=== PATIENT | male | born 1955 | race Caucasian/White ===

== ENCOUNTER → 2016-10-28 | Outpatient (CLI) | payer BC ==
[~2016-10-28] MED LIST: ASPI-435 PO; ATOR-22 PO; CIPR-255 PO; COEN1CAP17 PO; CYAN100T6 PO; DICL-201 PO; DIPH-437 PO; FLUO20CA35 PO; GLC500 PO; INSDGIPEN SC; INSDGIPEN SQ; INSU32MI13 SQ; LISI-461 PO; METF-384 PO; NVLG SQ; NVLGI/PEN SQ; SIMV10TA2 PO; TOPI25TA55 PO
--- NOTE | 2016-10-28 12:05 | DIAGNOSTIC IMAGING REPORT ---
CHEST 2 VIEWS ROUTINE HISTORY: SARCOIDOSIS COMPARISON: Chest 10/17/2013. FINDINGS: The lungs are clear. Cardiac silhouette is normal in size. No pleural effusions. No pneumothorax. Symmetric nodular densities at the lung bases are consistent with nipple shadows. This remains unchanged. There are 2 screws within the right shoulder. IMPRESSION: No acute process. Electronically signed by: Yoav Hooks M.D. 10/28/2016 12:04 PM Dictated Date/Time: 10/28/2016 12:02 PM
[2016-10-28 12:09] LABS: BASO % 0.2 %; BASO ABS # 0.01 K/uL (0-0.2); COMPLETE YES; EOS % 1.3 %; HEMATOCRIT 38.3 % (42-52); IG% 0.2 %; LYMPH % 35.1 %; LYMPH ABS # 1.93 K/uL (1.2-3.4); MEAN CELL VOLUME 85.5 fL (80-100); MEAN CORPUSCULAR HEMOGLOBIN 30.8 pg (25-34); MEAN PLATELET VOLUME 8.8 fL (7.4-10.4); MONO % 6.7 %; NEUT % 56.5 %; PLATELET COUNT 244 K/uL (130-400); RED BLOOD COUNT 4.48 M/uL (4.7-6.1)
[2016-10-28 13:55] LABS: LYME DISEASE AB IGG NEG (NEG)
[2016-10-28 13:56] LABS: LYME DISEASE AB IGM NEG (NEG)
[2016-10-29 00:13] LABS: RAPID PLASMA REAGIN NONREACTIVE (NONREACT)
[2016-10-31 20:24] LABS: HLA-B27** TC 528X NEGATIVE (NEGATIVE)
== END | disposition home or self-care (01) ==
LOC: C.RAD 11:14
PROVIDERS: ATTEND Ophthalmology
DX: H15.109 Unspecified episcleritis, unspecified eye (principal); D86.9 Sarcoidosis, unspecified

== ENCOUNTER 2017-05-14 00:50 | Emergency (ER) | payer BC ==
[~2017-05-14] VITALS: Ht 185.4 cm; Wt 111.0 kg
[~2017-05-14 00:50] MED LIST changes: -ATOR-22 PO; -COEN1CAP17 PO; -CYAN100T6 PO; -DICL-201 PO; -INSDGIPEN SC; -METF-384 PO; -NVLG SQ
[2017-05-14 00:54] VITALS: TEMP 37; Ht 185.4 cm; Wt 111.0 kg
--- NOTE | 2017-05-14 01:13 | EMERGENCY ROOM VISIT NOTE ---
History Report prepared by Pam: Sun Gagnon Under the Supervision of: Dr. Nohemi Chávez D.O. First contact with patient: 01:00 Chief Complaint: SHORTNESS OF BREATH Stated Complaint: POSSIBLE BROKEN RIBS, SOB History of Present Illness The patient is a 61 year old male who presents to the Emergency Room with complaints of worsening shortness of breath beginning 3 days ago. The patient states that 5 days ago, he had a sinus infection and was placed on doxycycline. Beginning 3 days ago, the patient reports having severe coughing attacks. Today , he reports that he has not been coughing as much, but that it is painful when he does need to cough, as he believes that he has a broken rib. He also reports that the pain has radiated to his shoulders and back. The patient denies having abdominal pain, but states that tonight he noticed discoloration on his left flank. The patient states that he takes baby aspirin daily for his diabetes. He indicates that his drive to [place] and back yesterday was his only recent travel. Source of History: patient Onset: 3 days ago Position: other (global) Quality: other (shortness of breath ) Timing: worsening Associated Symptoms: + cough, + back pain, No abdominal pain Note: additional symptom: discoloration on his right flank Review of Systems See HPI for pertinent positives & negatives. A total of 10 systems reviewed and were otherwise negative. Past Medical & Surgical Medical Problems: (1) Diabetes Surgical Problems: (1) History of appendectomy (2) History of cholecystectomy Family History Diabetes mellitus FH: cancer FH: gallbladder disease FH: heart disease Social History Smoking Status: Never Smoker Marital Status: Housing Status: lives with family Occupation Status: employed Current/Historical Medications Scheduled Aspirin (Aspirin 81), 81 MG PO DAILY Atorvastatin (Lipitor), 20 MG PO DAILY Coenzyme Q10 (Ubidecarenone) (Co Q 10), 1,000 MG PO DAILY Cyanocobalamin (Vitamin B12 100 Mcg), 400 MCG PO DAILY Diclofenac (Voltaren), 75 MG PO BID Fluoxetine (Prozac), 20 MG PO QAM Insulin Aspart (Novolog), SQ AC Insulin Glargine (Lantus Solostar), 40 UNITS SC QPM Lisinopril (Zestril), 10 MG PO QAM Metformin Hcl (Glucophage), 1,000 MG PO BID Topiramate (Topamax), 25 MG PO BID Allergies Coded Allergies: BEE STING (Verified Allergy, Severe, SWELLING,SOB, 02/26/15) Penicillins (Verified Allergy, Unknown, unknown, 02/26/15) Physical Exam Vital Signs Date Time Temp Pulse Resp B/P (MAP) Pulse Ox O2 Delivery O2 Flow Rate FiO2 05/14/17 02:05 106 13 119/73 96 Room Air 05/14/17 01:45 97 Room Air 05/14/17 01:40 116 17 117/70 96 Room Air 05/14/17 01:40 97 Room Air 05/14/17 00:54 37.0 126 32 119/72 96 Room Air Physical Exam General: Patient is significantly tachypneic and uncomfortable. HEENT: Head - normocephalic and atraumatic Pupils are equal, round, and reactive to light. Extraocular eye muscles are intact, and sclera are anicteric. Nose - moist nasal mucosa without discharge. Mouth - moist buccal mucosa. Oropharynx is nonerythematous and there is no tonsillar exudate or edema noted. Neck: Supple; no JVD, nuchal rigidity, cervical lymphadenopathy, or auscultated bruits. Heart: Tachycardic and regular rhythm. There is a normal S1 and S2 with no murmurs, clicks, or gallops appreciated. Lungs: Clear to auscultation bilaterally with no wheezes, rales, or rhonchi. Chest: Ecchymosis over left mid-axillary line. Abdomen: Soft, completely nontender, nondistended, with good bowel sounds. There are no palpable pulsatile masses or hepatosplenomegaly. There is no guarding, rigidity, or rebound noted. Extremities: No evidence of cyanosis, clubbing, or edema. There are easily palpable peripheral pulses. Skin: warm and dry with good turgor and no rashes. Medical Decision & Procedures ER Provider Diagnostic Interpretation: Portable Chest X-ray: No cardiomegaly. No obvious pneumothorax. Radiology results as stated below per statrad. CTA CHEST: No pulmonary embolus identified. Small left pleural effusion. Dependent atelectasis bilaterally. Screws noted in the right glenoid. Degenerative changes of the right shoulder. No acute fractures. Coronary artery calcifications. Mild bilateral gynecomastia. Left renal cysts. Tiny splenule. Thin peripheral calcification in the spleen. Laboratory Results 05/14/17 01:20 Red Blood Count 4.30, Mean Corpuscular Volume 87.9, Mean Corpuscular Hemoglobin 30.9, Mean Corpuscular Hemoglobin Concent 35.2, Mean Platelet Volume 8.9, Neutrophils (%) (Auto) 68.4, Lymphocytes (%) (Auto) 22.4, Monocytes (%) (Auto) 7.3, Eosinophils (%) (Auto) 0.8, Basophils (%) (Auto) 0.2, Neutrophils # (Auto) 8.52, Lymphocytes # (Auto) 2.79, Monocytes # (Auto) 0.91, Eosinophils # (Auto) 0.10, Basophils # (Auto) 0.02 05/14/17 01:20 Test 05/14/17 01:20 White Blood Count 12.45 K/uL (4.8-10.8) Red Blood Count 4.30 M/uL (4.7-6.1) Hemoglobin 13.3 g/dL (14.0-18.0) Hematocrit 37.8 % (42-52) Mean Corpuscular Volume 87.9 fL (80-100) Mean Corpuscular Hemoglobin 30.9 pg (25-34) Mean Corpuscular Hemoglobin Concent 35.2 g/dl (32-36) Platelet Count 288 K/uL (130-400) Mean Platelet Volume 8.9 fL (7.4-10.4) Neutrophils (%) (Auto) 68.4 % Lymphocytes (%) (Auto) 22.4 % Monocytes (%) (Auto) 7.3 % Eosinophils (%) (Auto) 0.8 % Basophils (%) (Auto) 0.2 % Neutrophils # (Auto) 8.52 K/uL (1.4-6.5) Lymphocytes # (Auto) 2.79 K/uL (1.2-3.4) Monocytes # (Auto) 0.91 K/uL (0.11-0.59) Eosinophils # (Auto) 0.10 K/uL (0-0.5) Basophils # (Auto) 0.02 K/uL (0-0.2) RDW Standard Deviation 47.5 fL (36.4-46.3) RDW Coefficient of Variation 15.0 % (11.5-14.5) Immature Granulocyte % (Auto) 0.9 % Immature Granulocyte # (Auto) 0.11 K/uL (0.00-0.02) Prothrombin Time 10.3 SECONDS (9.0-12.0) Prothromb Time International Ratio 1.0 (0.9-1.1) Activated Partial Thromboplast Time 25.2 SECONDS (21.0-31.0) Partial Thromboplastin Ratio 1.0 Anion Gap 9.0 mmol/L (3-11) Est Creatinine Clear Calc Drug Dose 73.3 ml/min Estimated GFR () 62.8 Estimated GFR (Non- 54.2 BUN/Creatinine Ratio 20.7 (10-20) Calcium Level 8.1 mg/dl (8.5-10.1) Total Bilirubin 0.7 mg/dl (0.2-1) Aspartate Amino Transf (AST/SGOT) 26 U/L (15-37) Alanine Aminotransferase (ALT/SGPT) 36 U/L (12-78) Alkaline Phosphatase 122 U/L (45-117) Troponin I < 0.015 ng/ml (0-0.045) Total Protein 7.7 gm/dl (6.4-8.2) Albumin 3.8 gm/dl (3.4-5.0) Globulin 3.9 gm/dl (2.5-4.0) Albumin/Globulin Ratio 1.0 (0.9-2) Laboratory results per my review. Medications Administered Medications (Trade) Dose Ordered Sig/Sulma Route Start Time Stop Time Status Last Admin Dose Admin Ketorolac Tromethamine (Toradol Inj) 30 mg NOW STAT IV 05/14/17 01:17 05/14/17 01:20 DC 05/14/17 01:40 30 MG Sodium Chloride 500 ml @ 999 mls/hr Q31M STAT IV 05/14/17 02:26 05/14/17 02:56 DC 05/14/17 02:28 999 MLS/HR Sodium Chloride 1,000 ml @ 250 mls/hr Q4H STAT IV 05/14/17 02:26 05/14/17 04:40 DC 05/14/17 02:26 250 MLS/HR Procedure Toradol Inj 30 mg IV. Sodium Chloride 1,000 ml @ 250 mls/hr IV Sodium Chloride 500 ml @ 999 mls/hr IV ECG Indication: SOB/dyspnea Rate (beats per minute): 105 Rhythm: sinus tachycardia Findings: other (flattened T waves in lateral leads which are new) ED Course 0107: Past medical records reviewed. The patient was evaluated in room B12. A complete history and physical exam was performed. An IV lock was initiated and labs were drawn as above 0117: Ordered Toradol Inj 30 mg IV. The patient had a twelve-lead EKG and chest x-ray as described above. The patient will go for CT scan of the chest. 0226: Ordered Sodium Chloride 1,000 ml @ 250 mls/hr IV, Sodium Chloride 500 ml @ 999 mls/hr IV. 0330: The patient is feeling much more comfortable. 0350: Upon reevaluation, the patient is resting. I discussed findings and results with him. He verbalized agreement of the treatment plan. He was discharged home. Medical Decision The patient is a 57 year old male who presents to the ED with shortness of breath and left rib cage pain. Differential diagnosis includes rib fracture, pleural effusion, hemothorax, pneumothorax, pneumonia, and a pulmonary effusion. Labs: WBC 12.4 Hemoglobin 13.3 Normal platelets Glucose 292 BUN 29 Creatinine 1.4 LFTs are normal Negative troponin Normal coags This is a 61-year-old male patient who described as being ill over the past couple days with a significant cough. The patient states that he coughs so hard earlier in the week that he felt as if he may have broken a rib in the left side of his chest. He then noticed an area of ecchymosis over the left mid axillary line and became more concerned. CT scan the chest shows a small left-sided pleural effusion. There is no evidence of PE or pulmonary consolidation. A portable chest x-ray was performed and showed no evidence of a pneumo or hemothorax. The patient had significant relief of discomfort after receiving IV Toradol. The patient was encouraged to follow-up with his PCP with regards to the subtle EKG changes and to look for resolution of this left- sided pleural effusion. Medication Reconcilliation Current Medication List: was personally reviewed by me Blood Pressure Screening Patient's blood pressure: Normal blood pressure Impression Primary Impression: Left-sided chest wall pain Scribe Attestation The scribe's documentation has been prepared under my direction and personally reviewed by me in its entirety. I confirm that the note above accurately reflects all work, treatment, procedures, and medical decision making performed by me. Departure Information Dispostion Home / Self-Care Referrals Evan Zapata D.O. (PCP) Forms HOME CARE DOCUMENTATION FORM, IMPORTANT VISIT INFORMATION Patient Instructions My [facility]
[2017-05-14] MEDS ORDERED: KETOROLAC TROMETHAMINE 30 MG/ML VIAL IV STA (01:17)
[2017-05-14] MEDS ORDERED: OPTIRAY 320 IV PRN (01:30)
[2017-05-14 01:36] LABS: BASO % 0.2 %; BASO ABS # 0.02 K/uL (0-0.2); COMPLETE YES; EOS % 0.8 %; HEMATOCRIT 37.8 % (42-52); IG% 0.9 %; LYMPH % 22.4 %; LYMPH ABS # 2.79 K/uL (1.2-3.4); MEAN CELL VOLUME 87.9 fL (80-100); MEAN CORPUSCULAR HEMOGLOBIN 30.9 pg (25-34); MEAN CORPUSCULAR HGB CONC 35.2 g/dl (32-36); MEAN PLATELET VOLUME 8.9 fL (7.4-10.4); MONO % 7.3 %; NEUT % 68.4 %; PLATELET COUNT 288 K/uL (130-400); WHITE BLOOD COUNT 12.45 K/uL (4.8-10.8)
[2017-05-14 01:40] VITALS: O2SAT 97
[2017-05-14 01:49] LABS: PROTHROMBIN TIME (PATIENT) 10.3 SECONDS (9.0-12.0)
[2017-05-14 02:05] VITALS: BP 119/73; PULSE 106; O2SAT 96
[2017-05-14 02:11] LABS: ALKALINE PHOSPHATASE 122 U/L (45-117); AST/SGOT 26 U/L (15-37); BLOOD UREA NITROGEN 29 mg/dl (7-18); BUN/CREATININE RATIO 20.7 (10-20); CALCIUM 8.1 mg/dl (8.5-10.1); CARBON DIOXIDE 23 mmol/L (21-32); CHLORIDE 106 mmol/L (98-107); POTASSIUM 4.5 mmol/L (3.5-5.1); SODIUM 138 mmol/L (136-145)
[2017-05-14] MEDS ORDERED: METF-384 PO (02:13)
[2017-05-14] MEDS ORDERED: ATOR-22 PO (02:14)
[2017-05-14] MEDS ORDERED: DICL-201 PO (02:18)
[2017-05-14 02:19] LABS: GLUCOSE 292 mg/dl (70-99)
[2017-05-14] MEDS ORDERED: CYAN100T6 PO (02:20)
[2017-05-14] MEDS ORDERED: NVLG SQ (02:22)
[2017-05-14] MEDS ORDERED: INSDGIPEN SC (02:23)
[2017-05-14 02:24] LABS: ALT/SGPT 36 U/L (12-78)
[2017-05-14] MEDS ORDERED: SODIUM CHLORIDE 0.9% 500ML 500 ML IV STA (02:26)
[2017-05-14] MEDS ORDERED: SODIUM CHLORIDE 0.9% 1000ML 1,000 ML IV STA (02:26)
[2017-05-14] MEDS ORDERED: COEN1CAP17 PO (02:26)
--- NOTE | 2017-05-14 06:42 | DIAGNOSTIC IMAGING REPORT ---
(CHEST FOR PE) ANGIO WITH CT DOSE: 1722.53 mGy.cm HISTORY: Chest pain dyspnea TECHNIQUE: Multiaxial CT images of the chest were performed following the intravenous administration of contrast to evaluate the pulmonary arteries. Maximal intensity projection images were also obtained. A dose lowering technique was utilized adhering to the principles of ALARA. COMPARISON STUDY: None. FINDINGS: There is a normal caliber thoracic aorta with no evidence for dissection. There is no evidence for pulmonary embolus. No pleural effusions. No pneumothorax. The liver and spleen are unremarkable. No mediastinal or hilar lymphadenopathy. The central airways are patent. The lungs demonstrate bibasilar atelectatic change with a small left effusion. Small left renal cyst. Mild capsular calcification of the spleen IMPRESSION: No evidence for pulmonary embolus. Small left pleural effusion. Bibasilar atelectasis. The above report was generated using voice recognition software. It may contain grammatical, syntax or spelling errors. Electronically signed by: Maninder Rodriguez M.D. 05/14/2017 6:41 AM Dictated Date/Time: 05/14/2017 6:38 AM
--- NOTE | 2017-05-14 07:18 | DIAGNOSTIC IMAGING REPORT ---
SINGLE VIEW CHEST CLINICAL HISTORY: Atypical left-sided chest pain. FINDINGS: An AP, portable, upright chest radiograph is compared to study dated 10/28/2016. The examination is degraded by portable technique and patient rotation. The cardiomediastinal heart is top normal for projection. The pulmonary vasculature is noncongested. There is mild elevation of the left hemidiaphragm with left basilar atelectasis. No airspace consolidation is seen typical for pneumonia and there is no large pleural effusion. No pneumothorax is seen. The skeletal structures are osteopenic. Degenerative change is noted throughout the thoracic spine. Postoperative change is noted in the right shoulder. IMPRESSION: No acute cardiopulmonary abnormality. Electronically signed by: Mando Gomez M.D. 05/14/2017 7:17 AM Dictated Date/Time: 05/14/2017 7:15 AM
== END 2017-05-14 04:15 | disposition home or self-care (01) ==
LOC: C.EDB 00:52
DX: R07.89 Other chest pain (principal); E11.9 Type 2 diabetes mellitus without complications; Z83.3 Family history of diabetes mellitus; Z83.79 Family history of other diseases of the digestive system; Z80.9 Family history of malignant neoplasm, unspecified; Z82.49 Family history of ischemic heart disease and other diseases of the circulatory system; Z79.82 Long term (current) use of aspirin; Z79.4 Long term (current) use of insulin; Z79.899 Other long term (current) drug therapy

== ENCOUNTER → 2017-06-15 | Outpatient (CLI) | payer BC ==
[~2017-06-15] MED LIST changes: +ATOR-22 PO; -CIPR-255 PO; +COEN1CAP17 PO; +CYAN100T6 PO; +DICL-201 PO; -DIPH-437 PO; -GLC500 PO; +INSDGIPEN SC; -INSDGIPEN SQ; -INSU32MI13 SQ; +METF-384 PO; +NVLG SQ; -NVLGI/PEN SQ; -SIMV10TA2 PO
[2017-06-15 11:25] LABS: ALT/SGPT 36 U/L (12-78); BLOOD UREA NITROGEN 36 mg/dl (7-18); BUN/CREATININE RATIO 21.8 (10-20); CALCIUM 8.3 mg/dl (8.5-10.1); CARBON DIOXIDE 24 mmol/L (21-32); CHLORIDE 107 mmol/L (98-107); CREATININE 1.65 mg/dl (0.60-1.40); GLUCOSE 140 mg/dl (70-99); POTASSIUM 4.2 mmol/L (3.5-5.1); SODIUM 138 mmol/L (136-145)
[2017-06-15 11:26] LABS: ESTIMATED AVERAGE GLUCOSE 180 mg/dl; HA1C FLAG Normal (Normal)
[2017-06-15 11:36] LABS: ALKALINE PHOSPHATASE 105 U/L (45-117); AST/SGOT 23 U/L (15-37); CHOLESTEROL 106 mg/dl (0-200); CHOLESTEROL/HDL RATIO 4.6; HDL CHOLESTEROL 23 mg/dl; LDL CHOLESTEROL CALCULATED 40 mg/dl; THYROID STIMULATING HORMONE 0.833 uIu/ml (0.300-4.500); TRIGLYCERIDES 215 mg/dl (0-150); VERY LOW DENSITY LIPOPROT CALC 43 mg/dl
[2017-06-15 11:41] LABS: RATIO 12.9 mcg/mg (0-30.0)
== END | disposition home or self-care (01) ==
LOC: C.LABBC 08:50
PROVIDERS: ATTEND Physician Assistant
DX: I10 Essential (primary) hypertension (principal); E11.9 Type 2 diabetes mellitus without complications

== ENCOUNTER → 2017-06-22 | Outpatient (CLI) | payer BC ==
[2017-06-22 13:07] LABS: BASO % 0.3 %; BASO ABS # 0.02 K/uL (0-0.2); COMPLETE YES; EOS % 1.2 %; HEMATOCRIT 38.5 % (42-52); IG% 1.2 %; LYMPH % 32.4 %; LYMPH ABS # 2.11 K/uL (1.2-3.4); MEAN CELL VOLUME 85.9 fL (80-100); MEAN CORPUSCULAR HEMOGLOBIN 29.5 pg (25-34); MEAN CORPUSCULAR HGB CONC 34.3 g/dl (32-36); MEAN PLATELET VOLUME 9.2 fL (7.4-10.4); MONO % 7.4 %; NEUT % 57.5 %; PLATELET COUNT 260 K/uL (130-400); RED BLOOD COUNT 4.48 M/uL (4.7-6.1); WHITE BLOOD COUNT 6.52 K/uL (4.8-10.8)
[2017-06-22 14:00] LABS: BLOOD UREA NITROGEN 19 mg/dl (7-18); BUN/CREATININE RATIO 15.1 (10-20); CARBON DIOXIDE 26 mmol/L (21-32); CHLORIDE 106 mmol/L (98-107); CREATININE 1.23 mg/dl (0.60-1.40); GLUCOSE 216 mg/dl (70-99); POTASSIUM 4.6 mmol/L (3.5-5.1); SODIUM 139 mmol/L (136-145)
== END | disposition home or self-care (01) ==
LOC: C.LAB1850 10:31
PROVIDERS: ATTEND Physician Assistant
DX: R79.89 Other specified abnormal findings of blood chemistry (principal); E11.9 Type 2 diabetes mellitus without complications; N28.9 Disorder of kidney and ureter, unspecified

== ENCOUNTER → 2017-09-02 | Outpatient (CLI) | payer BC ==
[2017-09-02 17:30] LABS: BLOOD UREA NITROGEN 37 mg/dl (7-18); CALCIUM 9.9 mg/dl (8.5-10.1); CARBON DIOXIDE 26 mmol/L (21-32); CREATININE 1.53 mg/dl (0.60-1.40); GLUCOSE 236 mg/dl (70-99); POTASSIUM 4.3 mmol/L (3.5-5.1); SODIUM 137 mmol/L (136-145)
[2017-09-03 06:14] LABS: HEMOGLOBIN A1C 8.8 % (4.5-5.6)
== END | disposition home or self-care (01) ==
LOC: C.LABBC 12:35
PROVIDERS: ATTEND Physician Assistant
DX: E11.9 Type 2 diabetes mellitus without complications (principal); N28.9 Disorder of kidney and ureter, unspecified

== ENCOUNTER → 2017-09-24 | Outpatient (CLI) | payer BC ==
[2017-09-24 15:13] LABS: ALBUMIN 4.4 gm/dl (3.4-5.0); BLOOD UREA NITROGEN 25 mg/dl (7-18); CALCIUM 10.1 mg/dl (8.5-10.1); CARBON DIOXIDE 23 mmol/L (21-32); CREATININE 1.35 mg/dl (0.60-1.40); GLUCOSE 130 mg/dl (70-99); PHOSPHORUS 4.1 mg/dl (2.5-4.9); POTASSIUM 4.4 mmol/L (3.5-5.1); SODIUM 138 mmol/L (136-145)
== END | disposition home or self-care (01) ==
LOC: C.LAB1850 13:56
PROVIDERS: ATTEND Internal Medicine Nephrology
DX: N18.3 Chronic kidney disease, stage 3 (moderate) (principal)

== ENCOUNTER → 2017-11-10 | Outpatient (CLI) | payer BC | END | disposition home or self-care (01) | LOC: C.LABSPEC 17:08 | PROVIDERS: ATTEND Physician Assistant | DX: L73.9 Follicular disorder, unspecified (principal) ==

== ENCOUNTER 2017-12-15 04:50 | Inpatient (IN) | payer BC ==
[2017-12-10 08:45] VITALS: BMI 32.0
--- NOTE | 2017-12-10 09:45 | DIAGNOSTIC IMAGING REPORT ---
CHEST 2 VIEWS ROUTINE CLINICAL HISTORY: PAT preoperative evaluation COMPARISON STUDY: 05/14/2017 FINDINGS: The bones soft tissues and hemidiaphragms are normal. The cardiomediastinal silhouette is normal. The lungs are clear. The pulmonary vasculature is normal. IMPRESSION: Negative chest. The above report was generated using voice recognition software. It may contain grammatical, syntax or spelling errors. Electronically signed by: Maninder Rodriguez M.D. 12/10/2017 9:44 AM Dictated Date/Time: 12/10/2017 9:44 AM
[2017-12-10 10:01] LABS: BASO % 0.2 %; BASO ABS # 0.01 K/uL (0-0.2); EOS % 1.4 %; EOS ABS # 0.08 K/uL (0-0.5); HEMATOCRIT 40.7 % (42-52); IG# 0.02 K/uL (0.00-0.02); LYMPH ABS # 1.66 K/uL (1.2-3.4); MEAN CELL VOLUME 84.3 fL (80-100); MEAN CORPUSCULAR HGB CONC 34.4 g/dl (32-36); MONO % 7.4 %; MONO ABS # 0.44 K/uL (0.11-0.59); NEUT % 62.7 %; NEUT ABS # 3.71 K/uL (1.4-6.5); PLATELET COUNT 218 K/uL (130-400); RED CELL DISTRIBUTION WIDTH CV 14.2 % (11.5-14.5); RED CELL DISTRIBUTION WIDTH SD 43.5 fL (36.4-46.3); WHITE BLOOD COUNT 5.92 K/uL (4.8-10.8)
[2017-12-10 10:13] LABS: CREATININE 1.13 mg/dl (0.60-1.40); POTASSIUM 4.3 mmol/L (3.5-5.1)
[2017-12-10 10:18] LABS: INR 1.1 (0.9-1.1)
--- NOTE | 2017-12-12 13:54 | HISTORY & PHYSICAL EXAMINATION ---
DATE OF ADMISSION: 12/15/2017 CHIEF COMPLAINT: Bilateral hip pain and discomfort, left side greater than right. HISTORY OF PRESENT ILLNESS: Patient is a 62-year-old gentleman who now presents for surgical treatment of his left hip. I have been treating him conservatively for hip bursitis and arthritis symptoms for many years. We were putting shots in the hip area which seemed to help him initially. This became less successful over time. He has developed some kidney issues and had to stop his anti-inflammatories and his pain has gotten significantly worse. He describes groin pain, thigh pain and that radiating down to his knee. Denies any numbness. He has been pretty miserable since he has had to stop his NSAIDs and he would now like to consider surgery. He is open to do the left hip and maybe the right one 3 months later. PAST MEDICAL HISTORY: 1. Diabetes 6-7 years. 2. Elevated cholesterol. 3. Gastroesophageal reflux disease. 4. Mild obesity with a BMI of 32. 5. History of pancreatitis at age 20. 6. History of hepatitis. PAST SURGICAL HISTORY: 1. Shoulder surgery. 2. Cholecystectomy. 3. Appendectomy. 4. Herniorrhaphy. ALLERGIES: 1. PENICILLIN WITH REACTION UNKNOWN. He said this one was when he was a kid. 2. BEE STINGS. CURRENT MEDICINES: 1. Metformin 1000 mg twice a day. 2. Atorvastatin 20 mg a day. 3. Topiramate 25 mg twice a day. 4. Lisinopril 10 mg a day. 5. NovoLog and Lantus insulin. 6. Fluoxetine 20 mg. 7. Aspirin 81 mg twice a day. 8. Coenzyme Q once a day. 9. Vitamin B12. 10. Multivitamin. SOCIAL HISTORY: A 62-year-old male. 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 He is . 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 He does not smoke. No significant alcohol intake. FAMILY HISTORY: Noncontributory. REVIEW OF SYSTEMS: Significant for diabetes. Denies any chest pain or shortness of breath. No history of DVT or PE. He does have this underlying kidney issue and limited with NSAID use. PHYSICAL EXAMINATION: GENERAL: Shows pleasant, middle-aged male. HEENT: Benign. NECK: Supple. No lymphadenopathy. LUNGS: Clear to auscultation. HEART: Regular rate and rhythm. ABDOMEN: Soft, nontender, nondistended. EXTREMITIES: Grossly neurovascularly intact except as follows: Examination of both hips reveal patient walks with a markedly antalgic gait. He limps a little bit more on the left side than the right. Leg lengths appear clinically equal. He has got pain with any type of hip motion on either side, particularly internal rotation. Negative straight leg raise on both sides. Internal rotation is to neutral at best. X-RAYS: X-rays of both hips show advanced bilateral hip DJD. The left side is worse than the right. There is complete loss of his joint space, not a lot of osteophyte formation. ASSESSMENT: A 62-year-old male, diabetic gentleman with advanced hip degenerative joint disease. He has failed conservative treatment, the left side is worse than the right. PLAN: We are going to take him to the operating room and do a left total hip replacement. The risks and benefits of this procedure were explained to the patient including but not limited to DVT, PE, , infection, neurological injury, vascular injury, bleeding problem, pain, limited range of motion, stiffness, fracture, leg length inequality, nerve palsy, dislocation, need for revision surgery, etc. The patient understands and desires to proceed. Informed consent was obtained. We did talk to him about holding his metformin and lisinopril the morning of surgery. His creatinine is in the normal range, but just on the upper range. We will be careful with Toradol use postop and will likely use it and just monitor his kidney function. He should be able to be discharged to home with some home health and his spouse assistance and his sister, I believe, is going to come in from out of town to stay with him.
[~2017-12-15] VITALS: Ht 182.9 cm; Wt 107.0 kg
[2017-12-15] VITALS (9 sets, daily range): BP systolic 108–128; BP diastolic 69–81; PULSE 77–98; TEMP 36.4–36.9; O2SAT 95–99; Ht 182.9 cm; Wt 107.0 kg
[~2017-12-15 04:50] MED LIST changes: +ASPI-390 PO; +CALC500C3 PO; +CYAN100028 PO; -CYAN100T6 PO; -DICL-201 PO; +MULT-506 PO
[2017-12-15] MEDS ORDERED: TRANEXAMIC ACID INJ 1,000 MG x 1 Bag Preop IV SCH ×2 (06:00)
[2017-12-15] MEDS ORDERED: METOCLOPRAMIDE HCL 10 MG TAB PO SCH (06:00)
[2017-12-15] MEDS ORDERED: CEFAZOLIN 2000MG IV PUSH 15 ML IV SCH (06:00)
[2017-12-15] MEDS ORDERED: LACTATED RINGER'S 1000ML 1,000 ML IV SCH (06:00)
[2017-12-15] MEDS ORDERED: SCOPOLAMINE 1.5 MG TDSY TD SCH (06:00)
[2017-12-15] MEDS ORDERED: LACTATED RINGER'S 1000ML IV SCH (06:00)
[2017-12-15] MEDS ORDERED: FAMOTIDINE 20 MG TAB PO SCH (06:00)
[2017-12-15] MEDS ORDERED: GABAPENTIN 600 MG PO SCH (06:00)
[2017-12-15] MEDS ORDERED: ACETAMINOPHEN 500 MG TAB PO SCH (06:00)
[2017-12-15] MEDS ORDERED: LACTATED RINGER'S 1000ML 500 ML IV SCH (06:00)
[2017-12-15] MEDS ORDERED: BUPIVACAINE 0.5 % 5 MG/1 ML PF 10ML VIAL ONE (06:27)
[2017-12-15] MEDS ORDERED: BACITRACIN 50000 UNIT VIAL ONE (06:36)
[2017-12-15] MEDS ORDERED: BUPIVACAINE/EPINEPHRINE 0.5% MPF 1:200,000 30 ML VIAL ONE (06:36)
[2017-12-15] MEDS ORDERED: MIDAZOLAM HCL 1 MG/ML 2ML VIAL ONE (06:39)
--- NOTE | 2017-12-15 06:43 | History & Physical Bridge Note ---
H&P Re-Evaluation Bridge Note: I have examined the patient, reviewed the History & Physical and in the interval since the performance of the History & Physical I have noted the following changes of clinical significance: No changes noted
[2017-12-15] MEDS ORDERED: INSULIN HUMAN REGULAR PER UNIT 4 UNITS in SYRINGE 0 ML IV STA (06:51)
[2017-12-15] MEDS ORDERED: NovoLIN-R INSULIN PER UNIT CHARGE ONE (06:51)
[2017-12-15] MEDS ORDERED: HYDROmorphone INJ 2 MG/ML SYR/VIAL IV PRN (07:45)
[2017-12-15] MEDS ORDERED: ONDANSETRON INJ 2 MG/ML 2 ML VIAL IV PRN ×2 (07:45→08:30)
[2017-12-15] MEDS ORDERED: ATROPINE SULFATE 0.1 MG/ML 5ML SYR IV PRN (07:45)
[2017-12-15] MEDS ORDERED: EpHEDrine SULFATE INJ 50 MG/ML AMP IV PRN (07:45)
[2017-12-15] MEDS ORDERED: FENTANYL CITRATE INJ 50 MCG/1 ML 2 ML VIAL IV PRN (07:45)
[2017-12-15] MEDS ORDERED: PROPOFOL IV EMULSION 10 MG/ML 20 ML VIAL IV ONE (07:46)
[2017-12-15] MEDS ORDERED: LIDOCAINE HCL 2% 2 ML VIAL (20MG/ML) ONE (07:46)
--- NOTE | 2017-12-15 08:28 | [facility] Post Operative Brief Note ---
Immediate Operative Summary Operative Date Dec 15, 2017. Pre-Operative Diagnosis Left Hip Advanced Degenerative Joint Disease Post-Operative Diagnosis Left Hip Advanced Degenerative Joint Disease Procedure(s) Performed Left Total Hip Arthroplasty--Uncemented Surgeon Dr. Mckenzie Bicycle Messenger Surgeon(s) SAPNA Lawrence Estimated Blood Loss 300 ml Findings Consistent with Post-Op Diagnosis Fluids (cc crystalloids) 1500 cc Specimens A. Left Femoral Head Drains None Anesthesia Type Spinal MAC Complication(s) none Disposition Accompanied Pt To Recover: yes Disposition: Recovery Room / PACU
[2017-12-15] MEDS ORDERED: SILVER SULFADIAZINE 1% CR 50 GM JAR EXT PRN (08:30)
[2017-12-15] MEDS ORDERED: BISACODYL 10 MG SUPP PR PRN (08:30)
[2017-12-15] MEDS ORDERED: MAGNESIUM HYDROXIDE SUSP 30 ML UDC PO PRN (08:30)
[2017-12-15] MEDS ORDERED: TAMSULOSIN HCL 0.4 MG CAP PO PRN (08:30)
[2017-12-15] MEDS ORDERED: METOCLOPRAMIDE HCL INJ 5 MG/ML 2 ML VIAL IV PRN (08:30)
[2017-12-15] MEDS ORDERED: ALUMINUM/MAGNESIUM/SIMETH (MAALOX MAX) 30 ML UDC PO PRN (08:30)
[2017-12-15] MEDS ORDERED: ZOLPIDEM TARTRATE 5 MG TAB PO PRN (08:30)
[2017-12-15] MEDS ORDERED: CALCIUM CARBONATE 500 MG CHEWABLE PO PRN (08:30)
[2017-12-15] MEDS ORDERED: DiphenhydrAMINE HCL 50 MG/ML VIAL IV PRN (08:30)
[2017-12-15] MEDS ORDERED: NON-FORMULARY MEDICATION (Coenzyme Q10 (Ubidecarenone) (Co Q 10) 100 MG) PO SCH (09:00)
[2017-12-15] MEDS ORDERED: ASPIRIN 81 MG ECTAB PO SCH (09:00)
[2017-12-15] MEDS ORDERED: MULTIVITAMIN TAB PO SCH (09:00)
--- NOTE | 2017-12-15 09:10 | DIAGNOSTIC IMAGING REPORT ---
L PELVIS/UNILATERAL HIP 1 VIEW CLINICAL HISTORY: Postoperative evaluation. COMPARISON: Pelvis and hip radiographs November 30, 2017. FINDINGS: Alignment of the total left hip arthroplasty is anatomic. [address] are in place. There is no periprosthetic fracture or unexpected radiopaque foreign body. Moderate to severe arthritis of the right hip is noted. IMPRESSION: Expected findings following total left hip arthroplasty. Electronically signed by: Kishan Gonzalez M.D. 12/15/2017 9:08 AM Dictated Date/Time: 12/15/2017 9:07 AM
--- NOTE | 2017-12-15 09:23 | Anesthesiology Progress Note ---
Anesthesia Post Op Note Date & Time Dec 15, 2017 at 09:22 Vital Signs Pain Intensity: 0 Vital Signs Past 12 Hours Date Time Temp Pulse Resp B/P (MAP) Pulse Ox O2 Delivery O2 Flow Rate FiO2 12/15/17 09:16 36.5 112/64 12/15/17 09:15 78 12/15/17 09:15 77 18 100 12/15/17 09:11 107/67 12/15/17 09:10 82 11 12/15/17 09:10 79 11 100 12/15/17 09:06 107/61 12/15/17 09:05 81 18 98 12/15/17 09:05 82 18 12/15/17 09:01 106/66 12/15/17 09:00 76 12 12/15/17 09:00 75 12 99 12/15/17 08:56 102/63 12/15/17 08:55 82 14 99 12/15/17 08:55 81 14 12/15/17 08:54 116/66 12/15/17 08:50 77 14 12/15/17 08:50 78 14 100 12/15/17 08:47 121/41 12/15/17 08:45 81 12 12/15/17 08:45 81 12 99 12/15/17 08:41 114/68 12/15/17 08:40 83 14 12/15/17 08:40 82 14 98 12/15/17 08:36 97/67 12/15/17 08:35 84 21 98 12/15/17 08:35 83 21 12/15/17 08:31 115/71 12/15/17 08:30 91 21 12/15/17 08:30 93 21 99 12/15/17 08:29 106/70 12/15/17 08:25 36.5 88 16 108/70 98 Nasal Cannula 3 12/15/17 05:43 36.7 95 20 126/81 97 Room Air Notes Mental Status: alert / awake / arousable, participated in evaluation Pt Amnestic to Procedure: Yes Nausea / Vomiting: adequately controlled Pain: adequately controlled Airway Patency, RR, SpO2: stable & adequate BP & HR: stable & adequate Hydration State: stable & adequate Neuraxial Anesthesia: was administered, sensory block is resolving Anesthetic Complications: no major complications apparent
[2017-12-15] MEDS: SODIUM CHLORIDE 0.9% 1000ML 1,000 ML IV SCH ×3 (10:05→18:44)
[2017-12-15] MEDS ORDERED: GLUCAGON FOR INJ 1 MG VIAL SQ PRN (10:30)
[2017-12-15] MEDS ORDERED: GLUCOSE 10 TABS/TUBE PO PRN (10:30)
[2017-12-15] MEDS ORDERED: GLUCOSE 40% GEL 15 GM TUBE PO PRN (10:30)
[2017-12-15] MEDS ORDERED: DEXTROSE 50% 50 ML SYR IV PRN (10:30)
[2017-12-15] MEDS: DOCUSATE SODIUM 100 MG CAP PO SCH ×2 (11:44→21:57)
[2017-12-15] MEDS: LISINOPRIL 10 MG TAB PO SCH (11:44)
[2017-12-15] MEDS: MULTIVITAMIN TAB PO SCH (11:45)
[2017-12-15] MEDS: FERROUS GLUCONATE 324 MG TAB PO SCH ×2 (11:45→18:41)
[2017-12-15] MEDS: CYANOCOBALAMIN 500 MCG TAB (VIT B-12) PO SCH (11:45)
[2017-12-15] MEDS: ATORVASTATIN 20 MG TAB PO SCH (11:46)
[2017-12-15] MEDS: PANTOprazole SOD 40 MG TAB PO SCH (11:46)
[2017-12-15] MEDS: KETOROLAC TROMETHAMINE 15 MG/ML VIAL IV. SCH ×2 (11:47→18:44)
--- NOTE | 2017-12-15 12:03 | OPERATIVE REPORT ---
DATE OF OPERATION: 12/15/2017 SURGEON: Fazal Mckenzie MD STAFF RESEARCH ASSOCIATE: SAPNA Cisneros PREOPERATIVE DIAGNOSIS: Left hip degenerative joint disease. POSTOPERATIVE DIAGNOSIS: Same. PROCEDURE PERFORMED: Left cemented posterior stabilized total knee arthroplasty. COMPLICATIONS: None. ESTIMATED BLOOD LOSS: 300 mL. FLUID REPLACEMENT: 1500 mL crystalloid fluid replacement. ANESTHESIA: Spinal. DRAINS: None. SPECIMENS: Left femoral head sent for pathology. OPERATIVE INDICATIONS: The patient is a 62-year-old diabetic gentleman who has had a long history of bilateral hip pain and discomfort, left side greater than right. I have been following for the past several years, treating with injections and oral medicines. He developed some kidney issues and could not take NSAIDs anymore, his pain got significantly more unbearable. He failed conservative treatment. X-rays show progressive hip arthritis. He elected to proceed with left total hip arthroplasty. OPERATIVE FINDINGS: Operative findings revealed advanced left hip DJD. He had grade 4 bone on bone disease of the femoral head and acetabulum. Did not have a lot of osteophytes. He had a moderate joint effusion and moderate synovitis. OPERATIVE IMPLANTS: Operative implants consisted of: 1. Biomet G7 size 54 mm acetabular shell. 2. A 6.5 cancellous acetabular screws, 1 at 35 mm length and 1 at 30 mm length. 3. An apex hole eliminator. 4. Highly cross-linked polyethylene liner with a 54 mm outer diameter and 36 mm inner diameter. 5. DePuy size 12 KLA/coxa vera Corail femoral stem. 5. A +8.5/36 mm ceramic articular ball. OPERATIVE PROCEDURE: The patient was taken to the operating room, identified and placed on the operating room table in supine position. All contact areas were appropriately padded. IV antibiotics were provided by anesthesia team. A spinal anesthetic had been implemented in the holding area. Jenkins catheter was placed in sterile fashion. The patient was then placed in the right lateral decubitus position. An axillary roll was placed. [facility] was used for positioning. The left hip and leg were then prepped and draped in usual sterile fashion. A posterolateral approach to the left hip was then performed through a curvilinear incision centered over the greater trochanter. Sharp dissection was carried through the subcutaneous tissues down to the level of the IT band and gluteal fascia. The IT band and gluteal fascia were incised longitudinally in line with skin incision. The underlying greater trochanteric bursa was excised. The piriformis and external rotators and posterior capsule were then released from the posterior aspect of the femur as a single layer. Great care was taken throughout the procedure to protect the sciatic nerve at all times. The hip was internally rotated and dislocated. A femoral neck osteotomy cut was made with the final cut 14 mm above the lesser trochanter. Femoral head was removed and sent for pathology. The femur was retracted anteriorly. Attention was then drawn to the acetabulum. The acetabulum labrum was excised. The pulvinar fat was excised. Sequential reaming of the acetabulum was then performed beginning with size 49 progressing up to a 53. A 54 mm Biomet G7 acetabular shell was then placed in about 40 degrees of lateral opening and 20 degrees of anteversion. It was fixed with two 6.5 cancellous acetabular screws. A trial liner was placed. Attention was then drawn to femur. The proximal femur was entered with a [employer] cutter followed by a canal finder. I then began broaching. We started with a size 8 and progressed up to a 12. Excellent fit and rotation were controlled with the 12 broach. Calcar reamer was used to smoothen off the calcar. We then trialed the hip. Hip was fully stable, but a little bit lax with the +5 head, so I elected to use the 8.5. I realized that it might lengthen them just slightly, but he has got hip arthritis in the other side and we are going to replace his hip in 3 months. The hip was fully stable in full extension and external rotation, flexion to 90 degrees, internal rotation to 50+ degrees. We elected to place these implants. All trial implants were removed. An apex hole eliminator was placed. Highly cross-linked polyethylene liner was placed. A DePuy size 12 Corail coxa vara femoral stem was then placed. A +8.5/36 mm ceramic articular ball was placed. The hip was located and once again found to be stable. Attention was then drawn toward closing. The wound was irrigated with copious amounts of pulsatile lavage solution. I did inject locally with 60 mL of 0.5% Marcaine with epinephrine. The posterior capsule and external rotators were repaired as a single layer through drill holes in the posterior trochanter with #2 Ti-Cron suture. The IT band and gluteal fascia were then closed with #1 PDS suture in running fashion. The subcutaneous tissue was then closed in 2 layers with the deep layer #1 Vicryl suture and subcutaneous tissues with 2-0 Dexon suture in a buried interrupted fashion. Skin was closed with skin rico. Leg was then cleaned and dried and a sterile dressing of Xeroform, 4 x 4's, ABD pad and foam tape was applied. The patient then transferred to the recovery room in stable condition. The patient tolerated the procedure with no complication. All needle and sponge counts were correct at the end of the operation. I attest to the content of the Intraoperative Record and any orders documented therein. Any exception s are noted below.
[2017-12-15] MEDS: TRAMADOL HCL 50 MG TAB PO PRN ×3 (13:46→23:05)
[2017-12-15] MEDS: ACETAMINOPHEN 500 MG TAB PO SCH ×2 (13:46→22:00)
[2017-12-15] MEDS ORDERED: PHARMACY GLYCEMIC MGMT CONSULT PRN (13:47)
[2017-12-15] MEDS: CEFAZOLIN IV 2,000 MG in SYRINGE 0 ML IV SCH ×2 (13:47→22:00)
[2017-12-15] MEDS ORDERED: TRANEXAMIC ACID INJ 1,000 MG in SODIUM CHLORIDE 0.9% 100ML 100 ML IV SCH (14:00)
--- NOTE | 2017-12-15 14:34 | Pharmacy Progress Note ---
Glycemic Control Intl Consult Date of Service Dec 15, 2017. Scope Glycemic Pharmacist consulted by Dr Mckenzie on 12/15/17 for glycemic control and to write orders per [facility] inpatient glycemic control protocol Objective Weight (Kilograms): 107.000 Accuchecks BSG (last 24hrs): Test 12/15/17 05:20 12/15/17 09:02 12/15/17 10:20 12/15/17 11:54 Bedside Glucose 192 mg/dl (70-99) 184 mg/dl (70-99) 188 mg/dl (70-99) 198 mg/dl (70-99) Recent Pertinent Medications Outpatient Anti-diabetic Regimen: * Metformin 1g QAM, Lantus 48units HS, Novolog SSI * A1c = 8.8 % 09/02/17 Assessment & Plan ASSESSMENT: * Mr. Archuleta is a 62yo M s/p hip arthroplasty. A1C 8.8% from 09/02/17 suggests sub-optimal glycemic management. Not familiar to the pharmacy glycemic service. EDCS scale suggests he should be targeting A1C 7.6-8.0%. He takes lantus 48units HS (received his does evening of 12/14 [employer]), SSI novolog, and metformin. * I derived the CF/CR by utilizing the best est of current basal requirements which, interestingly, is similar to wt/stress of 3 PLAN FOR INPATIENT GLYCEMIC CONTROL: * Holding outpatient oral diabetes medications * Basal insulin with LANTUS 48 units (home dose) to start with dinner 12/15/17 * Correctional Insulin with NOVOLOG / REGULAR per scale ACHS or Q6hrs while NPO * Goal Range: Low 110 mg/dL - High 140 mg/dL * Correction Factor: 15 mg/dL/unit * Nutritional / Prandial insulin per carb ratio of 1 unit per 6 grams CHO consumed * Adding 00,04 checks * Please note that the plan above was derived based on current level of insulin resistance and hospital stress. These recommendations are appropriate for inpatient admission only. Plan of care upon discharge will need to be reassessed to avoid potential outpatient hypo/hyperglycemia. Thank you.
[2017-12-15] MEDS: INSULIN ASPART 100 UNITS/ML 3 ML PEN SC SCH ×3 (14:38→22:01)
[2017-12-15] MEDS: MoRPHine SULFATE 2 MG/ML CARP IV PRN ×2 (15:10→17:13)
[2017-12-15] MEDS: CHECK SCOPOLAMINE PATCH PLACEMENT SCH (15:57)
--- NOTE | 2017-12-15 15:58 | PROGRESS NOTE ---
DATE: 12/15/2017 SUBJECTIVE: A 62-year-old gentleman postop from a left hip replacement. He is doing pretty well. Had some pain earlier; he got some pain medicine and is doing better. No chest pain or shortness of breath. Not feeling dizzy or lightheaded. OBJECTIVE: VITAL SIGNS: Temperature 36.7. Vital signs stable. PHYSICAL EXAMINATION: GENERAL: Reveals a healthy, pleasant, middle-aged male. He is lying in bed, looks pretty comfortable. EXTREMITIES: Examination of left hip and leg reveals the leg lengths to be equal. His hip is located. He can dorsiflex and plantarflex his foot appropriately. He is neurologically intact. X-RAYS: X-ray of the left hip from recovery room reviewed. Shows left uncemented total hip arthroplasty. Components looked to be in good position. No signs of problems. ASSESSMENT: A 62-year-old gentleman postop from a left hip replacement, doing pretty well. Pain is reasonably well controlled. Hip is located. He is neurologically intact. PLAN: 1. DVT prophylaxis, include thigh-high TEDs, SCDs, and aspirin twice a day. 2. PT/OT. Weight bear as tolerated. Left total hip protocol. 3. Pain control, doing pretty well with current pain regimen. 4. IV antibiotics x24 hours. 5. Disposition: He is planning to be discharged to home with some home health once adequately recovered.
[2017-12-15] MEDS: INSULIN GLARGINE SOLOSTAR 100 UNITS/ML 3 ML PEN SC SCH (18:56)
[2017-12-15] MEDS ORDERED: INSULIN GLARGINE SOLOSTAR 100 UNITS/ML 3 ML PEN SC SCH (21:00)
[2017-12-15] MEDS: SENNA 8.6 MG TAB PO SCH (21:58)
[2017-12-15] MEDS: TOPIRAMATE 25 MG TAB PO SCH (21:59)
[2017-12-15] MEDS ORDERED: NURSING VERBAL MED ORDER ONE (22:00)
[2017-12-15] MEDS: ASPIRIN 81 MG ECTAB PO SCH (22:00)
[2017-12-16] MEDS: KETOROLAC TROMETHAMINE 15 MG/ML VIAL IV. SCH ×5 (00:20→23:21)
[2017-12-16] MEDS: CHECK SCOPOLAMINE PATCH PLACEMENT SCH ×4 (00:21→23:22)
[2017-12-16] MEDS: SODIUM CHLORIDE 0.9% 1000ML 1,000 ML IV SCH ×2 (00:30→08:10)
[2017-12-16 03:45] VITALS: BP 113/72; PULSE 96; TEMP 36.7; O2SAT 98
[2017-12-16] MEDS: INSULIN ASPART 100 UNITS/ML 3 ML PEN SC SCH ×6 (03:52→21:00)
[2017-12-16] MEDS: ACETAMINOPHEN 500 MG TAB PO SCH ×3 (05:24→21:17)
[2017-12-16] MEDS: TRAMADOL HCL 50 MG TAB PO PRN ×4 (05:28→20:07)
[2017-12-16 06:16] LABS: BASO % 0.1 %; BASO ABS # 0.01 K/uL (0-0.2); EOS % 0.2 %; EOS ABS # 0.02 K/uL (0-0.5); HEMATOCRIT 29.2 % (42-52); HEMOGLOBIN 9.9 g/dL (14.0-18.0); IG# 0.03 K/uL (0.00-0.02); LYMPH % 15.8 %; LYMPH ABS # 1.32 K/uL (1.2-3.4); MEAN CELL VOLUME 84.9 fL (80-100); MEAN CORPUSCULAR HEMOGLOBIN 28.8 pg (25-34); MEAN CORPUSCULAR HGB CONC 33.9 g/dl (32-36); MEAN PLATELET VOLUME 8.7 fL (7.4-10.4); MONO % 9.2 %; MONO ABS # 0.77 K/uL (0.11-0.59); NEUT % 74.3 %; NEUT ABS # 6.21 K/uL (1.4-6.5); PLATELET COUNT 185 K/uL (130-400); RED CELL DISTRIBUTION WIDTH CV 14.3 % (11.5-14.5); WHITE BLOOD COUNT 8.36 K/uL (4.8-10.8)
[2017-12-16 06:40] LABS: CALCIUM 8.4 mg/dl (8.5-10.1); CREATININE 1.11 mg/dl (0.60-1.40); POTASSIUM 4.1 mmol/L (3.5-5.1)
[2017-12-16 08:12] VITALS: BP 130/80; PULSE 85; TEMP 36.8; O2SAT 97
[2017-12-16] MEDS: TOPIRAMATE 25 MG TAB PO SCH ×2 (08:35→21:17)
[2017-12-16] MEDS: ASPIRIN 81 MG ECTAB PO SCH ×2 (08:35→21:18)
[2017-12-16] MEDS: PANTOprazole SOD 40 MG TAB PO SCH (08:37)
[2017-12-16] MEDS: CYANOCOBALAMIN 500 MCG TAB (VIT B-12) PO SCH (08:37)
[2017-12-16] MEDS: ATORVASTATIN 20 MG TAB PO SCH (08:37)
[2017-12-16] MEDS: FERROUS GLUCONATE 324 MG TAB PO SCH ×3 (08:37→17:37)
[2017-12-16] MEDS: FLUOXETINE HCL 20 MG CAP PO SCH (08:37)
[2017-12-16] MEDS: MULTIVITAMIN TAB PO SCH (08:38)
[2017-12-16] MEDS: DOCUSATE SODIUM 100 MG CAP PO SCH ×2 (08:38→21:17)
[2017-12-16] MEDS: LISINOPRIL 10 MG TAB PO SCH (08:39)
[2017-12-16] MEDS: MoRPHine SULFATE 2 MG/ML CARP IV PRN (08:43)
--- NOTE | 2017-12-16 09:58 | Clinical Documentation Query ---
JEFFERY Hogan : CLINICAL DOCUMENTATION QUERY Patient is a 62 year old male who on 12/15 underwent left JHONNY. Preoperative H&H was 14.0 g/dl and 40.7%. POD #1, repeat values were 9.9 g/dl and 29.2%. EBL for the procedure was 300 ml's. Additionally, net I/O is positive at this time for 1,600 ml's. He is being monitored with hematology and I/O. As appropriate, consider documentation as suggested below. Thank you. In your clinical opinion is this patient being managed for: (x ) Acute blood loss and hemodilutional anemia ( ) Not Agree ( ) Other explanation of clinical findings (Please Explain. If no explanation given, this would be considered a no response.) ( ) Unable to determine ( ) Need to Discuss (Please call CDS via extension or qliq. If no interaction occurs this is considered a no response.) The medical record reflects the following clinical findings, treatment, and risk factors. Clinical Indicators: As above Treatment: He is being monitored with hematology and I/O Risk Factors: Acute perioperative blood loss, IVF administration Please clarify and document your clinical opinion in the progress notes and discharge summary. Terms such as "probable", "suspected", "likely", "questionable", "possible", or "still to be ruled out" are acceptable. IF IN AGREEMENT, YOU MUST DOCUMENT ABOVE DIAGNOSTIC STATEMENT IN DAILY PROGRESS NOTES AND DISCHARGE SUMMARY. This document is not part of the patient's record. Thank You, Jan Hassan, VENITA [phone]
--- NOTE | 2017-12-16 12:05 | PROGRESS NOTE ---
DATE: 12/16/2017 SUBJECTIVE: A 62-year-old gentleman postop day 1 from a left total hip replacement. Some pain but manageable. He has been up and walked around a little bit last evening. No chest pain or shortness of breath. Not feeling dizzy or lightheaded. OBJECTIVE: VITAL SIGNS: Temperature 36.8. Vital signs stable. PHYSICAL EXAMINATION: GENERAL: Reveals a pleasant, middle-aged male. He is sitting up in bed, looks reasonably comfortable. EXTREMITIES: Examination of left hip and leg reveals leg lengths to be equal. Hip is located. Dressing is clean, dry and intact. Thigh is soft and supple. He is neurologically intact. LABORATORY DATA: Hemoglobin 9.9. Hematocrit 29.2. Electrolytes are stable. Creatinine stable. ASSESSMENT: A 62-year-old gentleman postop day 1 from left total hip replacement, doing relatively well. Pain is reasonably controlled. He is anemic, but without symptoms. PLAN: 1. DVT prophylaxis including thigh-high TEDs, SCDs, and aspirin twice a day. 2. PT/OT. Weight bear as tolerated. Left total knee protocol. 3. Pain control, doing pretty well with current pain regimen. 4. Anemia. Currently asymptomatic. Will continue iron supplementation. 5. Disposition: Plan to discharge to home with some home health once adequately recovered.
[2017-12-16 12:26] VITALS: BP 133/78; PULSE 103; TEMP 37.2; O2SAT 94
[2017-12-16 15:04] VITALS: BP 157/75; PULSE 109; TEMP 36.7; O2SAT 99
[2017-12-16] MEDS ORDERED: ASPI-320 PO (21:05)
[2017-12-16] MEDS ORDERED: ACET-24 PO (21:05)
[2017-12-16] MEDS ORDERED: FRRG PO (21:05)
[2017-12-16] MEDS ORDERED: ULT50X PO (21:05)
--- NOTE | 2017-12-16 21:08 | Discharge Instructions ---
Discharge Instructions Date of Service Dec 16, 2017. Admission Reason for Admission: Left Hip Degenerative Joint Disease Discharge Discharge Diagnosis / Problem: Left Hip Replacement Discharge Goals Goal(s): Decrease discomfort, Improve function, Increase independence, Improve disease control, Therapeutic intervention Activity Recommendations Activity Limitations: per Instructions/Follow-up section (Total Hip Precautions.) . Instructions / Follow-Up Instructions / Follow-Up ACTIVITY RECOMMENDATIONS: Physical Therapy: * Aggressive physical therapy is not usually needed. You will learn to take care of yourself safely and walk. * Follow the "Hip Precautions Instructions." * In some cases, the social sciences lecturer at the hospital will arrange to have a therapist come to your house for the first couple of weeks to help you learn these skills. * You need to practice on your own or with the help of a family member as needed. * When you learn these skills, most of the therapy can be done on your own. Home Exercise: * You were shown a series of exercises in the hospital. Do these exercises three to four times each day including the exercises you were shown in physical therapy. Walking: * Get up and walk several times each day. For the first four weeks, try not to stand or walk for more than one hour at a time. If you do stand or walk for more than one hour, you will not hurt anything, but your leg will likely swell. * As you feel comfortable, you may change from the walker or crutches to a cane and then to independent walking. MEDICATIONS: New Medicine: * You will likely be taking one or more of these medicines: 1. Tramadol - Take, as directed, when you need it, every four to six hours to control your pain. 2. Iron Sulfate - Take two times each day for the month after surgery to help you replace the blood lost during surgery. 3. Aspirin - Thins your blood to lessen the chance of forming a blood clot. * The most common side effects of pain medicine and iron are nausea and constipation. If nausea or constipation is too much of a problem or if you have any questions about your new medicines or doses, call [facility] at [phone]. We will try to help you manage these issues. VERY IMPORTANT TO READ AND REVIEW" Pain: * The immediate post-operative period after hip replacement surgery is often quite painful. * You are given a prescription for pain medicine. You should take it, as directed, when you need it, especially before physical therapy and before going to bed. Pain that interferes with sleep is very common and can last several months. * You will likely need pain medicine for the first two to four weeks. It will not stop all of the pain. The pain will lessen and as you feel better, you may change to milder pain medicine such as Tylenol. * The most common side effects of pain medicine are nausea and constipation, so don't take more than you need. SPECIAL CARE INSTRUCTIONS: TEDs/Elastic Stockings: * The white elastic stockings help limit swelling and prevent blood clots from forming in your legs. The more you wear them, the more they work. * Wear them for six weeks. Prevention of Infection: * Take antibiotics one hour before any dental cleaning, dental work, urological procedure, gastrointestinal procedure or any invasive surgery in order to prevent your new joint from getting infected. * You may get the antibiotics from the doctor performing the procedure or you may call our office at before and we will call in a prescription to the pharmacy of your choice. Things to Watch For: * Drainage from the incision site that occurs more than one week after your surgery. * Severely increased leg pain or swelling. * Increased redness at the incision site. * Fever above 102 degrees Fahrenheit. * Unusual chest pain or shortness of breath. * Unusual pain or burning with urination. Call [facility] at with any of the above problems or if you have any questions about your medicines or recovery. FOLLOW UP VISIT: Make an appointment to see your doctor for approximately two weeks after surgery for a progress check and staple removal by calling the office at . Current Hospital Diet Patient's current hospital diet: Diabetes Type 2 Diet Discharge Diet Recommended Diet: Diabetes Type 2 Diet Procedures Procedures Performed: Left Total Hip Arthroplasty--Uncemented Pending Studies Studies pending at discharge: no Medical Emergencies . Who to Call and When: Medical Emergencies: If at any time you feel your situation is an emergency, please call [phone] immediately. . Non-Emergent Contact Non-Emergency issues call your: Surgeon . "Provider Documentation" section prepared by Fazal Mckenzie. .
[2017-12-16] MEDS: SENNA 8.6 MG TAB PO SCH (21:17)
[2017-12-16] MEDS: INSULIN GLARGINE SOLOSTAR 100 UNITS/ML 3 ML PEN SC SCH (21:21)
[2017-12-16 22:52] VITALS: BP 130/76; PULSE 101; TEMP 36.9; O2SAT 97
[2017-12-17] MEDS: TRAMADOL HCL 50 MG TAB PO PRN ×2 (04:36→10:18)
[2017-12-17] MEDS: ACETAMINOPHEN 500 MG TAB PO SCH (06:03)
[2017-12-17] MEDS: KETOROLAC TROMETHAMINE 15 MG/ML VIAL IV. SCH (06:03)
[2017-12-17 06:23] VITALS: BP 123/74; PULSE 93; TEMP 37; O2SAT 97
[2017-12-17] MEDS: CHECK SCOPOLAMINE PATCH PLACEMENT SCH (07:20)
[2017-12-17] MEDS: DOCUSATE SODIUM 100 MG CAP PO SCH (07:23)
[2017-12-17] MEDS: MULTIVITAMIN TAB PO SCH (07:23)
[2017-12-17] MEDS: PANTOprazole SOD 40 MG TAB PO SCH (07:23)
[2017-12-17] MEDS: FERROUS GLUCONATE 324 MG TAB PO SCH (07:23)
[2017-12-17] MEDS: ATORVASTATIN 20 MG TAB PO SCH (07:23)
[2017-12-17] MEDS: ASPIRIN 81 MG ECTAB PO SCH (07:24)
[2017-12-17] MEDS: TOPIRAMATE 25 MG TAB PO SCH (07:24)
[2017-12-17] MEDS: LISINOPRIL 10 MG TAB PO SCH (07:24)
[2017-12-17] MEDS: FLUOXETINE HCL 20 MG CAP PO SCH (07:25)
[2017-12-17] MEDS: CYANOCOBALAMIN 500 MCG TAB (VIT B-12) PO SCH (07:25)
[2017-12-17] MEDS: INSULIN ASPART 100 UNITS/ML 3 ML PEN SC SCH (07:32)
--- NOTE | 2017-12-17 09:33 | PROGRESS NOTE ---
DATE: 12/17/2017 SUBJECTIVE: A 62-year-old gentleman postop day 2 from left hip replacement. He is doing pretty well. Pain has been controlled. No chest pain or shortness of breath. Not feeling dizzy or lightheaded. OBJECTIVE: VITAL SIGNS: Temperature is 37.0. Vital signs stable. GENERAL: Physical examination shows a pleasant, middle-aged male. He is sitting up in bed, looks pretty comfortable. EXTREMITIES: Examination of left leg reveals leg lengths to be equal. Hip is located. Dressing is clean, dry and intact. Thigh is soft and supple. He is neurologically intact. ASSESSMENT: A 62-year-old gentleman postop day 2 from left hip replacement, doing reasonably well. Pain is controlled. Therapy has gone pretty well. PLAN: 1. DVT prophylaxis including thigh-high TEDs, SCDs, and aspirin twice a day. 2. PT/OT. Weight bear as tolerated. Left total hip protocol. 3. Pain control, doing pretty well with current pain regimen. 4. Disposition: Plan to discharge to home with some home health later today.
[2017-12-17 10:13] VITALS: BP 123/74; PULSE 93; TEMP 37; O2SAT 97
== END 2017-12-17 11:30 | disposition home health service (06) | DRG 470 ==
LOC: C.ACU 04:50 → C.3E 08:33 → ENRESERV 09:07
PROVIDERS: ADMIT Orthopaedic Surgery Sports Medicine; ATTEND Orthopaedic Surgery Sports Medicine
PROC: 0SRB04A Replacement of Left Hip Joint with Ceramic on Polyethylene Synthetic Substitute, Uncemented, Open Approach (ICD-10-PCS; principal; 2017-12-15 07:00)
DX: M16.0 Bilateral primary osteoarthritis of hip (principal); E11.9 Type 2 diabetes mellitus without complications; E78.00 Pure hypercholesterolemia, unspecified; E66.9 Obesity, unspecified; Z79.899 Other long term (current) drug therapy; Z79.4 Long term (current) use of insulin; Z79.82 Long term (current) use of aspirin; Z87.19 Personal history of other diseases of the digestive system; Z68.32 Body mass index [BMI] 32.0-32.9, adult; Z88.0 Allergy status to penicillin; Z91.030 Bee allergy status

== ENCOUNTER → 2018-03-22 | Outpatient (CLI) | payer BC ==
[~2018-03-22] MED LIST changes: +ACET-1256 PO; -ASPI-435 PO; +ASPI81TA28 PO; +DIPH-437 PO
[2018-03-22 13:53] LABS: BASO % 0.3 %; BASO ABS # 0.02 K/uL (0-0.2); EOS % 1.1 %; EOS ABS # 0.09 K/uL (0-0.5); HEMATOCRIT 43.2 % (42-52); HEMOGLOBIN 14.6 g/dL (14.0-18.0); IG# 0.01 K/uL (0.00-0.02); LYMPH % 26.5 %; LYMPH ABS # 2.11 K/uL (1.2-3.4); MEAN CELL VOLUME 83.6 fL (80-100); MEAN CORPUSCULAR HEMOGLOBIN 28.2 pg (25-34); MEAN CORPUSCULAR HGB CONC 33.8 g/dl (32-36); MEAN PLATELET VOLUME 9.4 fL (7.4-10.4); MONO % 6.8 %; MONO ABS # 0.54 K/uL (0.11-0.59); NEUT % 65.2 %; NEUT ABS # 5.18 K/uL (1.4-6.5); PLATELET COUNT 232 K/uL (130-400); RED CELL DISTRIBUTION WIDTH CV 15.2 % (11.5-14.5); RED CELL DISTRIBUTION WIDTH SD 45.8 fL (36.4-46.3); WHITE BLOOD COUNT 7.95 K/uL (4.8-10.8)
[2018-03-22 14:14] LABS: BLOOD UREA NITROGEN 20 mg/dl (7-18); CARBON DIOXIDE 26 mmol/L (21-32); CREATININE 1.22 mg/dl (0.60-1.40); GLUCOSE 225 mg/dl (70-99); POTASSIUM 4.1 mmol/L (3.5-5.1); SODIUM 136 mmol/L (136-145)
[2018-03-22 14:20] LABS: HEMOGLOBIN A1C 7.3 % (4.5-5.6)
== END | disposition home or self-care (01) ==
LOC: C.LABBC 10:29
PROVIDERS: ATTEND Orthopaedic Surgery Sports Medicine
DX: E11.65 Type 2 diabetes mellitus with hyperglycemia (principal); Z01.818 Encounter for other preprocedural examination; Z01.810 Encounter for preprocedural cardiovascular examination; Z01.812 Encounter for preprocedural laboratory examination

== ENCOUNTER 2018-04-15 06:25 | Inpatient (IN) | payer BC ==
[2018-02-17 15:41] VITALS: BMI 32.0
--- NOTE | 2018-04-06 14:32 | HISTORY & PHYSICAL EXAMINATION ---
DATE OF ADMISSION: 04/15/2018 CHIEF COMPLAINT: Right hip pain. HISTORY OF PRESENT ILLNESS: The patient is a 62-year-old gentleman who presents for surgical treatment of his right hip. He has got a long several-year history of bilateral hip pain and discomfort, treated conservatively over the years. This has become less successful over time. He underwent a left total hip replacement back on December 15 and is doing quite well from this. He has continued to be debilitated by his right hip pain. He describes groin pain, thigh pain. The more he walks, the more he limps. When he is real active, he really pays for the next day. He would like to proceed with the right hip replacement as well. PAST MEDICAL HISTORY: 1. Diabetes x6-7 years with an A1c of 7.3. 2. Elevated cholesterol. 3. Gastroesophageal reflux disease. 4. Mild obesity with a BMI of 32. 5. History of pancreatitis at age 20. 6. Hepatitis. PAST SURGICAL HISTORY: Previous surgeries include: 1. Left total hip replacement done 12/15/2017. 2. Shoulder surgery. 3. Cholecystectomy. 4. Appendectomy. 5. Herniorrhaphy. ALLERGIES: PENICILLIN, REACTIONS UNKNOWN. ALSO ALLERGIES TO BEE STINGS. CURRENT MEDICINES: Include: 1. Metformin 1000 mg twice a day. 2. Atorvastatin 20 mg a day. 3. Topiramate 25 mg twice a day. 4. Lisinopril 10 mg a day. 5. NovoLog insulin. 6. Lantus insulin. 7. Fluoxetine 20 mg a day. 8. Aspirin 81 mg twice a day. 9. Coenzyme Q once a day. 10. Vitamin B12. 11. Multivitamin. SOCIAL HISTORY: Significant for 62-year-old gentleman. 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 Also, ____. He does not smoke. No alcohol intake. FAMILY HISTORY: Noncontributory. REVIEW OF SYSTEMS: Negative for any chest pain or shortness of breath. No history of DVT or PE. He does have diabetes, reasonably well controlled. PHYSICAL EXAMINATION: GENERAL: Reveals a pleasant, middle-aged male. He looks to be in good health. HEENT: Benign. NECK: Supple. No lymphadenopathy. LUNGS: Clear to auscultation. HEART: Has a regular rate and rhythm. ABDOMEN: Soft, nontender, nondistended. EXTREMITIES: Grossly neurovascularly intact except as follows: Examination of the right hip reveals the patient ambulates independently. He does limp on this side. He is about a 0.5 cm short on the right side compared to the left. He has got pain with any type of hip motion. He can internally rotate to neutral. Negative straight leg raise. He is neurologically intact. X-RAYS: X-ray of the right hip revealed advanced right hip DJD. He has got complete loss of his superior joint space. Some slight cystic change in the femoral head. Not a lot of osteophyte formation. 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 He has failed conservative treatment and would like to have his right hip replaced. Very happy with his left hip. PLAN: We will take him to the operating room and do a right total hip replacement. The risks and benefits of this procedure were explained to the patient including but not limited to DVT, PE, , infection, neurological injury, vascular injury, bleeding problem, pain, limited range of motion, stiffness, failure to relieve symptoms, incomplete relief of symptoms, need for further surgery in future, fracture, leg length inequality, nerve palsy, dislocation, etc. The patient understands and desires to proceed. Informed consent was obtained. We will do the best we can to make his leg lengths to be equal. He knows to hold his metformin the morning of surgery along with the lisinopril. He is planning to be discharged to home using [facility] home health program.
[2018-04-15] VITALS (19 sets, daily range): BP systolic 102–152; BP diastolic 65–91; PULSE 81–103; TEMP 36.4–36.8; O2SAT 92–100; Ht 182.9 cm; Wt 106.8 kg
[~2018-04-15] VITALS: Ht 182.9 cm; Wt 106.8 kg
[~2018-04-15 06:25] MED LIST changes: +ACETAMINOPHEN 500 MG TAB PO SCH; +CEFAZOLIN 2000MG IV PUSH 15 ML IV SCH; +FAMOTIDINE 20 MG TAB PO SCH; +GABAPENTIN 600 MG PO SCH; +LACTATED RINGER'S 1000ML 1,000 ML IV SCH; +LACTATED RINGER'S 1000ML 500 ML IV SCH; +LACTATED RINGER'S 1000ML IV SCH; +METOCLOPRAMIDE HCL 10 MG TAB PO SCH; +SCOPOLAMINE 1.5 MG TDSY TD SCH; +TRANEXAMIC ACID INJ 1,000 MG x 1 Bag Intra-Op IV SCH
[2018-04-15] MEDS ORDERED: BUPIVACAINE 0.5 % 5 MG/1 ML PF 10ML VIAL ONE (06:35)
[2018-04-15] MEDS ORDERED: BACITRACIN 50000 UNIT VIAL ONE (07:10)
[2018-04-15] MEDS ORDERED: BUPIVACAINE/EPINEPHRINE 0.5% MPF 1:200,000 30 ML VIAL ONE (07:10)
[2018-04-15] MEDS ORDERED: PROPOFOL IV EMULSION 10 MG/ML 20 ML VIAL ONE ×3 (07:17→09:18)
[2018-04-15] MEDS ORDERED: FENTANYL CITRATE INJ 50 MCG/1 ML 2 ML VIAL ONE (07:17)
[2018-04-15] MEDS ORDERED: MIDAZOLAM HCL 1 MG/ML 2ML VIAL ONE ×3 (07:17→08:47)
[2018-04-15] MEDS ORDERED: PHENYLEPHRINE 100MCG/ML 5ML SYR ONE (07:17)
[2018-04-15] MEDS ORDERED: LIDOCAINE HCL 2% 2 ML VIAL (20MG/ML) ONE (07:17)
[2018-04-15] MEDS ORDERED: EpHEDrine SULFATE 50MG/5ML SYR ONE (07:17)
[2018-04-15] MEDS ORDERED: INSULIN HUMAN REGULAR PER UNIT 4 UNITS in SYRINGE 0 ML IV STA (07:32)
[2018-04-15] MEDS ORDERED: NovoLIN-R INSULIN PER UNIT CHARGE ONE (07:37)
[2018-04-15] MEDS ORDERED: EpHEDrine SULFATE INJ 50 MG/ML AMP IV PRN ×2 (07:45→08:45)
[2018-04-15] MEDS ORDERED: FENTANYL CITRATE INJ 50 MCG/1 ML 2 ML VIAL IV PRN (07:45)
[2018-04-15] MEDS ORDERED: ONDANSETRON INJ 2 MG/ML 2 ML VIAL IV PRN ×3 (07:45→10:15)
[2018-04-15] MEDS ORDERED: HYDROmorphone INJ 1 MG/ML SYR IV PRN (07:45)
[2018-04-15] MEDS ORDERED: ATROPINE SULFATE 0.1 MG/ML 5ML SYR IV PRN (07:45)
[2018-04-15] MEDS ORDERED: MoRPHine SULFATE PF 1 MG/ML 10 ML AMP/VIAL ONE (07:58)
[2018-04-15] MEDS ORDERED: NO NARCOTICS OR SEDATIVES SCH (08:30)
[2018-04-15] MEDS ORDERED: NALOXONE HCL INJ 0.08 MG in SYRINGE 1.8 ML IV PRN (08:38)
[2018-04-15] MEDS ORDERED: NALOXONE HCL INJ 1 MG in SODIUM CHLORIDE 0.9% 1000ML 1,000 ML IV PRN (08:38)
[2018-04-15] MEDS ORDERED: LACTATED RINGER'S 1000ML 500 ML IV PRN (08:38)
[2018-04-15] MEDS ORDERED: SODIUM CHLORIDE 0.9% 1000ML 1,000 ML IV PRN (08:38)
[2018-04-15] MEDS ORDERED: NALBUPHINE HCL INJ 10 MG/ML 1ML AMP IV PRN (08:45)
[2018-04-15] MEDS ORDERED: NALOXONE HCL 0.4 MG/1 ML VIAL/CARP IV PRN (08:45)
[2018-04-15] MEDS ORDERED: MEPERIDINE HCL 25 MG/ML CARP IV PRN (08:45)
[2018-04-15] MEDS ORDERED: MoRPHine SULFATE 2 MG/ML CARP IV PRN ×2 (08:45→10:15)
[2018-04-15] MEDS ORDERED: MoRPHine SULFATE PF 1 MG/ML 10 ML AMP/VIAL EPI PRN (08:45)
[2018-04-15] MEDS ORDERED: DiphenhydrAMINE HCL 50 MG/ML VIAL IV PRN ×2 (08:45→10:15)
--- NOTE | 2018-04-15 10:12 | [facility] Post Operative Brief Note ---
Immediate Operative Summary Operative Date Apr 15, 2018. Pre-Operative Diagnosis Advanced Degenerative Joint Disease, Right Hip Post-Operative Diagnosis Advanced Degenerative Joint Disease, Right Hip Procedure(s) Performed Right Total Hip Arthroplasty Surgeon Dr. Fazal Mckenzie Animal Care Taker Surgeon(s) Prince Interiano PA-C Estimated Blood Loss 400ML Findings Consistent with Post-Op Diagnosis Fluids (cc crystalloids) 2000 cc Specimens Permanent Solution: A.) Right Femoral Head Drains None Anesthesia Type Spinal MAC Complication(s) none Disposition Accompanied Pt To Recover: yes Disposition: Recovery Room / PACU Overlapping Procedure I was present for: the critical portions of procedure. I was immediately available: during the entire case
[2018-04-15] MEDS ORDERED: CALCIUM CARBONATE 500 MG CHEWABLE PO PRN (10:15)
[2018-04-15] MEDS ORDERED: METOCLOPRAMIDE HCL INJ 5 MG/ML 2 ML VIAL IV PRN (10:15)
[2018-04-15] MEDS ORDERED: GLUCOSE 40% GEL 15 GM TUBE PO PRN (10:15)
[2018-04-15] MEDS ORDERED: CARBOHYDRATES FOR HYPOGLYCEMIA PO PRN (10:15)
[2018-04-15] MEDS ORDERED: GLUCAGON FOR INJ 1 MG VIAL SQ PRN (10:15)
[2018-04-15] MEDS ORDERED: DIPHENHYDRAMINE ACETAMINOPHEN PO PRN (10:15)
[2018-04-15] MEDS ORDERED: ALUMINUM/MAGNESIUM/SIMETH (MAALOX MAX) 30 ML UDC PO PRN (10:15)
[2018-04-15] MEDS ORDERED: TAMSULOSIN HCL 0.4 MG CAP PO PRN (10:15)
[2018-04-15] MEDS ORDERED: GLUCOSE 10 TABS/TUBE PO PRN (10:15)
[2018-04-15] MEDS ORDERED: SILVER SULFADIAZINE 1% CR 50 GM JAR EXT PRN (10:15)
[2018-04-15] MEDS ORDERED: ZOLPIDEM TARTRATE 5 MG TAB PO PRN (10:15)
[2018-04-15] MEDS ORDERED: BISACODYL 10 MG SUPP PR PRN (10:15)
[2018-04-15] MEDS ORDERED: DEXTROSE 50% 50 ML SYR IV PRN (10:15)
[2018-04-15] MEDS ORDERED: MAGNESIUM HYDROXIDE SUSP 30 ML UDC PO PRN (10:15)
--- NOTE | 2018-04-15 10:46 | DIAGNOSTIC IMAGING REPORT ---
SINGLE VIEW PELVIS; SINGLE VIEW RIGHT HIP CLINICAL HISTORY: Postoperative examination. FINDINGS: An AP portable view of the hips and pelvis with a crosstable lateral portable view of the right hip are obtained. A bipolar right hip arthroplasty is in near-anatomic alignment. At least 2 cortical screws transfix the acetabular cup. No acute fracture is identified. There are expected postoperative changes overlying the right hip including skin clips, subcutaneous gas, and soft tissue swelling. A left hip arthroplasty noted. A Jenkins catheter is in place. IMPRESSION: Expected postoperative findings status post right hip arthroplasty. No acute fracture is seen. Electronically signed by: Mando Gomez M.D. 04/15/2018 10:44 AM Dictated Date/Time: 04/15/2018 10:43 AM
--- NOTE | 2018-04-15 11:03 | Anesthesiology Progress Note ---
Anesthesia Post Op Note Date & Time Apr 15, 2018 at 11:03 Vital Signs Pain Intensity: 0 Vital Signs Past 12 Hours Date Time Temp Pulse Resp B/P (MAP) Pulse Ox O2 Delivery O2 Flow Rate FiO2 04/15/18 10:50 36.6 81 15 124/41 98 Nasal Cannula 2 04/15/18 10:40 89 12 105/73 100 Nasal Cannula 2 04/15/18 10:30 79 15 118/68 100 Oxymask 10 04/15/18 10:20 82 16 108/66 100 Oxymask 10 04/15/18 10:13 36.3 83 16 99/56 98 Oxymask 10 04/15/18 06:57 36.7 103 20 152/91 96 Room Air Notes Mental Status: alert / awake / arousable, participated in evaluation Pt Amnestic to Procedure: Yes Nausea / Vomiting: adequately controlled Pain: adequately controlled Airway Patency, RR, SpO2: stable & adequate BP & HR: stable & adequate Hydration State: stable & adequate Neuraxial Anesthesia: was administered, sensory block is resolving Anesthetic Complications: no major complications apparent
[2018-04-15] MEDS: SODIUM CHLORIDE 0.9% 1000ML 1,000 ML IV SCH ×2 (12:14→18:45)
[2018-04-15] MEDS: INSULIN HUMAN REGULAR SC SCH ×3 (12:31→20:44)
[2018-04-15] MEDS: FERROUS GLUCONATE 324 MG TAB PO SCH ×2 (12:32→18:45)
[2018-04-15] MEDS: ACETAMINOPHEN 500 MG TAB PO SCH ×2 (13:37→21:29)
[2018-04-15] MEDS: KETOROLAC TROMETHAMINE 30 MG/ML VIAL IV. SCH ×2 (14:26→20:31)
--- NOTE | 2018-04-15 14:33 | PROGRESS NOTE ---
DATE: 04/15/2018 SUBJECTIVE: A 62-year-old gentleman postop from a right hip replacement. He is doing well. Not having any pain yet. No chest pain or shortness of breath. Not feeling dizzy or lightheaded. OBJECTIVE: VITAL SIGNS: Temperature is 36.4. Vital signs stable. GENERAL: Physical examination reveals a pleasant, middle-aged male. He is sitting up in bed and looks quite comfortable. LUNGS: Clear to auscultation. HEART: Regular rate and rhythm. ABDOMEN: Soft, nontender, nondistended. EXTREMITIES: Grossly neurovascularly intact except as follows: Examination of the right leg reveals it to be well aligned. Leg lengths were equal. He can dorsiflex and plantarflex his foot appropriately. His thigh is soft and supple. He is neurologically intact. X-RAYS: X-rays of the right hip from recovery room reviewed. It shows right uncemented total hip arthroplasty. Components looked to be in good position. No signs of problems. ASSESSMENT: A 62-year-old gentleman postop from a right hip replacement, doing well. His pain is controlled. Hip is located. He is neurologically intact. PLAN: 1. DVT prophylaxis including thigh-high TEDs, SCDs, and aspirin twice a day. 2. PT/OT. Weight bear as tolerated. Right total hip protocol. 3. Pain control, doing well with current pain regimen. 4. IV antibiotics x24 hours. 5. Disposition: Plan to discharge to home with some home health once adequately recovered. 6. Diabetes management. We will use insulin sliding scale coverage in the hospital and convert to oral medicines on discharge.
[2018-04-15] MEDS: CEFAZOLIN IV 2,000 MG in SYRINGE 0 ML IV SCH ×2 (15:40→23:40)
[2018-04-15] MEDS: CHECK SCOPOLAMINE PATCH PLACEMENT SCH ×2 (15:41→23:40)
[2018-04-15] MEDS ORDERED: TRANEXAMIC ACID INJ 1,000 MG in SODIUM CHLORIDE 0.9% 100ML 100 ML IV ONE (16:00)
--- NOTE | 2018-04-15 17:19 | OPERATIVE REPORT ---
DATE OF OPERATION: 04/15/2018 SURGEON: Fazal Mckenzie MD CRITICAL CARE TECHNICIAN: SAPNA Cisneros PREOPERATIVE DIAGNOSIS: Right hip degenerative joint disease. POSTOPERATIVE DIAGNOSIS: Right hip degenerative joint disease. PROCEDURE PERFORMED: Right uncemented ceramic on highly cross-linked polyethylene total hip arthroplasty. COMPLICATIONS: None. ESTIMATED BLOOD LOSS: 400 mL. FLUID REPLACEMENT: 2 liters of crystalloid fluid replacement. ANESTHESIA: Spinal. DRAINS: None. SPECIMENS: Right femoral head sent for pathology. OPERATIVE INDICATIONS: The patient is a 62-year-old male, stephanie, who has had a several-year history of bilateral hip pain and discomfort. We treated conservatively for the past several years. This became less successful over time. He became more debilitated by his disease. He underwent a left hip replacement 4 months ago and has had excellent from this and elected to proceed with right total hip arthroplasty. OPERATIVE FINDINGS: Operative findings were advanced right hip DJD. He had grade 4 [id number] disease of the femoral head and acetabulum. He had a moderate size joint effusion. OPERATIVE IMPLANTS: Operative implants consisted of: 1. A Biomet G7 size 56 mm acetabular shell. 2. 6.5 cancellous acetabular screws, 1 at 35 mm length and 1 at 20 mm length. 3. An apex hole eliminator. 4. A highly cross-linked polyethylene liner with a 56 mm outer diameter, 36 mm inner diameter. 5. DePuy size 12 KLA/coxa vara femoral stem. 6. A +5/36 mm ceramic articular ball. OPERATIVE PROCEDURE: The patient taken to the operating room, identified and placed on the operating table in supine position. All contact areas were appropriately padded. IV antibiotics were provided by anesthesia team. A spinal anesthetic had been implemented in the holding area. Jenkins catheter was placed in sterile fashion. The patient was then placed in the left lateral decubitus position. An axillary roll was placed. [facility] was used for positioning. The right hip and leg were then prepped and draped in usual sterile fashion. A posterolateral approach to the right hip was then performed through a curvilinear incision centered over the greater trochanter. Sharp dissection was carried through subcutaneous tissue down to level of the level of the IT band and gluteal fascia. The IT band and gluteal fascia were then incised longitudinally in line with skin incision. The underlying greater trochanteric bursa was then excised. The piriformis and external rotators were tagged and taken off the posterior aspect of the hip joint capsule. Great care was taken throughout the procedure to protect the sciatic nerve at all times. A posterior capsulotomy was then performed leaving a large flap for later repair. Hip was internally rotated and dislocated. Femoral neck osteotomy cut was made with the final cut about 15 mm above the lesser trochanter. Femoral head was removed and sent for pathology. The femur was retracted anteriorly. Attention was then drawn to the acetabulum. The acetabulum labrum was excised. The pulvinar fat was excised. Sequential reaming of the acetabulum was then performed beginning with a size 47 and progressing up to a 55. A 56 mm Biomet G7 acetabular shell was then placed in about 40 degrees of lateral opening and 20 degrees of anteversion. It was fixed with two 6.5 cancellous acetabular screws. A trial liner was placed. Attention was then drawn to the femur. The proximal femur was entered by the [employer] cutter followed by canal finder. I then began broaching with a 7 and progressed up to a 12. We got excellent fit at 12. It was even a little hard to get that down to the calcar. I then used a calcar reamer to smoothen off the calcar. I then trialed the hip. I felt this neck that was a little bit longer than the other, so we elected to use just a +5 head. It provided full stability in full extension and external rotation, flexion to 90 degrees, internal rotation to over 70 degrees. Soft tissue tension seemed appropriate and leg lengths appeared equal. I elected to place these implants. All trial implants were removed. An apex hole eliminator was placed. Highly cross-linked polyethylene liner was placed. A DePuy [place] size 12 KLA/coxa vara femoral stem was impacted in position. A +5/36 mm articular ball was placed. Hip was once again located and found to be stable. Attention was then drawn toward closing. I irrigated extensively. I injected locally with 60 mL of 0.5% Marcaine with epinephrine. The posterior capsule and external rotators were then repaired through drill holes in the posterior trochanter with #2 Ti-Cron suture. The IT band and gluteal fascia were then closed with #1 PDS suture in a running fashion. The subcutaneous tissue then closed with 2 layers, the deep layer #1 Vicryl suture and subcutaneous tissue with 2-0 Dexon suture in a buried interrupted fashion. The skin was then closed with skin rico. Leg was then cleaned and dried and a sterile dressing composed of Xeroform, 4 x 4's, ABD pad and foam tape was applied. The patient was then transferred to the recovery room in stable condition. The patient tolerated the procedure well with no complication. All needle and sponge counts were correct at the end of the operation. I attest to the content of the Intraoperative Record and any orders documented therein. Any exception s are noted below.
[2018-04-15] MEDS: SENNA 8.6 MG TAB PO SCH (20:35)
[2018-04-15] MEDS: ASPIRIN 81 MG ECTAB PO SCH (20:36)
[2018-04-15] MEDS: DOCUSATE SODIUM 100 MG CAP PO SCH (20:36)
[2018-04-15] MEDS: ATORVASTATIN 20 MG TAB PO SCH (20:37)
[2018-04-15] MEDS: TOPIRAMATE 25 MG TAB PO SCH (20:38)
[2018-04-15] MEDS: INSULIN GLARGINE SOLOSTAR 100 UNITS/ML 3 ML PEN SC SCH (20:45)
[2018-04-16 00:15] VITALS: O2SAT 98
[2018-04-16] MEDS ORDERED: DC INTRASPINAL MORPHINE ONE (00:30)
[2018-04-16] MEDS: SODIUM CHLORIDE 0.9% 1000ML 1,000 ML IV SCH ×2 (00:35→07:11)
[2018-04-16] MEDS: KETOROLAC TROMETHAMINE 30 MG/ML VIAL IV. SCH ×4 (02:33→20:08)
[2018-04-16 03:13] VITALS: BP 113/60; PULSE 101; TEMP 36.6; O2SAT 98
[2018-04-16] MEDS: OXYCODONE HCL IR 5 MG TAB (IMMEDIATE RELEASE) PO PRN (03:17)
[2018-04-16] MEDS: ACETAMINOPHEN 500 MG TAB PO SCH ×3 (05:43→21:36)
[2018-04-16 06:34] LABS: BASO % 0.1 %; BASO ABS # 0.01 K/uL (0-0.2); EOS % 0.2 %; EOS ABS # 0.02 K/uL (0-0.5); HEMATOCRIT 26.8 % (42-52); IG# 0.03 K/uL (0.00-0.02); LYMPH % 15.8 %; LYMPH ABS # 1.38 K/uL (1.2-3.4); MEAN CELL VOLUME 82.2 fL (80-100); MEAN CORPUSCULAR HEMOGLOBIN 27.6 pg (25-34); MEAN CORPUSCULAR HGB CONC 33.6 g/dl (32-36); MEAN PLATELET VOLUME 8.3 fL (7.4-10.4); MONO % 9.9 %; MONO ABS # 0.87 K/uL (0.11-0.59); NEUT % 73.7 %; NEUT ABS # 6.44 K/uL (1.4-6.5); PLATELET COUNT 172 K/uL (130-400); RED CELL DISTRIBUTION WIDTH CV 15.5 % (11.5-14.5); RED CELL DISTRIBUTION WIDTH SD 45.9 fL (36.4-46.3); WHITE BLOOD COUNT 8.75 K/uL (4.8-10.8)
[2018-04-16 07:08] LABS: CALCIUM 7.6 mg/dl (8.5-10.1); CREATININE 1.32 mg/dl (0.60-1.40); POTASSIUM 4.2 mmol/L (3.5-5.1)
[2018-04-16 07:19] VITALS: BP 119/69; PULSE 96; TEMP 37.1; O2SAT 97
[2018-04-16] MEDS: CHECK SCOPOLAMINE PATCH PLACEMENT SCH ×2 (07:28→16:19)
[2018-04-16] MEDS ORDERED: ACET-24 PO (07:33)
[2018-04-16] MEDS ORDERED: FRRG PO (07:33)
[2018-04-16] MEDS ORDERED: ASPI-461 PO (07:33)
[2018-04-16] MEDS ORDERED: RXC5 PO (07:33)
--- NOTE | 2018-04-16 07:35 | Discharge Instructions ---
Discharge Instructions Date of Service Apr 16, 2018. Admission Reason for Admission: Right Hip Degenerative Joint Disease Discharge Discharge Diagnosis / Problem: Right Hip Replacement Discharge Goals Goal(s): Decrease discomfort, Improve function, Increase independence, Improve disease control, Therapeutic intervention Activity Recommendations Activity Limitations: per Instructions/Follow-up section (Total Hip PRecautions ) Weightbearing Status: Right weightbearing . Instructions / Follow-Up Instructions / Follow-Up ACTIVITY RECOMMENDATIONS: Physical Therapy: * Aggressive physical therapy is not usually needed. You will learn to take care of yourself safely and walk. * Follow the "Hip Precautions Instructions." * In some cases, the public health social worker at the hospital will arrange to have a therapist come to your house for the first couple of weeks to help you learn these skills. * You need to practice on your own or with the help of a family member as needed. * When you learn these skills, most of the therapy can be done on your own. Home Exercise: * You were shown a series of exercises in the hospital. Do these exercises three to four times each day including the exercises you were shown in physical therapy. Walking: * Get up and walk several times each day. For the first four weeks, try not to stand or walk for more than one hour at a time. If you do stand or walk for more than one hour, you will not hurt anything, but your leg will likely swell. * As you feel comfortable, you may change from the walker or crutches to a cane and then to independent walking. MEDICATIONS: New Medicine: * You will likely be taking one or more of these medicines: 1. Oxycodone - Take, as directed, when you need it, every four to six hours to control your pain. 2. Iron Sulfate - Take two times each day for the month after surgery to help you replace the blood lost during surgery. 3. Aspirin - Thins your blood to lessen the chance of forming a blood clot. * The most common side effects of pain medicine and iron are nausea and constipation. If nausea or constipation is too much of a problem or if you have any questions about your new medicines or doses, call [facility] at . We will try to help you manage these issues. VERY IMPORTANT TO READ AND REVIEW" Pain: * The immediate post-operative period after hip replacement surgery is often quite painful. * You are given a prescription for pain medicine. You should take it, as directed, when you need it, especially before physical therapy and before going to bed. Pain that interferes with sleep is very common and can last several months. * You will likely need pain medicine for the first two to four weeks. It will not stop all of the pain. The pain will lessen and as you feel better, you may change to milder pain medicine such as Tylenol. * The most common side effects of pain medicine are nausea and constipation, so don't take more than you need. SPECIAL CARE INSTRUCTIONS: TEDs/Elastic Stockings: * The white elastic stockings help limit swelling and prevent blood clots from forming in your legs. The more you wear them, the more they work. * Wear them for six weeks. Prevention of Infection: * Take antibiotics one hour before any dental cleaning, dental work, urological procedure, gastrointestinal procedure or any invasive surgery in order to prevent your new joint from getting infected. * You may get the antibiotics from the doctor performing the procedure or you may call our office at before and we will call in a prescription to the pharmacy of your choice. Things to Watch For: * Drainage from the incision site that occurs more than one week after your surgery. * Severely increased leg pain or swelling. * Increased redness at the incision site. * Fever above 102 degrees Fahrenheit. * Unusual chest pain or shortness of breath. * Unusual pain or burning with urination. Call [facility] at with any of the above problems or if you have any questions about your medicines or recovery. FOLLOW UP VISIT: Make an appointment to see your doctor for approximately two weeks after surgery for a progress check and staple removal by calling the office at . Current Hospital Diet Patient's current hospital diet: Diabetes Type 2 Diet Discharge Diet Recommended Diet: Diabetes Type 2 Diet Procedures Procedures Performed: Right Total Hip Arthroplasty Pending Studies Studies pending at discharge: no Laboratory Results Hemoglobin A1c Test 03/22/18 10:34 Range/Units Estimated Average Glucose 163 mg/dl Hemoglobin A1c 7.3 H 4.5-5.6 % Medical Emergencies . Who to Call and When: Medical Emergencies: If at any time you feel your situation is an emergency, please call [phone] immediately. . Non-Emergent Contact Non-Emergency issues call your: Surgeon . "Provider Documentation" section prepared by Fazal Mckenzie. .
[2018-04-16] MEDS ORDERED: PHARMACY GLYCEMIC MGMT CONSULT SCH (07:43)
--- NOTE | 2018-04-16 08:08 | PROGRESS NOTE ---
DATE: 04/16/2018 SUBJECTIVE: A 62-year-old gentleman postop day 1 from right hip replacement. He is doing well. Pretty minimal pain. No chest pain, no shortness of breath. Not feeling dizzy or lightheaded. He says his hip feels less painful than the last one 4 months ago. OBJECTIVE: VITAL SIGNS: Temperature 37.1. Stable. GENERAL: Examination reveals a healthy and pleasant middle-aged male. He is sitting up in bed and looks comfortable. EXTREMITIES: Examination of the right hip reveals the leg lengths to be equal. His thigh is soft and supple. Dressing is clean, dry, and intact. He is neurologically intact. LABORATORY DATA: Hemoglobin 9.0, hematocrit 26.8. Electrolytes are stable. ASSESSMENT: A 62-year-old gentleman, postop day 1 from right hip replacement, doing pretty well. He is anemic but asymptomatic. Blood glucoses have been a little bit high. PLAN: 1. DVT prophylaxis including thigh-high TEDs, SCDs, and aspirin twice a day. 2. PT/OT. Weight bear as tolerated. Right total hip protocol. 3. Pain control, doing pretty well with current pain regimen. 4. Diabetes management. We will try and get his diabetes under better control. Will add some of his medicines back and also continue sliding scale. 5. Disposition: Plan is to discharge to home with some home health once adequately recovered.
[2018-04-16] MEDS: TAPENTADOL ER 50 MG TABCR PO SCH ×2 (08:54→20:51)
[2018-04-16] MEDS: MULTIVITAMIN TAB PO SCH ×2 (08:54)
[2018-04-16] MEDS: FERROUS GLUCONATE 324 MG TAB PO SCH ×3 (08:54→18:02)
[2018-04-16] MEDS: METFORMIN HCL 500 MG TAB PO SCH (08:54)
[2018-04-16] MEDS: ASPIRIN 81 MG ECTAB PO SCH ×2 (08:55→20:51)
[2018-04-16] MEDS: TOPIRAMATE 25 MG TAB PO SCH ×2 (08:55→20:51)
[2018-04-16] MEDS: FLUOXETINE HCL 20 MG CAP PO SCH (08:56)
[2018-04-16] MEDS: DOCUSATE SODIUM 100 MG CAP PO SCH ×2 (08:56→20:51)
[2018-04-16] MEDS: CYANOCOBALAMIN 500 MCG TAB (VIT B-12) PO SCH (08:56)
[2018-04-16] MEDS: PANTOprazole SOD 40 MG TAB PO SCH (08:56)
[2018-04-16] MEDS: LISINOPRIL 10 MG TAB PO SCH (08:57)
[2018-04-16] MEDS ORDERED: NON-FORMULARY MEDICATION (Coenzyme Q10 (Ubidecarenone) (Co Q 10) 100 MG) PO SCH (09:00)
[2018-04-16] MEDS: INSULIN HUMAN REGULAR SC SCH ×4 (09:03→20:48)
--- NOTE | 2018-04-16 10:03 | Pharmacy Progress Note ---
Glycemic Control Intl Consult Date of Service Apr 16, 2018. Scope Glycemic Pharmacist consulted by Dr Fazal Mckenzie on 04/16/18 for glycemic control and to write orders per [facility] inpatient glycemic control protocol Objective Weight (Kilograms): 106.820 Accuchecks BSG (last 24hrs): Test 04/15/18 10:24 04/15/18 11:56 04/15/18 17:01 04/15/18 20:25 Bedside Glucose 180 mg/dl (70-99) 196 mg/dl (70-99) 204 mg/dl (70-99) 333 mg/dl (70-99) Test 04/16/18 06:21 04/16/18 08:12 Random Glucose 169 mg/dl (70-99) Bedside Glucose 197 mg/dl (70-99) Laboratory Data (last 24hrs) Test 04/16/18 06:21 Anion Gap 11.0 mmol/L BUN/Creatinine Ratio 19.7 Blood Urea Nitrogen 26 mg/dl Creatinine 1.32 mg/dl Potassium Level 4.2 mmol/L Sodium Level 135 mmol/L White Blood Count 8.75 K/uL Red Blood Count 3.26 M/uL Hemoglobin 9.0 g/dL Hematocrit 26.8 % Mean Corpuscular Volume 82.2 fL Mean Corpuscular Hemoglobin 27.6 pg Mean Corpuscular Hemoglobin Concent 33.6 g/dl Platelet Count 172 K/uL Mean Platelet Volume 8.3 fL Neutrophils (%) (Auto) 73.7 % Lymphocytes (%) (Auto) 15.8 % Monocytes (%) (Auto) 9.9 % Eosinophils (%) (Auto) 0.2 % Basophils (%) (Auto) 0.1 % Neutrophils # (Auto) 6.44 K/uL Lymphocytes # (Auto) 1.38 K/uL Monocytes # (Auto) 0.87 K/uL Eosinophils # (Auto) 0.02 K/uL Basophils # (Auto) 0.01 K/uL Recent Pertinent Medications Outpatient Anti-diabetic Regimen: * Novolog 6 units AC * Lantus 48 units HS * Metformin 1g QAM * A1c = 7.3 % 03/22/18 The patient is currently receiving: * Basal insulin: Lantus 48 units every 24 hours * Correctional Insulin: Regular insulin - Correction per scale ACHS Goal Range: Low 80 mg/dL - High 120 mg/dL Correction Factor: 40 mg/dL/unit * Prandial insulin: None * Oral Agents: Metformin 1g PO Daily restarted this morning Risk Factors for Insulin Resistance: * Recent Surgery: POD 1 JHONNY * Diet: Type 2 DM Assessment & Plan ASSESSMENT: * 62 year old male, POD 1 right JHONNY, hyperglycemic d/t no prandial coverage. Pt did have his Lantus dose last night and Metformin was restarted this morning * I will add prandial coverage, adjust goal range, and tighten CF based on patient's TDD at home of about 66 units/day * Continue use of Regular insulin, as patient was already charged for the vial and it was used and patient likely to be discharged soon, but I will be slightly less aggressive with CF and CR d/t kinetics of Regular vs analog insulin to avoid hypoglycemia. * ADA & AACE recommend a goal blood sugar range 140-180 mg/dl for the majority of critically ill & non-critically ill patients. However, more stringent targets may be selected in individual cases. Will utilize more stringent goal of 110-140mg/dl based on patient age & comorbidities. Additionally, tighter glycemic control is warranted to facilitate wound/infection healing. PLAN FOR INPATIENT GLYCEMIC CONTROL: * Metformin 1g PO Daily * Continue Basal insulin with LANTUS 48 units SQ HS * Correctional Insulin with REGULAR per scale ACHS or Q6hrs while NPO * Goal Range: Low 110 mg/dL - High 140 mg/dL * Correction Factor: 25 mg/dL/unit * Nutritional / Prandial insulin per carb ratio of 1 unit per 8 grams CHO consumed * Please note that the plan above was derived based on current level of insulin resistance and hospital stress. These recommendations are appropriate for inpatient admission only. Plan of care upon discharge will need to be reassessed to avoid potential outpatient hypo/hyperglycemia. Thank you.
[2018-04-16 11:14] VITALS: BP 111/66; PULSE 106; TEMP 37; O2SAT 97
[2018-04-16 15:05] VITALS: BP 123/66; PULSE 107; TEMP 36.7; O2SAT 97
[2018-04-16] MEDS: INSULIN GLARGINE SOLOSTAR 100 UNITS/ML 3 ML PEN SC SCH (20:49)
[2018-04-16] MEDS: ATORVASTATIN 20 MG TAB PO SCH (20:51)
[2018-04-16] MEDS: SENNA 8.6 MG TAB PO SCH (20:51)
[2018-04-16 23:40] VITALS: BP 136/70; PULSE 106; TEMP 36.9; O2SAT 97
[2018-04-17] MEDS: CHECK SCOPOLAMINE PATCH PLACEMENT SCH ×2 (00:28→07:50)
[2018-04-17] MEDS: OXYCODONE HCL IR 5 MG TAB (IMMEDIATE RELEASE) PO PRN ×2 (00:28→11:42)
[2018-04-17] MEDS: KETOROLAC TROMETHAMINE 30 MG/ML VIAL IV. SCH ×2 (02:16→07:50)
[2018-04-17] MEDS: ACETAMINOPHEN 500 MG TAB PO SCH (05:41)
[2018-04-17 07:59] VITALS: BP 128/74; PULSE 72; TEMP 36.7; O2SAT 97
[2018-04-17] MEDS: TAPENTADOL ER 50 MG TABCR PO SCH (08:46)
[2018-04-17] MEDS: LISINOPRIL 10 MG TAB PO SCH (08:46)
[2018-04-17] MEDS: ASPIRIN 81 MG ECTAB PO SCH (08:47)
[2018-04-17] MEDS: PANTOprazole SOD 40 MG TAB PO SCH (08:47)
[2018-04-17] MEDS: MULTIVITAMIN TAB PO SCH ×2 (08:47)
[2018-04-17] MEDS: DOCUSATE SODIUM 100 MG CAP PO SCH (08:47)
[2018-04-17] MEDS: METFORMIN HCL 500 MG TAB PO SCH (08:47)
[2018-04-17] MEDS: CYANOCOBALAMIN 500 MCG TAB (VIT B-12) PO SCH (08:48)
[2018-04-17] MEDS: TOPIRAMATE 25 MG TAB PO SCH (08:48)
[2018-04-17] MEDS: FERROUS GLUCONATE 324 MG TAB PO SCH (08:48)
[2018-04-17] MEDS: FLUOXETINE HCL 20 MG CAP PO SCH (08:48)
[2018-04-17] MEDS: INSULIN HUMAN REGULAR SC SCH (08:56)
--- NOTE | 2018-04-17 08:58 | PROGRESS NOTE ---
DATE: 04/17/2018 SUBJECTIVE: A 62-year-old gentleman postop day 2 from a right hip replacement. He is doing well. Therapy went well. His pain is controlled. He denies any chest pain or shortness of breath. Not feeling dizzy or lightheaded. OBJECTIVE: VITAL SIGNS: Temperature 36.9. Vital signs stable. Mild tachycardia. PHYSICAL EXAMINATION: GENERAL: Reveals a pleasant, middle-aged male. He is lying in bed, looks quite comfortable. LUNGS: Clear to auscultation. HEART: Regular rate and rhythm in the 90s. ABDOMEN: Soft, nontender, nondistended. EXTREMITIES: Grossly neurovascularly intact except as follows: Examination of the right hip and leg reveals the incision to be clean, dry, and intact. Thigh is soft and supple. No significant drainage. He can dorsiflex and plantarflex his foot appropriately. ASSESSMENT: A 62-year-old gentleman postop day 2 from right hip replacement, doing pretty well. He is mildly anemic, but asymptomatic. His hip is located. He is neurologically intact. PLAN: 1. DVT prophylaxis including thigh-high TEDs, SCDs, and aspirin twice a day. 2. PT/OT. Weight bear as tolerated. Right total hip protocol. 3. Pain control, doing well with current pain regimen. 4. Anemia. We will continue iron supplementation. 5. Disposition: Plan to discharge to home with some home health later today.
[2018-04-17 11:45] VITALS: BP 132/72; PULSE 88; TEMP 37; O2SAT 100
--- NOTE | 2018-04-21 16:34 | DISCHARGE SUMMARY ---
ADMITTING PHYSICIAN AND SURGEON: Dr. Mckenzie. ADMITTING DIAGNOSIS: Right hip degenerative joint disease. SURGERY PERFORMED: Right total hip arthroplasty. SECONDARY DIAGNOSES: Diabetes, elevated cholesterol, gastroesophageal reflux disease, mild obesity, pancreatitis, hepatitis. CONSULTS: None obtained. HISTORY AND PHYSICAL EXAMINATION: Well documented in the patient's chart. HOSPITAL COURSE: The patient was admitted on 04/15/2018, underwent total hip arthroplasty, tolerated the procedure well. There were no complications. He was transferred to the PACU postoperatively and later to the orthopedic floor for further care. He was given Ancef for antibiotic prophylaxis, MANDI stockings and SCDs and aspirin for DVT prophylaxis. Hemoglobin, hematocrit and vital signs were monitored during his hospital stay and remained stable. He developed some postoperative anemia, did not require any blood transfusions. He did receive an iron supplement. There were no complications. By postoperative day 2, he was tolerating a diabetic diet. Pain was controlled with oral pain medicine. He was participating in physical therapy. On postop day 2, he was discharged home, set up with home health services. He was given printed discharge instructions including new prescriptions for extra-strength Tylenol, aspirin, iron supplement, oxycodone. Continue his home medicines with the exception of his home dose of Tylenol, which was changed. Continue physical therapy, weightbearing as tolerated, MANDI stockings, total hip precautions. Follow up in 10-12 days or sooner if there are any problems or concerns.
== END 2018-04-17 13:23 | disposition home health service (06) | DRG 470 ==
LOC: C.ACU 06:25 → C.3E 10:17 → ENRESERV 10:33
PROVIDERS: ADMIT Orthopaedic Surgery Sports Medicine; ATTEND Orthopaedic Surgery Sports Medicine
PROC: 0SR904A Replacement of Right Hip Joint with Ceramic on Polyethylene Synthetic Substitute, Uncemented, Open Approach (ICD-10-PCS; principal; 2018-04-15 09:00)
DX: M16.11 Unilateral primary osteoarthritis, right hip (principal); E11.9 Type 2 diabetes mellitus without complications; E78.00 Pure hypercholesterolemia, unspecified; K21.9 Gastro-esophageal reflux disease without esophagitis; E66.9 Obesity, unspecified; Z96.642 Presence of left artificial hip joint; Z68.32 Body mass index [BMI] 32.0-32.9, adult; Z79.4 Long term (current) use of insulin; Z79.82 Long term (current) use of aspirin; Z79.84 Long term (current) use of oral hypoglycemic drugs; Z79.899 Other long term (current) drug therapy

== ENCOUNTER 2021-04-24 14:34 | Observation (INO) ==
[2021-04-24 15:29] LABS: Basophils # (auto) 0.02 K/uL (0-0.2); Basophils % (auto) 0.3 %; Eosinophils # (auto) 0.24 K/uL (0-0.5); Eosinophils % (auto) 3.7 %; Hematocrit (blood only) 36.6 % (42-52); Hemoglobin 12.6 g/dL (14.0-18.0); Immature Granulocytes # (auto) 0.03 K/uL (0.00-0.02); Immature Granulocytes % (auto) 0.5 %; Lymphocytes # (auto) 1.36 K/uL (1.2-3.4); Lymphocytes % (auto) 21.2 %; Mean Corpuscular Hemoglobin 29.9 pg (25-34); Mean Corpuscular Hgb Conc 34.4 g/dL (32-36); Mean Corpuscular Volume 86.7 fL (80-100); Mean Platelet Volume 8.5 fL (7.4-10.4); Monocytes # (auto) 0.69 K/uL (0.11-0.59); Monocytes % (auto) 10.8 %; Neutrophils # (auto) 4.07 K/uL (1.4-6.5); Neutrophils % (auto) 63.5 %; Platelet Count 267 K/uL (130-400); RDW Coefficient of Variation 14.5 % (11.5-14.5); RDW Standard Deviation 45.5 fL (36.4-46.3); Red Blood Count 4.22 M/uL (4.7-6.1); White Blood Count 6.41 K/uL (4.8-10.8)
[2021-04-24 15:43] LABS: INR 1.1 (0.9-1.1); Partial Thromboplastin Time 26.7 Seconds (21.0-31.0)
[2021-04-24 15:50] LABS: Albumin Level 3.5 gm/dl (3.4-5.0); Aspartate Aminotransferase 21 U/L (15-37); BUN Creatinine Ratio 16.3 (10-20); Blood Urea Nitrogen 23 mg/dl (7-18); Calcium 9.3 mg/dl (8.5-10.1); Carbon Dioxide 25 mmol/L (21-32); Chloride 108 mmol/L (98-107); Est GFR (African American) 61.6 ml/min; Est GFR (Non-African American) 53.2 ml/min; Glucose 210 mg/dl (70-99); Potassium 4.6 mmol/L (3.5-5.1); Sodium 138 mmol/L (136-145)
[2021-04-24 15:55] LABS: Alanine Aminotransferase 33 U/L (12-78); Albumin Globulin Ratio 0.7 (0.9-2); Alkaline Phosphatase 110 U/L (45-117); Globulin 5.1 gm/dl (2.5-4.0); Total Protein 8.6 gm/dl (6.4-8.2); Troponin I < 0.015 ng/ml (0-0.045)
--- NOTE | 2021-04-24 16:54 | Emergency Department Note ---
History of Present Illness General Chief complaint: Cardiac Assessment Stated complaint: PAIN IN LEFT ARM, SENT BY DR Fernandes Seen by Provider: 04/24/21 16:45 Source: patient History of Present Illness Provider complaint: Chest pain Onset (ago): day(s) 4 Location: chest, left and right Radiation: non-radiation Severity: moderate Pain Consistency: + intermittent and + now resolved Quality: + other (Pressure and heaviness) Relieved By: + rest Exacerbated By: + other (Exertion) Associated symptoms: + chest pain, + cough, + diaphoresis and + shortness of breath; no fever/chills or no nausea/vomiting This is a 65-year-old male who presents with chest discomfort over the past 4 days intermittently. He states that it was very bad on Thursday. He was exerting himself and developed a pressure and heaviness across his chest. He was diaphoretic at the time and had associated shortness of breath. After rest he was feeling better so he did not go to the emergency department. He has had intermittent chest pressure and heaviness over the past several days and last had an episode this morning. It only occurs with exertion. He is currently not having any symptoms. He does state that he has been coughing for the past 2 to 3 weeks. He did have COVID-19 in September of this year and has had some degree of shortness of breath since then. He did receive the vaccination after he recovered from his illness. He denies any leg swelling or pain other than some mild swelling to his ankles which is chronic for him. He denies any fever, abdominal pain, vomiting, diarrhea or urinary symptoms. He also mentions that he has had tingling to the ulnar aspect of his left arm for the past 3 months intermittently. He denies any loss of strength or sensation. He has had no other strokelike symptoms and denies difficulty with speech, gait, vision or swallowing. Home Medications Medication Instructions Recorded Confirmed Type yjimjyn-bftssopzcaqvq-yifhloah 250 2 tab PO Q6H PRN #60 tab 03/24/19 04/24/21 Rx mg-250 mg-65 mg tablet (Excedrin Migraine) cyanocobalamin (vitamin B-12) 1,000 mcg PO DAILY 03/24/19 04/24/21 History 1,000 mcg tablet (Vitamin B-12) flash glucose scanning reader #1 ea 03/24/19 04/02/21 History (FreeStyle Johnny 14 Day [place]) fluoxetine 20 mg capsule 20 mg PO DAILY 03/24/19 04/24/21 History lisinopril 10 mg tablet 10 mg PO DAILY 03/24/19 04/24/21 History multivitamin 1 cap PO DAILY 03/24/19 04/24/21 History glucosamine 750 ae-nfxpwhtree-gkw 2 tab PO DAILY tab 09/27/19 04/24/21 History no.1 625 mg-C 30 gy-kkfe-sphk tablet aspirin 81 mg tablet,delayed 81 mg PO BID tab 01/24/20 04/24/21 History release coenzyme Q10 100 mg capsule 100 mg PO DAILY cap 01/24/20 04/24/21 History elderberry fruit 200 mg capsule 200 mg PO DAILY cap 01/24/20 04/24/21 History FreeStyle Johnny 14 Day Sensor #2 ea NS 12/26/20 04/02/21 Rx (flash glucose sensor) atorvastatin 20 mg tablet 20 mg PO QPM #90 tab 01/01/21 04/24/21 Rx insulin aspart U-100 100 unit/mL See Rx Instructions CONTINUOUS 02/08/21 04/24/21 Rx subcutaneous solution (Novolog SUBCUTANEOUS INFUSION DAILY #8 vial U-100 Insulin aspart) metformin 1,000 mg tablet 1,000 mg PO DAILY #90 tab 03/26/21 04/24/21 Rx topiramate 25 mg tablet 25 mg PO BID 04/24/21 04/24/21 History Allergies Allergy/AdvReac Type Severity Reaction Status Date / Time bee venom protein (honey bee) Allergy Severe SWELLING,SO Verified 04/24/21 17:30 B Penicillins Allergy Unknown UNKNOWN Verified 04/24/21 17:30 Past Med/Surg History Medical History Carpal tunnel syndrome CKD (chronic kidney disease), stage III Depression Diabetic peripheral neuropathy Dyslipidemia Uncontrolled type 2 diabetes mellitus Surgical History Bilateral inguinal hernia repaired History of appendectomy History of cholecystectomy Hx of shoulder surgery Family History Mother Cancer Father Heart disease Colorectal cancer Stroke Social History Smoking Status: Former smoker Tobacco Type: Cigarettes Hx Alcohol Use: Yes Preferred Language: Frisian marital status: Feels Safe at Home: Yes Review of Systems See HPI for pertinent positives & negatives. and A total of 10 systems reviewed and were otherwise negative Physical Exam Vital Signs Vital Signs - 24 hr 04/24/21 15:02 04/24/21 15:07 04/24/21 16:37 Temperature 37.1 C Temperature Source Temporal Artery Scan Pulse Rate 114 H 97 H Pulse Rate [Apical] 97 H Pulse Rate from SpO2 Sensor Respiratory Rate 20 20 Respiratory Effort / Characteristics Short of Breath Short of Breath Non-Labored Spontaneous Respiratory Depth Normal Respiratory Pattern Regular Blood Pressure 129/72 Blood Pressure [Right Arm] 154/77 H Blood Pressure Mean 91 Blood Pressure Mean [Right Arm] 102 Blood Pressure Position Sitting Pulse Oximetry 99 100 Oxygen Delivery Method Room Air Room Air Room Air Sepsis Recent Fever Within 48 Hours No Sepsis New/Unexplained Change in Mental Status N/A Sepsis Action Taken by Nursing No Action Required 04/24/21 16:39 04/24/21 16:49 04/24/21 18:00 Temperature Temperature Source Pulse Rate 91 H Pulse Rate [Apical] Pulse Rate from SpO2 Sensor 91 H Respiratory Rate 17 Respiratory Effort / Characteristics Respiratory Depth Respiratory Pattern Blood Pressure 145/83 H Blood Pressure [Right Arm] Blood Pressure Mean 103 Blood Pressure Mean [Right Arm] Blood Pressure Position Pulse Oximetry 100 97 98 Oxygen Delivery Method Room Air Room Air Sepsis Recent Fever Within 48 Hours Sepsis New/Unexplained Change in Mental Status Sepsis Action Taken by Nursing 04/24/21 18:30 Temperature Temperature Source Pulse Rate 91 H Pulse Rate [Apical] Pulse Rate from SpO2 Sensor 92 H Respiratory Rate 13 Respiratory Effort / Characteristics Respiratory Depth Respiratory Pattern Blood Pressure 133/89 Blood Pressure [Right Arm] Blood Pressure Mean 103 Blood Pressure Mean [Right Arm] Blood Pressure Position Pulse Oximetry 100 Oxygen Delivery Method Sepsis Recent Fever Within 48 Hours Sepsis New/Unexplained Change in Mental Status Sepsis Action Taken by Nursing Constitutional: Vital signs reviewed. Eyes: Pupils are equal round reactive to light. Conjunctiva are noninjected. ENT: Pharynx is clear without erythema or exudate. Mucous membranes are moist. Neck supple without meningeal signs. Respiratory: Clear to auscultation bilaterally. Breath sounds are equal bilaterally. Cardiovascular: Regular rate and rhythm. No rubs or gallops. GI: Soft, nondistended and nontender. Bowel sounds are present. Musculoskeletal: No peripheral edema. No lower extremity tenderness. Integumentary: No cyanosis. or jaundice. Neurologic: The patient is awake and alert. Cranial nerves II-XII are intact. Motor is 5 out of 5 all extremities. Sensation is intact to light touch all extremities. Normal speech. No pronator drift. No limb ataxia. Psychiatric: Normal affect. Not anxious appearing. Course Administered Medications Discontinued Medications Ioversol (Optiray 320 125ml) 119 ml IV ONCE ONE Stop: 04/24/21 17:46 Last Admin: 04/24/21 17:46 Dose: 119 ml Documented by: [id number] Medical Decision Making Differential Diagnosis Unstable angina, ME, pneumonia, GERD, pleurisy Medical Records Attestation: I reviewed the patient's medical records. I did perform a limited focused review of portions of the patient's old chart on the electronic medical record. The patient has had no recent pertinent visits to this hospital. He was seen recently by dermatology for actinic keratosis. Home Medications Current Medication List: was personally reviewed by al Laboratory Data Attestation: I reviewed the patient's lab results. Result diagrams: 04/24/21 15:08 04/24/21 15:08 Lab Results 04/24/21 04/24/21 04/24/21 Range/Units 15:07 15:08 15:08 WBC 6.41 (4.8-10.8) K/uL RBC 4.22 L (4.7-6.1) M/uL Hgb 12.6 L (14.0-18.0) g/dL Hct 36.6 L (42-52) % MCV 86.7 (80-100) fL MCH 29.9 (25-34) pg MCHC 34.4 (32-36) g/dL RDW Std Deviation 45.5 (36.4-46.3) fL RDW Coeff of Juan A 14.5 (11.5-14.5) % Plt Count 267 (130-400) K/uL MPV 8.5 (7.4-10.4) fL Immature Gran % (Auto) 0.5 % Neut % (Auto) 63.5 % Lymph % (Auto) 21.2 % [place]ergus % (Auto) 10.8 % Eos % (Auto) 3.7 % Baso % (Auto) 0.3 % Neut # (Auto) 4.07 (1.4-6.5) K/uL Lymph # (Auto) 1.36 (1.2-3.4) K/uL [place] # (Auto) 0.69 H (0.11-0.59) K/uL Eos # (Auto) 0.24 (0-0.5) K/uL Baso # (Auto) 0.02 (0-0.2) K/uL Immature Gran # (Auto) 0.03 H (0.00-0.02) K/uL PT 11.0 (9.0-12.0) Seconds INR 1.1 (0.9-1.1) APTT 26.7 (21.0-31.0) Seconds PTT Ratio 1.0 D-Dimer 380 (0-500) ug/L FEU Sodium (136-145) mmol/L Potassium (3.5-5.1) mmol/L Chloride (98-107) mmol/L Carbon Dioxide (21-32) mmol/L Anion Gap (3-11) BUN (7-18) mg/dl Creatinine (0.6-1.4) mg/dl Est Cr Clr Drug Dosing ml/min Est GFR ( Amer) ml/min Est GFR (Non-Af Amer) ml/min BUN/Creatinine Ratio (10-20) Glucose (70-99) mg/dl Calcium (8.5-10.1) mg/dl Total Bilirubin (0.2-1) mg/dl AST (15-37) U/L ALT (12-78) U/L Alkaline Phosphatase (45-117) U/L Troponin I (0-0.045) ng/ml Total Protein (6.4-8.2) gm/dl Albumin (3.4-5.0) gm/dl Globulin (2.5-4.0) gm/dl Albumin/Globulin Ratio (0.9-2) Lipase (73-393) U/L COVID-19 Eval Order SARS-CoV-2 (PCR) (Negative) 04/24/21 04/24/21 04/24/21 Range/Units 15:08 17:21 17:21 WBC (4.8-10.8) K/uL RBC (4.7-6.1) M/uL Hgb (14.0-18.0) g/dL Hct (42-52) % MCV (80-100) fL MCH (25-34) pg MCHC (32-36) g/dL RDW Std Deviation (36.4-46.3) fL RDW Coeff of Juan A (11.5-14.5) % Plt Count (130-400) K/uL MPV (7.4-10.4) fL Immature Gran % (Auto) % Neut % (Auto) % Lymph % (Auto) % [place] % (Auto) % Eos % (Auto) % Baso % (Auto) % Neut # (Auto) (1.4-6.5) K/uL Lymph # (Auto) (1.2-3.4) K/uL [place] # (Auto) (0.11-0.59) K/uL Eos # (Auto) (0-0.5) K/uL Baso # (Auto) (0-0.2) K/uL Immature Gran # (Auto) (0.00-0.02) K/uL PT (9.0-12.0) Seconds INR (0.9-1.1) APTT (21.0-31.0) Seconds PTT Ratio D-Dimer (0-500) ug/L FEU Sodium 138 (136-145) mmol/L Potassium 4.6 (3.5-5.1) mmol/L Chloride 108 H (98-107) mmol/L Carbon Dioxide 25 (21-32) mmol/L Anion Gap 5.0 (3-11) BUN 23 H (7-18) mg/dl Creatinine 1.39 (0.6-1.4) mg/dl Est Cr Clr Drug Dosing 69.0 ml/min Est GFR ( Amer) 61.6 ml/min Est GFR (Non-Af Amer) 53.2 ml/min BUN/Creatinine Ratio 16.3 (10-20) Glucose 210 H (70-99) mg/dl Calcium 9.3 (8.5-10.1) mg/dl Total Bilirubin 1.0 (0.2-1) mg/dl AST 21 (15-37) U/L ALT 33 (12-78) U/L Alkaline Phosphatase 110 (45-117) U/L Troponin I < 0.015 (0-0.045) ng/ml Total Protein 8.6 H (6.4-8.2) gm/dl Albumin 3.5 (3.4-5.0) gm/dl Globulin 5.1 H (2.5-4.0) gm/dl Albumin/Globulin Ratio 0.7 L (0.9-2) Lipase 122 (73-393) U/L COVID-19 Eval Order Covid19 at [facility] SARS-CoV-2 (PCR) NEGATIVE (Negative) Imaging Data Radiologist's Impression: Chest CTA 04/24/21 17:15 CHEST CTA for PULMONARY ARTERIES CT DOSE: 732.48 mGy.cm HISTORY: Shortness of breath. TECHNIQUE: Multiaxial CT images of the chest were performed following the intra venous administration of contrast to evaluate the pulmonary arteries. Maximal intensity projection images were also obtained. A dose lowering technique was utilized adhering to the principles of ALARA. COMPARISON STUDY: Chest CTA 05/14/2017. FINDINGS: Normal caliber thoracic aorta with no evidence for dissection. The heart is normal in size. No pleural or pericardial effusions. No filling defects within the pulmonary arteries to suggest a pulmonary embolus. Limited views of the upper abdomen demonstrate a normal liver and adrenal glands. [place] amount of capsular calcification within the spleen, unchanged. Normal esophagus. Subcentimeter mediastinal and hilar lymph nodes do not meet CT criteria for pathologic involvement. However, the subcentimeter right hilar lymph nodes have increased in size. Old, healed left posterior eighth rib fracture. No suspicious lytic or blastic osseous lesions. Postoperative changes are partially visualized within the right scapula. No pneumothorax. The central airways are patent. There is a 6 mm nodule within the right lower lobe in image 128. This remains stable. There are 2 adjacent 4 mm subpleural nodules within the left upper lobe abutting the major fissure on images 230 and 227. There is a stable 4 mm nodule within the left lower lobe on image 112. No focal lung consolidations to suggest pneum onia. No evidence for pulmonary edema. Stable 4 mm nodule within the right lower lobe on image 159. No new pulmonary nodules identified. IMPRESSION: 1. No evidence for pulmonary embolus. 2. Stable scattered subcentimeter pulmonary nodules. These are considered to be benign given the greater than 2 year stability. 3. A few prominent right hilar lymph nodes which measure subcentimeter in short axis diameter. Therefore, these do not meet CT criteria for pathologic involvement. However, these have slightly increased in size in the interval. Consider six-month chest CT follow-up to ensure stability. ACT 112: Positive. There are findings on this exam that require communication b etween the performing entity and the patient following Patient Test Result Information Act ([place] Act 112) guidelines. Electronically signed by: Yoav Hooks M.D. 04/24/2021 6:12 PM ECG Data Attestation: I personally reviewed and interpreted this ECG as follows: Indication: + chest pain Rate (beats per minute): 98 ECG [place]: + Normal ECG ST segments: + Nonspecific ST abnormalities ECG Findings: + Other (Wavy baseline limiting interpretation.); no PVCs MDM Narrative I did evaluate the patient as noted above. The patient is presenting with exertional chest pressure for the past 4 days. He also has had some paresthesias to the left arm for the past 3 months. On exam he is neuro logically intact. His symptoms do not seem consistent with stroke. IV access was established. I did place an order for continuous cardiac monitoring. The monitor showed normal sinus rhythm at a rate of 98 bpm. I did order and personally review the patient's 12-lead EKG as described above. No acute ischemic changes are noted. There is some artifact limiting interpretation. I did order and review the patient's blood work as noted in the electronic medical record. His white count is not elevated. Hemoglobin is 12.6. His last hemoglobin was 13.3 in March 2019. Electrolytes are unremarkable other than a chloride of 108. Glucose is 210. He is diabetic. Troponin is negative. LFTs are unremarkable. His D-dimer is not elevated but he is high risk based on his Wells criteria for PE. After discussion with the patient, I did order a CT angiogram of the chest. I did review the images myself as well as the radiology report as described above. He does not have a pulmonary embolism. I did discuss the test results with the patient. I did recommend hospitalization for further care and evaluation. A Covid test was sent. I did discuss the case with the hospitalist and community case manager. Impression & Plan Chest pain, exertional, Arm paresthesia, left, Anemia, Hyperglycemia Discharge Plan Visit Data Chief Complaint: Cardiac Assessment Stated Complaint: PAIN IN LEFT ARM, SENT BY ED Provider: Buddy Bush ED Midlevel Provider: Karen Hsu Discharge Problem: Chest pain, exertional, Arm paresthesia, left, Anemia, Hyperglycemia Patient Disposition: Being Evaluated by Hospitalist Forms Stand Alone Forms: My [facility] Prescriptions Prescriptions: No Action fluoxetine 20 mg capsule 20 mg PO DAILY RF: 0 lisinopril 10 mg tablet 10 mg PO DAILY RF: 0 multivitamin capsule 1 cap PO DAILY RF: 0 Excedrin Migraine 250-250-65 mg tablet 2 tab PO Q6H PRN (Reason: pain) Qty: 60 RF: 0 (DME) FreeStyle Johnny 14 Day [place] misc See Dose Instructions .ROUTE .MEDSUPPLY Qty: 1 RF: 0 cyanocobalamin (vitamin B-12) [Vitamin B-12] 1,000 mcg tablet 1,000 mcg PO DAILY RF: 0 aspirin 81 mg tablet,delayed release (DR/EC) 81 mg PO BID RF: 0 (DME) FreeStyle Johnny 14 Day Sensor Kit See Dose Instructions .ROUTE .MEDSUPPLY Qty: 2 RF: 11 atorvastatin 20 mg tablet 20 mg PO QPM Qty: 90 RF: 3 Novolog U-100 Insulin aspart 100 unit/mL solution See Rx Instructions continuous subcutaneous infusion DAILY Qty: 8 RF: 3 metformin 1,000 mg tablet 1,000 mg PO DAILY Qty: 90 RF: 0 coenzyme Q10 100 mg capsule 100 mg PO DAILY RF: 0 elderberry fruit 200 mg capsule 200 mg PO DAILY RF: 0 lmvcgqxr-uits-ohu9-C-nancy-bosw 750-625-30 mg tablet 2 tab PO DAILY RF: 0 topiramate 25 mg tablet 25 mg PO BID RF: 0 Referrals Referrals: Evan Zapata, [Primary Care Provider] -
[2021-04-24 17:06] LABS: Lipase 122 U/L (73-393)
[2021-04-24 17:15] LABS: D Dimer 380 ug/L FEU (0-500)
--- NOTE | 2021-04-24 17:22 | Emergency Department Note ---
ED Visit Note Patient seen in concert with Dr. Bush, please see his note for assessment and plan. . Resident Activity Tracking Resident Involvement: Resident Care Provided Care Provided: Adult ED
[2021-04-24] MEDS ORDERED: OPTIRAY 320 125ml IV ONE (17:45)
--- NOTE | 2021-04-24 18:14 | CT Scan Report ---
CHEST CTA for PULMONARY ARTERIES CT DOSE: 732.48 mGy.cm HISTORY: Shortness of breath. TECHNIQUE: Multiaxial CT images of the chest were performed following the intravenous administration of contrast to evaluate the pulmonary arteries. Maximal intensity projection images were also obtaine d. A dose lowering technique was utilized adhering to the principles of ALARA. COMPARISON STUDY: Chest CTA 05/14/2017. FINDINGS: Normal caliber thoracic aorta with no evidence for dissection. The heart is normal in size. No pleural or pericardial effusions. No filling defects within the pulmonary arteries to suggest a p ulmonary embolus. Limited views of the upper abdomen demonstrate a normal liver and adrenal glands. [place] amount of capsular calcification within the spleen, unchanged. Normal esophagus. Subcentimeter m ediastinal and hilar lymph nodes do not meet CT criteria for pathologic involvement. However, the sub centimeter right hilar lymph nodes have increased in size. Old, healed left posterior eighth rib frac ture. No suspicious lytic or blastic osseous lesions. Postoperative changes are partially visualized within the right scapula. No pneumothorax. The central airways are patent. There is a 6 mm nodule wit hin the right lower lobe in image 128. This remains stable. There are 2 adjacent 4 mm subpleural nodu les within the left upper lobe abutting the major fissure on images 230 and 227. There is a stable 4 mm nodule within the left lower lobe on image 112. No focal lung consolidations to suggest pneumonia. No evidence for pulmonary edema. Stable 4 mm nodule within the right lower lobe on image 159. No new pulmonary nodules identified. IMPRESSION: 1. No evidence for pulmonary embolus. 2. Stable scattered subcentimeter pulmonary nodules. These are considered to be benign given the grea ter than 2 year stability. 3. A few prominent right hilar lymph nodes which measure subcentimeter in short axis diameter. Theref ore, these do not meet CT criteria for pathologic involvement. However, these have slightly increased in size in the interval. Consider six-month chest CT follow-up to ensure stability. ACT 112: Positive. There are findings on this exam that require communication between the performing entity and the patient following Patient Test Result Information Act ([place] Act 112) guidelines. Electronically signed by: Yoav Hooks M.D. 04/24/2021 6:12 PM
--- NOTE | 2021-04-24 18:57 | History & Physical Report ---
Date of Service April 24, 2021 Assessment & Plan (1) Chest pain: Plan: Symptoms are certainly concerning for possible anginal symptoms, may also be secondary to long-haul Covid Placed in monitored observation Trend cardiac enzymes, first set is negative EKG in the morning Check fasting lipids Will schedule for stress echo in the morning and if troponins are negative Continue low-dose aspirin We will consult cardiology as requested by patient (2) Dyslipidemia: Plan: Patient is on atorvastatin 20 mg daily, will continue this Check fasting lipids (3) Type 2 diabetes mellitus: Plan: Start sliding scale insulin, Accu-Cheks We will hold metformin for now in case patient requires cardiac catheterization this admission (4) Hypertension: Plan: Blood pressure is acceptable on current regimen, I see he is on lisinopril. Can continue as ordered History of Present Illness Chief Complaint: Chest pain Primary Care Provider: Evan Zapata, This is a 65-year-old male past medical history of type 2 diabetes, dyslipidemia, peripheral neuropathy that presents today complaining of chest pain shortness of breath. Patient is pleasant and a good historian. Patient tells me that he contracted Covid earlier this year in September. Although the symptoms resolved, he does have some chronic dyspnea on exertion with this. He does not notice any shortness of breath at rest. He is occasionally had some very mild chest pressure with heavy exertion but he was not concerned and did not seek medical attention. 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 He described this is a heavy chest pressure that was substernal. It was associated with dyspnea on exertion which seem to be more severe than his usual post Covid experience. This was relieved with extended break. Patient talked to his who encouraged him to come to the emergency room. He did not take her device and continue to have a this pressure pressure with exertion as described. He did have some more this morning decided eventually seek medical attention. So far in the emergency room, work-up is been negative. He is somewhat tachycardic with a resting pulse rate in the 90s. O2 sat is been high percent on room air and other vitals been stable. Patient states that he had a stress test many years ago but has had no cardiac work-up and does not see a loan representative. He is requesting Dr. Charles who takes care of his . Allergies Allergy/AdvReac Type Severity Reaction Status Date / Time bee venom protein (honey bee) Allergy Severe SWELLING,SO Verified 04/24/21 17:30 B Penicillins Allergy Unknown UNKNOWN Verified 04/24/21 17:30 Home Medications Medication Instructions Recorded Confirmed Type jophqdh-yysuhyndoefrz-pcscdozc 250 2 tab PO Q6H PRN #60 tab 03/24/19 04/24/21 Rx mg-250 mg-65 mg tablet (Excedrin Migraine) cyanocobalamin (vitamin B-12) 1,000 mcg PO DAILY 03/24/19 04/24/21 History 1,000 mcg tablet (Vitamin B-12) flash glucose scanning reader #1 ea 03/24/19 04/02/21 History (FreeStyle Johnny 14 Day Cana) fluoxetine 20 mg capsule 20 mg PO DAILY 03/24/19 04/24/21 History lisinopril 10 mg tablet 10 mg PO DAILY 03/24/19 04/24/21 History multivitamin 1 cap PO DAILY 03/24/19 04/24/21 History glucosamine 750 jy-rhzfifebno-cwx 2 tab PO DAILY tab 09/27/19 04/24/21 History no.1 625 mg-C 30 zl-gtep-krsl tablet aspirin 81 mg tablet,delayed 81 mg PO BID tab 01/24/20 04/24/21 History release coenzyme Q10 100 mg capsule 100 mg PO DAILY cap 01/24/20 04/24/21 History elderberry fruit 200 mg capsule 200 mg PO DAILY cap 01/24/20 04/24/21 History FreeStyle Johnny 14 Day Sensor #2 ea NS 12/26/20 04/02/21 Rx (flash glucose sensor) atorvastatin 20 mg tablet 20 mg PO QPM #90 tab 01/01/21 04/24/21 Rx insulin aspart U-100 100 unit/mL See Rx Instructions CONTINUOUS 02/08/21 04/24/21 Rx subcutaneous solution (Novolog SUBCUTANEOUS INFUSION DAILY #8 vial U-100 Insulin aspart) metformin 1,000 mg tablet 1,000 mg PO DAILY #90 tab 03/26/21 04/24/21 Rx topiramate 25 mg tablet 25 mg PO BID 04/24/21 04/24/21 History Past Med/Surg History Medical History Carpal tunnel syndrome CKD (chronic kidney disease), stage III Depression Diabetic peripheral neuropathy Dyslipidemia Uncontrolled type 2 diabetes mellitus Surgical History Bilateral inguinal hernia repaired History of appendectomy History of cholecystectomy Hx of shoulder surgery Family History Mother Cancer Father Heart disease Colorectal cancer Stroke Social History Smoking Status: Former smoker Tobacco Type: Cigarettes Hx Alcohol Use: Yes Preferred Language: Hebrew marital status: Feels Safe at Home: Yes Review of Systems Constitutional: no fever, no chills, no weakness, no weight loss and no weight gain Eyes: as per Subjective / HPI Respiratory: + dyspnea on exertion; no cough, no chest congestion, no pain on inspiration, no pain with cough and no sputum production Cardiovascular: + chest pain and + dyspnea on exertion; no radiating jaw, neck or arm pain, no orthopnea, no palpitations, no lightheadedness and no edema Gastrointestinal: no abdominal pain, no nausea, no vomiting, no constipation and no diarrhea/loose stools Musculoskeletal: no back pain, no neck pain, no joint pain, no stiffness and no myalgia Integumentary: no rash Neurologic: no gait abnormality, no unsteadiness, no falls and no generalized weakness Physical Exam Constitutional: cooperative; no acute distress Neck: trachea midline, no thyromegaly Respiratory: normal respiratory effort Auscultation: lungs clear to auscultation bilaterally; no crackles, no rales, no rhonchi and no wheezes Cardiovascular: Rate/Rhythm: regular rate and regular rhythm Heart Sounds: normal S1 and normal S2 Gastrointestinal (Abdomen): Inspection/Auscultation: abdomen normal to inspection Percussion/Palpation: abdomen soft; abdomen nontender, no guarding, abdomen not rigid and no hepatosplenomegaly Skin: no rashes, warm and dry Results & Data Results & Data ([facility]) Vital Signs (Past 12 Hours) Vital Signs Temp Pulse Pulse Resp BP BP Pulse Ox 04/24/21 18:30 91 H 13 133/89 100 04/24/21 18:00 91 H 17 145/83 H 98 04/24/21 16:49 97 04/24/21 16:39 100 04/24/21 16:37 97 H 97 H 20 154/77 H 100 04/24/21 15:02 37.1 C 114 H 20 129/72 99 Laboratory Results Laboratory Results WBC 6.41 K/uL (4.8-10.8) 04/24/21 15:08 RBC 4.22 M/uL (4.7-6.1) L 04/24/21 15:08 Hgb 12.6 g/dL (14.0-18.0) L 04/24/21 15:08 Hct 36.6 % (42-52) L 04/24/21 15:08 MCV 86.7 fL (80-100) 04/24/21 15:08 MCH 29.9 pg (25-34) 04/24/21 15:08 MCHC 34.4 g/dL (32-36) 04/24/21 15:08 RDW Std Deviation 45.5 fL (36.4-46.3) 04/24/21 15:08 RDW Coeff of Juan A 14.5 % (11.5-14.5) 04/24/21 15:08 Plt Count 267 K/uL (130-400) 04/24/21 15:08 MPV 8.5 fL (7.4-10.4) 04/24/21 15:08 Immature Gran % (Auto) 0.5 % 04/24/21 15:08 Neut % (Auto) 63.5 % 04/24/21 15:08 Lymph % (Auto) 21.2 % 04/24/21 15:08 [place] % (Auto) 10.8 % 04/24/21 15:08 Eos % (Auto) 3.7 % 04/24/21 15:08 Baso % (Auto) 0.3 % 04/24/21 15:08 Neut # (Auto) 4.07 K/uL (1.4-6.5) 04/24/21 15:08 Lymph # (Auto) 1.36 K/uL (1.2-3.4) 04/24/21 15:08 [place] # (Auto) 0.69 K/uL (0.11-0.59) H 04/24/21 15:08 Eos # (Auto) 0.24 K/uL (0-0.5) 04/24/21 15:08 Baso # (Auto) 0.02 K/uL (0-0.2) 04/24/21 15:08 Immature Gran # (Auto) 0.03 K/uL (0.00-0.02) H 04/24/21 15:08 PT 11.0 Seconds (9.0-12.0) 04/24/21 15:08 INR 1.1 (0.9-1.1) 04/24/21 15:08 APTT 26.7 Seconds (21.0-31.0) 04/24/21 15:08 PTT Ratio 1.0 04/24/21 15:08 D-Dimer 380 ug/L FEU (0-500) 04/24/21 15:07 Sodium 138 mmol/L (136-145) 04/24/21 15:08 Potassium 4.6 mmol/L (3.5-5.1) 04/24/21 15:08 Chloride 108 mmol/L (98-107) H 04/24/21 15:08 Carbon Dioxide 25 mmol/L (21-32) 04/24/21 15:08 Anion Gap 5.0 (3-11) 04/24/21 15:08 BUN 23 mg/dl (7-18) H 04/24/21 15:08 Creatinine 1.39 mg/dl (0.6-1.4) 04/24/21 15:08 Est Cr Clr Drug Dosing 69.0 ml/min 04/24/21 15:08 Est GFR ( Amer) 61.6 ml/min 04/24/21 15:08 Est GFR (Non-Af Amer) 53.2 ml/min 04/24/21 15:08 BUN/Creatinine Ratio 16.3 (10-20) 04/24/21 15:08 Glucose 210 mg/dl (70-99) H 04/24/21 15:08 Calcium 9.3 mg/dl (8.5-10.1) 04/24/21 15:08 Total Bilirubin 1.0 mg/dl (0.2-1) 04/24/21 15:08 AST 21 U/L (15-37) 04/24/21 15:08 ALT 33 U/L (12-78) 04/24/21 15:08 Alkaline Phosphatase 110 U/L (45-117) 04/24/21 15:08 Troponin I < 0.015 ng/ml (0-0.045) 04/24/21 15:08 Total Protein 8.6 gm/dl (6.4-8.2) H 04/24/21 15:08 Albumin 3.5 gm/dl (3.4-5.0) 04/24/21 15:08 Globulin 5.1 gm/dl (2.5-4.0) H 04/24/21 15:08 Albumin/Globulin Ratio 0.7 (0.9-2) L 04/24/21 15:08 Lipase 122 U/L (73-393) 04/24/21 15:08 COVID-19 Eval Order Covid19 at [facility] 04/24/21 17:21 SARS-CoV-2 (PCR) NEGATIVE (Negative) 04/24/21 17:21 Impressions Chest CTA 04/24/21 17:15 CHEST CTA for PULMONARY ARTERIES CT DOSE: 732.48 mGy.cm HISTORY: Shortness of breath. TECHNIQUE: Multiaxial CT images of the chest were performed following the intravenous administration of contrast to evaluate the pulmonary arteries. Maximal intensity projection images were also obtained. A dose lowering technique was utilized adhering to the principles of ALARA. COMPARISON STUDY: Chest CTA 05/14/2017. FINDINGS: Normal caliber thoracic aorta with no evidence for dissection. The heart is normal in size. No pleural or pericardial effusions. No filling defects within the pulmonary arteries to suggest a pulmonary embolus. Limited views of the upper abdomen demonstrate a normal liver and adrenal glands. [place] amount of capsular calcification within the spleen, unchanged. Normal esophagus. Subcentimeter mediastinal and hilar lymph nodes do not meet CT criteria for pathologic involvement. However, the subcentimeter right hilar lymph nodes have increased in size. Old, healed left posterior eighth rib fracture. No suspicious lytic or blastic osseous lesions. Postoperative changes are partially visualized within the right scapula. No pneumothorax. The central airways are patent. There is a 6 mm nodule within the right lower lobe in image 128. This remains stable. There are 2 adjacent 4 mm subpleural nodules within the left upper lobe abutting the major fissure on images 230 and 227. There is a stable 4 mm nodule within the left lower lobe on image 112. No focal lung consolidations to suggest pneumonia. No evidence for pulmonary edema. Stable 4 mm nodule within the right lower lobe on image 159. No new pulmonary nodules identified. IMPRESSION: 1. No evidence for pulmonary embolus. 2. Stable scattered subcentimeter pulmonary nodules. These are considered to be benign given the greater than 2 year stability. 3. A few prominent right hilar lymph nodes which measure subcentimeter in short axis diameter. Therefore, these do not meet CT criteria for pathologic involvement. However, these have slightly increased in size in the interval. Consider six-month chest CT follow-up to ensure stability. ACT 112: Positive. There are findings on this exam that require communication between the performing entity and the patient following Patient Test Result Information Act ([place] Act 112) guidelines. Electronically signed by: Yoav Hooks M.D. 04/24/2021 6:12 PM PG Care Time/CCT Total # of Minutes Spent Total Time Spent with Patient: Total time spent is greater than 50% in coordination of care (as documented) at patient's floor/unit and/or counseling patient: Coding Level of Care Code INT OBSERVATION CARE 70M LVL 3 Diagnoses Dyslipidemia E78.5 Type 2 diabetes mellitus E11.9 Hypertension I10 Chest pain R07.9
[2021-04-24] MEDS ORDERED: CARBOHYDRATES FOR HYPOGLYCEMIA PO PRN (23:28)
[2021-04-24] MEDS ORDERED: DEXTROSE 50% 50 ML SYRINGE IV PRN (23:28)
[2021-04-24] MEDS ORDERED: GLUCAGON FOR INJ 1 MG VIAL SQ PRN (23:28)
[2021-04-24] MEDS ORDERED: GLUCOSE 40% GEL 15 GM TUBE PO PRN (23:28)
[2021-04-24] MEDS ORDERED: ACETAMINOPHEN 325 MG TAB PO PRN (23:28)
[2021-04-24] MEDS ORDERED: ONDANSETRON INJ 2 MG/ML 2 ML VIAL IV PRN (23:28)
[2021-04-24] MEDS ORDERED: GLUCOSE 10 TABS/TUBE PO PRN (23:28)
[2021-04-24] MEDS ORDERED: ATORVASTATIN 20 MG TAB PO SCH (23:45)
[2021-04-25] MEDS: ASPIRIN 81 MG ECTAB PO SCH ×2 (00:22→11:11)
[2021-04-25] MEDS: TOPIRAMATE 25 MG TAB PO SCH ×2 (00:23→11:12)
[2021-04-25] MEDS: INSULIN ASPART 100 UNITS/ML 3 ML PEN SC SCH ×4 (01:45→16:47)
[2021-04-25 05:43] LABS: Basophils # (auto) 0.02 K/uL (0-0.2); Basophils % (auto) 0.3 %; Eosinophils # (auto) 0.26 K/uL (0-0.5); Eosinophils % (auto) 4.5 %; Hemoglobin 11.3 g/dL (14.0-18.0); Immature Granulocytes # (auto) 0.04 K/uL (0.00-0.02); Immature Granulocytes % (auto) 0.7 %; Lymphocytes # (auto) 1.55 K/uL (1.2-3.4); Lymphocytes % (auto) 27.1 %; Mean Corpuscular Hemoglobin 28.8 pg (25-34); Mean Corpuscular Hgb Conc 33.2 g/dL (32-36); Mean Corpuscular Volume 86.7 fL (80-100); Mean Platelet Volume 8.5 fL (7.4-10.4); Monocytes # (auto) 0.73 K/uL (0.11-0.59); Monocytes % (auto) 12.7 %; Neutrophils # (auto) 3.13 K/uL (1.4-6.5); Neutrophils % (auto) 54.7 %; Platelet Count 233 K/uL (130-400); RDW Coefficient of Variation 14.6 % (11.5-14.5); RDW Standard Deviation 45.7 fL (36.4-46.3); Red Blood Count 3.92 M/uL (4.7-6.1); White Blood Count 5.73 K/uL (4.8-10.8)
[2021-04-25 06:07] LABS: BUN Creatinine Ratio 15.1 (10-20); Blood Urea Nitrogen 19 mg/dl (7-18); Carbon Dioxide 27 mmol/L (21-32); Chloride 108 mmol/L (98-107); Creatinine Clr Calc Pharmacy 75.9 ml/min; Est GFR (African American) 68.7 ml/min; Est GFR (Non-African American) 59.3 ml/min; Glucose 148 mg/dl (70-99); Magnesium 1.5 mg/dl (1.8-2.4); Potassium 4.3 mmol/L (3.5-5.1); Sodium 139 mmol/L (136-145)
[2021-04-25 06:12] LABS: Chol HDL Ratio 4; Cholesterol 111 mg/dl (0-200); HDL Cholesterol 27 mg/dl; LDL Cholesterol Calculated 42 mg/dl; Triglycerides 210 mg/dl (0-150); Troponin I < 0.015 ng/ml (0-0.045); VLDL Cholesterol 42 mg/dl
--- NOTE | 2021-04-25 06:12 | Electrocardiogram Report ---
Test Reason : Blood Pressure : / mmHG Vent. Rate : 098 BPM Atrial Rate : 098 BPM P-R Int : 200 ms QRS Dur : 088 ms QT Int : 328 ms P-R-T Axes : 054 056 067 degrees QTc Int : 418 ms Normal sinus rhythm Normal ECG When compared with ECG of 10-DEC-2017 09:14, No significant change was found Confirmed by Carlos Vyas ([id number]) on 04/25/2021 6:12:04 AM Referred By: Confirmed By:Carlos Vyas
[2021-04-25 07:45] LABS: Estimated Average Glucose 169 mg/dl; Hemoglobin A1C 7.5 % (4.5-5.6)
[2021-04-25 08:29] VITALS: TEMP 98.2
[2021-04-25] MEDS ORDERED: FLUoxetine HCL 20 MG CAP PO SCH (09:00)
[2021-04-25] MEDS ORDERED: lisinopril 10 MG TAB PO SCH (09:00)
[2021-04-25] MEDS ORDERED: MULTIVITAMIN TAB PO SCH (09:00)
[2021-04-25] MEDS ORDERED: CYANOCOBALAMIN 500 MCG TABLET (VITAMIN B-12) PO SCH (09:00)
[2021-04-25] MEDS ORDERED: NON-FORMULARY MEDICATION (Coenzyme Q10 100 mg capsule) PO SCH (09:00)
--- NOTE | 2021-04-25 10:04 | Cardiology Consultation ---
Date of Consultation April 25, 2021 Assessment & Plan (1) Exertional angina: (2) Dyslipidemia: (3) Anemia: ASSESSMENT/PLAN: 1. Angina: Symptoms are concerning for angina. Symptoms have been worsening over the past few weeks. Given his multiple risk factors and new onset anginal symptoms, recommend ischemic evaluation. Discussed options such as stress testing versus cardiac catheterization. Based on clinical scenario, high clinical suspicion and therefore recommend cardiac catheterization. Risks and benefits were discussed with him in detail. He was made aware that CT surgery is not available at this facility. He is agreeable to undergo diagnostic coronary angiography and PCI, if deemed appropriate. Continue aspirin 81 mg daily. Continue statin therapy and found to have CAD, would recommend high- intensity statin therapy. On MINI-inhibitor. 2. Dyslipidemia: LDL well controlled. Continue statin therapy. 3. Anemia: Appears to be a chronic issue. No obvious bleeding from his standpoint. As per primary service and PCP. 4. Disposition: Cardiac catheterization will be performed when lab is available. Catheterization is not emergent at this time as he is chest pain- free. Patient care communicated with Dr. Goodwin of the primary hospitalist service. Highly complex medical issues. Thank you for allowing me to participate in the care of your patient. Please call for any other questions or concerns. Sincerely, Dalton Vyas M.D. History of Present Illness Reason for Consultation: chest pain Requesting Physician: Vishnu Alfonso Attending Physician: Anibal Goodwin, History of Present Illness Mr. Archuleta is a very pleasant 65-year-old gentleman with a history significant for dyslipidemia, type 2 diabetes, diabetic neuropathy, and CKD. He was admitted on 04/24/2021 for chest discomfort. He had COVID 19 infection in September of 2020. He was short of breath after this infection but the shortness of breath improved over time until recently. For the past 4-5 weeks he has been experiencing substernal chest tightness with exertion only. This was accompanied by dyspnea with exertion and diaphoresis. There was no radiation of the pain. Symptoms have progressively worsened. Symptoms are now occurring with usual daily activities, but once again not at rest. His worst episode was 04/20/2021. Symptoms resolved within 5- 10 minutes of rest. He came to the emergency department on 04/24/2021 after speaking with his PCP. He has occasional palpitations described as a flutter sensation. He has occasional swelling of his legs if standing or sitting for long periods of time, which is chronic. He notes that CKD occurred after using diclofenac for arthritic pain in the past. He is currently chest pain-free. He denies melena, hematochezia, hematuria, syncope, orthopnea. Review of systems: As above. Review of systems otherwise negative/unremarkable. Family history: Father had CAD diagnosed in his 60s. He also had stroke. Paternal uncle had CAD diagnosed in his early 40s. Maternal grandfather from [place] at 63. Social history: He quit smoking at the age of 41 after smoking 2-3 packs per day for 18-19 years. Rare alcohol. No drugs. to his , Cassandra. 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 He was unaccompanied. Allergies Allergy/AdvReac Type Severity Reaction Status Date / Time bee venom protein (honey bee) Allergy Severe SWELLING,SO Verified 04/24/21 17:30 B Penicillins Allergy Unknown UNKNOWN Verified 04/24/21 17:30 Home Medications Medication Instructions Recorded Confirmed Type ddjueru-thmemqqxxhdux-ouarnvua 250 2 tab PO Q6H PRN #60 tab 03/24/19 04/24/21 Rx mg-250 mg-65 mg tablet (Excedrin Migraine) cyanocobalamin (vitamin B-12) 1,000 mcg PO DAILY 03/24/19 04/24/21 History 1,000 mcg tablet (Vitamin B-12) flash glucose scanning reader #1 ea 03/24/19 04/02/21 History (FreeStyle Johnny 14 Day [place]) fluoxetine 20 mg capsule 20 mg PO DAILY 03/24/19 04/24/21 History lisinopril 10 mg tablet 10 mg PO DAILY 03/24/19 04/24/21 History multivitamin 1 cap PO DAILY 03/24/19 04/24/21 History glucosamine 750 vz-llzxngnmtp-cba 2 tab PO DAILY tab 09/27/19 04/24/21 History no.1 625 mg-C 30 sj-vtzk-thyc tablet aspirin 81 mg tablet,delayed 81 mg PO BID tab 01/24/20 04/24/21 History release coenzyme Q10 100 mg capsule 100 mg PO DAILY cap 01/24/20 04/24/21 History elderberry fruit 200 mg capsule 200 mg PO DAILY cap 01/24/20 04/24/21 History FreeStyle Johnny 14 Day Sensor #2 ea NS 12/26/20 04/02/21 Rx (flash glucose sensor) atorvastatin 20 mg tablet 20 mg PO QPM #90 tab 01/01/21 04/24/21 Rx insulin aspart U-100 100 unit/mL See Rx Instructions CONTINUOUS 02/08/21 04/24/21 Rx subcutaneous solution (Novolog SUBCUTANEOUS INFUSION DAILY #8 vial U-100 Insulin aspart) metformin 1,000 mg tablet 1,000 mg PO DAILY #90 tab 03/26/21 04/24/21 Rx topiramate 25 mg tablet 25 mg PO BID 04/24/21 04/24/21 History Patient History Medical History (Updated 04/25/21 @ 10:07 by Carlos Vyas MD) Anemia Carpal tunnel syndrome CKD (chronic kidney disease), stage III Depression Diabetic peripheral neuropathy Dyslipidemia Uncontrolled type 2 diabetes mellitus Surgical History Bilateral inguinal hernia repaired History of appendectomy History of cholecystectomy Hx of shoulder surgery Family History Mother Cancer Father Heart disease Colorectal cancer Stroke Social History Smoking Status: Former smoker Tobacco Type: Cigarettes Second Hand Exposure: No; Do You Dip or Chew Tobacco: No; Tobacco Cessation Education Requested by Patient: No Hx Alcohol Use: Yes Alcohol type: hard liquor Hx Substance Use: No Preferred Language: Greek Communication Ability: Effective Chemistry Physics Teacher Required: No Beliefs That Will Affect Care: None marital status: Current Living Situation: Spouse Other Information That Helps Us Care for You: No Feels Safe at Home: Yes Safety Concerns: Feels Safe At This Time Assistive Devices: Glasses Physical Exam Physical Exam: Gen.: No acute distress. Alert and oriented. HEENT: Anicteric sclera. Neck: No JVD. No bruits. Normal carotid upstrokes bilaterally. Cardiac: PMI was nonpalpable. No ventricular heave. Regular. Normal S1-S2. No murmurs, rubs, or gallops. Pulmonary: Clear to auscultation bilaterally without wheezes, rales, or rhonchi. Abdomen: Soft, nontender, nondistended, with normoactive bowel sounds. No bruits noted. Extremities: 2+ radial pulses bilaterally. 2+ posterior tibialis pulses bilaterally. Trace bilateral lower extremity edema. No cyanosis. Psychiatric: Affect appears appropriate. Results & Data ([facility]) Vital Signs (Past 12 Hours) Vital Signs Temp Pulse Pulse Resp BP BP Pulse Ox 04/25/21 08:00 36.8 C 68 18 128/78 98 04/25/21 04:00 37 C 94 H 16 134/85 95 04/24/21 23:45 37 C 95 H 15 113/89 97 04/24/21 22:30 91 H 16 138/84 96 04/24/21 22:00 94 H 20 136/86 95 Laboratory Results Laboratory Results - last 24 hr 04/24/21 04/24/21 04/24/21 15:07 15:08 15:08 WBC 6.41 RBC 4.22 L Hgb 12.6 L Hct 36.6 L MCV 86.7 MCH 29.9 MCHC 34.4 RDW Std Deviation 45.5 RDW Coeff of Juan A 14.5 Plt Count 267 MPV 8.5 Immature Gran % (Auto) 0.5 Neut % (Auto) 63.5 Lymph % (Auto) 21.2 [place] % (Auto) 10.8 Eos % (Auto) 3.7 Baso % (Auto) 0.3 Neut # (Auto) 4.07 Lymph # (Auto) 1.36 [place] # (Auto) 0.69 H Eos # (Auto) 0.24 Baso # (Auto) 0.02 Immature Gran # (Auto) 0.03 H PT 11.0 INR 1.1 APTT 26.7 PTT Ratio 1.0 D-Dimer 380 Sodium Potassium Chloride Carbon Dioxide Anion Gap BUN Creatinine Est Cr Clr Drug Dosing Est GFR ( Amer) Est GFR (Non-Af Amer) BUN/Creatinine Ratio Glucose POC Glucose Estimat Average Glucose Hemoglobin A1c Calcium Magnesium Total Bilirubin AST ALT Alkaline Phosphatase Troponin I Total Protein Albumin Globulin Albumin/Globulin Ratio Triglycerides Cholesterol LDL Cholesterol, Calc VLDL Cholesterol, Calc HDL Cholesterol Cholesterol/HDL Ratio Lipase COVID-19 Eval Order SARS-CoV-2 (PCR) 04/24/21 04/24/21 04/24/21 15:08 17:21 17:21 WBC RBC Hgb Hct MCV MCH MCHC RDW Std Deviation RDW Coeff of Juan A Plt Count MPV Immature Gran % (Auto) Neut % (Auto) Lymph % (Auto) [place] % (Auto) Eos % (Auto) Baso % (Auto) Neut # (Auto) Lymph # (Auto) [place] # (Auto) Eos # (Auto) Baso # (Auto) Immature Gran # (Auto) PT INR APTT PTT Ratio D-Dimer Sodium 138 Potassium 4.6 Chloride 108 H Carbon Dioxide 25 Anion Gap 5.0 BUN 23 H Creatinine 1.39 Est Cr Clr Drug Dosing 69.0 Est GFR ( Amer) 61.6 Est GFR (Non-Af Amer) 53.2 BUN/Creatinine Ratio 16.3 Glucose 210 H POC Glucose Estimat Average Glucose Hemoglobin A1c Calcium 9.3 Magnesium Total Bilirubin 1.0 AST 21 ALT 33 Alkaline Phosphatase 110 Troponin I < 0.015 Total Protein 8.6 H Albumin 3.5 Globulin 5.1 H Albumin/Globulin Ratio 0.7 L Triglycerides Cholesterol LDL Cholesterol, Calc VLDL Cholesterol, Calc HDL Cholesterol Cholesterol/HDL Ratio Lipase 122 COVID-19 Eval Order Covid19 at [facility] SARS-CoV-2 (PCR) NEGATIVE 04/24/21 04/24/21 04/25/21 23:31 23:53 05:20 WBC 5.73 RBC 3.92 L Hgb 11.3 L Hct 34.0 L MCV 86.7 MCH 28.8 MCHC 33.2 RDW Std Deviation 45.7 RDW Coeff of Juan A 14.6 H Plt Count 233 MPV 8.5 Immature Gran % (Auto) 0.7 Neut % (Auto) 54.7 Lymph % (Auto) 27.1 [place] % (Auto) 12.7 Eos % (Auto) 4.5 Baso % (Auto) 0.3 Neut # (Auto) 3.13 Lymph # (Auto) 1.55 [place] # (Auto) 0.73 H Eos # (Auto) 0.26 Baso # (Auto) 0.02 Immature Gran # (Auto) 0.04 H PT INR APTT PTT Ratio D-Dimer Sodium Potassium Chloride Carbon Dioxide Anion Gap BUN Creatinine Est Cr Clr Drug Dosing Est GFR ( Amer) Est GFR (Non-Af Amer) BUN/Creatinine Ratio Glucose POC Glucose 164 H Estimat Average Glucose Hemoglobin A1c Calcium Magnesium Total Bilirubin AST ALT Alkaline Phosphatase Troponin I < 0.015 Total Protein Albumin Globulin Albumin/Globulin Ratio Triglycerides Cholesterol LDL Cholesterol, Calc VLDL Cholesterol, Calc HDL Cholesterol Cholesterol/HDL Ratio Lipase COVID-19 Eval Order SARS-CoV-2 (PCR) 04/25/21 04/25/21 04/25/21 05:20 05:20 08:06 WBC RBC Hgb Hct MCV MCH MCHC RDW Std Deviation RDW Coeff of Juan A Plt Count MPV Immature Gran % (Auto) Neut % (Auto) Lymph % (Auto) [place] % (Auto) Eos % (Auto) Baso % (Auto) Neut # (Auto) Lymph # (Auto) [place] # (Auto) Eos # (Auto) Baso # (Auto) Immature Gran # (Auto) PT INR APTT PTT Ratio D-Dimer Sodium 139 Potassium 4.3 Chloride 108 H Carbon Dioxide 27 Anion Gap 4.0 BUN 19 H Creatinine 1.27 Est Cr Clr Drug Dosing 75.9 Est GFR ( Amer) 68.7 Est GFR (Non-Af Amer) 59.3 BUN/Creatinine Ratio 15.1 Glucose 148 H POC Glucose 160 H Estimat Average Glucose 169 Hemoglobin A1c 7.5 H Calcium 9.0 Magnesium 1.5 L Total Bilirubin AST ALT Alkaline Phosphatase Troponin I < 0.015 Total Protein Albumin Globulin Albumin/Globulin Ratio Triglycerides 210 H Cholesterol 111 LDL Cholesterol, Calc 42 VLDL Cholesterol, Calc 42 HDL Cholesterol 27 Cholesterol/HDL Ratio 4 Lipase COVID-19 Eval Order SARS-CoV-2 (PCR) Diagnostic Findings Echo 04/25/2021 preliminary review: Normal LV systolic function without obvious wall motion abnormalities. No significant valvular stenosis or regurgitation. Formal review to follow. ECG personally reviewed: ECG 04/24/2021 at 3:12 p.m.: Sinus rhythm 98 beats per minute. CTA chest 04/24/2021: No PE. Chronic scattered subcentimeter pulmonary nodules. Medications Administered Current Inpatient Medications Acetaminophen (Acetaminophen 325 Mg Tab) 650 mg PO Q4H PRN PRN Reason: Pain or Fever Stop: 05/24/21 23:27 Aspirin (Aspirin 81 Mg Ectab) 81 mg PO BID [facility] Stop: 05/24/21 23:44 Last Admin: 04/25/21 00:22 Dose: 81 mg Documented by: Atorvastatin Calcium (Atorvastatin 20 Mg Tab) 20 mg PO QPM [place] Stop: 05/24/21 23:44 Last Admin: 04/25/21 00:23 Dose: 20 mg Documented by: Cyanocobalamin (Cyanocobalamin 500 Mcg Tablet (Vitamin B-12)) 1,000 mcg PO DAILY [place] Stop: 05/25/21 08:59 Dextrose (Dextrose 50% 50 Ml Syringe) 25 - 50 ml IV UD PRN; Protocol PRN Reason: Hypoglycemia Protocol Stop: 05/24/21 23:27 Fluoxetine HCl (Fluoxetine Hcl 20 Mg Cap) 20 mg PO DAILY [place] Stop: 05/25/21 08:59 Glucagon (Glucagon For Inj 1 Mg Vial) 1 mg SQ UD PRN; Protocol PRN Reason: Hypoglycemia Protocol Stop: 05/24/21 23:27 Glucose (Glucose 10 Tabs/Tube) 4 - 8 tabs PO UD PRN; Protocol PRN Reason: Hypoglycemia Protocol Stop: 05/24/21 23:27 Glucose (Glucose 40% Gel 15 Gm Tube) 15 - 30 gm PO UD PRN; Protocol PRN Reason: Hypoglycemia Protocol Stop: 05/24/21 23:27 Insulin Aspart (Insulin Aspart 100 Units/Ml 3 Ml Pen) 0 units SC ACHS [place]LE Stop: 05/24/21 23:44 Last Admin: 04/25/21 09:06 Dose: Not Given Documented by: Lisinopril (Lisinopril 10 Mg Tab) 10 mg PO DAILY [place] Stop: 05/25/21 08:59 Miscellaneous (Carbohydrates For Hypoglycemia ) 15 - 30 gm PO UD PRN PRN Reason: Hypoglycemia Protocol Stop: 05/24/21 23:27 Multivitamins (Multivitamin Tab) 1 tab PO QAM [place]LE Stop: 05/25/21 08:59 Ondansetron HCl (Ondansetron Inj 2 Mg/Ml 2 Ml Vial) 4 mg IV Q6H PRN PRN Reason: Nausea Stop: 05/24/21 23:27 Topiramate (Topiramate 25 Mg Tab) 25 mg PO BID [place] Stop: 05/24/21 23:44 Last Admin: 04/25/21 00:23 Dose: 25 mg Documented by: PG Care Time/CCT Total # of Minutes Spent Total Time Spent with Patient: Total time spent is greater than 50% in coordination of care (as documented) at patient's floor/unit and/or counseling patient: Coding Level of Care Code 13934 Office/OBS Consult Lvl 5 Diagnoses Exertional angina I20.8 Dyslipidemia E78.5 Anemia D64.9 Anemia type: unspecified type (1) Anemia Anemia type: unspecified type Qualified Code(s): D64.9 - Anemia, unspecified
[2021-04-25] MEDS ORDERED: HEPARIN (PORCINE) 1000 UNIT/ML 10 ML (CATH LAB USE ONLY) ONE (14:23)
[2021-04-25] MEDS ORDERED: niCARdipine HCL INJ 2.5 MG/ML 10 ML AMP ONE (14:23)
[2021-04-25] MEDS ORDERED: fentaNYL citrate 100 MCG/2 ML VIAL ONE (14:24)
[2021-04-25] MEDS ORDERED: MIDAZOLAM HCL 1 MG/ML 2ML VIAL ONE ×2 (14:24→15:24)
[2021-04-25] MEDS ORDERED: NITROGLYCERIN/D5W 100MCG/ML 20ML SYR ONE (14:24)
--- NOTE | 2021-04-25 14:45 | Pre Anesthesia Assessment ---
Date of Service April 25, 2021 Pre Sedation Assessment Vital Signs Temp Pulse Pulse Resp BP BP Pulse Ox 04/25/21 14:21 100 H 93 04/25/21 08:00 36.8 C 68 18 128/78 98 04/25/21 04:00 37 C 94 H 16 134/85 95 04/24/21 23:45 37 C 95 H 15 113/89 97 04/24/21 22:30 91 H 16 138/84 96 04/24/21 22:00 94 H 20 136/86 95 04/24/21 21:30 94 H 22 129/81 95 04/24/21 21:00 96 H 20 134/85 95 04/24/21 20:30 96 H 20 140/88 96 04/24/21 20:00 92 H 21 140/90 98 04/24/21 19:30 92 H 22 140/87 98 04/24/21 19:00 93 H 17 159/102 H 97 04/24/21 18:30 91 H 13 133/89 100 04/24/21 18:00 91 H 17 145/83 H 98 04/24/21 16:49 97 04/24/21 16:39 100 04/24/21 16:37 97 H 97 H 20 154/77 H 100 04/24/21 15:02 37.1 C 114 H 20 129/72 99 Cardiovascular RRR, no murmur, no edema Respiratory normal respiratory effort, lungs clear to auscultation Pre-Sedation Airway Assessment Smoking Status: Former smoker Short, Thick Neck: No Thyromental Distance: > or= 3.5 Finger Breadths Oral Cavity: + WNL Mallampati Class: III ASA: ASA3 NPO Status Date of Last Intake of Fluids: 04/25/21 Time of Last Intake of Fluids: 08:00 Date of Last Intake of Solid Food: 04/24/21 Procedure Planning Contraindications for Sedation: none Current Medications Reviewed: Yes Notes The planned sedation has been discussed with the patient. Informed Consent was obtained. I have identified the patient, determined the appropriateness of sedation and have assessed the patient immediately prior to the procedure. All medicine(s) and interventions are by my order.
--- NOTE | 2021-04-25 15:42 | Cardiac Catheterization ---
[facility] Data: [employer] Cardiac Status Clinical evaluation leading to the procedure CAD Presenation: Stable angina Anginal Classification: CCS III Heart Failure: No Cardiogenic Shock within 24 Hours: No Cardiac Arrest within 24 Hours: No Imaging Studies Past 6 Months: Yes Stress Studies Past 6 Months: No Coronary Anatomy Dominant: Right Diagnostic Physicians Name: Carlos Vyas MD Closure Device Percutaneous Entry Location: Radial Closure Device: Radial Band Recommendations: Medical Therapy and/or Counseling Cardiac Cath Procedure Full Procedure Date April 25, 2021 Pre-Procedure Diagnosis Pre-Procedure Diagnosis: Angina AUC Score AUC Score: 7 Post-Procedure Diagnosis Post-Procedure Diagnosis: Mild CAD and Normal Intracardiac Pressures Procedure(s) Performed Procedure(s) Performed: Coronary Angiography and Left Heart Cath Stencil Printer Carlos Vyas MD Tool Carrier(s) Net Developer Architect Estimated Blood Loss Estimated Blood Loss: < 25 ml Medication(s) Medication(s): Fentanyl, Heparin, Lidocaine 1%, Nicardipine and Versed Summary of Findings Procedures: 1. Coronary angiography 2. Left heart catheterization 3. Moderate sedation Indication: 65-year-old gentleman with diabetes, dyslipidemia, prior tobacco use, and family history of CAD who presents with symptoms concerning for crescendo angina. Coronary angiography: 1. Left main: Large caliber vessel. Distal LM 10%. 2. Left anterior descending: Large caliber vessel that extends to the apex. Mild calcifications noted proximally. Mid LAD 30 to 40% stenosis. Large early diagonal with proximal 40% stenosis. Medium caliber D2 ostial 30%. CA-3 flow throughout the LAD system. 3. Circumflex: Medium to large caliber vessel without significant CAD. Small OM1. 4. Right coronary artery: Large and dominant vessel. Luminal irregularities throughout the mid vessel. Mid RCA 10 to 20%. PDA and PL without significant CAD. Left heart catheterization: 1. Left ventriculography was not performed. 2. Normal LVEDP; 8 mmHg. 3. No aortic stenosis. Moderate sedation: 1. Sedation start time: 3:14 PM 2. Sedation end time: 3:31 PM Impression: 1. Mild nonobstructive CAD. 2. Normal left-sided filling pressure. 3. No aortic stenosis. Plan: 1. Risk factor modification/medical therapy. Hemodynamics Rest Ao:: 129/76 Final Ao: 102/66 LV: 100/1/8 Recommendations Recommendations: Medical Therapy and/or Counseling Specimens Specimens: None Radiation Exposure (mGy) 918 mGy. Fluoro time 3.5 min. Contrast (mls) 50 ml Procedural Complication(s) None Disposition PCU I attest to the content of the Intraoperative Record and any orders documented therein. Any exceptions are noted below. [facility] Card Cath Procedure Codes Cardiac Catheterization Procedure 1: Cardiovascular Cath Procedures: 41257 Coronaries and LHC (+/-LV) Moderate Sedation Procedure 1: Sedation/Anesthesia: 71142 Mod Sedation by the same physician;Init15 Min Child Age 5 & Up Procedure 2: Sedation/Anesthesia: 38392 Mod Sedation by the same physician; Ea [id number] Minutes PG Care Time/CCT Total # of Minutes Spent Total Time Spent with Patient: Total time spent is greater than 50% in coordination of care (as documented) at patient's floor/unit and/or counseling patient:
[2021-04-25] MEDS ORDERED: SODIUM CHLORIDE 0.9% 1000ML 1,000 ML IV SCH (16:00)
[2021-04-25 16:23] VITALS: O2SAT 94
--- NOTE | 2021-04-25 16:54 | Post Anesthesia Assessment ---
Date of Service April 25, 2021 Post Sedation Assessment Vital Signs Temp Pulse Pulse Resp BP BP Pulse Ox 04/25/21 16:53 87 04/25/21 16:50 89 107/74 04/25/21 16:35 95 H 122/75 04/25/21 16:20 36.8 C 90 20 132/74 94 04/25/21 14:21 100 H 93 04/25/21 08:00 36.8 C 68 18 128/78 98 04/25/21 04:00 37 C 94 H 16 134/85 95 04/24/21 23:45 37 C 95 H 15 113/89 97 04/24/21 22:30 91 H 16 138/84 96 04/24/21 22:00 94 H 20 136/86 95 04/24/21 21:30 94 H 22 129/81 95 04/24/21 21:00 96 H 20 134/85 95 04/24/21 20:30 96 H 20 140/88 96 04/24/21 20:00 92 H 21 140/90 98 04/24/21 19:30 92 H 22 140/87 98 04/24/21 19:00 93 H 17 159/102 H 97 04/24/21 18:30 91 H 13 133/89 100 04/24/21 18:00 91 H 17 145/83 H 98 Recovery Score Activity: Moves 4 extremities Respiration: Deep Breath/Cough Circulation: +/-20% PreAnes Value Consciousness: Fully Awake Oxygen Saturation: > 92% On Room Air Discharge Sedation Level of Care: Fast Track Phase II Post Sedation Plan On clinical assessment, the patient appears to have tolerated the sedation without complications. Patient is recovering as anticipated. Patient will continue to be monitored by nursing and may be discharged when sedation discharge criteria are met per below protocol. Upon Completions of procedure up to 15 minutes continue every 5 minute vital signs and the P.A.R. score; then discharge to a Phase I or Fast Track to Phase II per the following guidelines: * Discharge Patient to appropriate Phase II area if PAR is 8 or greater or return to pre- procedure baseline. The post - procedure orders will be as directed. * If PAR score is less than 8 or not return to pre-procedure baseline then patient will follow Phase I monitoring till PAR is reached for Phase II. The Phase I may be done in procedure room or may call to secure a Phase I area. * If naloxone or flumazenil are used for reversal, hold in Phase I for continued monitoring from when last reversal dose was given for a minimum of 60 minutes or longer pending the nurse and/or physician discretion of patient condition before discharge to Phase II. Please call the Sedation Physician to re-evaluate and complete post-note for discharge to Phase II area. Do NOT discharge from procedure sedation or Phase 1 until post- sedation evaluat ion note is complete by procedure /sedation MD Sedation Discharge Instructions to be given to the patient at discharge to home.
--- NOTE | 2021-04-25 17:34 | XCELERA ---
[id number]
[2021-04-25 19:01] VITALS: BP 116/68; PULSE 91
--- NOTE | 2021-04-25 19:21 | Discharge Summary ---
Date of Service April 25, 2021 Admission HPI Per Admitting Provider This is a 65-year-old male past medical history of type 2 diabetes, dyslipidemia, peripheral neuropathy that presents today complaining of chest pain shortness of breath. Patient is pleasant and a good historian. Patient tells me that he contracted Covid earlier this year in September. Although the symptoms resolved, he does have some chronic dyspnea on exertion with this. He does not notice any shortness of breath at rest. He is occasionally had some very mild chest pressure with heavy exertion but he was not concerned and did not seek medical attention. 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 He described this is a heavy chest pressure that was substernal. It was associated with dyspnea on exertion which seem to be more severe than his usual post Covid experience. This was relieved with extended break. Patient talked to his who encouraged him to come to the emergency room. He did not take her device and continue to have a this pressure pressure with exertion as described. He did have some more this morning decided eventually seek medical attention. So far in the emergency room, work-up is been negative. He is somewhat tachycardic with a resting pulse rate in the 90s. O2 sat is been high percent on room air and other vitals been stable. Patient states that he had a stress test many years ago but has had no cardiac work-up and does not see a junior analyst. He is requesting Dr. Charles who takes care of his . Principal Diagnosis Mild Non-Obstructing CAD Discharge Exam PHYSICAL EXAM General Appearance: WDWN in NAD who is A&O x 3 HEENT: Head is normocephalic/atraumatic; Hearing grossly intact; Mucous membranes moist Neck: Supple; Trachea midline; Neg JVD Heart: RRR with no M/G/R Lungs: CTA in all lung bradshaw bilaterally; Respirations unlabored; Neg accessory muscle use Abdomen: Soft, non-tender, non-distended; Positive BS x 4 quadrants Extremities: Capillary refill < 2 seconds; Neg cyanosis or edema Neurological: Speech clear; Gross motor/sensory function intact; Neg focal neurologic deficits Psychiatric: Appropriate mood/affect Skin: Normal Color; Warm/Dry; Neg rashes, ecchymosis, lacerations/ulcerations Discharge Data Allergies Allergy/AdvReac Type Severity Reaction Status Date / Time bee venom protein (honey bee) Allergy Severe SWELLING,SO Verified 04/24/21 17:30 B Penicillins Allergy Unknown UNKNOWN Verified 04/24/21 17:30 Consultations 04/24/21 18:18 ED Decision to Admit Stat 04/24/21 23:28 Consult Cardiology Routine Procedures Performed Operation Date: 04/25/21 14:00 Actual Procedures p Cineradiography w/Routine Exam - Carlos Vyas MD Ordered Studies Chest CTA 04/24/21 17:15 CHEST CTA for PULMONARY ARTERIES CT DOSE: 732.48 mGy.cm HISTORY: Shortness of breath. TECHNIQUE: Multiaxial CT images of the chest were performed following the intravenous administration of contrast to evaluate the pulmonary arteries. Ma ximal intensity projection images were also obtained. A dose lowering technique was utilized adhering to the principles of ALARA. COMPARISON STUDY: Chest CTA 05/14/2017. FINDINGS: Normal caliber thoracic aorta with no evidence for dissection. The heart is normal in size. No pleural or pericardial effusions. No filling defects within the pulmonary arteries to suggest a pulmonary embolus. Limited views of the upper abdomen demonstrate a normal liver and adrenal glands. [place] amount of capsular calcification within the spleen, unchanged. Normal esophagus. Subcentimeter mediastinal and hilar lymph nodes do not meet CT criteria for pathologic involvement. However, the subcentimeter right hilar lymph nodes have increased in size. Old, healed left posterior eighth rib fracture. No suspicious lytic or blastic osseous lesions. Postoperative changes are partially visualized within the right scapula. No pneumothorax. The central airways are patent. There is a 6 mm nodule within the right lower lobe in image 128. This remains stable. There are 2 adjacent 4 mm subpleural nodules within the left upper lobe abutting the major fissure on images 230 and 227. There is a stable 4 mm nodule within the left lower lobe on image 112. No focal lung consolidations to suggest pneumonia. No evidence for pulmonary edema. Stable 4 mm nodule within the right lower lobe on image 159. No new pulmonary nodules identified. IMPRESSION: 1. No evidence for pulmonary embolus. 2. Stable scattered subcentimeter pulmonary nodules. These are considered to be benign given the greater than 2 year stability. 3. A few prominent right hilar lymph nodes which measure subcentimeter in short axis diameter. Therefore, these do not meet CT criteria for pathologic involvement. However, these have slightly increased in size in the interval. Consider six-month chest CT follow-up to ensure stability. ACT 112: Positive. There are findings on this exam that require communication between the performing entity and the patient following Patient Test Result Information Act ([place] Act 112) guidelines. Electronically signed by: Yoav Hooks M.D. 04/24/2021 6:12 PM Hospital Course (1) Coronary artery disease: - Troponins normal; Underwent catherization 1. Left main: Large caliber vessel. Distal LM 10%. 2. Left anterior descending: Large caliber vessel that extends to the apex. Mild calcifications noted proximally. Mid LAD 30 to 40% stenosis. Large early diagonal with proximal 40% stenosis. Medium caliber D2 ostial 30%. CA-3 flow throughout the LAD system. 3. Circumflex: Medium to large caliber vessel without significant CAD. Small OM1. 4. Right coronary artery: Large and dominant vessel. Luminal irregularities throughout the mid vessel. Mid RCA 10 to 20%. PDA and PL without significant CAD. - No intervention required at this time; gave instructions of risk reduction - predominantly in regards to further glucose control - Increased Atorvastatin to 40 mg daily; continue ASA - Nitro Rx provided - Having long-standing CONNOR - seems to have worsened since having COVID - maybe residual? however did smoke for many years and may have some underlying COPD that maybe become more noticeable? However no exacerbation at this time; May benefit from outpatient PFTs (2) Dyslipidemia: - Plan as above (3) Type 2 diabetes mellitus: - A1c improved from previous testing - will need to seek further control to help reduce cardiac risk (4) Hypertension: - STABLE - Continue Lisinopril Total Time Total Time Spent Total Time Spent (In Minutes): Greater than 30 minutes Discharge Plan Discharge Items Patient Disposition: Home - Self-Care Reason For Visit: CP Discharge Diagnosis: Mild Non-Obstructive Coronary Artery Disease Activity: Per Instructions section Non-emergency contact: Primary Care Provider and Blood Splatter Analyst Call non-emergency contact if: you have any medication questions and your symptoms worsen Follow-up/Referrals: Evan Zapata DO [Primary Care Provider] - Diet: Carb Consistent or DM2 and Heart Healthy Addtl Attending Provider Instructions: ACTIVITY RECOMMENDATIONS: Excess manipulation of the wrist should be avoided for the next 24-48 hours. * No lifting over 2 pounds (approximately a 1/2 gallon of milk) with the utilize d arm for 24 hours. * No strenuous activity such as bowling or tennis for 3 days. * Keep the site of the procedure covered with a bandage for 24 hours. *You may shower the day after the procedure. Do not take a tub bath or submerge the puncture site in water for the next 3 days. *Do not operate any motorized equipment for 3 days. SPECIAL CARE INSTRUCTIONS: The site may be slightly bruised and sore following your procedure. Should any of the following occur, contact the Dr. who performed your procedure. 1. Redness/inflammation, swelling, chills, or fever, or colored drainage at procedure site within 3-7 days after your procedure. 2. Coldness, discoloration, ongoing numbness, severe pain, or swelling. Expect mild tingling of hand and tenderness at the puncture site for up to three days. If this persists beyond three days, or other symptoms develop, notify the Dr. who performed your procedure. BLEEDING: If the procedure site on your wrist begins to bleed, do not panic 1. Place 1 or 2 fingers firmly just slightly above the insertion site to stop the bleeding. You may be able to feel your pulse as you hold pressure. 2. Lift your finger after 5 minutes to see if the bleeding has stopped. 3. Once the bleeding has stopped, gently wipe the wrist area clean with a bandage. * If the bleeding from your wrist does not stop after 10 minutes, or if there is a large amount of bleeding or spurting, call 911 (do not drive yourself to the hospital). SKIN IRRITATION: * You may experience some redness and/or swelling in the area where radiation was administered. If any skin irritation occurs, please contact your family physician. FOLLOW UP VISIT: Keep any scheduled doctor appointments. Addtl Customer Sales Advisor Provider Instructions: Mild Non-Obstructing Coronary Artery Disease: - You underwent a cardiac catheterization which did not require a stent or intervention. There is some mild plaque in vessels which is to be expected. As we get older and our diet will usually result in some level of plaque build-up however it is not at a level requiring intervention at this time - The quinn moving forward is to reduce risk factors to prevent further plaque and heart disease - Some factors you cannot control such as genetics, age, and gender...but many you can influence -- Blood Pressure - Your readings are great so keep doing what you are doing -- Diet/Exercise/Weight - maintaining a balanced heart healthy diet, exercise , and healthy weight reduce risk -- Gradually increase your activity; follow the limitations provided post- cath -- Sugars - keep up the great work as your A1c is trending down. The closer to normal (6.5) the better as diabetes is one of the leading causes of heart disease -- Cholesterol - maintaining good cholesterol levels will reduce your risk - Continue taking your aspirin regimen - Your cholesterol medicine (Atorvastatin) will be increased to 40 mg - We will send a prescription for nitroglycerin. This medication is for when you have chest pain. You can take a dose that dissolves under your tongue and repeat a dose if your are still having chest pain after 5 minutes. If the pain does not improve with nitroglycerin you want to seek immediate help to make sure nothing more is going on (like a heart attack) -- Please review the information about nitroglycerin supplied with these discharge instructions Shortness of Breath: - You may be having some residual effects of COVID in regards to your shortness of breath on exertion. COVID can definitely cause some deconditioning. 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 - It may be worth getting a referral to do PFTS or pulmonary function testing. This can be arranged with your family doctor who can send you to a [facility]. - This test can check you lungs and see how they are working - Deconditioning and having some shortness of breath on exertion could definitely be making your heart work a bit harder resulting in some angina (chest pain) - Definitely recommend an exercise regimen. As discussed, walking is a wonderful way to safely exercise the heart and work on your endurance and breathing. Of course, if you have any chest pain or shortness of breath always stop and rest. - Consistency is the quinn, so gradually increase distance and speed as your body allows - Weight training is a great way to promote fat loss. Muscle rosales more calories and can be beneficial in diabetes control. Even a 5 lb fat loss can make a marked difference in sugar control - Of course refrain from all tobacco products and avoid second hand smoking Pending Studies at Discharge: No Stand-Alone Forms: My [facility] [address], Smoking Cessation Medications and DC Order Prescriptions: New nitroglycerin 0.4 mg tablet, sublingual 0.4 mg sublingual Q5M PRN (Reason: chest pain) Qty: 10 RF: 0 Continued fluoxetine 20 mg capsule 20 mg PO DAILY RF: 0 lisinopril 10 mg tablet 10 mg PO DAILY RF: 0 multivitamin capsule 1 cap PO DAILY RF: 0 Excedrin Migraine 250-250-65 mg tablet 2 tab PO Q6H PRN (Reason: pain) Qty: 60 RF: 0 (DME) FreeStyle Johnny 14 Day [place] misc See Dose Instructions .ROUTE .MEDSUPPLY Qty: 1 RF: 0 cyanocobalamin (vitamin B-12) [Vitamin B-12] 1,000 mcg tablet 1,000 mcg PO DAILY RF: 0 aspirin 81 mg tablet,delayed release (DR/EC) 81 mg PO BID RF: 0 (DME) FreeStyle Johnny 14 Day Sensor Kit See Dose Instructions .ROUTE .MEDSUPPLY Qty: 2 RF: 11 Novolog U-100 Insulin aspart 100 unit/mL solution See Rx Instructions continuous subcutaneous infusion DAILY Qty: 8 RF: 3 metformin 1,000 mg tablet 1,000 mg PO DAILY Qty: 90 RF: 0 coenzyme Q10 100 mg capsule 100 mg PO DAILY RF: 0 elderberry fruit 200 mg capsule 200 mg PO DAILY RF: 0 pnjabroi-qnym-myt1-C-nancy-bosw 750-625-30 mg tablet 2 tab PO DAILY RF: 0 topiramate 25 mg tablet 25 mg PO BID RF: 0 Changed atorvastatin 40 mg tablet 40 mg PO HS 30 Days Qty: 30 RF: 1 Discharge Orders: Discharge Order (Routine); Ordered 04/25/21 Ordered By: Janine Masterson/Other Patient Handouts: A1C, Fast-Acting Nitroglycerin, Managing Type 2 Diabetes, ED Heart Disease Education Admission Data Admit Date/Time: 04/24/21 19:00 Attending Provider: Anibal Goodwin Admit Provider: Vishnu Alfonso Primary Care Provider: Evan Zapata Other Providers: Vishnu Alfonso ; Carlos Vyas Other Interventions: Discharge Summary Assessment (RN) Last Done: 04/25/21 18:56 Supervising Physician Co-Signing Physician Notes Attending note: patient seen and examined with Janine Spangler PA-C. I agree with her discharge summary. I personally reviewed the labs and imaging findings. discussed with Dr. Vyas after left heart cath, he has non-obstructive CAD, recommend medical management patient doing well, no chest pain, no dyspnea, he feels well enough to go home - Chest pain, non-obstructive CAD on left heart cath antiplatelet therapy, Lipitor, glucose control, BP control heart healthy diet, regular exercise Nitro SL PRN for pain follow up with PCP Coding Level of Care Code D/C DAY MANAGEMENT >30 MINS Diagnoses Dyslipidemia E78.5 Type 2 diabetes mellitus E11.9 Hypertension I10 Coronary artery disease I25.10
== END 2021-04-25 19:20 | disposition home or self-care (01) ==
LOC: EDINP 14:34 → ED 14:34 → SUATTDRO 19:00 → EDINP 23:45 → 2S 04-25 16:10
DX: I25.118 Atherosclerotic heart disease of native coronary artery with other forms of angina pectoris; Z87.891 Personal history of nicotine dependence; I12.9 Hypertensive chronic kidney disease with stage 1 through stage 4 chronic kidney disease, or unspecified chronic kidney disease; Z79.82 Long term (current) use of aspirin; Z79.4 Long term (current) use of insulin; E11.42 Type 2 diabetes mellitus with diabetic polyneuropathy; E11.22 Type 2 diabetes mellitus with diabetic chronic kidney disease; E78.5 Hyperlipidemia, unspecified; E11.65 Type 2 diabetes mellitus with hyperglycemia; D64.9 Anemia, unspecified; N18.9 Chronic kidney disease, unspecified; Z79.899 Other long term (current) drug therapy; Z88.0 Allergy status to penicillin

== ENCOUNTER 2023-03-13 10:48 | Inpatient (IN) ==
--- NOTE | 2023-03-13 11:06 | Emergency Department Note ---
Impression & Plan Diabetic foot ulcer ADMIT ED Provider Note HPI: The patient is a very pleasant 67-year-old gentleman with history of insulin- dependent diabetes, presents the emergency department with chief complaint of a wound to the left lower foot with concern for infection. Patient states he noted ulceration between the first and second digits on the plantar aspect of his left foot 3 days ago. Patient states that he saw his PCP 2 days ago and was placed on Bactrim and given a walking boot to take pressure off of the ulceration. Patient states that at that time he had some mild erythema surrounding the wound and the edges of the erythema were marked with a skin marker, he was advised to contact his PCP if the erythema extended beyond the marker. Today, patient noticed the erythema extended several centimeters beyond where the markings were, his wound is malodorous, he contacted his PCP and was advised to come to the emergency department to be assessed for IV antibiotics and admission. Patient denies any fevers, on arrival here to the ED the patient is hemodynamically stable and in no acute distress. ROS: - Per HPI Differential Diagnosis: Infected diabetic foot ulcer, necrotizing soft tissue infection, osteomyelitis, abscess, cellulitis of the left foot, amongst other potential pathologies. *Outpatient medications and allergy history reviewed. *Pertinent external medical records reviewed. PE: General: Alert HEENT: Normocephalic, trachea midline Eyes: Extraocular eye movement is intact, no scleral erythema Pulmonary: Clear to auscultation bilaterally, no wheezing Cardio: Regular rate and rhythm GI: Abdomen is soft to palpation : No suprapubic tenderness MSK: No evidence of trauma or malformation of the extremities, no edema Skin: There is superficial ulceration noted to the plantar aspect of the left foot between the first and second digits with surrounding edematous skin with erythema surrounding the margins of the edematous skin, there is no active purulent drainage, the wound is malodorous, there is no crepitus to palpation of the surrounding area, no pain out of proportion to exam Neuro: Alert, no focal deficits Psychiatric: Cooperative playground monitor: (As interpreted by myself): - An order was placed for continuous cardiac monitoring - Patient was noted to be in sinus rhythm with a rate of 95 Interventions provided in ED: -IV fluid bolus Medical Decision Making: Patient overall appears well on arrival here to the ED. IV was established lab work obtained, blood cultures were drawn. X-ray imaging of the left foot does not show any evidence of gas-forming infection or obvious osteomyelitis. Lab work shows no leukocytosis, CRP is elevated, procalcitonin is low. On examination patient does seem to have some erythema/cellulitis extending beyond the borders that were previously marked just 2 days ago. He has failed outpatient antibiotics with Bactrim. His wound is malodorous and I do have concern for the trajectory of his illness getting worse over the neck several days if he does not receive IV antibiotics. I did discuss the patient's presentation with on-call podiatry, Dr. Reeves, who is in agreement for consultation upon patient's admission. [facility] hospitalist service was therefore consulted for admission, case was discussed with Dr. Hendricks, and the patient was placed for admission in stable condition. Consultants: -Podiatry, Dr. Reeves -Hospitalist, Dr. Hendricks Disposition discussion held by myself with: Patient Diagnosis: 1. Diabetic foot ulcer with infection, acute, L foot 2. Left foot cellulitis, acute 3. Elevated CRP, acute 4. Failure of outpatient antibiotics for foot cellulitis Disposition: Admission Maninder Godoy DO Emergency Medicine Past Med/Surg History Medical History (Updated 03/13/23 @ 12:22 by Maninder Godoy DO) CKD (chronic kidney disease), stage III PT NOT AWARE OF ANY CHRONIC KIDNEY DISEASE Depression HX Diabetes Diabetic peripheral neuropathy Dyslipidemia History of COVID-12 OCT 2020 - SOB LINGERS SINCE ONLY ON EXERTION History of pancreatitis Migraines Surgical History Bilateral inguinal hernia repaired History of appendectomy History of cardiac cath 3-4 YR AGO/HX C/P (SUSPECTED IN) ....CATH...NO STENT(S)...NO FINDINGS ([facility]) History of carpal tunnel release of both wrists History of cholecystectomy History of colonoscopy History of endoscopy History of left cataract surgery History of shoulder surgery LEFT / DECEMBER 2021 History of total left hip arthroplasty History of total right hip replacement Hx of shoulder surgery RIGHT Family History Mother Cancer Father Heart disease Colorectal cancer Stroke Grandmother (Paternal) Family history of diabetes mellitus Grandfather (Maternal) Family history of diabetes mellitus Social History Smoking Status: Never smoker Tobacco Type: Cigarettes Second Hand Exposure: No; Do You Dip or Chew Tobacco: No; Hx Alcohol Use: Yes (RARELY) Alcohol type: hard liquor Hx Substance Use: No Preferred Language: Finnish Communication Ability: Effective [employer] H[employer] Developer Required: No Beliefs That Will Affect Care: None marital status: Current Living Situation: Spouse Feels Safe at Home: Yes Assistive Devices: Glasses Allergies Allergies Allergy/AdvReac Type Severity Reaction Status Date / Time bee venom protein (honey bee) Allergy Unknown ANY KIND Verified 11/18/22 06:17 OF BEEES - SWELLING,SOB Penicillins Allergy Unknown UNKNOWN/told Verified 11/18/22 06:17 as a kid Home Meds Home Medications Medication Instructions Recorded Confirmed cyanocobalamin (vitamin B-12) 2,000 mcg PO QAM 03/24/19 11/18/22 1,000 mcg tablet (Vitamin B-12) fluoxetine 20 mg capsule 20 mg PO QAM 03/24/19 03/13/23 multivitamin 1 cap PO QAM 03/24/19 11/18/22 aspirin 81 mg tablet,delayed 81 mg PO BID 01/24/20 03/13/23 release coenzyme Q10 100 mg capsule 100 mg PO QAM 01/24/20 11/18/22 elderberry fruit 200 mg capsule 200 mg PO QAM 01/24/20 11/18/22 topiramate 25 mg tablet 25 mg PO BID 04/24/21 11/18/22 ascorbate calcium (vitamin C) 500 1 g PO QAM 05/31/21 03/13/23 mg tablet cholecalciferol (vitamin D3) 50 50 mcg PO QAM 05/31/21 11/18/22 mcg (2,000 unit) capsule losartan 25 mg tablet 25 mg PO QAM 05/31/21 03/13/23 zinc 50 mg tablet 50 mg PO QAM 05/31/21 11/18/22 glucosamine-chondroitin 250 mg-200 2 tab PO QAM 12/19/21 03/13/23 mg tablet (Osteo Bi-Flex) ibuprofen 200 mg tablet (Advil) 400 mg PO HS 12/19/21 03/13/23 benzonatate 100 mg capsule 100 mg PO UD PRN Cough 10/28/22 03/13/23 insulin aspart U-100 100 unit/mL 1 unit continuous subcutaneous 10/28/22 03/13/23 subcutaneous solution (Novolog infusion DAILY U-100 Insulin aspart) Previous Rx's Medication Instructions Recorded bnfyjay-dsddgapvbcznt-dwysfime 250 2 tab PO Q6H PRN pain #60 tabs 03/24/19 mg-250 mg-65 mg tablet (Excedrin Migraine) FreeStyle Johnny 14 Day Sensor #2 ea 12/26/20 (flash glucose sensor) nitroglycerin 0.4 mg sublingual 0.4 mg sublingual Q5M PRN chest 04/25/21 tablet pain #10 tabs FreeStyle Johnny 14 Day [place] #1 ea 07/24/21 (flash glucose scanning reader) atorvastatin 40 mg tablet 40 mg PO HS 30 days #90 tabs 06/09/22 metformin 1,000 mg tablet 1,000 mg PO QAM #90 tabs 12/17/22 empagliflozin 10 mg tablet 10 mg PO QAM #90 tabs 01/30/23 (Jardiance) Results & Data (ED) Vital Signs Vital Signs - 24 hr 03/13/23 10:52 03/13/23 11:22 03/13/23 11:36 Temperature 36.5 C Temperature Source Oral Pulse Rate 100 H 76 98 H Pulse Rate from SpO2 Sensor Pulse Rhythm Regular Regular Pulse Strength Normal Respiratory Rate 16 17 Respiratory Effort / Characteristics Non-Labored Spontaneous Respiratory Depth Normal Respiratory Pattern Regular Blood Pressure 138/85 Blood Pressure Mean 102 Blood Pressure Position Sitting Pulse Oximetry 97 96 Oxygen Delivery Method Room Air Room Air Sepsis Recent Fever Within 48 Hours No Sepsis New/Unexplained Change in Mental Status No Sepsis Action Taken by Nursing No Action Required 03/13/23 11:21 03/13/23 11:30 03/13/23 12:00 Temperature Temperature Source Pulse Rate 99 H 90 86 Pulse Rate from SpO2 Sensor 100 H 90 86 Pulse Rhythm Pulse Strength Respiratory Rate 19 16 18 Respiratory Effort / Characteristics Respiratory Depth Respiratory Pattern Blood Pressure 126/77 138/81 Blood Pressure Mean 107 98 Blood Pressure Position Pulse Oximetry 97 96 95 Oxygen Delivery Method Sepsis Recent Fever Within 48 Hours Sepsis New/Unexplained Change in Mental Status Sepsis Action Taken by Nursing 03/13/23 12:30 Temperature Temperature Source Pulse Rate 86 Pulse Rate from SpO2 Sensor 86 Pulse Rhythm Pulse Strength Respiratory Rate 17 Respiratory Effort / Characteristics Respiratory Depth Respiratory Pattern Blood Pressure 124/80 Blood Pressure Mean 94 Blood Pressure Position Pulse Oximetry 96 Oxygen Delivery Method Sepsis Recent Fever Within 48 Hours Sepsis New/Unexplained Change in Mental Status Sepsis Action Taken by Nursing Laboratory Data 03/13/23 11:13 03/13/23 11:13 Lab Results 03/13/23 03/13/23 03/13/23 Range/Units 11:13 11:13 11:13 WBC 7.48 (4.8-10.8) K/ul RBC 5.27 (4.70-6.10) M/uL Hgb 15.3 (14.0-18.0) g/dl Hct 44.5 (42.0-52.0) % MCV 84.4 (80.0-100.0) fL MCH 29.0 (25.0-34.0) pg MCHC 34.4 (32.0-36.0) g/dL RDW Std Deviation 44.7 (36.4-46.3) fL RDW Coeff of Juan A 14.7 H (11.5-14.5) % Plt Count 229 (130-400) K/uL MPV 9.1 L (9.4-12.4) fL Immature Gran % (Auto) 0.4 % Neut % (Auto) 76.6 % Lymph % (Auto) 14.8 % [place] % (Auto) 6.8 % Eos % (Auto) 1.1 % Baso % (Auto) 0.3 % Neut # (Auto) 5.73 (1.40-6.50) K/uL Lymph # (Auto) 1.11 L (1.2-3.4) K/uL [place] # (Auto) 0.51 (0.11-0.59) K/uL Eos # (Auto) 0.08 (0-0.50) K/uL Baso # (Auto) 0.02 (0-0.2) K/uL Immature Gran # (Auto) 0.03 (0.01-0.20) K/uL ESR 33 H (0-20) mm/hr Sodium 137 (136-145) mmol/L Potassium 4.3 (3.5-5.1) mmol/L Chloride 108 H (98-107) mmol/L Carbon Dioxide 20 L (21-32) mmol/L Anion Gap 9 (3-11) BUN 22 (6-23) mg/dl Creatinine 1.47 H (0.6-1.4) mg/dl Est Cr Clr Drug Dosing 65.4 ml/min Est GFR ( Amer) 56.8 ml/min Est GFR (Non-Af Amer) 49.0 ml/min BUN/Creatinine Ratio 15.0 (10-20) Glucose 174 H (70-99(Fasting)) mg/dl Calcium 9.5 (8.6-10.3) mg/dl Total Bilirubin 1.3 H (0.2-1.0) mg/dl AST 16 (13-39) U/L ALT 15 (7-52) U/L Alkaline Phosphatase 98 (34-104) U/L C-Reactive Protein 0.81 H (0-0.5) mg/dl Total Protein 8.1 (6.0-8.3) gm/dl Albumin 4.8 (3.4-5.0) gm/dl Globulin 3.3 (2.5-4.0) gm/dl Albumin/Globulin Ratio 1.5 (0.9-2) Procalcitonin (0-0.5) ng/ml SARS-CoV-2, RNA, NAAT (NEGATIVE) 03/13/23 03/13/23 Range/Units 11:13 11:35 WBC (4.8-10.8) K/ul RBC (4.70-6.10) M/uL Hgb (14.0-18.0) g/dl Hct (42.0-52.0) % MCV (80.0-100.0) fL MCH (25.0-34.0) pg MCHC (32.0-36.0) g/dL RDW Std Deviation (36.4-46.3) fL RDW Coeff of Juan A (11.5-14.5) % Plt Count (130-400) K/uL MPV (9.4-12.4) fL Immature Gran % (Auto) % Neut % (Auto) % Lymph % (Auto) % [place] % (Auto) % Eos % (Auto) % Baso % (Auto) % Neut # (Auto) (1.40-6.50) K/uL Lymph # (Auto) (1.2-3.4) K/uL [place] # (Auto) (0.11-0.59) K/uL Eos # (Auto) (0-0.50) K/uL Baso # (Auto) (0-0.2) K/uL Immature Gran # (Auto) (0.01-0.20) K/uL ESR (0-20) mm/hr Sodium (136-145) mmol/L Potassium (3.5-5.1) mmol/L Chloride (98-107) mmol/L Carbon Dioxide (21-32) mmol/L Anion Gap (3-11) BUN (6-23) mg/dl Creatinine (0.6-1.4) mg/dl Est Cr Clr Drug Dosing ml/min Est GFR ( Amer) ml/min Est GFR (Non-Af Amer) ml/min BUN/Creatinine Ratio (10-20) Glucose (70-99(Fasting)) mg/dl Calcium (8.6-10.3) mg/dl Total Bilirubin (0.2-1.0) mg/dl AST (13-39) U/L ALT (7-52) U/L Alkaline Phosphatase (34-104) U/L C-Reactive Protein (0-0.5) mg/dl Total Protein (6.0-8.3) gm/dl Albumin (3.4-5.0) gm/dl Globulin (2.5-4.0) gm/dl Albumin/Globulin Ratio (0.9-2) Procalcitonin < 0.05 (0-0.5) ng/ml SARS-CoV-2, RNA, NAAT NEGATIVE (NEGATIVE) Administered Medications Vancomycin HCl 2,250 mg/ (Sodium Chloride) 545 mls @ 200 mls/hr IV NOW ONE Stop: 03/13/23 14:03 Last Admin: 03/13/23 12:19 Dose: 200 mls/hr Documented By: SHAYNE Discontinued Medications Piperacillin Sod/Tazobactam Sod (Zosyn) 4.5 gm in 120 mls @ 240 mls/hr IV NOW ONE Stop: 03/13/23 11:49 Last Infusion: 03/13/23 12:21 Dose: 0 mls/hr Documented By: Admin: 03/13/23 11:41 Dose: 240 mls/hr Documented By: SHAYNE Imaging Data Radiologist's Impression: Foot X-Ray 07/21/23 11:09 XR foot LT min 3V routine CLINICAL HISTORY: ulcer near 1st/2nd digit eval for infection TECHNIQUE: 3 views of the right foot were obtained. Comparison: None available at the time of this dictation. FINDINGS: No fractures are present. Degenerative changes are seen. Achilles and plantar enthesophytes are seen. Mild soft tissue swelling in the region of the first and second digit. IMPRESSION: No radiographic evidence of osteomyelitis. If clinical concern remains, MRI is a more sensitive modality. ACT 112: Negative or not required by law. Electronically signed by: Anibal Newell M.D. 03/13/2023 11:33 AM Discharge Plan Visit Data Chief Complaint: Foot Injury/Pain Stated Complaint: ULCER LT ON FOOT, REF BY DOC ED Provider: Maninder Godoy Discharge Problem: Diabetic foot ulcer Forms Stand Alone Forms: [facility] Prescriptions Prescriptions: No Action fluoxetine 20 mg capsule 20 mg PO QAM multivitamin capsule 1 cap PO QAM Excedrin Migraine 250-250-65 mg tablet 2 tab PO Q6H PRN (Reason: pain) Qty: 60 0RF cyanocobalamin (vitamin B-12) [Vitamin B-12] 1,000 mcg tablet 2,000 mcg PO QAM aspirin 81 mg tablet,delayed release (DR/EC) 81 mg PO BID (DME) FreeStyle Johnny 14 Day Sensor Kit See Dose Instructions .ROUTE .MEDSUPPLY Qty: 2 11RF Rx Instructions: change sensor every 14 days (DME) FreeStyle Johnny 14 Day [place] Misc See Dose Instructions .ROUTE .MEDSUPPLY Qty: 1 0RF Rx Instructions: As directed atorvastatin 40 mg tablet 40 mg PO HS 30 Days Qty: 90 3RF metformin 1,000 mg tablet 1,000 mg PO QAM Qty: 90 1RF Jardiance 10 mg tablet 10 mg PO QAM Qty: 90 3RF coenzyme Q10 100 mg capsule 100 mg PO QAM elderberry fruit 200 mg capsule 200 mg PO QAM losartan 25 mg tablet 25 mg PO QAM ascorbate calcium (vitamin C) 500 mg tablet 1 g PO QAM cholecalciferol (vitamin D3) 50 mcg (2,000 unit) capsule 50 mcg PO QAM zinc 50 mg tablet 50 mg PO QAM topiramate 25 mg tablet 25 mg PO BID nitroglycerin 0.4 mg tablet, sublingual 0.4 mg sublingual Q5M PRN (Reason: chest pain) Qty: 10 0RF Patient Comments: NEVER HAD TO USE glucosamine-chondroitin [Osteo Bi-Flex] 250-200 mg Tablet 2 tab PO QAM ibuprofen [Advil] 200 mg Tablet 400 mg PO HS insulin aspart U-100 [Novolog U-100 Insulin aspart] 100 unit/mL solution 1 unit continuous subcutaneous infusion DAILY Patient Comments: PUMP Rx Instructions: 90 units continuous subcutaneous infusion DAILY; (verified pat call 10/28/22) benzonatate 100 mg Capsule 100 mg PO UD PRN (Reason: Cough) Patient Comments: occassional Referrals Referrals: Evan Zapata DO [Primary Care Provider] -
[2023-03-13] MEDS ORDERED: PIPERACILLIN/TAZOBACTAM 4.5 GM/120 ML BAG IV ONE (11:20)
[2023-03-13] MEDS ORDERED: VANCOMYCIN HCL 2,250 MG in SODIUM CHLORIDE 0.9% 500 ML IV ONE (11:20)
[2023-03-13] MEDS ORDERED: VANCOMYCIN CONSULT ACTIVE PRN (11:20)
--- NOTE | 2023-03-13 11:35 | XRay Report ---
XR foot LT min 3V routine CLINICAL HISTORY: ulcer near 1st/2nd digit eval for infection TECHNIQUE: 3 views of the right foot were obtained. Comparison: None available at the time of this dictation. FINDINGS: No fractures are present. Degenerative changes are seen. Achilles and plantar enthesophytes are seen. Mild soft tissue swelling in the region of the first and second digit. IMPRESSION: No radiographic evidence of osteomyelitis. If clinical concern remains, MRI is a more sensitive modal ity. ACT 112: Negative or not required by law. Electronically signed by: Anibal Newell M.D. 03/13/2023 11:33 AM
[2023-03-13 11:44] LABS: Basophils # (auto) 0.02 K/uL (0-0.2); Basophils % (auto) 0.3 %; Eosinophils # (auto) 0.08 K/uL (0-0.50); Eosinophils % (auto) 1.1 %; Hematocrit (blood only) 44.5 % (42.0-52.0); Hemoglobin 15.3 g/dl (14.0-18.0); Immature Granulocytes # (auto) 0.03 K/uL (0.01-0.20); Immature Granulocytes % (auto) 0.4 %; Lymphocytes # (auto) 1.11 K/uL (1.2-3.4); Lymphocytes % (auto) 14.8 %; Mean Corpuscular Hgb Conc 34.4 g/dL (32.0-36.0); Mean Corpuscular Volume 84.4 fL (80.0-100.0); Mean Platelet Volume 9.1 fL (9.4-12.4); Monocytes # (auto) 0.51 K/uL (0.11-0.59); Monocytes % (auto) 6.8 %; Neutrophils # (auto) 5.73 K/uL (1.40-6.50); Neutrophils % (auto) 76.6 %; Platelet Count 229 K/uL (130-400); RDW Coefficient of Variation 14.7 % (11.5-14.5); RDW Standard Deviation 44.7 fL (36.4-46.3); Red Blood Count 5.27 M/uL (4.70-6.10); White Blood Count 7.48 K/ul (4.8-10.8)
[2023-03-13 11:58] LABS: Albumin Globulin Ratio 1.5 (0.9-2); Albumin Level 4.8 gm/dl (3.4-5.0); Bilirubin,Total 1.3 mg/dl (0.2-1.0); C Reactive Protein 0.81 mg/dl (0-0.5); Calcium 9.5 mg/dl (8.6-10.3); Creatinine Clr Calc Pharmacy 65.4 ml/min; Est GFR (African American) 56.8 ml/min; Globulin 3.3 gm/dl (2.5-4.0); Potassium 4.3 mmol/L (3.5-5.1); Total Protein 8.1 gm/dl (6.0-8.3)
--- NOTE | 2023-03-13 12:49 | History & Physical Report ---
Date of Service March 13, 2023 Assessment & Plan (1) Diabetic foot ulcer: Plan: Left diabetic foot infection, acute worsening and failed outpatient antibiotic therapy Began approximately 3 days ago. Patient was unaware of a foot cut that he got due to his neuropathy Patient was seen at PCPs office had erythema lines marked and was started on Bactrim. Has rapidly expanded past the marked line with streaking Started on Zosyn/vancomycin in ER. Will admit on Zosyn/Dapto for broad coverage. Discussed with [facility] PCP. Wound cultures preliminary positive for group B streptococcus. Due to underlying diabetes with diabetic foot infection worsening initial therapy with final cultures pending, erythema expansion, and purulent drainage we will continue with broad-spectrum at this time. If clinically improving and remains consistent with GBS, narrow to cefazolin. MRSA nares pending, if negative can D/C daptomycin. Podiatry consulted. Will evaluate for debridement. - Left foot x-ray: No radiographic evidence of osteomyelitis, if high clinical suspicion can follow-up with MRI No leukocytosis. Hgb 15.3 Creatinine baseline approximately 1.3. Elevated to 1.47 on admission Procalcitonin negative CRP 0.81, trended See [facility] for admitting photos, note that surgical balbina is from PCPs office days prior erythema extends beyond this. Purulent drainage is present Hypertension, chronic welcome Losartan held for prerenal azotemia versus mild DIONNE Prerenal azotemia versus DIONNE Baseline creatinine around 1.3 Creatinine elevated to 1.47 on admission Received IV antibiotics, 500 cc of fluid. Clinically well and euvolemic at hospitalist assessment Trend BMP daily, renally dose medications CAD, no history of heart failure Aspirin 81 mg p.o. twice daily held pending podiatry evaluation. Atorvastatin temporarily held while on daptomycin, resume when discontinued Denies any history of stents/[place]. No history of strokes. Was seen for angina in 2020; diagnostic cath reviewed from 04/2021: Coronary angiography: 1. Left main: Large caliber vessel. Distal LM 10%. 2. Left anterior descending: Large caliber vessel that extends to the apex. Mild calcifications noted proximally. Mid LAD 30 to 40% stenosis. Large early diagonal with proximal 40% stenosis. Medium caliber D2 ostial 30%. CA-3 flow throughout the LAD system. 3. Circumflex: Medium to large caliber vessel without significant CAD. Small OM1. 4. Right coronary artery: Large and dominant vessel. Luminal irregularities throughout the mid vessel. Mid RCA 10 to 20%. PDA and PL without significant CAD. Impression: 1. Mild nonobstructive CAD. 2. Normal left-sided filling pressure. 3. No aortic stenosis. Plan: 1. Risk factor modification/medical therapy. - By record review patient has been on aspirin 81 mg twice daily for primary prevention of [place], some note of twice daily dosing in 2019 and then daily dosing in 2020. Patient has not had any history of GERD or stomach ulcers or bleeding, reasonable to continue at this time or if he has any episodes of gastritis or ulcers decreased to 81 mg daily. Patient describes no chest pain, angina, shortness of breath leading up to hospitalization [id number] with nephropathy and neuropathy, suboptimally controlled Last A1c 7.9% - Hold empagliflozin/metformin - BSG 113 - Pt has CGM, and prefers to use his continuous pump - Will allow pt to continue his own control. If BSG >200 then swtich to hospital controlled basal-bolus DVT prophylaxis: Heparin due to mild DIONNE versus prerenal azotemia CODE STATUS: Full Disposition: Medical surgical Diet: N.p.o. pending podiatry evaluation, then type II DM (2) Diabetes mellitus, insulin dependent (IDDM), controlled: (3) Hyperlipidemia: (4) Hypertension: (5) Chronic kidney disease: (6) Diabetic foot infection: History of Present Illness Primary Care Provider: Evan Zapata DO Isaías Parry is a 67-year-old male with a past medical history of type II insulin-dependent diabetes, chronic kidney disease, hypertension, hyperlipidemia, CAD who presents with a diabetic foot infection. Patient has had ulceration between the digits 3 days ago developed ulcerations at 1st/second toes of L foot. Started bactrum and had offloading boot placed and erythematous line marked. Erythema expanded, was referred to ER. Ray reports he is a insulin diabetic with severe LE neuropathy. Didn't realize he had gotten a cut on his foot until he noticed swelling and redness around Thursday and which was more swollen and red on (2 days ago) and saw his PCP Dr. Benny hollins/ resident Dr. Pineda. They noted a DFI, marked the skin with a marker, and placed him on Bactrim with return precautions. XR at the time reportedly did no tshow osteo. Surface swab was taken (records pending). Had a offloading boot made. Despite this was getting worse and was instructed to proceed to the Er for care. In ER, Pain not present, hx of significant neuropathy. Noted to have Malodorious wound with streaking erythema. PER ER Dr. Reeves: Will see this afternoon and eval for debriedment. He reports that he was concerned about heart attack in the past as he was having some chest pain, but had a thorough cardiac eval including a stress test and these were normal. Did not show any evidence of heart attack, cardiac ischemia, wall motion abnormality, or impaired EF however he is unsure why he is on aspirin twice daily. He notes that he has never had any heart failure/edema/orthopnea Denies fever, chills, sweats, nausea, vomiting, diarrhea. He is hungry. No lightheadedness or dyspnea Medical History: Reviewed Medications: Reviewed Surgical History: Reviewed Family history: Reviewed Allergies: Reviewed, childhood penicillin allergy but tolerating Zosyn Social History: Reviewed, former tobacco use Code Status: Full code Allergies Allergy/AdvReac Type Severity Reaction Status Date / Time bee venom protein (honey bee) Allergy Unknown ANY KIND Verified 11/18/22 06:17 OF BEEES - SWELLING,SOB Penicillins Allergy Unknown UNKNOWN/told Verified 11/18/22 06:17 as a kid Home Medications Medication Instructions Recorded Confirmed Type qqjnkph-juhhowvzubhou-vdpfsroy 250 2 tab PO Q6H PRN pain #60 tabs 03/24/19 03/13/23 Rx mg-250 mg-65 mg tablet (Excedrin Migraine) cyanocobalamin (vitamin B-12) 2,000 mcg PO QAM 03/24/19 03/13/23 History 1,000 mcg tablet (Vitamin B-12) fluoxetine 20 mg capsule 20 mg PO QAM 03/24/19 03/13/23 History multivitamin 1 cap PO QAM 03/24/19 03/13/23 History aspirin 81 mg tablet,delayed 81 mg PO BID 01/24/20 03/13/23 History release coenzyme Q10 100 mg capsule 100 mg PO QAM 01/24/20 03/13/23 History elderberry fruit 200 mg capsule 200 mg PO QAM 01/24/20 03/13/23 History FreeStyle Johnny 14 Day Sensor #2 ea 12/26/20 09/12/22 Rx (flash glucose sensor) topiramate 25 mg tablet 25 mg PO BID 04/24/21 03/13/23 History nitroglycerin 0.4 mg sublingual 0.4 mg sublingual Q5M PRN chest 04/25/21 03/13/23 Rx tablet pain #10 tabs ascorbate calcium (vitamin C) 500 1 g PO QAM 05/31/21 03/13/23 History mg tablet cholecalciferol (vitamin D3) 50 50 mcg PO QAM 05/31/21 03/13/23 History mcg (2,000 unit) capsule losartan 25 mg tablet 25 mg PO QAM 05/31/21 03/13/23 History zinc 50 mg tablet 50 mg PO QAM 05/31/21 03/13/23 History FreeStyle Johnny 14 Day [place] #1 ea 07/24/21 09/12/22 Rx (flash glucose scanning reader) glucosamine-chondroitin 250 mg-200 2 tab PO QAM 12/19/21 03/13/23 History mg tablet (Osteo Bi-Flex) ibuprofen 200 mg tablet (Advil) 400 mg PO HS 12/19/21 03/13/23 History atorvastatin 40 mg tablet 40 mg PO HS 30 days #90 tabs 06/09/22 03/13/23 Rx benzonatate 100 mg capsule 100 mg PO UD PRN Cough 10/28/22 03/13/23 History insulin aspart U-100 100 unit/mL 1 unit continuous subcutaneous 10/28/22 03/13/23 History subcutaneous solution (Novolog infusion DAILY U-100 Insulin aspart) metformin 1,000 mg tablet 1,000 mg PO QAM #90 tabs 12/17/22 03/13/23 Rx empagliflozin 10 mg tablet 10 mg PO QAM #90 tabs 01/30/23 03/13/23 Rx (Jardiance) Past Med/Surg History Medical History (Updated 03/13/23 @ 13:18 by Memo Hendricks MD) CKD (chronic kidney disease), stage III PT NOT AWARE OF ANY CHRONIC KIDNEY DISEASE Depression HX Diabetes Diabetic peripheral neuropathy Dyslipidemia History of COVID-12 OCT 2020 - SOB LINGERS SINCE ONLY ON EXERTION History of pancreatitis Migraines Surgical History Bilateral inguinal hernia repaired History of appendectomy History of cardiac cath 3-4 YR AGO/HX C/P (SUSPECTED [place]) ....CATH...NO STENT(S)...NO FINDINGS ([facility]) History of carpal tunnel release of both wrists History of cholecystectomy History of colonoscopy History of endoscopy History of left cataract surgery History of shoulder surgery LEFT / DECEMBER 2021 History of total left hip arthroplasty History of total right hip replacement Hx of shoulder surgery RIGHT Family History Mother Cancer Father Heart disease Colorectal cancer Stroke Grandmother (Paternal) Family history of diabetes mellitus Grandfather (Maternal) Family history of diabetes mellitus Social History Smoking Status: Never smoker Tobacco Type: Cigarettes Second Hand Exposure: No; Do You Dip or Chew Tobacco: No; Hx Alcohol Use: Yes (RARELY) Alcohol type: hard liquor Hx Substance Use: No Preferred Language: Romanian Communication Ability: Effective Residential Living Assistant Required: No Beliefs That Will Affect Care: None marital status: Current Living Situation: Spouse Feels Safe at Home: Yes Assistive Devices: Glasses Review of Systems Review of Systems: All systems reviewed & are unremarkable except as noted in Subjective Physical Exam Physical Exam: General: A&Ox3. NAD. Cooperative. HEENT: Atraumatic, normocephalic. Vision/hearing grossly intact Pulm: CTAB A&P. -wheezes, -rales, -rhonchi. Symmetrical chest rise. No increased work of breathing. No respiratory distress. Cardiac: RRR, -mrg. Radial pulses intact and symmetrical. Abdominal: Nontender, nondistended, soft. BS present. Extremities: Bilateral lower extremity neuropathy 2/2 DM, PT pulses intact to palpation bilaterally. Cap refill in hallux less than 2 seconds bilaterally. Left foot with plantar ulceration with fluctuance and purulent drainage and dorsum with erythema extended past initial PCP Balbina as noted in images below Results & Data Results & Data Vital Signs (Past 12 Hours) Vital Signs Temp Pulse Resp BP Pulse Ox O2 Del Method 03/13/23 11:36 98 H 03/13/23 11:22 76 17 96 Room Air 03/13/23 10:52 36.5 C 100 H 16 138/85 97 Room Air PG Care Time/CCT Total # of Minutes Spent Total Time Spent with Patient: Total time spent is greater than 50% in coordination of care (as documented) at patient's floor/unit and/or counseling patient: Coding Level of Care Code 31347 INT INP/OBS CARE 3/75MIN Diagnoses Diabetic foot ulcer E11.621; L97.509 Diabetes mellitus, insulin dependent (IDDM), controlled Hyperlipidemia E78.5 Hypertension I10 Chronic kidney disease N18.9 Diabetic foot infection E11.628; L08.9
[2023-03-13] MEDS ORDERED: ACETAMINOPHEN 325 MG TAB PO PRN (16:56)
[2023-03-13] MEDS ORDERED: POLYETHYLENE (MIRALAX) 17 GM PACK PO PRN (16:56)
[2023-03-13] MEDS ORDERED: ONDANSETRON INJ 2 MG/ML 2 ML VIAL IV PRN (16:56)
[2023-03-13] MEDS ORDERED: DAPTOmycin 375 MG in SYRINGE 0 ML IV SCH (18:00)
[2023-03-13] MEDS: PIPERACILLIN/TAZOBACTAM 4.5 GM in DEXTROSE 5% 100 ML IV SCH (18:06)
[2023-03-13] MEDS: PLASMA-LYTE A 1,000 ML IV SCH (18:07)
[2023-03-13] MEDS: TOPIRAMATE 25 MG TAB PO SCH (20:06)
--- NOTE | 2023-03-13 21:14 | Orthopedic Consultation ---
Date of Consultation March 13, 2023 Assessment & Plan (1) Diabetic foot ulcer: Patient seen, evaluated, and treated. Reviewed X-rays and X-ray findings. A thorough evaluation of wound was done in detail. It was determined wound would be debrided. Sharp excisional debridement with out incident. See procedure noted below. MRI ordered r/o OM. Low suspicion of osteomyelitis and wound does not probe to bone. Deep cultures taken. Today's procedure is an excisional debridement of deep tissue. There is a moder ate amount of serosanguineous exudate draining from the ulcer. The ulcer base is described as containing has pink granulation. Necrotic or devitalized tissue is estimated to be present in approximately 60% of the pressure ulcer bed. The ulcer has been exposed full-thickness tissue. I have informed the patient of the risks and benefit of this procedure and they have had the opportunity to ask questions. Appropriate consent has been obtained. The patient refused site marking. The area was prepped and draped in usual aseptic manner. The procedure was performed and a clean field. I debrided the wound sharply with a sterile #15 blade and necrotic tissue was excised down to and including subcutaneous tissue. Bleeding was minimal and hemostasis was achieved using pressure. The patient tolerated procedure and anesthesia well. Postprocedure no increased pain. (2) Diabetic foot infection: History of Present Illness Attending Physician: Memo Hendricks MD History of Present Illness Patient is a 67-year-old male seen at bedside for a left diabetic foot infec tion. Patient has a past medical history significant for type II insulin- dependent diabetes, chronic kidney disease, hypertension, hyperlipidemia, CAD. Patient was managed for DFU by PCP, Dr. Benny hollins/ resident Dr. Pineda. Three days earlier (03/11/23) he Patient was started Bactrim and had offloading boot placed and erythematous line marked. XR at the time reportedly did no show osteomyelitis. Surface swab was taken (records pending). Patient was dispensed an offloading boot made. Wound continued to worsen and Patient was instructed to proceed to the [facility] for care. Allergies Allergy/AdvReac Type Severity Reaction Status Date / Time bee venom protein (honey bee) Allergy Unknown ANY KIND Verified 11/18/22 06:17 OF BEEES - SWELLING,SOB Penicillins Allergy Unknown UNKNOWN/told Verified 11/18/22 06:17 as a kid Home Medications Medication Instructions Recorded Confirmed Type gwvvkhu-ifhjyrnhvuqyo-panvnune 250 2 tab PO Q6H PRN pain #60 tabs 03/24/19 03/13/23 Rx mg-250 mg-65 mg tablet (Excedrin Migraine) cyanocobalamin (vitamin B-12) 2,000 mcg PO QAM 03/24/19 03/13/23 History 1,000 mcg tablet (Vitamin B-12) fluoxetine 20 mg capsule 20 mg PO QAM 03/24/19 03/13/23 History multivitamin 1 cap PO QAM 03/24/19 03/13/23 History aspirin 81 mg tablet,delayed 81 mg PO BID 01/24/20 03/13/23 History release coenzyme Q10 100 mg capsule 100 mg PO QAM 01/24/20 03/13/23 History elderberry fruit 200 mg capsule 200 mg PO QAM 01/24/20 03/13/23 History FreeStyle Johnny 14 Day Sensor #2 ea 12/26/20 09/12/22 Rx (flash glucose sensor) topiramate 25 mg tablet 25 mg PO BID 04/24/21 03/13/23 History nitroglycerin 0.4 mg sublingual 0.4 mg sublingual Q5M PRN chest 04/25/21 03/13/23 Rx tablet pain #10 tabs ascorbate calcium (vitamin C) 500 1 g PO QAM 05/31/21 03/13/23 History mg tablet cholecalciferol (vitamin D3) 50 50 mcg PO QAM 05/31/21 03/13/23 History mcg (2,000 unit) capsule losartan 25 mg tablet 25 mg PO QAM 05/31/21 03/13/23 History zinc 50 mg tablet 50 mg PO QAM 05/31/21 03/13/23 History FreeStyle Johnny 14 Day [place] #1 ea 07/24/21 09/12/22 Rx (flash glucose scanning reader) glucosamine-chondroitin 250 mg-200 2 tab PO QAM 12/19/21 03/13/23 History mg tablet (Osteo Bi-Flex) ibuprofen 200 mg tablet (Advil) 400 mg PO HS 12/19/21 03/13/23 History atorvastatin 40 mg tablet 40 mg PO HS 30 days #90 tabs 06/09/22 03/13/23 Rx benzonatate 100 mg capsule 100 mg PO UD PRN Cough 10/28/22 03/13/23 History insulin aspart U-100 100 unit/mL 1 unit continuous subcutaneous 10/28/22 03/13/23 History subcutaneous solution (Novolog infusion DAILY U-100 Insulin aspart) metformin 1,000 mg tablet 1,000 mg PO QAM #90 tabs 12/17/22 03/13/23 Rx empagliflozin 10 mg tablet 10 mg PO QAM #90 tabs 01/30/23 03/13/23 Rx (Jardiance) Patient History Medical History (Updated 03/13/23 @ 13:18 by Memo Hendricks MD) CKD (chronic kidney disease), stage III PT NOT AWARE OF ANY CHRONIC KIDNEY DISEASE Depression HX Diabetes Diabetic peripheral neuropathy Dyslipidemia History of COVID-12 OCT 2020 - SOB LINGERS SINCE ONLY ON EXERTION History of pancreatitis Migraines Surgical History Bilateral inguinal hernia repaired History of appendectomy History of cardiac cath 3-4 YR AGO/HX C/P [place]ED [place]) ....CATH...NO STENT(S)...NO FINDINGS ([facility]) History of carpal tunnel release of both wrists History of cholecystectomy History of colonoscopy History of endoscopy History of left cataract surgery History of shoulder surgery LEFT / DECEMBER 2021 History of total left hip arthroplasty History of total right hip replacement Hx of shoulder surgery RIGHT Family History Mother Cancer Father Heart disease Colorectal cancer Stroke Grandmother (Paternal) Family history of diabetes mellitus Grandfather (Maternal) Family history of diabetes mellitus Social History Smoking Status: Former smoker Tobacco Type: Cigarettes Second Hand Exposure: No; Do You Dip or Chew Tobacco: No; Hx Alcohol Use: Yes Alcohol type: hard liquor Hx Substance Use: No Preferred Language: Greenlandic Communication Ability: Effective Shafting Worker Required: No Beliefs That Will Affect Care: None marital status: Current Living Situation: Spouse Feels Safe at Home: Yes Assistive Devices: None Physical Exam Constitutional: well developed, well nourished, cooperative and comfortable Eyes: normal visual bradshaw by confrontation Respiratory: normal respiratory effort Cardiovascular: Rate/Rhythm: regular rate and regular rhythm Musculoskeletal: Extremities: extremities normal to inspection Skin: + ulcer (Left submet 1 full thickness into subcutaneous tissue) Neurologic: moves all extremities (Loss of epicritic sensation) Psychiatric: Orientation: alert and oriented x 3 Results & Data Vital Signs (Past 12 Hours) Vital Signs Temp Pulse Resp BP BP Pulse Ox O2 Del Method 03/13/23 17:23 37 C 16 137/78 97 Room Air 03/13/23 15:30 87 16 133/69 99 03/13/23 15:00 82 15 142/76 H 98 03/13/23 13:30 83 16 130/81 99 03/13/23 13:00 85 19 98 03/13/23 13:00 149/102 H 03/13/23 12:30 86 17 124/80 96 03/13/23 12:00 86 18 138/81 95 03/13/23 11:30 90 16 126/77 96 03/13/23 11:21 99 H 19 97 03/13/23 11:36 98 H 03/13/23 11:22 76 17 96 Room Air 03/13/23 10:52 36.5 C 100 H 16 138/85 97 Room Air Diagnostic Findings XR foot LT min 3V routine CLINICAL HISTORY: DIABETIC FOOT ULCER COMPARISON: Left foot radiographs August 02, 2021. FINDINGS: Alignment of the left foot is anatomic. Tarsometatarsal joints are intact. There is no fracture within the left foot. No evidence for acute osteomyelitis. Bipartite medial sesamoid of the left great toe is noted. There is posterior and plantar calcaneal spurring. Mild mid foot osteoarthritis is pre sent. IMPRESSION: 1. No fracture. No evidence for acute osteomyelitis within the left foot. 2. Mild mid foot osteoarthritis. 3. Posterior and plantar calcaneal spurs. ACT 112: Negative or not required by law. Electronically signed by: Kishan Gonzalez M.D. 03/11/2023 12:16 PM Dictated:03/11/23 1214
[2023-03-13] MEDS ORDERED: GADOBUTROL 65ML VIAL IV ONE (22:54)
[2023-03-13] MEDS ORDERED: GLUCAGON FOR INJ 1 MG VIAL SQ PRN (23:25)
[2023-03-13] MEDS ORDERED: DEXTROSE 50% 50 ML SYRINGE IV PRN (23:25)
[2023-03-13] MEDS ORDERED: GLUCOSE 40% GEL 15 GM TUBE PO PRN (23:25)
[2023-03-13] MEDS ORDERED: CARBOHYDRATES FOR HYPOGLYCEMIA PO PRN (23:25)
[2023-03-13] MEDS ORDERED: GLUCOSE 10 TAB/TUBE PO PRN (23:25)
[2023-03-14] MEDS ORDERED: INSULIN ASPART PER UNIT CHARGE SC ONE
[2023-03-14] MEDS: PIPERACILLIN/TAZOBACTAM 4.5 GM in DEXTROSE 5% 100 ML IV SCH ×3 (02:03→17:51)
[2023-03-14] MEDS: PLASMA-LYTE A 1,000 ML IV SCH (02:03)
--- NOTE | 2023-03-14 05:57 | Magnetic Resonance Report ---
Exam(s): MRI LEFT FOOT W/WO Contrast IV Amt: 11.6cc gadavist EXAM: MR Left Lower Extremity Without and With Intravenous Contrast, Foot CLINICAL HISTORY: Reason for exam: rule out Osteomyelitis. TECHNIQUE: Multiplanar magnetic resonance images of the left forefoot. Without and with intravenous contrast. CONTRAST: Patient received 11.6cc gadavist of IV contrast COMPARISON: No relevant prior studies available. FINDINGS: Bones/joints: No bone marrow edema.. No malalignment Soft tissues: There is soft tissue edema seen on the volar aspect of the first metatarsophalangeal joint pain. No soft tissue abscess IMPRESSION: No evidence of osteomyelitis Electronically signed by: Viraj Caballero MD 03/14/23 05:56 AM
[2023-03-14 07:38] LABS: Basophils # (auto) 0.02 K/uL (0-0.2); Basophils % (auto) 0.3 %; Eosinophils % (auto) 1.6 %; Hematocrit (blood only) 38.9 % (42.0-52.0); Hemoglobin 13.4 g/dl (14.0-18.0); Immature Granulocytes # (auto) 0.03 K/uL (0.01-0.20); Immature Granulocytes % (auto) 0.5 %; Lymphocytes # (auto) 1.36 K/uL (1.2-3.4); Lymphocytes % (auto) 21.5 %; Mean Corpuscular Hemoglobin 28.6 pg (25.0-34.0); Mean Corpuscular Hgb Conc 34.4 g/dL (32.0-36.0); Mean Corpuscular Volume 83.1 fL (80.0-100.0); Mean Platelet Volume 8.9 fL (9.4-12.4); Monocytes # (auto) 0.49 K/uL (0.11-0.59); Monocytes % (auto) 7.8 %; Neutrophils # (auto) 4.32 K/uL (1.40-6.50); Neutrophils % (auto) 68.3 %; Platelet Count 194 K/uL (130-400); RDW Coefficient of Variation 14.9 % (11.5-14.5); RDW Standard Deviation 45.1 fL (36.4-46.3); Red Blood Count 4.68 M/uL (4.70-6.10); White Blood Count 6.32 K/ul (4.8-10.8)
[2023-03-14] MEDS: ASCORBIC ACID 500 MG TAB PO SCH (08:40)
[2023-03-14] MEDS: TOPIRAMATE 25 MG TAB PO SCH ×2 (08:40→20:46)
[2023-03-14] MEDS: FLUoxetine HCL 20 MG CAP PO SCH (08:40)
[2023-03-14] MEDS: LANTUS PER UNIT CHARGE SQ SCH ×2 (09:10→20:59)
[2023-03-14] MEDS: INSULIN ASPART PER UNIT CHARGE SC SCH ×4 (09:10→20:59)
[2023-03-14 09:33] LABS: BUN Creatinine Ratio 15.9 (10-20); C Reactive Protein 0.83 mg/dl (0-0.5); Creatinine Clr Calc Pharmacy 72.5 ml/min; Est GFR (African American) 64.7 ml/min; Est GFR (Non-African American) 55.8 ml/min; Potassium 4.2 mmol/L (3.5-5.1)
--- NOTE | 2023-03-14 17:11 | Hospitalist Progress Note ---
Date of Service March 14, 2023 Assessment & Plan (1) Diabetic foot ulcer: Plan: Left diabetic foot infection, acute worsening and failed outpatient antibiotic therapy Began approximately 3 days prior to admission. Patient was unaware of a foot cut that he got due to his neuropathy Patient was seen at PCPs office had erythema lines marked and was started on Bactrim. Has rapidly expanded past the marked line with streaking Started on Zosyn/vancomycin in ER. Transitioned to Zosyn/Dapto for broad coverage. MRSA nares neg so D/c dapto Initial wound cultures preliminary positive for group B streptococcus. Due to underlying diabetes with diabetic foot infection worsening initial therapy with final cultures pending, erythema expansion, and purulent drainage we will continue with broad-spectrum at this time. If clinically improving and remains consistent with GBS, narrow to cefazolin. Podiatry consulted: s/p debridement 03/14 with these wound cultures pending - Left foot x-ray: No radiographic evidence of osteomyelitis, if high clinical suspicion can follow-up with MRI - Left foot MRI: No evidence of osteomyelitis Procalcitonin negative CRP 0.81, trended and stable Hypertension Losartan held for prerenal azotemia versus mild DIONNE Anemia - Monitor CBCs for now Prerenal azotemia versus DIONNE Baseline creatinine around 1.3 Creatinine elevated to 1.47 on admission --> 1.32 on 03/14 Received IV antibiotics, 500 cc of fluid Trend BMP daily, renally dose medications CAD, no history of heart failure Aspirin 81 mg p.o. twice daily on hold pending need for further procedure; when resume, would resume at once daily Resume atorvastatin since Dapto discontinued Denies any history of stents/[place]. No history of strokes. Was seen for angina in 2020; diagnostic cath reviewed from 04/2021 Patient describes no chest pain, angina, shortness of breath leading up to hospitalization [id number] with nephropathy and neuropathy, suboptimally controlled Last A1c 7.9% - Hold empagliflozin/metformin - BSG 113 - Pt has CGM, and prefers to use his continuous pump - Will allow pt to continue his own control. If BSG >200 then swtich to hospital controlled basal-bolus DVT prophylaxis: Heparin due to mild DIONNE versus prerenal azotemia CODE STATUS: Full Disposition: Medical surgical Diet: Carb consistent, heart healthy (2) Diabetes mellitus, insulin dependent (IDDM), controlled: (3) Hyperlipidemia: (4) Hypertension: (5) Chronic kidney disease: (6) Diabetic foot infection: (7) Anemia: Admission and Anticipated Discharge Date Admission Date: March 13, 2023 Subjective Doing well since debridement of L foot. Reports he noticed some weeping from wound. Denies pain of L foot. Otherwise feels at baseline without any acute concerns. Review of Systems Review of Systems: per subjective Physical Exam Physical Exam: General: Well-appearing, NAD HEENT: Normal conjunctivae L foot with mild mixed serous-purulent drainage on bandage. Upon bandage removal, wound does appear clean without active purulent drainage, minimal sensation to the surrounding area Neurologic: AAOx3, no focal deficits Psychiatric: Appropriate mood/affect Results & Data Results & Data Vital Signs (Past 12 Hours) Vital Signs Temp Pulse Resp BP BP Pulse Ox O2 Del Method 03/14/23 15:39 37.4 C 69 16 149/75 H 96 Room Air 03/14/23 08:00 Room Air 03/14/23 08:10 36.8 C 75 16 136/71 96 Room Air Laboratory Results Hgb down to 13.4 Cr improved to 1.32 CRP stable at 0.83 Glucoses <200 MRSA nares neg Diagnostic Findings L foot MRI no evidence of osteomyelitis PG Care Time/CCT Total # of Minutes Spent Total Time Spent with Patient: Total time spent is greater than 50% in coordination of care (as documented) at patient's floor/unit and/or counseling patient: Coding Level of Care Code 66958 SUB INP/OBS CARE 2/35MIN Diagnoses Diabetic foot ulcer E11.621; L97.509 Diabetes mellitus, insulin dependent (IDDM), controlled Hyperlipidemia E78.5 Hypertension I10 Chronic kidney disease N18.9 Diabetic foot infection E11.628; L08.9 Anemia D64.9
--- NOTE | 2023-03-14 18:21 | Orthopedic Progress Note ---
Date of Service March 14, 2023 Assessment & Plan (1) Diabetic foot ulcer: Plan: Patient seen, evaluated, and treated. Reviewed MRI and MRI findings. Reviewed cultures. Pinpoint growth only. Awaiting cultures for out patient antibiotic coverage. Patient failed PO ba ctrim. Will continue to follow while Patient is in house. (2) Diabetic foot infection: Admission and Anticipated Discharge Date Admission Date: March 13, 2023 Subjective Patient seen at bedside resting comfortably. He relates no complaints. Review of Systems Review of Systems: All systems reviewed & are unremarkable except as noted in Subjective Physical Exam Constitutional: well developed, well nourished, cooperative and comfortable Eyes: normal visual bradshaw by confrontation Respiratory: normal respiratory effort Cardiovascular: Rate/Rhythm: regular rate and regular rhythm Musculoskeletal: Extremities: extremities normal to inspection Skin: + ulcer (Left submet 1 full thickness into subcutaneous tissue) Neurologic: moves all extremities (Loss of epicritic sensation) Psychiatric: Orientation: alert and oriented x 3 Results & Data Vital Signs (Past 12 Hours) Vital Signs Temp Pulse Resp BP BP Pulse Ox O2 Del Method 03/14/23 15:39 37.4 C 69 16 149/75 H 96 Room Air 03/14/23 08:00 Room Air 03/14/23 08:10 36.8 C 75 16 136/71 96 Room Air Diagnostic Findings [address], [place] [address] / Director: Memo Velasquez M.D. Clinical Laboratory Report Name: JOE WESTBROOK Seble Acct: [id number] Status: ADM IN : 1955 [facility] Date: 03/13/23 Age: 67 Sex: M Dis Date: Loc: Medical/Surgical/Ortho [address] [place] [address]/Bed: N3-2 Spec: [id number] Collected: 03/13/23 Received: 03/13/[address]: Aime Reeves, DPM, MS Copy To: Memo Hendricks MD Source: Foot,Left OV Order: Ordered: Aer/Sparkle Cult/Sm Procedure Result Verified Site Gram Stain Final 03/14/23-714 Gram Stain Result No WBCs Seen No Organisms Seen Aero/Sparkle Cult Preliminary 03/14/23-1316 Pin-point growth present, reincubating. Name: JOE WESTBROOK : 1955 PAGE 1 Printed: 03/14/23 0575 END OF REPORT Exam(s): MRI LEFT FOOT W/WO Contrast IV Amt: 11.6cc gadavist EXAM: MR Left Lower Extremity Without and With Intravenous Contrast, Foot CLINICAL HISTORY: Reason for exam: rule out Osteomyelitis. TECHNIQUE: Multiplanar magnetic resonance images of the left forefoot. Without and with intravenous contrast. CONTRAST: Patient received 11.6cc gadavist of IV contrast COMPARISON: No relevant prior studies available. FINDINGS: Bones/joints: No bone marrow edema.. No malalignment Soft tissues: There is soft tissue edema seen on the volar aspect of the first metatarsophalangeal joint pain. No soft tissue abscess IMPRESSION: No evidence of osteomyelitis Electronically signed by: Viraj Caballero MD 03/14/23 05:56 AM
[2023-03-15] MEDS: PIPERACILLIN/TAZOBACTAM 4.5 GM in DEXTROSE 5% 100 ML IV SCH ×2 (02:26→09:47)
[2023-03-15 07:33] LABS: Basophils # (auto) 0.03 K/uL (0-0.2); Basophils % (auto) 0.5 %; Eosinophils # (auto) 0.14 K/uL (0-0.50); Eosinophils % (auto) 2.4 %; Hematocrit (blood only) 41.3 % (42.0-52.0); Hemoglobin 14.4 g/dl (14.0-18.0); Immature Granulocytes # (auto) 0.02 K/uL (0.01-0.20); Immature Granulocytes % (auto) 0.3 %; Lymphocytes # (auto) 1.81 K/uL (1.2-3.4); Lymphocytes % (auto) 30.6 %; Mean Corpuscular Hemoglobin 29.2 pg (25.0-34.0); Mean Corpuscular Hgb Conc 34.9 g/dL (32.0-36.0); Mean Corpuscular Volume 83.8 fL (80.0-100.0); Mean Platelet Volume 9.2 fL (9.4-12.4); Monocytes # (auto) 0.44 K/uL (0.11-0.59); Monocytes % (auto) 7.4 %; Neutrophils # (auto) 3.47 K/uL (1.40-6.50); Neutrophils % (auto) 58.8 %; Platelet Count 217 K/uL (130-400); RDW Standard Deviation 45.1 fL (36.4-46.3); Red Blood Count 4.93 M/uL (4.70-6.10); White Blood Count 5.91 K/ul (4.8-10.8)
[2023-03-15 07:57] LABS: BUN Creatinine Ratio 17.3 (10-20); Calcium 9.3 mg/dl (8.6-10.3); Est GFR (African American) 64.1 ml/min; Est GFR (Non-African American) 55.3 ml/min; Potassium 4.3 mmol/L (3.5-5.1)
[2023-03-15] MEDS: LANTUS PER UNIT CHARGE SQ SCH ×2 (09:35→21:29)
[2023-03-15] MEDS: INSULIN ASPART PER UNIT CHARGE SC SCH ×4 (09:36→21:32)
[2023-03-15] MEDS: FLUoxetine HCL 20 MG CAP PO SCH (09:38)
[2023-03-15] MEDS: ASCORBIC ACID 500 MG TAB PO SCH (09:38)
[2023-03-15] MEDS: TOPIRAMATE 25 MG TAB PO SCH ×2 (13:03→20:04)
--- NOTE | 2023-03-15 15:03 | Hospitalist Progress Note ---
Date of Service March 15, 2023 Assessment & Plan (1) Diabetic foot ulcer: Plan: Left diabetic foot infection, acute worsening and failed outpatient antibiotic therapy Began approximately 3 days prior to admission. Patient was unaware of a foot cut that he got due to his neuropathy Patient was seen at PCPs office had erythema lines marked and was started on Bactrim. Has rapidly expanded past the marked line with streaking Podiatry consulted: s/p debridement 03/14 with these wound cultures - Left foot x-ray: No radiographic evidence of osteomyelitis, if high clinical suspicion can follow-up with MRI - Left foot MRI: No evidence of osteomyelitis Procalcitonin negative CRP 0.81, trended and stable Started on Zosyn/vancomycin in ER. Transitioned to Zosyn/Dapto for broad coverage. MRSA nares neg so D/c dapto Initial wound cultures preliminary positive for group B streptococcus and podiatry debridement wound cultures from 03/14 preliminarily growing group B beta strep, therefore narrowed to cefazolin. Hypertension Losartan held for prerenal azotemia versus mild DIONNE, will resume given normalized Cr Anemia - Hgb improved 03/15, continue monitoring CBCs for now Prerenal azotemia versus DIONNE Baseline creatinine around 1.3 Creatinine elevated to 1.47 on admission --> 1.32 on 03/14 --> 1.33 on 03/15 Received IV antibiotics, 500 cc of fluid Trend BMP daily CAD, no history of heart failure Aspirin 81 mg p.o. twice daily on hold pending need for further procedure; when resume, would resume at once daily Resume atorvastatin since Dapto discontinued Denies any history of stents/[place]. No history of strokes. Was seen for angina in 2020; diagnostic cath reviewed from 04/2021 Patient describes no chest pain, angina, shortness of breath leading up to hospitalization [id number] with nephropathy and neuropathy, suboptimally controlled Last A1c 7.9% - Hold empagliflozin/metformin - Pt has CGM, and prefers to use his continuous pump - Will allow pt to continue his own control. If BSG >200 then switch to hospital controlled basal-bolus DVT prophylaxis: Heparin due to mild DIONNE versus prerenal azotemia CODE STATUS: Full Disposition: Medical surgical Diet: Carb consistent, heart healthy (2) Diabetes mellitus, insulin dependent (IDDM), controlled: (3) Hyperlipidemia: (4) Hypertension: (5) Chronic kidney disease: (6) Diabetic foot infection: (7) Anemia: Admission and Anticipated Discharge Date Admission Date: March 13, 2023 Subjective Overall doing well, NAEO. Denies any foot pain or significant drainage. Otherwise feels at baseline. Physical Exam Physical Exam: General: Well-appearing, NAD HEENT: Normal conjunctivae L foot with c/d/i bandage. Upon bandage removal, wound does appear clean without active purulent drainage Neurologic: AAOx3, no focal deficits Psychiatric: Appropriate mood/affect Results & Data Results & Data Vital Signs (Past 12 Hours) Vital Signs Temp Pulse Resp BP Pulse Ox O2 Del Method 03/15/23 08:08 36.9 C 77 16 131/79 97 Room Air Laboratory Results Hgb improved back up to 14.4 Normal WBC Cr remains normal at 1.33 Diagnostic Findings Micro from wound culture 03/13 preliminarily showing GBS BCx NGTD PG Care Time/CCT Total # of Minutes Spent Total Time Spent with Patient: Total time spent is greater than 50% in coordination of care (as documented) at patient's floor/unit and/or counseling patient: Coding Level of Care Code 48339 SUB INP/OBS CARE 2/35MIN Diagnoses Diabetic foot ulcer E11.621; L97.509 Diabetes mellitus, insulin dependent (IDDM), controlled Hyperlipidemia E78.5 Hypertension I10 Chronic kidney disease N18.9 Diabetic foot infection E11.628; L08.9 Anemia D64.9
[2023-03-15] MEDS ORDERED: ATORVASTATIN 40 MG TAB PO SCH (21:00)
[2023-03-15] MEDS: ceFAZolin 2000MG 2,000 MG/15 ML SYR IV SCH (21:32)
[2023-03-16] MEDS: ceFAZolin 2000MG 2,000 MG/15 ML SYR IV SCH ×2 (05:44→14:07)
[2023-03-16 07:51] LABS: Basophils # (auto) 0.01 K/uL (0-0.2); Basophils % (auto) 0.2 %; Eosinophils # (auto) 0.11 K/uL (0-0.50); Eosinophils % (auto) 2.3 %; Hemoglobin 13.5 g/dl (14.0-18.0); Immature Granulocytes # (auto) 0.03 K/uL (0.01-0.20); Immature Granulocytes % (auto) 0.6 %; Lymphocytes # (auto) 1.16 K/uL (1.2-3.4); Lymphocytes % (auto) 24.6 %; Mean Corpuscular Hemoglobin 28.9 pg (25.0-34.0); Mean Corpuscular Hgb Conc 33.8 g/dL (32.0-36.0); Mean Corpuscular Volume 85.7 fL (80.0-100.0); Monocytes # (auto) 0.41 K/uL (0.11-0.59); Monocytes % (auto) 8.7 %; Neutrophils # (auto) 2.99 K/uL (1.40-6.50); Neutrophils % (auto) 63.6 %; Platelet Count 200 K/uL (130-400); RDW Coefficient of Variation 14.5 % (11.5-14.5); RDW Standard Deviation 44.4 fL (36.4-46.3); Red Blood Count 4.67 M/uL (4.70-6.10); White Blood Count 4.71 K/ul (4.8-10.8)
[2023-03-16 08:13] LABS: Calcium 9.3 mg/dl (8.6-10.3); Creatinine Clr Calc Pharmacy 73.1 ml/min; Est GFR (African American) 65.3 ml/min; Est GFR (Non-African American) 56.3 ml/min; Potassium 4.2 mmol/L (3.5-5.1)
[2023-03-16] MEDS: TOPIRAMATE 25 MG TAB PO SCH (08:21)
[2023-03-16] MEDS: FLUoxetine HCL 20 MG CAP PO SCH (08:21)
[2023-03-16] MEDS: ASCORBIC ACID 500 MG TAB PO SCH (08:21)
[2023-03-16] MEDS: INSULIN ASPART PER UNIT CHARGE SC SCH ×3 (08:36→17:51)
[2023-03-16] MEDS: LANTUS PER UNIT CHARGE SQ SCH (08:36)
[2023-03-16] MEDS ORDERED: LOSARTAN POTASSIUM 25 MG TAB PO SCH (09:00)
--- NOTE | 2023-03-16 14:55 | Discharge Summary ---
Discharge Summary Date of Service March 16, 2023 Notes For Next Care Provider Medication Changes From Visit cephalexin 500mg po qid x 8 days metronidazole 500mg po tid x 8 days Admission HPI Per Admitting Provider Isaías Parry is a 67-year-old male with a past medical history of type II insulin-dependent diabetes, chronic kidney disease, hypertension, hyperlipidemia, CAD who presents with a diabetic foot infection. Patient has had ulceration between the digits 3 days ago developed ulcerations at 1st/second toes of L foot. Started bactrum and had offloading boot placed and erythematous line marked. Erythema expanded, was referred to ER. Ray reports he is a insulin diabetic with severe LE neuropathy. Didn't realize he had gotten a cut on his foot until he noticed swelling and redness around Thursday and which was more swollen and red on (2 days ago) and saw his PCP Dr. Benny hollins/ resident Dr. Pineda. They noted a DFI, marked the skin with a marker, and placed him on Bactrim with return precautions. XR at the time reportedly did no tshow osteo. Surface swab was taken (records pending). Had a offloading boot made. Despite this was getting worse and was instructed to proceed to the Er for care. In ER, Pain not present, hx of significant neuropathy. Noted to have Malodorious wound with streaking erythema. PER ER Dr. Reeves: Will see this afternoon and eval for debriedment. He reports that he was concerned about heart attack in the past as he was having some chest pain, but had a thorough cardiac eval including a stress test and these were normal. Did not show any evidence of heart attack, cardiac ischemia, wall motion abnormality, or impaired EF however he is unsure why he is on aspirin twice daily. He notes that he has never had any heart failure/ edema/orthopnea Denies fever, chills, sweats, nausea, vomiting, diarrhea. He is hungry. No lightheadedness or dyspnea Medical History: Reviewed Medications: Reviewed Surgical History: Reviewed Family history: Reviewed Allergies: Reviewed, childhood penicillin allergy but tolerating Zosyn Social History: Reviewed, former tobacco use Code Status: Full code Principal Dx & Hospital Course #1 = Principal Diagnosis (1) Diabetic foot ulcer: Left diabetic foot infection, acute worsening and failed outpatient antibiotic therapy Began approximately 3 days prior to admission. Patient was unaware of a foot cut that he got due to his neuropathy Patient was seen at PCPs office had erythema lines marked and was started on Bactrim. Has rapidly expanded past the marked line with streaking Podiatry consulted: s/p debridement 03/14 with wound cultures growing Group B beta Strep and Prevotella - Left foot x-ray: No radiographic evidence of osteomyelitis - Left foot MRI: No evidence of osteomyelitis Procalcitonin negative CRP 0.81, trended and stable Started on Zosyn/vancomycin in ER. Transitioned to Zosyn/Dapto for broad coverage. MRSA nares neg so D/c dapto and was then converted to IV cefazolin -dc to home on cephalexin for Strep and Flagyl for Prevotella (has remote PCN allergy but has tolerated keflex in past) -maintain partial weight bearing on heel on left foot, f/u with Wound Care clinic tomorrow as scheduled, and f/u with Podiatry -wound care dressing changes daily/prn Hypertension Losartan held for prerenal azotemia versus mild IDONNE, and then resumed Anemia - Hgb mildly low at 13--> f/u PCP Prerenal azotemia versus DIONNE Baseline creatinine around 1.3 Creatinine elevated to 1.47 on admission --> 1.32 on 03/14 --> 1.33 on 03/15 Received IV antibiotics, 500 cc of fluid now normal CAD, no history of heart failure Aspirin 81 mg p.o. twice daily on hold pending need for further procedure- resumed continue atorvastatin Denies any history of stents/[place]. No history of strokes. Was seen for angina in 2020; diagnostic cath reviewed from 04/2021 Patient describes no chest pain, angina, shortness of breath leading up to hospitalization [id number] with nephropathy and neuropathy, suboptimally controlled Last A1c 7.9% - continue home empagliflozin/metformin - Pt has CGM, and prefers to use his continuous pump DVT prophylaxis: Heparin SQ CODE STATUS: Full Disposition: dc to home Discussed care with Dr. Reeves of Podiatry on day of discharge (2) Diabetes mellitus, insulin dependent (IDDM), controlled: (3) Hyperlipidemia: (4) Hypertension: (5) Chronic kidney disease: (6) Diabetic foot infection: (7) Anemia: Discharge Exam Constitutional WD/WN, vitals as above Respiratory normal respiratory effort, lungs clear to auscultation Cardiovascular RRR, no murmur, no edema Gastrointestinal (Abdomen) normal bowel sounds, soft, nontender, no hepatosplenomegaly Skin Left foot plantar surface between 1st and 2nd MT with 2 x 3 cm superficial ulcer, scant serous drainage, no surrounding erythema 2+ DP pulses Updated Medication List Medication Instructions Recorded Confirmed Type [id number] 250 2 tab PO Q6H PRN pain #60 tabs 03/24/19 03/13/23 Rx mg-250 mg-65 mg tablet (Excedrin Migraine) cyanocobalamin (vitamin B-12) 2,000 mcg PO QAM 03/24/19 03/13/23 History 1,000 mcg tablet (Vitamin B-12) fluoxetine 20 mg capsule 20 mg PO QAM 03/24/19 03/13/23 History multivitamin 1 cap PO QAM 03/24/19 03/13/23 History aspirin 81 mg tablet,delayed 81 mg PO BID 01/24/20 03/13/23 History release coenzyme Q10 100 mg capsule 100 mg PO QAM 01/24/20 03/13/23 History elderberry fruit 200 mg capsule 200 mg PO QAM 01/24/20 03/13/23 History FreeStyle Johnny 14 Day Sensor #2 ea 12/26/20 09/12/22 Rx (flash glucose sensor) topiramate 25 mg tablet 25 mg PO BID 04/24/21 03/13/23 History nitroglycerin 0.4 mg sublingual 0.4 mg sublingual Q5M PRN chest 04/25/21 03/13/23 Rx tablet pain #10 tabs ascorbate calcium (vitamin C) 500 1 g PO QAM 05/31/21 03/13/23 History mg tablet cholecalciferol (vitamin D3) 50 50 mcg PO QAM 05/31/21 03/13/23 History mcg (2,000 unit) capsule losartan 25 mg tablet 25 mg PO QAM 05/31/21 03/13/23 History zinc 50 mg tablet 50 mg PO QAM 05/31/21 03/13/23 History FreeStyle Johnny 14 Day Marianna #1 ea 07/24/21 09/12/22 Rx (flash glucose scanning reader) glucosamine-chondroitin 250 mg-200 2 tab PO QAM 12/19/21 03/13/23 History mg tablet (Osteo Bi-Flex) ibuprofen 200 mg tablet (Advil) 400 mg PO HS 12/19/21 03/13/23 History atorvastatin 40 mg tablet 40 mg PO HS 30 days #90 tabs 06/09/22 03/13/23 Rx benzonatate 100 mg capsule 100 mg PO UD PRN Cough 10/28/22 03/13/23 History insulin aspart U-100 100 unit/mL 1 unit continuous subcutaneous 10/28/22 03/13/23 History subcutaneous solution (Novolog infusion DAILY U-100 Insulin aspart) metformin 1,000 mg tablet 1,000 mg PO QAM #90 tabs 12/17/22 03/13/23 Rx empagliflozin 10 mg tablet 10 mg PO QAM #90 tabs 01/30/23 03/13/23 Rx (Jardiance) cephalexin 500 mg capsule 500 mg PO Q6H 8 days #32 caps 03/16/23 Rx metronidazole 500 mg tablet 500 mg PO Q8H 8 days #24 tabs 03/16/23 Rx Hospital Stay Data Consultations 03/13/23 11:20 Consult Podiatry Routine 03/13/23 12:04 ED Decision to Admit Stat Diagnostic Imagining Performed 03/13/23 21:11 MRI Foot [MR foot LT wo/w con] Urgent Pending Results Patient Have Any Pending Studies at Discharge: Yes (Final blood cultures-no growth to date) Discharge Instructions Given to Patient (Per Discharging Provider) Please continue taking the antibiotic for 8 more days for your foot infection. Keep your appointment with the Wound Care clinic tomorrow and also you should follow up with Podiatry. Total Time Total Time Spent Total Time Spent (In Minutes): 35 min Coding Level of Care Code 25698 INP/OBS DISCH >30 MIN Diagnoses Diabetic foot ulcer E11.621; L97.509 Diabetes mellitus, insulin dependent (IDDM), controlled Hyperlipidemia E78.5 Hypertension I10 Chronic kidney disease N18.9 Diabetic foot infection E11.628; L08.9 Anemia D64.9
--- NOTE | 2023-03-16 19:35 | Orthopedic Progress Note ---
Date of Service March 16, 2023 Assessment & Plan (1) Diabetic foot ulcer: Plan: Patient seen, evaluated, and treated. Reviewed cultures. Discussed out patient oral Keflex and Flagyl abx coverage. After evaluation of wound it was determined wound would be debrided. Sharp excisional debridement with out incident. See procedure noted below. Discussed importance of off loading. Patient to follow up with [facility] healing [facility]. Today's procedure is an excisional debridement of deep tissue. There is a moderate amount of serosanguineous exudate draining from the ulcer. The ulcer base is described as containing has pink granulation. Necrotic or devitalized tissue is estimated to be present in approximately 40% of the pressure ulcer bed. The ulcer has been exposed full-thickness tissue. I have informed the patient of the risks and benefit of this procedure and they have had the opportunity to ask questions. Appropriate consent has been obtained. The patient refused site marking. The area was prepped and draped in usual aseptic manner. The procedure was performed and a clean field. I debrided the wound sharply with a sterile #15 blade and necrotic tissue was excised down to and including subcutaneous tissue . Bleeding was minimal and hemostasis was achieved using pressure. The patient tolerated procedure and anesthesia well. The patient was educated regarding the signs and symptoms of infection, such as purulent drainage, edema, cellulitis, and significant pain, and to notify healthcare personnel for any of these things occur. Postprocedure no increased pain. (2) Diabetic foot infection: Admission and Anticipated Discharge Date Admission Date: March 13, 2023 Subjective Patient seen at bedside with present. He has no complaints. Patient is resting comfortable. Review of Systems Review of Systems: All systems reviewed & are unremarkable except as noted in Subjective Physical Exam Constitutional: well developed, well nourished, cooperative and comfortable Eyes: normal visual bradshaw by confrontation Respiratory: normal respiratory effort Cardiovascular: Rate/Rhythm: regular rate and regular rhythm Musculoskeletal: Extremities: extremities normal to inspection Skin: + ulcer (Left submet 1 full thickness into subcutaneous tissue) Neurologic: moves all extremities (Loss of epicritic sensation) Psychiatric: Orientation: alert and oriented x 3 Results & Data Vital Signs (Past 12 Hours) Vital Signs Temp Pulse Resp BP BP Pulse Ox O2 Del Method 03/16/23 15:06 36.5 C 78 16 133/75 144/87 H 96 03/16/23 14:57 78 16 144/87 H 96 Room Air 03/16/23 07:50 36.5 C 75 16 133/75 97 Room Air Diagnostic Findings [address] [place] [address] / Director: Memo Velasquez M.D. Clinical Laboratory Report Name: JOE WESTBROOK Acct: [id number] Status: DIS IN : 1955 [facility] [place] Date: 03/13/23 Age: 67 Sex: M Dis Date: 03/16/23 Loc: Medical/Surgical/Ortho [address] [place] [address] Rm/Bed: N379-2 Spec: [id number] Collected: 03/13/23 Received: 03/13/[address]: Aime Reeves, DPM, MS Copy To: Memo Hendricks MD Source: Foot,Left OV Order: Ordered: Aer/Sparkle Cult/Sm Procedure Result Verified Site Gram Stain Final 03/14/23 Gram Stain Result No WBCs Seen No Organisms Seen Aero/Sparkle Cult Preliminary 03/16/23-1420 Organism 1 Group B Beta Strep Quantity Few Sens Sensitivities to Follow +MixWound Plus Low Counts of Probable Skin Lm Organism 2 Prevotella bivia Quantity Few Sens No Sensitivities to Follow Grp.B Strp RX M.I.C. --- --------- Ampicillin S 0.12 Azithromycin R >2 Cefepime S <=0.25 Cefotaxime S <=0.25 Ceftriaxone S <=0.25 Chloramphenicol S 4 Clindamycin R >0.5 Erythromycin R >0.5 Penicillin S 0.06 Vancomycin S 0.5 S = SENSITIVE I = INTERMEDIATE R = RESISTANT Name: JOE WESTBROOK : 1955 PAGE 1 Printed: 03/16/231934 END OF REPORT
== END 2023-03-16 18:11 | disposition home or self-care (01) | DRG 623 ==
LOC: ED 10:48 → 3N 12:59 → SUATTDRO 12:59 → 3N 16:44

== ENCOUNTER 2023-04-02 11:25 | Inpatient (IN) ==
--- NOTE | 2023-04-02 11:59 | Emergency Department Note ---
History of Present Illness General Chief complaint: Wound Stated complaint: L FOOT WOUND,GETTING WORSE Time Seen by Provider: 04/02/23 11:39 History of Present Illness This is a 67-year-old male that presents to the emergency department via private vehicle with complaints of "left foot wound, getting worse". The patient notes that he has been experiencing a wound to the plantar aspect of the left foot. He was admitted last month to the hospital for the infection. He has been doing overall well in the outpatient setting and following with podiatry and wound care. He had a wound care follow-up today and was referred here noting worsening appearance to the wound as well as erythema to the dorsum of the left foot that is tracking to his left ankle. Patient notes no pain as he does have underlying neuropathy. He denies any fevers or chills. He currently just finished cephalexin 2 days ago and is currently on Flagyl with about 3 more days of this regimen. He notes a wound sample was taken earlier today and sent for culture. Home Medications Medication Instructions Recorded Confirmed Type vrxnrnd-teuxsbcppoxdj-yauzmmut 250 2 tab PO Q6H PRN pain #60 tabs 03/24/19 04/02/23 Rx mg-250 mg-65 mg tablet (Excedrin Migraine) cyanocobalamin (vitamin B-12) 2,000 mcg PO QAM 03/24/19 04/02/23 History 1,000 mcg tablet (Vitamin B-12) fluoxetine 20 mg capsule 20 mg PO QAM 03/24/19 04/02/23 History multivitamin 1 cap PO QAM 03/24/19 04/02/23 History aspirin 81 mg tablet,delayed 81 mg PO BID 01/24/20 04/02/23 History release elderberry fruit 200 mg capsule 200 mg PO QAM 01/24/20 04/02/23 History FreeStyle Johnny 14 Day Sensor #2 ea 12/26/20 03/31/23 Rx (flash glucose sensor) topiramate 25 mg tablet 25 mg PO BID 04/24/21 04/02/23 History nitroglycerin 0.4 mg sublingual 0.4 mg sublingual Q5M PRN chest 04/25/21 04/02/23 Rx tablet pain #10 tabs ascorbate calcium (vitamin C) 500 1 g PO QAM 05/31/21 04/02/23 History mg tablet cholecalciferol (vitamin D3) 50 50 mcg PO QAM 05/31/21 04/02/23 History mcg (2,000 unit) capsule losartan 25 mg tablet 25 mg PO QAM 05/31/21 04/02/23 History zinc 50 mg tablet 50 mg PO QAM 05/31/21 04/02/23 History FreeStyle Johnny 14 Day [place] #1 ea 07/24/21 03/31/23 Rx (flash glucose scanning reader) glucosamine-chondroitin 250 mg-200 2 tab PO QAM 12/19/21 04/02/23 History mg tablet (Osteo Bi-Flex) ibuprofen 200 mg tablet (Advil) 400 mg PO Q6 PRN Pain 12/19/21 04/02/23 History atorvastatin 40 mg tablet 40 mg PO HS 30 days #90 tabs 06/09/22 04/02/23 Rx benzonatate 100 mg capsule 100 mg PO UD PRN Cough 10/28/22 04/02/23 History insulin aspart U-100 100 unit/mL 1 unit continuous subcutaneous 10/28/22 04/02/23 History subcutaneous solution (Novolog infusion DAILY U-100 Insulin aspart) metformin 1,000 mg tablet 1,000 mg PO QAM #90 tabs 12/17/22 04/02/23 Rx empagliflozin 10 mg tablet 10 mg PO QAM #90 tabs 01/30/23 04/02/23 Rx (Jardiance) Allergies Allergy/AdvReac Type Severity Reaction Status Date / Time bee venom protein (honey bee) Allergy Unknown ANY KIND Verified 04/02/23 10:05 OF BEEES - SWELLING,SOB Penicillins Allergy Unknown UNKNOWN/told Verified 04/02/23 10:05 as a kid Past Med/Surg History Medical History CKD (chronic kidney disease), stage III PT NOT AWARE OF ANY CHRONIC KIDNEY DISEASE Depression HX Diabetes Diabetic peripheral neuropathy Dyslipidemia History of COVID-12 OCT 2020 - SOB LINGERS SINCE ONLY ON EXERTION History of pancreatitis Migraines Surgical History Bilateral inguinal hernia repaired History of appendectomy History of cardiac cath 3-4 YR AGO/HX C/P (SUSPECTED MD) ....CATH...NO STENT(S)...NO FINDINGS ([facility]) History of carpal tunnel release of both wrists History of cholecystectomy History of colonoscopy History of endoscopy History of left cataract surgery History of shoulder surgery LEFT / DECEMBER 2021 History of total left hip arthroplasty History of total right hip replacement Hx of shoulder surgery RIGHT Family History Mother Cancer Father Heart disease Colorectal cancer Stroke Grandmother (Paternal) Family history of diabetes mellitus Grandfather (Maternal) Family history of diabetes mellitus Social History Smoking Status: Former smoker Tobacco Type: Cigarettes Cigarettes Per Day: 2-3 packs per day; Second Hand Exposure: No; Do You Dip or Chew Tobacco: No; Hx Alcohol Use: Yes Alcohol type: hard liquor Hx Substance Use: No Preferred Language: [place] Citizen Communication Ability: Effective Wordpress Developer Required: No Beliefs That Will Affect Care: None marital status: Current Living Situation: Spouse Current Living Situation Comment: Lives with spouse (Cassandra Archuleta) Other Information That Helps Us Care for You: No Feels Safe at Home: Yes Safety Concerns: Feels Safe At This Time Assistive Devices: Glasses Review of Systems A total of 10 systems reviewed and were otherwise negative Physical Exam Vital Signs Vital Signs - 24 hr 04/02/23 11:29 04/02/23 12:31 04/02/23 13:00 Temperature 36.8 C Temperature Source Temporal Artery Scan Pulse Rate 92 H 82 78 Pulse Rate from SpO2 Sensor 78 Pulse Rhythm Regular Respiratory Rate 20 19 Respiratory Effort / Characteristics Non-Labored Spontaneous Respiratory Depth Normal Blood Pressure 142/89 H 148/86 H Blood Pressure Mean 106 106 Pulse Oximetry 98 97 Oxygen Delivery Method Room Air Sepsis Recent Fever Within 48 Hours No Sepsis New/Unexplained Change in Mental Status No Sepsis Action Taken by Nursing No Action Required 04/02/23 13:30 Temperature Temperature Source Pulse Rate 77 Pulse Rate from SpO2 Sensor 77 Pulse Rhythm Respiratory Rate 16 Respiratory Effort / Characteristics Respiratory Depth Blood Pressure 142/90 H Blood Pressure Mean 107 Pulse Oximetry 97 Oxygen Delivery Method Sepsis Recent Fever Within 48 Hours Sepsis New/Unexplained Change in Mental Status Sepsis Action Taken by Nursing VITAL SIGNS - Vital signs and nursing notes were reviewed. Stable and afebrile. GENERAL -67-year-old male appearing his stated age who is in no acute distress. Communicates well with provider and answers questions appropriately. SKIN -there is erythema to the dorsum of the left foot tracking anteriorly and proximal to the left ankle joint. The patient does have an ulcerative type wound to the plantar aspect of the left foot distally. Toes are spared. HEAD - NC/AT. HEARTregular rate and rhythm. LUNGSclear to auscultation EXTREMITIES - No clubbing or peripheral cyanosis. Skin as above. Cap refill of all toes of the left foot within normal limits. Left dorsalis pedis pulse within normal limits. +5/5 strength noted in UE/LE bilaterally. PSYCH - A&O, and cooperates fully with examiner. Pt is very pleasant and interacts well with examiner. Course Administered Medications Insulin Aspart (Insulin Aspart Per Unit Charge) 0 units SC ACHS CHELE Stop: 05/02/23 14:29 Last Admin: 04/02/23 16:58 Dose: Not Given Documented By: Admin: 04/02/23 16:57 Dose: Not Given Documented By: VON Insulin Glargine (Lantus Per Unit Charge) 20 units SQ BID CHELE Stop: 05/02/23 14:59 Last Admin: 04/02/23 17:17 Dose: 20 units Documented By: VON Co-signed By: SMM Discontinued Medications Cefepime HCl (Maxipime) 2,000 mg in 20 mls @ 5 mls/min IV NOW STA; Protocol Stop: 04/02/23 12:03 Last Admin: 04/02/23 12:29 Dose: 5 mls/min Documented By: TOMI Vancomycin HCl 2,250 mg/ (Sodium Chloride) 545 mls @ 200 mls/hr IV NOW ONE Stop: 04/02/23 14:43 Last Admin: 04/02/23 12:30 Dose: 200 mls/hr Documented By: TOMI Sodium Chloride (Nss 1000ml) 500 mls @ 500 mls/hr IV .Q1H ONE Stop: 04/02/23 13:47 Last Infusion: 04/02/23 17:01 Dose: 0 mls/hr Documented By: Admin: 04/02/23 14:35 Dose: 500 mls/hr Documented By: TOMI Medical Decision Making Laboratory Data 04/02/23 12:12 04/02/23 12:12 Lab Results 04/02/23 04/02/23 04/02/23 Range/Units 12:12 12:12 12:12 WBC 6.94 (4.8-10.8) K/ul RBC 5.10 (4.70-6.10) M/uL Hgb 15.0 (14.0-18.0) g/dl Hct 43.2 (42.0-52.0) % MCV 84.7 (80.0-100.0) fL MCH 29.4 (25.0-34.0) pg MCHC 34.7 (32.0-36.0) g/dL RDW Std Deviation 45.1 (36.4-46.3) fL RDW Coeff of Juan A 14.6 H (11.5-14.5) % Plt Count 223 (130-400) K/uL MPV 9.0 L (9.4-12.4) fL Immature Gran % (Auto) 0.6 % Neut % (Auto) 67.5 % Lymph % (Auto) 22.8 % [place] % (Auto) 8.1 % Eos % (Auto) 0.7 % Baso % (Auto) 0.3 % Neut # (Auto) 4.69 (1.40-6.50) K/uL Lymph # (Auto) 1.58 (1.2-3.4) K/uL [place] # (Auto) 0.56 (0.11-0.59) K/uL Eos # (Auto) 0.05 (0-0.50) K/uL Baso # (Auto) 0.02 (0-0.2) K/uL Immature Gran # (Auto) 0.04 (0.01-0.20) K/uL ESR 37 H (0-20) mm/hr Sodium 138 (136-145) mmol/L Potassium 4.2 (3.5-5.1) mmol/L Chloride 107 (98-107) mmol/L Carbon Dioxide 22 (21-32) mmol/L Anion Gap 9 (3-11) BUN 31 H (6-23) mg/dl Creatinine 1.29 (0.6-1.4) mg/dl Est Cr Clr Drug Dosing 74.5 ml/min Est GFR ( Amer) 66.5 ml/min Est GFR (Non-Af Amer) 57.4 ml/min BUN/Creatinine Ratio 24.0 H (10-20) Glucose 254 H (70-99(Fasting)) mg/dl Lactate (0.4-2.0) mmol/L Calcium 9.4 (8.6-10.3) mg/dl Total Bilirubin 0.8 (0.2-1.0) mg/dl AST 20 (13-39) U/L ALT 23 (7-52) U/L Alkaline Phosphatase 78 (34-104) U/L C-Reactive Protein < 0.50 (0-0.5) mg/dl Total Protein 7.7 (6.0-8.3) gm/dl Albumin 4.4 (3.4-5.0) gm/dl Globulin 3.3 (2.5-4.0) gm/dl Albumin/Globulin Ratio 1.3 (0.9-2) Procalcitonin (0-0.5) ng/ml 04/02/23 04/02/23 Range/Units 12:12 12:12 WBC (4.8-10.8) K/ul RBC (4.70-6.10) M/uL Hgb (14.0-18.0) g/dl Hct (42.0-52.0) % MCV (80.0-100.0) fL MCH (25.0-34.0) pg MCHC (32.0-36.0) g/dL RDW Std Deviation (36.4-46.3) fL RDW Coeff of Juan A (11.5-14.5) % Plt Count (130-400) K/uL MPV (9.4-12.4) fL Immature Gran % (Auto) % Neut % (Auto) % Lymph % (Auto) % [place] % (Auto) % Eos % (Auto) % Baso % (Auto) % Neut # (Auto) (1.40-6.50) K/uL Lymph # (Auto) (1.2-3.4) K/uL [place] # (Auto) (0.11-0.59) K/uL Eos # (Auto) (0-0.50) K/uL Baso # (Auto) (0-0.2) K/uL Immature Gran # (Auto) (0.01-0.20) K/uL ESR (0-20) mm/hr Sodium (136-145) mmol/L Potassium (3.5-5.1) mmol/L Chloride (98-107) mmol/L Carbon Dioxide (21-32) mmol/L Anion Gap (3-11) BUN (6-23) mg/dl Creatinine (0.6-1.4) mg/dl Est Cr Clr Drug Dosing ml/min Est GFR ( Amer) ml/min Est GFR (Non-Af Amer) ml/min BUN/Creatinine Ratio (10-20) Glucose (70-99(Fasting)) mg/dl Lactate 3.3 H* (0.4-2.0) mmol/L Calcium (8.6-10.3) mg/dl Total Bilirubin (0.2-1.0) mg/dl AST (13-39) U/L ALT (7-52) U/L Alkaline Phosphatase (34-104) U/L C-Reactive Protein (0-0.5) mg/dl Total Protein (6.0-8.3) gm/dl Albumin (3.4-5.0) gm/dl Globulin (2.5-4.0) gm/dl Albumin/Globulin Ratio (0.9-2) Procalcitonin < 0.05 (0-0.5) ng/ml Imaging Data Radiologist's Impression: Foot X-Ray 04/02/23 11:57 LEFT FOOT 3 VIEWS CLINICAL HISTORY: Left foot wound. FINDINGS: 3 views of the left foot are compared to study dated 03/13/2023. The skeletal structures are well mineralized. No fracture is seen. There are large dorsal and plantar heel spurs. Minimal osteophytic change is noted, greatest at the first metatarsophalangeal joint. Degenerative spurring is seen along the dorsal aspect of the tarsal bones. Soft tissue edema and a small wound is suggested in along the plantar aspect of the forefoot. No radiodense foreign body or soft tissue gas is identified there is no bony erosion or periostitis. Atherosclerotic calcification is seen in the regional arteries. IMPRESSION: 1. No acute bony abnormality is identified. 2. A plantar wound is suggested in the forefoot with mild surrounding edema. 3. Large heel spurs. Electronically signed by: Mando Gomez M.D. 04/02/2023 12:44 PM MDM Narrative Patient was seen and evaluated as above in room C01. Review was performed of triage nursing notes and vital signs. I did review pertinent previous visits and patient history. After obtaining a thorough history and physical examination the above work up was performed. Patient presents to us today for evaluation of ongoing and worsening wound now to the left foot. Well-documented history of wound management. Options of care were discussed with the patient. X-ray obtained. No acute bony abnormality noted. IV access was established. Labs were drawn. I also discussed presentation with the classroom monitor, Dr. Reeves that will come evaluate the patient later today. Empiric vancomycin and ceftriaxone ordered per review of his previous cultures. Per review of the wound care note earlier today the wound was cultured therefore not recultured here in the ED. Patient does have an Aquacel Ag dressing in place. Labs reveal no leukocytosis or concerning anemia. ESR 37. Glucose 254. BUN 31. CRP undetectable. Pro-Soto normal. Lactate initially elevated and following IV hydration it returned to normal. I do believe that he would benefit from inpatient management. Case discussed with the hospitalist service. Please refer to further documentation regarding this. In the evaluation and treatment of this patient the following differential diagnoses were entertained: Cellulitis, necrotizing fasciitis, abscess, among others. Impression & Plan Diabetic ulcer of left foot Discharge Plan Visit Data Chief Complaint: Wound Stated Complaint: L FOOT WOUND,GETTING WORSE ED Provider: Austin Lancaster ED Midlevel Provider: Marques Silva Discharge Problem: Diabetic ulcer of left foot Patient Disposition: Admitted As Inpatient Condition: Good Discharge Instructions Interventions: ED Discharge Assessment Last Done: 04/02/23 14:55
[2023-04-02] MEDS ORDERED: VANCOMYCIN HCL 2,250 MG in SODIUM CHLORIDE 0.9% 500 ML IV ONE (12:00)
[2023-04-02] MEDS ORDERED: CEFEPIME 2,000 MG/20 ML VIAL IV STA (12:00)
[2023-04-02] MEDS ORDERED: VANCOMYCIN CONSULT ACTIVE PRN (12:00)
[2023-04-02 12:33] LABS: Basophils # (auto) 0.02 K/uL (0-0.2); Basophils % (auto) 0.3 %; Eosinophils # (auto) 0.05 K/uL (0-0.50); Eosinophils % (auto) 0.7 %; Hematocrit (blood only) 43.2 % (42.0-52.0); Immature Granulocytes # (auto) 0.04 K/uL (0.01-0.20); Immature Granulocytes % (auto) 0.6 %; Lymphocytes # (auto) 1.58 K/uL (1.2-3.4); Lymphocytes % (auto) 22.8 %; Mean Corpuscular Hemoglobin 29.4 pg (25.0-34.0); Mean Corpuscular Hgb Conc 34.7 g/dL (32.0-36.0); Mean Corpuscular Volume 84.7 fL (80.0-100.0); Monocytes # (auto) 0.56 K/uL (0.11-0.59); Monocytes % (auto) 8.1 %; Neutrophils # (auto) 4.69 K/uL (1.40-6.50); Neutrophils % (auto) 67.5 %; Platelet Count 223 K/uL (130-400); RDW Coefficient of Variation 14.6 % (11.5-14.5); RDW Standard Deviation 45.1 fL (36.4-46.3); White Blood Count 6.94 K/ul (4.8-10.8)
--- NOTE | 2023-04-02 12:45 | XRay Report ---
LEFT FOOT 3 VIEWS CLINICAL HISTORY: Left foot wound. FINDINGS: 3 views of the left foot are compared to study dated 03/13/2023. The skeletal structures are well mineralized. No fracture is seen. There are large dorsal and plantar heel spurs. Minimal osteop hytic change is noted, greatest at the first metatarsophalangeal joint. Degenerative spurring is seen along the dorsal aspect of the tarsal bones. Soft tissue edema and a small wound is suggested in darius ng the plantar aspect of the forefoot. No radiodense foreign body or soft tissue gas is identified th ere is no bony erosion or periostitis. Atherosclerotic calcification is seen in the regional arteries . IMPRESSION: 1. No acute bony abnormality is identified. 2. A plantar wound is suggested in the forefoot with mild surrounding edema. 3. Large heel spurs. Electronically signed by: Mando Gomez M.D. 04/02/2023 12:44 PM
[2023-04-02 12:47] LABS: Alanine Aminotransferase 23 U/L (7-52); Albumin Globulin Ratio 1.3 (0.9-2); Albumin Level 4.4 gm/dl (3.4-5.0); Alkaline Phosphatase 78 U/L (34-104); Anion Gap 9 (3-11); Aspartate Aminotransferase 20 U/L (13-39); Bilirubin,Total 0.8 mg/dl (0.2-1.0); Blood Urea Nitrogen 31 mg/dl (6-23); C Reactive Protein < 0.50 mg/dl (0-0.5); Calcium 9.4 mg/dl (8.6-10.3); Carbon Dioxide 22 mmol/L (21-32); Chloride 107 mmol/L (98-107); Creatinine Clr Calc Pharmacy 74.5 ml/min; Est GFR (African American) 66.5 ml/min; Est GFR (Non-African American) 57.4 ml/min; Globulin 3.3 gm/dl (2.5-4.0); Glucose 254 mg/dl (70-99(Fasting)); Potassium 4.2 mmol/L (3.5-5.1); Sodium 138 mmol/L (136-145); Total Protein 7.7 gm/dl (6.0-8.3)
[2023-04-02] MEDS ORDERED: SODIUM CHLORIDE 0.9% 1000ML 500 ML IV ONE (12:48)
--- NOTE | 2023-04-02 13:11 | History & Physical Report ---
Date of Service April 02, 2023 Assessment & Plan (1) Diabetic ulcer of left foot: Plan: Left diabetic foot infection, acute worsening and failed outpatient antibiotic therapy -Was also admitted 03/13/2020 for similar At last admission was discharged on Keflex for strep and Flagyl coverage for Prevotella. He underwent debridement 03/14 with wound cultures positive for group B strep and Prevotella. Completed Keflex yesterday, Flagyl was due to be complete tomorrow. 2-week course total On wound care visit 04/02 and wound was malodorous, progressively worsening compared to prior week, and with expanding warmth/redness/erythema. Has intact PT/DP pulses.? Distal small vessel disease due to DM Podiatry consulted, will see patient - Had ABIs as outpatient, L actually has better blood flow than the left. -Given worsening wound and concern for new area of erythema/pain we will continue cefepime for 24 hours given history of diabetes and recent hospitalization and new erythema. Pro-Soto is normal, CRP is not elevated and there is no leukocytosis. Differential includes pressure noninfectious erythema as this is where his cam boot overlies his foot, and worsening foot wound in the setting of DM small vessel vascular disease. Hypertension, chronic welcome Losartan continued Mild volume contraction Baseline creatinine around 1.3 Creatinine normal on admission, does have a history of DIONNE in the setting of infection Lactate is elevated, no leukocytosis/fever or other indicators of sepsis. Does not meet SIRS criteria. BUN/creatinine ratio is slightly contract No history of heart failure, additional liter of fluid given and lactate trended Trend BMP daily CAD, no history of heart failure Aspirin 81 mg p.o. twice daily held pending podiatry evaluation. Atorvastatin continued, hold if daptomycin is initiated Denies any history of stents/DE. No history of strokes. No history of CHF. Was seen for angina in 2020; diagnostic cath reviewed from 04/2021: With mild nonobstructive CAD, normal left-sided filling pressures, no . Recommended for medical therapy. No stents. Patient describes no chest pain, angina, shortness of breath leading up to hospitalization [id number] with nephropathy and neuropathy, suboptimally controlled Last A1c 7.9% - Hold home antiglycemic's - BSG 254, lactate 3.3 -Patient has supplies for his current pump, is pending a follow-up appointment to have Medicare renew these. Will take over for inpatient control Based on last Endo note: Based off pump report total daily dose of 128 units a day (46.49 units a day basal, 67.27 units a day of food bolus, 14.44 units a day correction bolus); was instructed to use 55 units of basal insulin once a day (in the morning), and additionally use Fiasp with a 1:3 CHO ratio with an additional correction of 15>150 mg/dL 10-15 minutes before meals. -Did not take any long-acting insulin today, will split his twice daily and give first dose at time of inpatient consultation DVT prophylaxis: Lovenox post podiatry evaluation CODE STATUS: Full Disposition: Medical surgical Diet: N.p.o. 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: (3) Type 2 diabetes mellitus, with long-term current use of insulin: (4) Hypertension: (5) Hyperlipidemia: (6) Coronary artery disease: (7) CKD (chronic kidney disease), stage III: History of Present Illness Primary Care Provider: Evan Zapata DO Isaías Parry is a 67-year-old male with a past medical history of type II insulin-dependent diabetes, chronic kidney disease, hypertension, hyperlipidemia, CAD who presents with a diabetic foot infection worsening on outpatient therapy, was referred by wound clinic Per ER was worsening on orals and after wound clinic follow-up, was recommended for inpatient treatment Podiatry was consulted by ER, will see patient this evening. Recommended for inpatient admission and antibiotics in the interim Per patient: Has been wearing boot. Top of foot more red. Where his boot rubs. I smore pa inful just in the last day or so. Morrison sneuropathy, so limited feeling there at baseline. Minimal improvement to stable at best on serial exam, and worsened today per wound care. Bigger/deeper and recommended for inpatient reevaluation Keflex finished yesterday was taking QID, flagyl q8h and was to be finished tomorrow. Total course would have been ~2 weeks No fevers, chills, sweats no chest pain, chest pressure no diarrhea, abdominal pain Eating normally 80-100g protein per day minimum to help wound healing Has had ABIs as outpatient, reportedly with good flow in E. Medical History: Reviewed Medications: Reviewed Surgical History: Reviewed Family history: Reviewed Allergies: Reviewed, childhood penicillin allergy but tolerating Zosyn Social History: Reviewed, former tobacco use Code Status: Full code Allergies Allergy/AdvReac Type Severity Reaction Status Date / Time bee venom protein (honey bee) Allergy Unknown ANY KIND Verified 04/02/23 10:05 OF BEEES - SWELLING,SOB Penicillins Allergy Unknown UNKNOWN/told Verified 04/02/23 10:05 as a kid Home Medications Medication Instructions Recorded Confirmed Type jsmifqt-qmgnxmgptysrs-toksakmo 250 2 tab PO Q6H PRN pain #60 tabs 03/24/19 03/31/23 Rx mg-250 mg-65 mg tablet (Excedrin Migraine) cyanocobalamin (vitamin B-12) 2,000 mcg PO QAM 03/24/19 03/31/23 History 1,000 mcg tablet (Vitamin B-12) fluoxetine 20 mg capsule 20 mg PO QAM 03/24/19 03/31/23 History multivitamin 1 cap PO QAM 03/24/19 03/31/23 History aspirin 81 mg tablet,delayed 81 mg PO BID 01/24/20 03/31/23 History release coenzyme Q10 100 mg capsule 100 mg PO QAM 01/24/20 03/31/23 History elderberry fruit 200 mg capsule 200 mg PO QAM 01/24/20 03/31/23 History FreeStyle Johnny 14 Day Sensor #2 ea 12/26/20 03/31/23 Rx (flash glucose sensor) topiramate 25 mg tablet 25 mg PO BID 04/24/21 03/31/23 History nitroglycerin 0.4 mg sublingual 0.4 mg sublingual Q5M PRN chest 04/25/21 03/31/23 Rx tablet pain #10 tabs ascorbate calcium (vitamin C) 500 1 g PO QAM 05/31/21 03/31/23 History mg tablet cholecalciferol (vitamin D3) 50 50 mcg PO QAM 05/31/21 03/31/23 History mcg (2,000 unit) capsule losartan 25 mg tablet 25 mg PO QAM 05/31/21 03/31/23 History zinc 50 mg tablet 50 mg PO QAM 05/31/21 03/31/23 History FreeStyle Johnny 14 Day [place] #1 ea 07/24/21 03/31/23 Rx (flash glucose scanning reader) glucosamine-chondroitin 250 mg-200 2 tab PO QAM 12/19/21 03/31/23 History mg tablet (Osteo Bi-Flex) ibuprofen 200 mg tablet (Advil) 400 mg PO HS 12/19/21 03/31/23 History atorvastatin 40 mg tablet 40 mg PO HS 30 days #90 tabs 06/09/22 03/31/23 Rx benzonatate 100 mg capsule 100 mg PO UD PRN Cough 10/28/22 03/31/23 History insulin aspart U-100 100 unit/mL 1 unit continuous subcutaneous 10/28/22 03/31/23 History subcutaneous solution (Novolog infusion DAILY U-100 Insulin aspart) metformin 1,000 mg tablet 1,000 mg PO QAM #90 tabs 12/17/22 03/31/23 Rx empagliflozin 10 mg tablet 10 mg PO QAM #90 tabs 01/30/23 03/31/23 Rx (Jardiance) Past Med/Surg History Medical History (Updated 04/02/23 @ 13:04 by Memo Hendricks MD) CKD (chronic kidney disease), stage III PT NOT AWARE OF ANY CHRONIC KIDNEY DISEASE Depression HX Diabetes Diabetic peripheral neuropathy Dyslipidemia History of COVID-12 OCT 2020 - SOB LINGERS SINCE ONLY ON EXERTION History of pancreatitis Migraines Surgical History Bilateral inguinal hernia repaired History of appendectomy History of cardiac cath 3-4 YR AGO/HX C/P (SUSPECTED DE) ....CATH...NO STENT(S)...NO FINDINGS ([facility]) History of carpal tunnel release of both wrists History of cholecystectomy History of colonoscopy History of endoscopy History of left cataract surgery History of shoulder surgery LEFT / DECEMBER 2021 History of total left hip arthroplasty History of total right hip replacement Hx of shoulder surgery RIGHT Family History Mother Cancer Father Heart disease Colorectal cancer Stroke Grandmother (Paternal) Family history of diabetes mellitus Grandfather (Maternal) Family history of diabetes mellitus Social History Smoking Status: Former smoker Tobacco Type: Cigarettes Second Hand Exposure: No; Do You Dip or Chew Tobacco: No; Hx Alcohol Use: Yes Alcohol type: hard liquor Hx Substance Use: No Preferred Language: [place]ic Communication Ability: Effective Form Grader Required: No Beliefs That Will Affect Care: None marital status: Current Living Situation: Spouse Feels Safe at Home: Yes Assistive Devices: Cane, Crutches and Walker Review of Systems Review of Systems: All systems reviewed & are unremarkable except as noted in HPI & below Physical Exam Physical Exam: General: A&Ox3. NAD. Cooperative. HEENT: Atraumatic, normocephalic. Vision/hearing intact. Pulm: CTAB A&P. -wheezes, -rales, -rhonchi. Symmetrical chest rise. No increased work of breathing. No respiratory distress. Cardiac: RRR, -mrg. Radial pulses intact and symmetrical. Abdominal: Nontender, nondistended, soft. BS present. Ext: LLE as below Results & Data Results & Data Vital Signs (Past 12 Hours) Vital Signs Temp Pulse Resp BP Pulse Ox O2 Del Method 04/02/23 12:31 82 04/02/23 11:29 36.8 C 92 H 20 142/89 H 98 Room Air PG Care Time/CCT Total # of Minutes Spent Total Time Spent with Patient: Total time spent is greater than 50% in coordination of care (as documented) at patient's floor/unit and/or counseling patient: Coding Level of Care Code 84234 INT INP/OBS CARE 3/75MIN Diagnoses Diabetic ulcer of left foot E11.621; L97.529 Type 2 diabetes mellitus with complications E11.8 Type 2 diabetes mellitus, with long-term current use of insulin E11.9; Z79.4 Hypertension I10 Hyperlipidemia E78.5 Coronary artery disease I25.10 CKD (chronic kidney disease), stage III N18.30
[2023-04-02] MEDS ORDERED: PLASMA-LYTE A 1,000 ML IV ONE (13:31)
[2023-04-02] MEDS ORDERED: GLUCOSE 10 TAB/TUBE PO PRN (13:44)
[2023-04-02] MEDS ORDERED: GLUCOSE 40% GEL 15 GM TUBE PO PRN (13:44)
[2023-04-02] MEDS ORDERED: GLUCAGON FOR INJ 1 MG VIAL SQ PRN (13:44)
[2023-04-02] MEDS ORDERED: PHARMACY GLYCEMIC MGMT CONSULT PRN (13:44)
[2023-04-02] MEDS ORDERED: DEXTROSE 50% 50 ML SYRINGE IV PRN (13:44)
[2023-04-02] MEDS ORDERED: CARBOHYDRATES FOR HYPOGLYCEMIA PO PRN (13:44)
[2023-04-02] MEDS ORDERED: LANTUS PER UNIT CHARGE SQ STA (14:22)
--- NOTE | 2023-04-02 14:33 | Pharmacy Report ---
Pharmacy Glycemic Short Note 2 - Date of Service April 02, 2023 - Glycemic Short BSG Results (Last 24 hours): 04/02/23 12:12 Glucose 254 H OUTPATIENT ANTIDIABETIC REGIMEN: * Insulin pump (~128 units/day) - recent insulin pump supply issue, changed to SC basal/bolus per endocrinology * While off insulin pump: * Tresiba 55 units SC daily * Fiasp AC (1:3 CHO ratio, CF of 15 for BSG > 150 mg/dL) * Metformin 1 g PO daily * Jardiance 10 mg PO daily HbA1c: 7.9% (01/07/23) ASSESSMENT: * DV is a 67 year old male w/ uncontrolled insulin-dependent T2DM * Receiving broad spectrum IV antibiotics for left diabetic foot infection * Per endocrine note: patient recently and temporarily switched from insulin pump to SC basal/bolus regimen (due to pump supply issue) * Will utilize most recent endocrine recs for initial insulin dosing * BSG dropped from 254 to 156 mg/dL in ED with no insulin - will be slightly conservative with initial SC basal PLAN FOR INPATIENT GLYCEMIC CONTROL: * Hold outpatient oral diabetes medications * Basal insulin * Lantus 20 units SC BID * Bolus insulin * NovoLog per scale ACHS or Q6hrs while NPO * Goal Range: Low 110 mg/dL - High 150 mg/dL * Correction Factor: 15 mg/dL/unit * Nutritional / Prandial insulin per carb ratio of 1 unit per 3 grams CHO consumed
[2023-04-02] MEDS ORDERED: LANTUS PER UNIT CHARGE SQ SCH ×2 (15:00→21:00)
[2023-04-02] MEDS: INSULIN ASPART PER UNIT CHARGE SC SCH ×3 (16:57→22:20)
--- NOTE | 2023-04-02 17:51 | Pharmacy Report ---
Pharmacy PK ABX Note - Date of Service April 02, 2023 - Assessment and Plan Assessment 67 year old M receiving vancomycin/cefepime/flagyl for treatment of diabetic foot infection. Pertinent microbiologic data includes: blood cultures pending. Day # 1 of antimicrobial therapy. Plan Vancomycin * Loading dose: 2250 mg IV x 1 * Maintenance dose: 1000 mg IV every 12 hours * Regimen is predicted to achieve target AUC/CARRINGTON of 400-600 mg/L.hr * Random level ordered for: 04/04/23 with AM labs Pharmacy will continue to follow and will adjust dose/frequency as necessary. Thank you. Pharmacy has transitioned to AUC monitoring for vancomycin. AUC/CARRINGTON is the preferred PK/PD target and is associated with decreased risk of nephrotoxicity compared to traditional trough targets.
[2023-04-02] MEDS: metroNIDAZOLE 500 MG/100 ML BAG IV SCH (18:42)
[2023-04-02] MEDS: VANCOMYCIN HCL 1,000 MG in SODIUM CHLORIDE 0.9% 250 ML IV SCH (18:45)
--- NOTE | 2023-04-02 20:34 | Orthopedic Consultation ---
Date of Consultation April 02, 2023 Assessment & Plan (1) Diabetic ulcer of left foot: Patient seen, evaluated, and treated. Reviewed x-ray and x-ray findings. No osseous changes secondary to infection. No elevated white count. Plantar foot wound appears stable. No immediate signs or symptoms of infection. Dorsal foot appears bruised. Possible boot rubbing or dressing applied too tightly. Dry sterile dressing changed. Will continue to follow while in house. (2) Type 2 diabetes mellitus, with long-term current use of insulin: (3) Diabetic foot infection: (4) Type 2 diabetes mellitus with complications: History of Present Illness Attending Physician: Memo Hendricks MD History of Present Illness Patient is a type II diabetic, 67-year-old male who is seen at bedside for left diabetic foot infection. Patient has a past medical history significant for type II insulin-dependent diabetes, chronic kidney disease, hypertension, hyperlipidemia, and CAD. Patient was seen at the [facility] wound clinic today and referred to ED for worsening foot infection failing PO antibiotics. Allergies Allergy/AdvReac Type Severity Reaction Status Date / Time bee venom protein (honey bee) Allergy Unknown ANY KIND Verified 04/02/23 10:05 OF BEEES - SWELLING,SOB Penicillins Allergy Unknown UNKNOWN/told Verified 04/02/23 10:05 as a kid Home Medications Medication Instructions Recorded Confirmed Type dddqkua-rcfcequfrqlnp-iwhvokes 250 2 tab PO Q6H PRN pain #60 tabs 03/24/19 04/02/23 Rx mg-250 mg-65 mg tablet (Excedrin Migraine) cyanocobalamin (vitamin B-12) 2,000 mcg PO QAM 03/24/19 04/02/23 History 1,000 mcg tablet (Vitamin B-12) fluoxetine 20 mg capsule 20 mg PO QAM 03/24/19 04/02/23 History multivitamin 1 cap PO QAM 03/24/19 04/02/23 History aspirin 81 mg tablet,delayed 81 mg PO BID 01/24/20 04/02/23 History release elderberry fruit 200 mg capsule 200 mg PO QAM 01/24/20 04/02/23 History FreeStyle Johnny 14 Day Sensor #2 ea 12/26/20 03/31/23 Rx (flash glucose sensor) topiramate 25 mg tablet 25 mg PO BID 04/24/21 04/02/23 History nitroglycerin 0.4 mg sublingual 0.4 mg sublingual Q5M PRN chest 04/25/21 04/02/23 Rx tablet pain #10 tabs ascorbate calcium (vitamin C) 500 1 g PO QAM 05/31/21 04/02/23 History mg tablet cholecalciferol (vitamin D3) 50 50 mcg PO QAM 05/31/21 04/02/23 History mcg (2,000 unit) capsule losartan 25 mg tablet 25 mg PO QAM 05/31/21 04/02/23 History zinc 50 mg tablet 50 mg PO QAM 05/31/21 04/02/23 History FreeStyle Johnny 14 Day [place] #1 ea 07/24/21 03/31/23 Rx (flash glucose scanning reader) glucosamine-chondroitin 250 mg-200 2 tab PO QAM 12/19/21 04/02/23 History mg tablet (Osteo Bi-Flex) ibuprofen 200 mg tablet (Advil) 400 mg PO Q6 PRN Pain 12/19/21 04/02/23 History atorvastatin 40 mg tablet 40 mg PO HS 30 days #90 tabs 06/09/22 04/02/23 Rx benzonatate 100 mg capsule 100 mg PO UD PRN Cough 10/28/22 04/02/23 History insulin aspart U-100 100 unit/mL 1 unit continuous subcutaneous 10/28/22 04/02/23 History subcutaneous solution (Novolog infusion DAILY U-100 Insulin aspart) metformin 1,000 mg tablet 1,000 mg PO QAM #90 tabs 12/17/22 04/02/23 Rx empagliflozin 10 mg tablet 10 mg PO QAM #90 tabs 01/30/23 04/02/23 Rx (Jardiance) Patient History Medical History CKD (chronic kidney disease), stage III PT NOT AWARE OF ANY CHRONIC KIDNEY DISEASE Depression HX Diabetes Diabetic peripheral neuropathy Dyslipidemia History of COVID-12 OCT 2020 - SOB LINGERS SINCE ONLY ON EXERTION History of pancreatitis Migraines Surgical History Bilateral inguinal hernia repaired History of appendectomy History of cardiac cath 3-4 YR AGO/HX C/P (SUSPECTED DE) ....CATH...NO STENT(S)...NO FINDINGS ([facility]) History of carpal tunnel release of both wrists History of cholecystectomy History of colonoscopy History of endoscopy History of left cataract surgery History of shoulder surgery LEFT / DECEMBER 2021 History of total left hip arthroplasty History of total right hip replacement Hx of shoulder surgery RIGHT Family History Mother Cancer Father Heart disease Colorectal cancer Stroke Grandmother (Paternal) Family history of diabetes mellitus Grandfather (Maternal) Family history of diabetes mellitus Social History Smoking Status: Former smoker Tobacco Type: Cigarettes Cigarettes Per Day: 2-3 packs per day; Second Hand Exposure: No; Do You Dip or Chew Tobacco: No; Hx Alcohol Use: Yes Alcohol type: hard liquor Hx Substance Use: No Preferred Language: Cymraes Communication Ability: Effective Bank Officer Required: No Beliefs That Will Affect Care: None marital status: Current Living Situation: Spouse Current Living Situation Comment: Lives with spouse (Cassandra Archuleta) Other Information That Helps Us Care for You: No Feels Safe at Home: Yes Safety Concerns: Feels Safe At This Time Assistive Devices: Glasses Review of Systems Review of Systems: All systems reviewed & are unremarkable except as noted in HPI & below Physical Exam Constitutional: cooperative and comfortable Eyes: normal visual bradshaw by confrontation Neck: normal visual inspection Respiratory: normal respiratory effort Cardiovascular: Rate/Rhythm: regular rate and regular rhythm Vessels: posterior tibial pulses present and dorsalis pedis pulses present Musculoskeletal: Extremities: extremities normal to inspection Skin: + ulcer (Lesser submet 2, 3, 4. Full thickness) and + ecchymosis (Dorsal left foot) Neurologic: moves all extremities (Absent epicritic sensation) Psychiatric: Orientation: alert and oriented x 3 Results & Data Vital Signs (Past 12 Hours) Vital Signs Temp Pulse Pulse Resp BP BP Pulse Ox 04/02/23 16:04 36.6 C 85 18 161/83 H 100 04/02/23 16:04 36.6 C 85 18 161/83 H 100 04/02/23 16:04 36.6 C 85 16 161/83 H 100 04/02/23 14:30 73 14 146/85 H 99 04/02/23 14:01 73 16 140/82 98 04/02/23 13:30 77 16 142/90 H 97 04/02/23 13:00 78 19 148/86 H 97 04/02/23 12:31 82 04/02/23 11:29 36.8 C 92 H 20 142/89 H 98 O2 Del Method 04/02/23 16:04 Room Air 04/02/23 16:04 Room Air 04/02/23 16:04 Room Air 04/02/23 14:30 04/02/23 14:01 04/02/23 13:30 04/02/23 13:00 04/02/23 12:31 04/02/23 11:29 Room Air Diagnostic Findings [place], [place] [phone] XRay Report Patient:JOE ARCHULETA Admit Date:04/02/23 MR#:[id number] Address1:[address] [place] [address] Acct ID:[id number] Address2: Date:1955 [facility] Zip:[place] [address] Age:67 Location:ED Sex:M Room/Bed: Att Phy: Diagnosis:L FOOT WOUND,GETTING WORSE Samantha Phy:Evan Zapata D.O. Service Date:04/02/23 Fam Phy: Interpreting Phy:Mando Gomez MDAdmit Phy: Ordering Phy:Marques Silva PA-C cc: ~ LEFT FOOT 3 VIEWS CLINICAL HISTORY: Left foot wound. FINDINGS: 3 views of the left foot are compared to study dated 03/13/2023. The skeletal structures are well mineralized. No fracture is seen. There are large dorsal and plantar heel spurs. Minimal osteophytic change is noted, greatest at the first metatarsophalangeal joint. Degenerative spurring is seen along the dorsal aspect of the tarsal bones. Soft tissue edema and a small wound is suggested in along the plantar aspect of the forefoot. No radiodense foreign body or soft tissue gas is identified there is no bony erosion or periostitis. Atherosclerotic calcification is seen in the regional arteries. IMPRESSION: 1. No acute bony abnormality is identified. 2. A plantar wound is suggested in the forefoot with mild surrounding edema. 3. Large heel spurs. Electronically signed by: Mando Gomez M.D. 04/02/2023 12:44 PM
[2023-04-02] MEDS: ATORVASTATIN 40 MG TAB PO SCH (21:15)
[2023-04-02] MEDS: ASPIRIN 81 MG ECTAB PO SCH (21:16)
[2023-04-02] MEDS: CEFEPIME 2,000 MG in SYRINGE 0 ML IV SCH (21:16)
[2023-04-02] MEDS: TOPIRAMATE 25 MG TAB PO SCH (22:22)
[2023-04-03] MEDS: metroNIDAZOLE 500 MG/100 ML BAG IV SCH ×3 (00:49→17:10)
[2023-04-03] MEDS: CEFEPIME 2,000 MG in SYRINGE 0 ML IV SCH ×3 (04:22→20:55)
[2023-04-03] MEDS: VANCOMYCIN HCL 1,000 MG in SODIUM CHLORIDE 0.9% 250 ML IV SCH (06:37)
[2023-04-03 07:07] LABS: Basophils # (auto) 0.02 K/uL (0-0.2); Basophils % (auto) 0.4 %; Eosinophils % (auto) 1.8 %; Hematocrit (blood only) 39.1 % (42.0-52.0); Hemoglobin 13.5 g/dl (14.0-18.0); Immature Granulocytes # (auto) 0.03 K/uL (0.01-0.20); Immature Granulocytes % (auto) 0.5 %; Lymphocytes # (auto) 1.12 K/uL (1.2-3.4); Lymphocytes % (auto) 20.2 %; Mean Corpuscular Hemoglobin 29.3 pg (25.0-34.0); Mean Corpuscular Hgb Conc 34.5 g/dL (32.0-36.0); Mean Corpuscular Volume 84.8 fL (80.0-100.0); Monocytes # (auto) 0.55 K/uL (0.11-0.59); Monocytes % (auto) 9.9 %; Neutrophils # (auto) 3.73 K/uL (1.40-6.50); Neutrophils % (auto) 67.2 %; Platelet Count 209 K/uL (130-400); RDW Coefficient of Variation 14.8 % (11.5-14.5); RDW Standard Deviation 45.8 fL (36.4-46.3); Red Blood Count 4.61 M/uL (4.70-6.10); White Blood Count 5.55 K/ul (4.8-10.8)
[2023-04-03 07:21] LABS: BUN Creatinine Ratio 19.6 (10-20); Calcium 8.5 mg/dl (8.6-10.3); Creatinine Clr Calc Pharmacy 85.8 ml/min; Est GFR (African American) 83.4 ml/min; Potassium 3.9 mmol/L (3.5-5.1)
--- NOTE | 2023-04-03 07:58 | Hospitalist Progress Note ---
Date of Service April 03, 2023 Assessment & Plan (1) Diabetic ulcer of left foot: Plan: 67-year-old male with a past medical history of type II insulin-dependent diabetes, chronic kidney disease, hypertension, hyperlipidemia, CAD who presents with a diabetic foot infection worsening on outpatient therapy, was referred by wound clinic Left diabetic foot infection, acute worsening and failed outpatient antibiotic therapy -Was also admitted 03/13/2020 for similar At last admission was discharged on Keflex for strep and Flagyl coverage for Prevotella. He underwent debridement 03/14 with wound cultures positive for group B strep and Prevotella. Completed Keflex yesterday, Flagyl was due to be complete tomorrow. 2-week course total On wound care visit 04/02 and wound was malodorous, progressively worsening compared to prior week, and with expanding warmth/redness/erythema. Has intact PT/DP pulses. Distal small vessel disease due to DM Podiatry consulted, no concern osteomyelitis on XR - Had ABIs as outpatient, L actually has better blood flow than the right. -started on empiric cefepime flagyl vancomycin. -awaiting blood cultures, wound cultures - Pro-Soto is normal, CRP is not elevated and there is no leukocytosis. -Differential includes pressure noninfectious erythema as this is where his cam boot overlies his foot, and worsening foot wound in the setting of DM small vessel vascular disease. Hypertension, chronic welcome Losartan continued Mild volume contraction Baseline creatinine around 1.3 Creatinine normal on admission, does have a history of DIONNE in the setting of infection Lactate is elevated, no leukocytosis/fever or other indicators of sepsis. Does not meet SIRS criteria. BUN/creatinine ratio is slightly contract No history of heart failure, additional liter of fluid given and lactate trended Trend BMP daily CAD, no history of heart failure Aspirin 81 mg p.o. twice daily held pending podiatry evaluation. Atorvastatin continued, hold if daptomycin is initiated Denies any history of stents/CO. No history of strokes. No history of CHF. Was seen for angina in 2020; diagnostic cath reviewed from 04/2021: With mild nonobstructive CAD, normal left-sided filling pressures, no . Recommended for medical therapy. No stents. Patient describes no chest pain, angina, shortness of breath leading up to hospitalization [id number] with nephropathy and neuropathy, suboptimally controlled Last A1c 7.9% - Hold home antiglycemic's - BSG 254, lactate 3.3 -Patient has supplies for his current pump, is pending a follow-up appointment to have Medicare renew these. Will take over for inpatient control Based on last Endo note: Based off pump report total daily dose of 128 units a day (46.49 units a day basal, 67.27 units a day of food bolus, 14.44 units a day correction bolus); was instructed to use 55 units of basal insulin once a day (in the morning), and additionally use Fiasp with a 1:3 CHO ratio with an additional correction of 15>150 mg/dL 10-15 minutes before meals. -Did not take any long-acting insulin today, will split his twice daily and give first dose at time of inpatient consultation DVT prophylaxis: Lovenox post podiatry evaluation CODE STATUS: Full Disposition: Medical surgical Diet: type II DM (2) Type 2 diabetes mellitus with complications: (3) CKD (chronic kidney disease), stage III: (4) Dyslipidemia: (5) Hyperlipidemia: (6) Hypertension: Admission and Anticipated Discharge Date Admission Date: April 02, 2023 Supervising Physician Co-Signing Physician Notes I personally examined the patient and verified all quinn points of history and exam, discussed case, and agree with decision making and plan documented by Dr. Pineda. Will transition from IV antibiotics. Anticipate discharge tomorrow to continue outpatient wound care. PT referral placed. Subjective Patient seen at bedside, calm comfortable cooperative. Patient denies any SOB fever nausea vomitting pain, has difficulty seeing the bottom of his foot. Pat ient noted increasing redness on the top of his left foot, noted his boot does put pressure on that area. Patient understands he will stay on antibiotics and hospital monitoring at this time. Physical Exam Constitutional: well developed, well nourished, cooperative and comfortable Eyes: PERRL, conjunctivae normal, anicteric sclerae ENMT: external ear and nose normal, oropharynx normal Neck: trachea midline, no thyromegaly Respiratory: normal respiratory effort, lungs clear to auscultation Cardiovascular: RRR, no murmur, no edema Skin: erythema noted on dorsal surface of left foot. Noted diabetic foot ulcer on plantar surface of left foot with yellow exudate and granulation tissue noted, no pain on palpation around wound. Results & Data Results & Data Vital Signs (Past 12 Hours) Vital Signs Temp Pulse Resp BP Pulse Ox O2 Del Method 04/03/23 06:55 36.6 C 74 18 141/81 H 98 Room Air 04/02/23 21:00 Room Air 04/02/23 20:56 36.6 C 74 18 155/67 H 98 Room Air Resident Activity Tracking Resident Involvement: Resident Care Provided Care Provided: Adult Hospital Medicine
[2023-04-03] MEDS: FLUoxetine HCL 20 MG CAP PO SCH (08:13)
[2023-04-03] MEDS: LOSARTAN POTASSIUM 25 MG TAB PO SCH (08:13)
[2023-04-03] MEDS: TOPIRAMATE 25 MG TAB PO SCH ×2 (08:13→21:03)
[2023-04-03] MEDS: INSULIN ASPART PER UNIT CHARGE SC SCH ×4 (08:21→22:00)
[2023-04-03] MEDS: ASPIRIN 81 MG ECTAB PO SCH ×2 (08:21→21:03)
--- NOTE | 2023-04-03 14:03 | Pharmacy Report ---
Pharmacy Glycemic Short Note 2 - Date of Service April 03, 2023 - Glycemic Short BSG Results (Last 24 hours): 04/02/23 04/02/23 04/02/23 14:34 16:57 20:50 Glucose POC Glucose 156 H 143 H 151 H 04/03/23 04/03/23 04/03/23 06:06 07:44 11:40 Glucose 179 H POC Glucose 178 H 179 H OUTPATIENT ANTIDIABETIC REGIMEN: * Insulin pump (~128 units/day) - recent insulin pump supply issue, changed to SC basal/bolus per endocrinology * While off insulin pump: * Tresiba 55 units SC daily * Fiasp AC (1:3 CHO ratio, CF of 15 for BSG > 150 mg/dL) * Metformin 1 g PO daily * Jardiance 10 mg PO daily HbA1c: 7.9% (01/07/23) ASSESSMENT: 04/03/23 * BSGs yesterday were 156 (at dinner)-151 mg/dL (at HS). Patient received a total of 30 units of basal and 13 units of bolus. * Today's BSGs are 178-179 mg/dL. * Increase basal to 40 units. Will give at dinnertime. * Continue Novolog. BACKGROUND * DV is a 67 year old male w/ uncontrolled insulin-dependent T2DM * Receiving broad spectrum IV antibiotics for left diabetic foot infection * Per endocrine note: patient recently and temporarily switched from insulin pump to SC basal/bolus regimen (due to pump supply issue) * Will utilize most recent endocrine recs for initial insulin dosing * BSG dropped from 254 to 156 mg/dL in ED with no insulin - will be slightly conservative with initial SC basal PLAN FOR INPATIENT GLYCEMIC CONTROL: * Hold outpatient oral diabetes medications * Basal insulin * Lantus 40 units SC with dinner * Bolus insulin * NovoLog per scale ACHS or Q6hrs while NPO * Goal Range: Low 110 mg/dL - High 150 mg/dL * Correction Factor: 15 mg/dL/unit * Nutritional / Prandial insulin per carb ratio of 1 unit per 3 grams CHO consumed
[2023-04-03] MEDS ORDERED: LANTUS PER UNIT CHARGE SQ SCH (16:30)
[2023-04-03] MEDS ORDERED: ENOXAPARIN INJ 40 MG/0.4 ML SYR SQ SCH (17:00)
[2023-04-03] MEDS: VANCOMYCIN HCL 1,250 MG in SODIUM CHLORIDE 0.9% 250 ML IV SCH (18:32)
[2023-04-03] MEDS: ATORVASTATIN 40 MG TAB PO SCH (21:03)
--- NOTE | 2023-04-03 22:18 | Orthopedic Progress Note ---
Date of Service April 03, 2023 Assessment & Plan (1) Diabetic ulcer of left foot: Plan: Patient seen, evaluated, and treated. No elevated white count. No Growth to date from culture. Plantar foot wound appears stable with excellent signs of healing. No signs or symptoms of infection. Dorsal foot appears bruised. Possible boot rubbing or dressing applied too tightly. Dry sterile dressing changed. Will continue to follow while in house. (2) Type 2 diabetes mellitus, with long-term current use of insulin: (3) Diabetic foot infection: (4) Type 2 diabetes mellitus with complications: Admission and Anticipated Discharge Date Admission Date: April 02, 2023 Subjective Patient seen at bedside resting comfortably. He has no complaints. He continues to voice concern over possible infection of left foot. Review of Systems Review of Systems: All systems reviewed & are unremarkable except as noted in Subjective Physical Exam Constitutional: cooperative and comfortable Eyes: normal visual bradshaw by confrontation Neck: normal visual inspection Respiratory: normal respiratory effort Cardiovascular: Rate/Rhythm: regular rate and regular rhythm Vessels: posterior tibial pulses present and dorsalis pedis pulses present Musculoskeletal: Extremities: extremities normal to inspection Skin: + ulcer (Lesser submet 2, 3, 4. Full thickness) and + ecchymosis (Dorsal left foot) Neurologic: moves all extremities (Absent epicritic sensation) Psychiatric: Orientation: alert and oriented x 3 Results & Data Vital Signs (Past 12 Hours) Vital Signs Temp Pulse Resp BP Pulse Ox O2 Del Method 04/03/23 21:55 36.8 C 72 18 125/71 97 Room Air Diagnostic Findings [address], [place] [address] / Director: Memo Velasquez M.D. Clinical Laboratory Report Name: JOE WESTBROOK Acct: [id number] Status: REG SHARI : 1955 [facility] Date: 04/02/23 Age: 67 Sex: M Dis Date: Loc: Wound Care Center Spec: [id number] Collected: 04/02/23 Received: 04/02/[address]: Flor Boswell CRNP Source: Foot,Left OV Order: Ordered: Surf Wnd Cul/Sm Procedure Result Verified Site Gram Stain Final 04/02/23 Gram Stain Result Rare WBCs Seen No Organisms Seen Surface Wound Culture Preliminary 04/03/23 No growth to date. Name: JOE WESTBROOK : 1955 PAGE 1 Printed: 04/04/23 0709 END OF REPORT
[2023-04-04] MEDS: metroNIDAZOLE 500 MG/100 ML BAG IV SCH ×2 (00:49→09:38)
[2023-04-04] MEDS: CEFEPIME 2,000 MG in SYRINGE 0 ML IV SCH ×2 (04:49→13:04)
[2023-04-04] MEDS ORDERED: VANCOMYCIN LEVEL ONE (06:00)
[2023-04-04] MEDS: VANCOMYCIN HCL 1,250 MG in SODIUM CHLORIDE 0.9% 250 ML IV SCH (06:16)
[2023-04-04 07:12] LABS: Basophils # (auto) 0.02 K/uL (0-0.2); Basophils % (auto) 0.4 %; Eosinophils # (auto) 0.08 K/uL (0-0.50); Eosinophils % (auto) 1.6 %; Hematocrit (blood only) 39.4 % (42.0-52.0); Hemoglobin 13.3 g/dl (14.0-18.0); Immature Granulocytes # (auto) 0.03 K/uL (0.01-0.20); Immature Granulocytes % (auto) 0.6 %; Lymphocytes # (auto) 1.17 K/uL (1.2-3.4); Lymphocytes % (auto) 22.9 %; Mean Corpuscular Hemoglobin 29.1 pg (25.0-34.0); Mean Corpuscular Hgb Conc 33.8 g/dL (32.0-36.0); Mean Corpuscular Volume 86.2 fL (80.0-100.0); Monocytes # (auto) 0.43 K/uL (0.11-0.59); Monocytes % (auto) 8.4 %; Neutrophils # (auto) 3.38 K/uL (1.40-6.50); Neutrophils % (auto) 66.1 %; Platelet Count 197 K/uL (130-400); RDW Coefficient of Variation 14.8 % (11.5-14.5); RDW Standard Deviation 46.3 fL (36.4-46.3); Red Blood Count 4.57 M/uL (4.70-6.10); White Blood Count 5.11 K/ul (4.8-10.8)
[2023-04-04 07:23] LABS: Creatinine Clr Calc Pharmacy 90.9 ml/min; Est GFR (African American) 85.3 ml/min; Est GFR (Non-African American) 73.6 ml/min; Potassium 4.1 mmol/L (3.5-5.1)
[2023-04-04] MEDS: TOPIRAMATE 25 MG TAB PO SCH (07:53)
[2023-04-04] MEDS: FLUoxetine HCL 20 MG CAP PO SCH (07:53)
[2023-04-04] MEDS: LOSARTAN POTASSIUM 25 MG TAB PO SCH (07:53)
[2023-04-04] MEDS: ASPIRIN 81 MG ECTAB PO SCH (07:53)
[2023-04-04] MEDS: INSULIN ASPART PER UNIT CHARGE SC SCH ×2 (08:28→11:58)
--- NOTE | 2023-04-04 08:34 | Hospitalist Progress Note ---
Date of Service April 04, 2023 Assessment & Plan (1) Diabetic ulcer of left foot: Plan: 67-year-old male with a past medical history of type II insulin-dependent diabetes, chronic kidney disease, hypertension, hyperlipidemia, and CAD who presents on 04/02/23 for a diabetic left foot infection worsening on outpatient therapy. Plan to get PT eval today and then discharge today after that. Pt to have repeat HA1c next week. #Left diabetic foot infection, acute worsening and failed outpatient antibiotic therapy -Was also admitted 03/13/2020 for similar, s/p debridement and ABs (Keflex+flagyl) wound care visit 04/02 = wound was malodorous with expanding warmth/redness/erythema Podiatry consulted, no concern osteomyelitis on XR - Had ABIs as outpatient, L actually has better blood flow than the right - Pro-Soto, CRP, WBC wnl on admission, lactate elevated - pending blood and wound cultures; negative so far - pt on empiric cefepime flagyl vancomycin - will transition to oral ABs for discharge #Hypertension, chronic continue Losartan #CAD, had angina in 2020, cath at that time showed mild nonobstructive CAD denies any hx of stents/OR, no hx of CVA, no hx CHF continue Aspirin 81 mg p.o. twice daily continue Atorvastatin continued #T2DM, Insulin-dependent - noted to have DM-related nephropathy and neuropathy, suboptimally controlled Last A1c 7.9% - Hold home antiglycemic's (pt has pump, takes 128 units/day according to pump, 46 units basal, 67 units food bolus, and 14 units correction bolus) while inpatient - SSI DVT prophylaxis: Lovenox CODE STATUS: Full Disposition: Medical surgical Diet: type II DM (2) Type 2 diabetes mellitus with complications: (3) CKD (chronic kidney disease), stage III: (4) Dyslipidemia: (5) Hyperlipidemia: (6) Hypertension: Admission and Anticipated Discharge Date Admission Date: April 02, 2023 Supervising Physician Co-Signing Physician Notes I personally examined the patient and verified all quinn points of history and exam, discussed case, and agree with decision making and plan documented by Dr. Massey. Patient transitioned off of IV antibiotics, anticipate discharge today. Subjective 67-year-old male with a past medical history of type II insulin-dependent diabet es, chronic kidney disease, hypertension, hyperlipidemia, and CAD who presents on 04/02/23 for a diabetic left foot infection worsening on outpatient therapy. Today, pt is doing well. He states he is feeling great and feels ready to go home. He states that he usually ambulates at home with the help of a walker. He states that he has been sleeping in a recliner downstairs and that the bathroom is within about 12 feet of the recliner and that he typically can get there and back with no difficulty. Dr. Koehler advised pt that tighter control of his blood sugar would be quinn in the healing process and prevention of future ulcers. Pt voiced understanding of the situation and the need for better glucose control. He was able to eat breakfast this morning without difficulty. Review of Systems Review of Systems: Constitutional: denies fever, chills, Cardio: denies chest pain, palpitations Resp: denies shortness of breath, cough GI: denies abdominal pain, nausea, vomiting, constipation, diarrhea Physical Exam Physical Exam: General:Alert and oriented, no acute distress, [] HEENT: Normocephalic, moist oral mucosa, Cardio: Regular rate and rhythm, no murmur, Resp:Lungs clear to auscultation b/l, no wheezes or rhonchi, GI: Soft and nontender, nondistended, bowel sounds active Skin: Warm, pink, dry, MSK: L foot ulcer noted at the base of the great toe, appears to be healing well and diameter approximately 1 inch, area of erythema/discoloration noted on the top of the L foot, improved from marked border Psych: Mood-affect congruence. Results & Data Results & Data Vital Signs (Past 12 Hours) Vital Signs Temp Pulse Resp BP Pulse Ox O2 Del Method 04/04/23 07:49 36.8 C 74 18 143/81 H 97 Room Air 04/03/23 21:03 Room Air 04/03/23 21:55 36.8 C 72 18 125/71 97 Room Air Resident Activity Tracking Resident Involvement: Resident Care Provided Care Provided: Adult Hospital Medicine
--- NOTE | 2023-04-04 13:19 | Discharge Summary ---
Date of Service April 04, 2023 Admission HPI Per Admitting Provider Isaías Parry is a 67-year-old male with a past medical history of type II insulin-dependent diabetes, chronic kidney disease, hypertension, hyperlipidemia, CAD who presents with a diabetic foot infection worsening on ou tpatient therapy, was referred by wound clinic Per ER was worsening on orals and after wound clinic follow-up, was recommended for inpatient treatment Podiatry was consulted by ER, will see patient this evening. Recommended for inpatient admission and antibiotics in the interim Per patient: Has been wearing boot. Top of foot more red. Where his boot rubs. I smore painful just in the last day or so. Morrison sneuropathy, so limited feeling there at baseline. Minimal improvement to stable at best on serial exam, and worsened today per wound care. Bigger/deeper and recommended for inpatient reevaluation Keflex finished yesterday was taking QID, flagyl q8h and was to be finished tomorrow. Total course would have been ~2 weeks No fevers, chills, sweats no chest pain, chest pressure no diarrhea, abdominal pain Eating normally 80-100g protein per day minimum to help wound healing Has had ABIs as outpatient, reportedly with good flow in LLE. Medical History: Reviewed Medications: Reviewed Surgical History: Reviewed Family history: Reviewed Allergies: Reviewed, childhood penicillin allergy but tolerating Zosyn Social History: Reviewed, former tobacco use Code Status: Full code Admission Exam Per Admitting Provider General: A&Ox3. NAD. Cooperative. HEENT: Atraumatic, normocephalic. Vision/hearing intact. Pulm: CTAB A&P. -wheezes, -rales, -rhonchi. Symmetrical chest rise. No increased work of breathing. No respiratory distress. Cardiac: RRR, -mrg. Radial pulses intact and symmetrical. Abdominal: Nontender, nondistended, soft. BS present. Ext: LLE as below (image in chart) Principal Diagnosis Left foot diabetic ulcer. Discharge Exam General:Alert and oriented, no acute distress, HEENT: Normocephalic, moist oral mucosa, Cardio: Regular rate and rhythm, no murmur, Resp:Lungs clear to auscultation b/l, no wheezes or rhonchi, GI: Soft and nontender, nondistended, bowel sounds active Skin: Warm, pink, dry, MSK: L foot ulcer noted at the base of the great toe, appears to be healing well and diameter approximately 1 inch, area of erythema/discoloration noted on the top of the L foot, improved from marked border Psych: Mood-affect congruence. Discharge Data Allergies Allergy/AdvReac Type Severity Reaction Status Date / Time bee venom protein (honey bee) Allergy Unknown ANY KIND Verified 04/02/23 10:05 OF BEEES - SWELLING,SOB Penicillins Allergy Unknown UNKNOWN/told Verified 04/02/23 10:05 as a kid Consultations 04/02/23 12:50 ED Decision to Admit Stat 04/02/23 16:11 Consult Orthopedic Surgery Routine Hospital Course (1) Diabetic ulcer of left foot: 67-year-old male with a past medical history of type II insulin-dependent diabetes, chronic kidney disease, hypertension, hyperlipidemia, and CAD who presents on 04/02/23 for a diabetic left foot infection worsening on outpatient therapy. Plan to get PT eval today and then discharge today after that. Pt to have repeat HA1c next week. #Left diabetic foot infection, acute worsening and failed outpatient antibiotic therapy -Was also admitted 03/13/2020 for similar, s/p debridement and ABs (Keflex+flagyl) wound care visit 04/02 = wound was malodorous with expanding warmth/redness/erythema Podiatry consulted, no concern osteomyelitis on XR - Had ABIs as outpatient, L actually has better blood flow than the right - [place], CRP, WBC wnl on admission, lactate elevated - pending blood and wound cultures; negative so far - pt on empiric cefepime flagyl vancomycin - will transition to oral ABs at discharge #Hypertension, chronic continue Losartan #CAD, had angina in 2020, cath at that time showed mild nonobstructive CAD denies any hx of stents/OR, no hx of CVA, no hx CHF continue Aspirin 81 mg p.o. twice daily continue Atorvastatin #T2DM, Insulin-dependent - noted to have DM-related nephropathy and neuropathy, suboptimally controlled Last A1c 7.9% - Hold home antiglycemic's (pt has pump, takes 128 units/day according to pump, 46 units basal, 67 units food bolus, and 14 units correction bolus) while inpatient, resume once home DVT prophylaxis: Lovenox CODE STATUS: Full Disposition: Medical surgical Diet: type II DM (2) Type 2 diabetes mellitus with complications: (3) CKD (chronic kidney disease), stage III: (4) Dyslipidemia: (5) Hyperlipidemia: (6) Hypertension: Total Time Total Time Spent Total Time Spent (In Minutes): Per attending attestation. Discharge Plan Discharge Items Patient Disposition: Home - Self-Care Reason For Visit: ?LLE CELLULITIS, WORSENING DFI Discharge Diagnosis: Diabetic foot ulcer Condition on Discharge: Good Activity: Resume your previous activity Non-emergency contact: Primary Care Provider Call non-emergency contact if: you have any medication questions, your temperature is above 101.5, your wound has increased redness, your wound has increased drainage and your wound pain has increased Follow-up/Referrals: Evan Zapata DO [Primary Care Provider] - Diet: Carb Consistent or DM2 Addtl Attending Provider Instructions: You were admitted for diabetic foot ulcer. Tests were done that show no current evidence of infection into the bone (osteomyelitis), and you have remained afebrile and stable throughout admission. We now feel it is safe for you to go home and resume outpatient wound care. Medications: Your medication list has been reviewed and reconciled upon discharge to ensure accuracy and continuity of care. An updated list of all your medications is included with your hospital discharge paperwork. Please review this list closely, and make note of any changes. We sent a new medication called Keflex(cefalexin) to your pharmacy. This is an antibiotic. Take Keflex(cefalexin) 500 mg four times daily for 5 days. If you have any issues filling these prescriptions, please call [phone] and ask to leave a message for Dr. Massey. Take your medications as instructed; do not skip a dose of your medicines. Make sure all of your doctors know every medicine you are taking (including zvui-zyt-[id number] medicines, vitamins, and supplements). Call your primary care provider before taking any new medicines (including over- the-counter medicines, vitamins, and supplements), because some of these may interact with your current medications, or may make your symptoms worse. Tell your primary care provider if you cannot afford your medications. Activity: You can do normal everyday activities as your body allows. Take rest breaks if you feel tired. Do not overexert. Stop activity if you have pain, shortness of breath or feel dizzy. Follow-up appointments: Make an appointment with your primary care physician within one week of discharge. A copy of this summary will be sent to them. Every time you see your primary care physician, or any other doctor, bring your medication list, a list of questions, and your recent weights. CONTACT YOUR PRIMARY CARE PROVIDER if you experience any of the following: Shortness of breath or difficulty breathing Swelling of your feet, ankles, hands or abdomen Feeling tired with normal activity or experiencing dizziness or fainting Worsening pain, drainage, or redness of your ulcer without fever Difficulty following your treatment plan, or difficulty taking medications CALL 911 OR GO TO THE EMERGENCY DEPARTMENT if you experience any of the following: Severe abdominal pain or nausea/vomiting Severe chest pain, or chest pain that radiates (moves) to your jaw or arm Worsening pain, drainage, or redness of your ulcer with fever, chest pain, or shortness of breath Sudden, severe shortness of breath or difficulty breathing Thank you for allowing us to participate in your care. Pending Studies at Discharge: No Stand-Alone Forms: My [facility] Medications and DC Order Prescriptions: New cephalexin 500 mg capsule 500 mg PO QID 5 Days Qty: 20 0RF Continued fluoxetine 20 mg capsule 20 mg PO QAM multivitamin capsule 1 cap PO QAM Excedrin Migraine 250-250-65 mg tablet 2 tab PO Q6H PRN (Reason: pain) Qty: 60 0RF cyanocobalamin (vitamin B-12) [Vitamin B-12] 1,000 mcg tablet 2,000 mcg PO QAM aspirin 81 mg tablet,delayed release (DR/EC) 81 mg PO BID (DME) FreeStyle Johnny 14 Day Sensor Kit See Dose Instructions .ROUTE .MEDSUPPLY Qty: 2 11RF Rx Instructions: change sensor every 14 days (DME) FreeStyle Johnny 14 Day [place] Misc See Dose Instructions .ROUTE .MEDSUPPLY Qty: 1 0RF Rx Instructions: As directed atorvastatin 40 mg tablet 40 mg PO HS 30 Days Qty: 90 3RF metformin 1,000 mg tablet 1,000 mg PO QAM Qty: 90 1RF Jardiance 10 mg tablet 10 mg PO QAM Qty: 90 3RF elderberry fruit 200 mg capsule 200 mg PO QAM losartan 25 mg tablet 25 mg PO QAM ascorbate calcium (vitamin C) 500 mg tablet 1 g PO QAM cholecalciferol (vitamin D3) 50 mcg (2,000 unit) capsule 50 mcg PO QAM zinc 50 mg tablet 50 mg PO QAM topiramate 25 mg tablet 25 mg PO BID nitroglycerin 0.4 mg tablet, sublingual 0.4 mg sublingual Q5M PRN (Reason: chest pain) Qty: 10 0RF Patient Comments: NEVER HAD TO USE glucosamine-chondroitin [Osteo Bi-Flex] 250-200 mg Tablet 2 tab PO QAM ibuprofen [Advil] 200 mg Tablet 400 mg PO Q6 PRN (Reason: Pain) insulin aspart U-100 [Novolog U-100 Insulin aspart] 100 unit/mL solution 1 unit continuous subcutaneous infusion DAILY Patient Comments: PUMP Rx Instructions: 90 units continuous subcutaneous infusion DAILY; (verified pat call 10/28/22) benzonatate 100 mg Capsule 100 mg PO UD PRN (Reason: Cough) Patient Comments: occassional Discharge Orders: Discharge Order (Routine); Ordered 04/04/23 Ordered By: Iesha Masterson/Other Patient Handouts: Your Diabetes Foot Care Program, Diabetes Inspect Feet Admission Data Admit Date/Time: 04/02/23 13:42 Attending Provider: Jaja Koehler Admit Provider: Memo Hendricks Primary Care Provider: Evan Zapata Other Providers: Aime Reeves ; Memo Hendricks Other Interventions: Discharge Summary Assessment (RN) Last Done: 04/04/23 14:02 Supervising Physician Co-Signing Physician Notes I personally examined the patient and verified all quinn points of history and exam, discussed case, and agree with decision making and plan documented by Dr. Massey. Patient evaluated by podiatry during admission for concern of diabetic foot ulcer, thankfully the wound culture was NGTD and no other signs/symptoms of infection noted. A five day course of keflex prescribed on discharge as precaution. Patient quite nervous about losing left foot and will continue outpatient wound care and be mindful of pressure on area. Encouraged continued efforts of glycemic control. VVS on discharge. On exam patient seated and comfortable, non diaphoretic, conjunctiva clear, lungs clear to auscultation bilaterally, no rales/rhonchi/wheezing, heart with regular rate and rhythm, no murmur appreciated, bowel sounds present and no tenderness in the abdomen, lower extremities without edema, left foot wrapped in gauze. Patient will follow-up with PCP and wound care.
[2023-04-05] MEDS ORDERED: VANCOMYCIN LEVEL ONE (05:30)
--- NOTE | 2023-04-06 06:37 | Coding Query ---
To promote full compliance with coding requirements relating to patient care, physician participation is requested in all cases of felt tipping machine tender uncertainty. Please assist us with the question(s) below: Please specify the known or suspected type by placing an "X" within the parenthesis (x). A diabetic ulcer of (left foot) If possible, please check the box that provides the specific stage of the diabetic ulcer (X ) limited to breakdown of skin ( ) with fat layer exposed ( ) with necrosis of muscle ( ) with necrosis of bone ( ) with muscle involvement without evidence of necrosis ( ) with bone involvement without evidence of necrosis ( ) with other specified severity ( ) with unspecified severity Thank you Wendy LOVELL
== END 2023-04-04 14:25 | disposition home or self-care (01) | DRG 638 ==
LOC: ED 11:25 → SUATTDRO 13:42 → 3W 13:42

== ENCOUNTER 2023-11-21 21:10 | Inpatient (IN) ==
--- OUTSIDE RECORDS SUMMARY | 2023-11-21 21:15 | External Medical Summary | Continuity of Care Document ---
Author Name Unknown Organization [facility] [address] [place] [phone] Care Team Providers Care Orientation And Mobility Specialist Name Role Phone Evan Zapata Primary Care Physician [phone] Encounter [facility] [id number] Date(s): 11/17/23 - 11/17/[address] [facility] 0 [facility] [address] [place] [id number] [place] [phone] Encounter Diagnosis Body mass index [BMI] 34.0-34.9, adult(Discharge Diagnosis) - 11/17/23 CKD (chronic kidney disease), stage III(Discharge Diagnosis) - 11/17/23 Hypertension(Discharge Diagnosis) - 11/17/23 DIABETES MELLITUS WITHOUT MENTION OF COMPLICATION(Discharge Diagnosis) - 11/17/23 BENIGN ESSENTIAL HYPERTENSION(Discharge Diagnosis) - 11/17/23 Diabetes mellitus with chronic kidney disease, with long-term current use of insulin(Discharge Diagnosis) - 11/17/23 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 Diabetes mellitus with chronic kidney disease, with long-term current use of insulin (LHF61-PM E11.22, Discharge, Medical). CKD (chronic kidney disease), stage III (RGN79-RF N18.3, Discharge, Medical). Rule out BENIGN ESSENTIAL HYPERTENSION (XRV73-TF I10, Discharge, Medical). Plan: Right Shoulder Pain Scheduled for surgery in December Orthopedic notes reviewed Maximize glycemic control for best recovery (see below) Diabetes (not at goal) CKD, 3 (stable) Endocrinology note reviewed Eventual plan was to titrate Jardiance at next visit, although discussed taking that step now to improve glycemic control heading into the surgery Check BMP and A1c today Will relay results to endocrinology Likely increase Jardiance; I will reach out via portal to patient HTN (stable/at goal) Check BMP Depression (stable/at goal) Doing well Continue current medications. Orders PowerOrders Laboratory: BMP Request (Order): Routine, 11/17/2023 09:45 EDT, Requested Timeframe First Available Hgb A1C Request (Order): Routine, 11/17/2023 09:46 EDT, Requested Timeframe First Available Patient Care Ambulatory: Follow Up Appointment Ambulatory (Order): In 6 Months, Appointment Type In Office, 20, Follow up With DO Zapata Franklin J Evaluation and Management: [id number] Outpatient Visit Est Lvl 5 (Order): 11/17/2023 09:46 EDT, FAMILY MEDICINE, BENIGN ESSENTIAL HYPERTENSION | DIABETES MELLITUS WITHOUT MENTION OF COMPLICATION | Hypertension | Diabetes mellitus with stage 3 chronic kidney disease, without long-term current use of insulin. PowerOrders Evaluation and Management: [id number] Outpatient Visit Est Lvl 5 (Void): 11/17/2023 09:54 EDT, Cancelled by Physician. PowerOrders Evaluation and Management: [id number] Outpatient Visit Est Lvl 5 (Order): 11/17/2023 09:54 EDT, FAMILY MEDICINE, Diabetes mellitus with chronic kidney disease, with long-term current use of insulin | Hypertension | CKD (chronic kidney disease), stage III | BENIGN ESSENTIAL HYPERTENSION. Immunizations Given and Recorded Vaccine Date Status Refusal Reason influenza virus vaccine, inactivated 05/17/21 Give n influenza virus vaccine, inactivated 06/12/20 Give n influenza virus vaccine, inactivated 08/21/18 John rded influenza virus vaccine, inactivated 06/19/17 Give n influenza virus vaccine, inactivated 09/01/16 Give n influenza virus vaccine, inactivated 08/21/15 Give n influenza virus vaccine, inactivated 05/08/14 Give n influenza virus vaccine, inactivated 09/12/13 John rded influenza virus vaccine, inactivated 06/21/12 Give n zoster vaccine, inactivated 08/13/20 Given zoster vaccine, inactivated 06/12/20 Given tetanus/diphtheria/pertuss, acel (Tdap) 08/21/15 G iven pneumococcal 23-valent vaccine 07/05/10 Recorded Medications Ansaid 100 mg oral tablet Start: 10/12/23 9:59:00 EST, 1 tab, PO, bid, Disp# 30 tab, Refills: 3, PRN: as needed for arthritis, Pharmacy: [facility]/pharmacy #[id number] Start Date: 10/12/23 Status: Ordered Aspirin Low Dose Start: 07/05/10 10:24:08 EST, See Instructions, bid, Refills: 0, 1 tab BID-81 mg PO, current medication from another provider Start Date: 07/05/10 Status: Ordered atorvastatin 20 mg oral tablet Start: 05/19/23 13:10:00 EDT, 1 tab, PO, qhs, Disp# 90 tab, Refills: 3, Pharmacy: [facility]/pharmacy #[id number] Start Date: 05/19/23 Stop Date: 05/13/24 Status: Ordered BD U/F KIT PEN NEEDLE [id number] Start: 11/19/15 8:24:42, See Instructions, Disp# 100, Refills: 5, use as directed for TESTING four times a day, Pharmacy: [facility], use as directed for TESTING four times a day Start Date: 11/19/15 Status: Ordered Co Q-10 Start: 07/22/19 9:52:00 EST Start Date: 07/22/19 Status: Ordered FLUoxetine 20 mg oral capsule Start: 05/19/23 13:11:00 EDT, 1 cap, PO, Daily, Disp# 90 cap, Refills: 3, Pharmacy: [facility]/pharmacy #[id number] Start Date: 05/19/23 Stop Date: 05/13/24 Status: Ordered Jardiance 25 mg oral tablet Start: 11/18/23 17:55:00 EDT, 1 tab, PO, Daily, Disp# 30 tab, Refills: 3, Pharmacy: [facility]/pharmacy #[id number] Start Date: 11/18/23 Stop Date: 03/17/24 Status: Ordered losartan 25 mg oral tablet Start: 05/19/23 13:11:00 EDT, 1 tab, PO, Daily, Disp# 90 tab, Refills: 3, Pharmacy: [facility]/pharmacy #[id number] Start Date: 05/19/23 Stop Date: 05/13/24 Status: Ordered metFORMIN 1000 mg oral tablet Start: 11/26/17 14:27:21, See Instructions, Disp# 180, Refills: 3, TAKE 1 TABLET TWICE A DAY, Pharmacy: [facility] Start Date: 11/26/17 Status: Ordered multivitamin Start: 11/05/20 11:16:00 EDT, 1 tab, PO, Daily Start Date: 11/05/20 Status: Ordered NovoLOG PenFill 100 units/mL subcutaneous solution Start: 06/18/15 14:46:36, 7 unit =, subQ, ac, Disp# 30 mL, Refills: 3, before a meal, and as per sliding scale, Pharmacy: [address] Start Date: 06/18/15 Status: Ordered ONETOUCH VERIO TEST STRIP Start: 12/24/15 8:16:05, See Instructions, Disp# 100, Refills: 5, TEST 4 TIME DAILY as directed by prescriber, Pharmacy: [address], TEST 4 TIME DAILY as directed by prescriber Start Date: 12/24/15 Status: Ordered Osteo Bi-Flex Advanced oral tablet Start: 11/07/12 15:49:00, 1 tab, PO, Daily Start Date: 11/07/12 Status: Ordered topiramate 25 mg oral tablet Start: 05/19/23 13:11:00 EDT, 1 tab, PO, bid, Disp# 180 tab, X 90 day, Refills: 3, Stop: 05/13/24 13:11:00 EDT, Pharmacy: [facility]/pharmacy #[id number] Start Date: 05/19/23 Stop Date: 05/13/24 Status: Ordered Tylenol Start: 11/21/15 8:19:00, 325 mg =, PO, q4h, prn Start Date: 11/21/15 Status: Ordered Vitamin B12 Start: 07/22/19 9:52:00 EST Start Date: 07/22/19 Status: Ordered Vitamin C Start: 11/05/20 11:16:00 EDT, Daily Start Date: 11/05/20 Status: Ordered Vitamin D3 Start: 11/05/20 11:17:00 EDT, Daily Start Date: 11/05/20 Status: Ordered Mental Status 11/17/23 Barriers to Learning one year None evide nt Mandatory Health Literacy Documentation Yes Health Literacy Communication Barriers N ever Primary Language Jordanian Problem List Condition Confirmation Course Effective Dates Status H ealth Status Informant CTS (carpal tunnel syndrome) Confirmed Active DEPRESSION Confirmed Active Rotator cuff insufficiency of left shoulder Confirmed Active Dyslipidemia Confirmed Active ELEVATED LFTs Confirmed Active Left rotator cuff tear Confirmed Active Glenohumeral arthritis Confirmed Active Migraine Confirmed Active Obesity Confirmed Active Secondary osteoarthritis, right shoulder Confirmed Active Weight disorder Confirmed Active Diagnosis Diagnosis Type Effective Dates Health Status Clinical Service Informant Body mass index [BMI] 34.0-34.9, adult Discharge Diagnosis 11/17/23 Non-Specified CKD (chronic kidney disease), stage III Discharge Diagnosis 11/17/23 Non-Specified Hypertension Discharge Diagnosis 11/17/23 Non-Specified Diabetes mellitus with chronic kidney disease, with long-term current use of insulin Discharge Diagnosis 11/17/23 Non-Specified Procedures Procedure Date Related Diagnosis Body Site Status X-ray of left foot 1 03/11/23 Comp leted Phacoemulsification of lens and insertion of intraocular lens 2 11/18/22 Completed Diabetic retinal eye exam 3 09/10/22 Completed Chest x-ray 4 03/13/22 Completed Procedure 5 12/24/21 Completed Procedure 6 12/24/[address] angiography of chest with contrast 7 04/24/21 Completed Pathology report 8 04/26/19 Comple fabiola Colonoscopy 9 04/21/19 Completed Surgical Pathology report 10 04/16/18 Completed Arthroplasty of right hip joint 11 04/15/18 Completed Single View Pelvis X-ray: si ngle view right hip 12 04/15/18 Completed Total left knee arthroplasty 13 12/15/17 Completed Chest x-ray 14 12/10/17 Completed Colonoscopy 15 04/04/14 Completed Right shoulder 16 10/24/13 Complet ed Colonoscopy 11/2008 Completed Appendectomy 11/2007 Completed Colonoscopy 11/2005 Completed Gall Bladder removed 1975 Comp leted Hernia 17 Completed 1IMPRESSION: 1. No fracture. No evidence for acute osteomyelitis within the left foot. 2. Mild mid foot osteoarthritis. 3. Posterior and plantar calcaneal spurs. 2Cataract removal with implantation of intraocular lens right eye 3[facility] No diabetic retinopathy OU 4Impression: No active disease in the chest. 5left shoulder rotator cuff tear large with biceps tenosynovitis 6left shoulder arthroscopy, rotator cuff repair, biceps tenotomy(left) left shoulder rotator cuff tear, massive 7Chest CTA for Pulmonary Arteries No evidence of pulonary embolus. Stable scattered subcentimeter pulmonary nodules. There are considered to be benign given the greater than 2 year stability. A few prominent right hilar lymph nodes which measure subcentimeter in short axis diameter. Therefore, there do not meet CT criteria for pathologic involvement. However, these have sligtly increased in size in the interval. [address] f/u. 8diagnosis Colon 50cm polyp hyperplastic polyp 9Non-bleeding internal hemorrhoids One diminutive polyp at 50cm proximal to the anus, removed with a cold biopsy forceps. Resected andretrieved. The examined portion of the ileum was normal. The examination was otherwise normal on direct and retroflexion views. 10Clinical Hx: Advanced degenerative joint disease right hip. Operation: Right total hip arthroplasty. Right Femoral Head Final Diagnosis: Hip joint, right, total arthroplasty: 1. Degenerative joint disease with 15% eburnation. Marginal osteophytes noted. 2. Synovium/soft tissue: no significant inflammation identified. 11Tolerated well. 12Impression: Expected postoperative findings status post right hip arthroplasty. No acute fracture is seen. 13Pathology: DJD with 20% eburnation. Marginal osteophytes noted. No significant inflammation in synovium/soft tissue. 14Negative chest 15small non bleeding internal hemorrhoids, otherwide normal. recommend repeat 5 years 16open coracoid transfer, biceps tenodesis 17inguinal hernia repair on right-Dr. Omar Dykes-02/26/15 Results Laboratory List Name Date Basic Metabolic Panel (BASIC METAB PANEL ) 11/17/23 Hemoglobin A1C (HEMOGLOBIN, A1C) 11/17/23 Most recent to oldest [Reference Range]: 1 eGFR CKD-EPI [>60 mL/min/1.73 m2] 63 mL/ min/1.73 m2 1 (11/17/23 10:00 AM) Estimated Average Glucose 169 mg/dL (11/17/23 10:00 AM) Estimated CrCl 75.42 mL/min (11/17/23 12:52 PM) Anion Gap [5-14 mmol/L] 10 mmol/L (11/17/23 10:00 AM) BUN [7-20 mg/dL] 22 mg/dL *HI* (11/17/23 10:00 AM) Ca [8.4-10.2 mg/dL] 10.2 mg/dL (11/17/23 10:00 AM) Cl- [96-107 mmol/L] 107 mmol/L (11/17/23 10:00 AM) HCO3 [22-30 mmol/L] 24 mmol/L (11/17/23 10:00 AM) Cret [0.70-1.30 mg/dL] 1.26 mg/dL (11/17/23 10:00 AM) HbA1c [<5.7 %] 7.5 % 2 *HI* (11/17/23 10:00 AM) Glu [74-106 mg/dL] 184 mg/dL *HI* (11/17/23 10:00 AM) K [3.5-5.1 mmol/L] 4.8 mmol/L (11/17/23 10:00 AM) Na [137-145 mmol/L] 141 mmol/L (11/17/23 10:00 AM) 1Result Comment: Testing Performed By: Dept of Pathology [facility] Herlinda Waterman, [facility] Herlinda Waterman, [place] [address] 2Result Comment: ADA Recommended [place] Reference Range: Normal: <5.7% Prediabetes: 5.7-6.4% Diabetes: >6.4% Vital Signs Most recent to oldest [Reference Range]: 1 Height 184 cm (11/17/23 9:17 AM) Patient Weight 116.4 kg (11/17/23 9:17 AM) Body Mass Index 34.38 kg/m2 (11/17/23 9:17 AM) Heart Rate 84 bpm (11/17/23 9:17 AM) Respiratory Rate 18 br/min (11/17/23 9:17 AM) Blood Pressure 122/70mmHg (11/17/23 9:17 AM) Cuff Pulse Pressure 52 mmHg (11/17/23 9:17 AM) Social History Social History Type Response Smoking Status Never smoked cigaret radha Sex Male Outpatient Note * DO Zapata Franklin J: PERFORM, SIGN, VERIFY Event Display: .Outpt Note Authored Date: [id number] Patient: JOE WESTBROOK Age: 68 years Sex: Male : 1955 Associated Diagnoses: None Author: DO Zapata Franklin J Visit Information Visit type: Scheduled follow-up. Chief Complaint 11/17/2023 09:15 EDT 6 month f/u. Surgery in December History of Present Illness Here for 6 month routine follow up. Having shoulder surgery (right) in December. AM readings usually 140s-150s, lowest 123. Afternoon readings 200-220s (post prandial). At last endocrinology visit, metformin increased and Jardiance 10 mg. Review of Systems Constitutional: No fever, No chills. Eye: Negative. Ear/Nose/Mouth/Throat: Negative. Respiratory: No shortness of breath, No cough. Gastrointestinal: No nausea, No vomiting, No diarrhea. Neurologic: Alert and oriented X4. Health Status Allergies: Allergic Reactions (Selected) Mild Bee stings- Hives. Severity Not Documented PCN (penicillin)- Unsure.. Current medications: (Selected) Prescriptions Prescribed Ansaid 100 mg oral tablet: 1 tab, PO, bid, PRN: as needed for arthritis, 30 tab, 3 Refill(s) BD U/F KIT PEN NEEDLE [id number]: See Instructions, use as directed for TESTING four times a day, 100unknown unit, 5 Refill(s) FLUoxetine 20 mg oral capsule: 1 cap, PO, Daily, for 90 day, 90 cap, 3 Refill(s) NovoLOG PenFill 100 units/mL subcutaneous solution: 7 unit, subQ, ac, before a meal, and as per sliding scale, 30 mL, 3 Refill(s) ONETOUCH VERIO TEST STRIP: See Instructions, TEST 4 TIME DAILY as directed by prescriber, 100 unknown unit, 5 Refill(s) atorvastatin 20 mg oral tablet: 1 tab, PO, qhs, for 90 day, 90 tab, 3 Refill(s) losartan 25 mg oral tablet: 1 tab, PO, Daily, for 90 day, 90 tab, 3 Refill(s) metFORMIN 1000 mg oral tablet: See Instructions, TAKE 1 TABLET TWICE A DAY, 180 tab, 3 Refill(s) topiramate 25 mg oral tablet: 1 tab, PO, bid, for 90 day, 180 tab, 3 Refill(s) Documented Medications Documented Aspirin Low Dose: See Instructions, bid, 1 tab BID-81 mg PO, 0 Refill(s) Co Q-10: Jardiance 10 mg oral tablet: 1 tab, PO, Daily, 30 tab Osteo Bi-Flex Advanced oral tablet: 1 tab, PO, Daily Tylenol: 325 mg, PO, q4h, prn Vitamin B12: Vitamin C: Daily Vitamin D3: Daily multivitamin: 1 tab, PO, Daily. Problem list: Medical Migraine / ICD-9-CM 346.90 / Confirmed CTS (carpal tunnel syndrome) / ICD-9-CM 354.0 / Confirmed Dyslipidemia / ICD-9-CM 272.4 / Confirmed Obesity / ICD-9-CM 278.00 / Confirmed BENIGN ESSENTIAL HYPERTENSION / ICD-9-CM 401.1 / Rule out DEPRESSION / ICD-9-CM 296.23 / Confirmed ELEVATED LFTs / ICD-9-CM 790.4 / Confirmed DIABETES MELLITUS WITHOUT MENTION OF COMPLICATION / ICD-9-CM 250.0 / Rule out Weight disorder / SNOMED CT 857104215 / Confirmed Left rotator cuff tear / SNOMED CT 646087089 / Confirmed Rotator cuff insufficiency of left shoulder / SNOMED CT 6474793024 / Confirmed Secondary osteoarthritis, right shoulder / SNOMED CT 7717564567 / Confirmed Glenohumeral arthritis / SNOMED CT 256692779 / Confirmed All Problems Migraine / ICD-9-CM 346.90 / Confirmed CTS (carpal tunnel syndrome) / ICD-9-CM 354.0 / Confirmed Dyslipidemia / ICD-9-CM 272.4 / Confirmed Obesity / ICD-9-CM 278.00 / Confirmed BENIGN ESSENTIAL HYPERTENSION / ICD-9-CM 401.1 / Rule out DEPRESSION / ICD-9-CM 296.23 / Confirmed ELEVATED LFTs / ICD-9-CM 790.4 / Confirmed DIABETES MELLITUS WITHOUT MENTION OF COMPLICATION / ICD-9-CM 250.0 / Rule out Weight disorder / SNOMED CT 525263656 / Confirmed Left rotator cuff tear / SNOMED CT 841630482 / Confirmed Rotator cuff insufficiency of left shoulder / SNOMED CT 5509370609 / Confirmed Secondary osteoarthritis, right shoulder / SNOMED CT 6171302976 / Confirmed Glenohumeral arthritis / SNOMED CT 316852804 / Confirmed. Histories Family History: Diabetes MGF PGM HTN (hypertension) Mother Bladder cancer.. Father Colon cancer.. Father Stroke MGF PGF Cancer Mother Heart attack PGM MGF . Social History Social & Psychosocial Habits Alcohol 11/11/2012 Risk Assessment: Low Risk Tobacco 11/11/2012 Risk Assessment: Denies Tobacco Use . Physical Examination Vital Signs 11/17/2023 09:17 EDT Heart Rate 84 bpm Respiratory Rate 18 br/min Systolic Blood Pressure 122 mmHg Diastolic Blood Pressure 70 mmHg Cuff Pulse Pressure 52 mmHg SpO2 97 % Measurements from flowsheet : Measurements 11/17/2023 09:19 EDT Osteoporosis Screening Tool 9.88 11/17/2023 09:17 EDT Height 184 cm Height Method Standing Patient Weight 116.4 kg Weight 116.400 kg Weight Method Standing Scale Body Mass Index 34.38 kg/m2 Body Surface Area 2.44 m2 [place] Body Weight 78.6 kg Height/Weight Refused Height/Weight Taken General: Alert and oriented. Eye: Pupils are equal, round and reactive to light, Extraocular movements are intact. HENT: Normocephalic, Normal hearing, Oral mucosa is moist. Neck: Supple, Non-tender. Respiratory: Lungs are clear to auscultation, Respirations are non-labored, Breath sounds are equal. Cardiovascular: Normal rate, Regular rhythm. Musculoskeletal Normal range of motion. Integumentary: Warm, Dry, [place]. Neurologic: Alert, Oriented, Normal sensory. Cognition and Speech: Oriented, Speech clear and coherent. Psychiatric: Cooperative, Appropriate mood & affect. Health Maintenance Health Maintenance Pending (in the next year) OverDue Diabetes Nephropathy Management due 01/25/22 Unknown Frequency Adult Influenza Vaccine due 02/20/23 and every 1 year Due Adult COVID-19 Vaccination due 11/17/23 Unknown Frequency Adult Social Determinants of Health Screening due 11/17/23 Unknown Frequency Falls Plan of Care due 11/17/23 Unknown Frequency Medicare Annual Wellness Visit due 11/17/23 and every 1 year Pneumococcal Vaccine Older Adults due 11/17/23 One-time only Due In Future Diabetes Management A1c not due until 07/28/24 and every 366 day Diabetic Eye Exam not due until 09/10/24 and every 731 day Satisfied (in the past 1 year) Satisfied Body Mass Index on 11/17/23. Satisfied by PUNEET Flores Vanessa T Diabetes Management A1c on 07/28/23. Satisfied by MICHELLE Steinberg Lynnae Review / Management Results review: Lab results: 07/28/2023 08:21 EST HGb A1C Outside 7.4 %. Impression and Plan Diagnosis Hypertension (LDH96-ST I10, Discharge, Medical). Diabetes mellitus with chronic kidney disease, with long-term current use of insulin (FVK53-JM E11.22, Discharge, Medical). CKD (chronic kidney disease), stage III (KRK01-BO N18.3, Discharge, Medical). Rule out BENIGN ESSENTIAL HYPERTENSION (PJI52-RB I10, Discharge, Medical). Plan: Right Shoulder Pain Scheduled for surgery in December Orthopedic notes reviewed Maximize glycemic control for best recovery (see below) Diabetes (not at goal) CKD, 3 (stable) Endocrinology note reviewed Eventual plan was to titrate Jardiance at next visit, although discussed taking that step now to improve glycemic control heading into the surgery Check BMP and A1c today Will relay results to endocrinology Likely increase Jardiance; I will reach out via portal to patient HTN (stable/at goal) Check BMP Depression (stable/at goal) Doing well Continue current medications. Orders PowerOrders Laboratory: BMP Request (Order): Routine, 11/17/2023 09:45 EDT, Requested Timeframe First Available Hgb A1C Request (Order): Routine, 11/17/2023 09:46 EDT, Requested Timeframe First Available Patient Care Ambulatory: Follow Up Appointment Ambulatory (Order): In 6 Months, Appointment Type In Office, 20, Follow up With DO Zapata Franklin J Evaluation and Management: [id number] Outpatient Visit Est Lvl 5 (Order): 11/17/2023 09:46 EDT, FAMILY MEDICINE, BENIGN ESSENTIAL HYPERTENSION | DIABETES MELLITUS WITHOUT MENTION OF COMPLICATION | Hypertension | Diabetes mellitus with stage 3 chronic kidney disease, without long-term current use of insulin. PowerOrders Evaluation and Management: [id number] Outpatient Visit Est Lvl 5 (Void): 11/17/2023 09:54 EDT, Cancelled by Physician. PowerOrders Evaluation and Management: [id number] Outpatient Visit Est Lvl 5 (Order): 11/17/2023 09:54 EDT, FAMILY MEDICINE, Diabetes mellitus with chronic kidney disease, with long-term current use of insulin | Hypertension | CKD (chronic kidney disease), stage III | BENIGN ESSENTIAL HYPERTENSION. Professional Services Review of Outside Records: Ortho note; endo note, 5 minutes Face to Face: 30 minutes Documentation and Orders: 5 minutes Coordination of Care: E-communication with endo specialist 5 minutes Electronic Signature on File Electronically Reviewed/Signed by: Evan Zapata DO Author Signature Dt/Tm:11/18/2023 05:35 PM Department of Family Medicine [facility] Patient Care team information Care Team Personnel Name: DO Zapata Franklin J Position: Physician - Family Med Member Role: Primary Care Provider Address: Address: [address] [place] [address] [address] [place] [address] Name: DO Kingston Kristen M Position: Physician - Family Med Member Role: Lifetime Relationship Address: Address[place] [address] [facility] [place] [address] [place] [address] Care Team Related Persons Name: TONYA WESTBROOK Address: home [address], [place] [id number]"
[2023-11-21] MEDS: METOPROLOL TARTRATE 1 MG/ML VIAL IV STA ×2 (21:56→22:13)
[2023-11-21] MEDS: METOPROLOL TARTRATE 1 MG/ML VIAL IV ONE (21:56)
[2023-11-21 22:01] LABS: Albumin Globulin Ratio 1.4 (0.9-2); Albumin Level 4.5 gm/dl (3.4-5.0); BUN Creatinine Ratio 18.9 (10-20); Bilirubin,Total 1.2 mg/dl (0.2-1.0); Calcium 9.5 mg/dl (8.6-10.3); Creatinine Clr Calc Pharmacy 85.9 ml/min; Est GFR (African American) 79.2 ml/min; Est GFR (Non-African American) 68.3 ml/min; Globulin 3.2 gm/dl (2.5-4.0); Magnesium 1.7 mg/dl (1.7-2.4); Potassium 4.1 mmol/L (3.5-5.1); Total Protein 7.7 gm/dl (6.0-8.3)
[2023-11-21 22:06] LABS: iSTAT Creatinine 1.2 mg/dl (0.6-1.3); iSTAT Hemoglobin 14.6 g/dl (14.0-18.0); iSTAT Ionized Calcium 1.19 mmol/l (1.12-1.32); iSTAT Potassium 4.2 mmol/L (3.3-5.0)
[2023-11-21] MEDS: ASPIRIN CHEW 324 MG PO STA (22:06)
[2023-11-21] MEDS: NITROGLYCERIN SL 0.4 MG/TAB TAB SL STA (22:07)
[2023-11-21] MEDS: HEPARIN SOD (PORCINE) 1000 UNIT/ML ONE (22:07)
[2023-11-21] MEDS: NITROGLYCERIN 2% OINTMENT 30GM TUBE EXT STA (22:07)
[2023-11-21] MEDS: SODIUM CHLORIDE 0.9% 500 ML IV SCH (22:09)
--- NOTE | 2023-11-21 22:09 | Emergency Department Note ---
ED Visit Note Patient presented with chest pain. He was diaphoretic. Initial ECG did raise concerns about the patient's cardiac monitoring revealed worsening ST depression. Repeat ECG was performed. Patient had ST elevation in aVR and significant ST depression anteriorly. Patient was attended to immediately and blood work obtained. 2 IVs were placed. Patient had heart alert initiated. He had mild hyperglycemia on i-STAT. The patient was treated with IV Lopressor, Nitropaste and aspirin. Patient was evaluated in the ER by the [facility] hospitalist, Dr. Rhys Gates. He will admit the patient. Patient was also evaluated by Dr. Low of interventional cardiology. He agreed with the assessment of acute coronary syndrome. He asked for heparin to be initiated and the patient was taken emergently to the catheterization suite for further intervention. Please refer to the EMR for further details. The patient was seen and examined with my MARIYA, Ailyn Hassan PA-C. I personally saw the patient and we provided critical care to the patient for a total of 35 minutes. These minutes are separate from any billable procedures. I provided a substantive portion of the care and the majority of the critical care time. .
[2023-11-21 22:12] LABS: Troponin I High Sensitivity 89.5 pg/ml (0-20)
[2023-11-21 22:13] LABS: Basophils # (auto) 0.03 K/uL (0.00-0.20); Basophils % (auto) 0.5 %; Eosinophils # (auto) 0.13 K/uL (0.00-0.50); Immature Granulocytes # (auto) 0.02 K/uL (0.01-0.20); Immature Granulocytes % (auto) 0.3 %; Lymphocytes % (auto) 24.4 %; Mean Corpuscular Hemoglobin 28.7 pg (25.0-34.0); Mean Corpuscular Hgb Conc 34.1 g/dL (32.0-36.0); Mean Corpuscular Volume 84.3 fL (80.0-100.0); Monocytes # (auto) 0.45 K/uL (0.11-0.59); Monocytes % (auto) 6.9 %; Neutrophils # (auto) 4.33 K/uL (1.40-6.50); Neutrophils % (auto) 65.9 %; Platelet Count 243 K/uL (130-400); RDW Coefficient of Variation 14.8 % (11.5-14.5); RDW Standard Deviation 44.6 fL (36.4-46.3); Red Blood Count 5.22 M/uL (4.70-6.10); White Blood Count 6.56 K/ul (4.8-10.8)
--- NOTE | 2023-11-21 22:13 | XRay Report ---
SINGLE VIEW CHEST CLINICAL HISTORY: Atypical chest pain. FINDINGS: An AP, portable, upright chest radiograph is compared to study dated 03/13/2022. A cardiac p ad is in place. The heart appears enlarged. There is pulmonary vascular congestion with mild intersti tial edema. Scarring/atelectasis is noted lung bases. No airspace consolidation or large pleural effu yash is identified. No pneumothorax is seen. There are chronic/healed left-sided rib fractures. IMPRESSION: Mild cardiomegaly with evidence of congestive failure. Radiographic follow-up to resoluti on is recommended ACT 112: Negative or not required by law. Electronically signed by: Mando Gomez M.D. 11/21/2023 10:10 PM
--- NOTE | 2023-11-21 22:13 | Emergency Department Note ---
History of Present Illness General Chief complaint: Chest Pain Stated complaint: CHEST PRESSURE/TIGHNESS Time Seen by Provider: 11/21/23 21:27 History of Present Illness Maximum Pain Intensity: 5 This 68-year-old male with type 2 diabetes, blood pressure and cholesterol presents the ER complaining of chest pain, nausea and diaphoresis steadily getting worse since 3 PM this afternoon that started while driving. No prior heart attack. Last cath was in [address] Chiu. Patient denies fever, chills, back pain, abdominal pain, numbness, tingling, localized weakness. Patient is extremely diaphoretic upon my initial evaluation. I immediately asked the nurse to repeat the EKG. Home Medications Medication Instructions Recorded Confirmed Type idxetlx-[id number]-[id number] 250 2 tab PO Q6H PRN pain #60 tabs 03/24/19 09/29/23 Rx mg-250 mg-65 mg tablet (Excedrin Migraine) cyanocobalamin (vitamin B-12) 2,000 mcg PO QAM 03/24/19 09/29/23 History 1,000 mcg tablet (Vitamin B-12) fluoxetine 20 mg capsule 20 mg PO QAM 03/24/19 09/29/23 History multivitamin 1 cap PO QAM 03/24/19 09/29/23 History aspirin 81 mg tablet,delayed 81 mg PO BID 01/24/20 09/29/23 History release elderberry fruit 200 mg capsule 200 mg PO QAM 01/24/20 09/29/23 History FreeStyle Johnny 14 Day Sensor #2 ea 12/26/20 09/29/23 Rx (flash glucose sensor) topiramate 25 mg tablet 25 mg PO BID 04/24/21 09/29/23 History nitroglycerin 0.4 mg sublingual 0.4 mg sublingual Q5M PRN chest 04/25/21 09/29/23 Rx tablet pain #10 tabs ascorbate calcium (vitamin C) 500 1 g PO QAM 05/31/21 09/29/23 History mg tablet cholecalciferol (vitamin D3) 50 50 mcg PO QAM 05/31/21 09/29/23 History mcg (2,000 unit) capsule losartan 25 mg tablet 25 mg PO QAM 05/31/21 09/29/23 History zinc 50 mg tablet 50 mg PO QAM 05/31/21 09/29/23 History FreeStyle Johnny 14 Day [place] #1 ea 07/24/21 09/29/23 Rx (flash glucose scanning reader) glucosamine-chondroitin 250 mg-200 2 tab PO QAM 12/19/21 09/29/23 History mg tablet (Osteo Bi-Flex) ibuprofen 200 mg tablet (Advil) 400 mg PO Q6 PRN Pain 12/19/21 09/29/23 History benzonatate 100 mg capsule 100 mg PO UD PRN Cough 10/28/22 09/29/23 History empagliflozin 10 mg tablet 10 mg PO QAM #90 tabs 01/30/23 09/29/23 Rx (Jardiance) atorvastatin 40 mg tablet 40 mg PO HS 30 days #90 tabs 06/05/23 09/29/23 Rx metformin 1,000 mg tablet 1,000 mg PO BID 90 days #180 tabs 09/29/23 09/29/23 Rx insulin aspart U-100 100 unit/mL See Rx Instructions .Route 10/23/23 Rx subcutaneous solution (Novolog .COMPLEX #90 mL U-100 Insulin aspart) Allergies Allergy/AdvReac Type Severity Reaction Status Date / Time bee venom protein (honey bee) Allergy Unknown ANY KIND Verified 09/29/23 09:50 OF BEEES - SWELLING,SOB Penicillins Allergy Unknown UNKNOWN/told Verified 09/29/23 09:50 as a kid Past Med/Surg History Medical History History of COVID-12 OCT 2020 - SOB LINGERS SINCE ONLY ON EXERTION Migraines History of pancreatitis Ankle arthritis Arm paresthesia, left Depression HX Rib fractures (~2013) Glenoid fracture of shoulder (~2013) Surgical History History of left cataract surgery History of cardiac cath 3-4 YR AGO/HX C/P (SUSPECTED [place]) ....CATH...NO STENT(S)...NO FINDINGS ([facility]) History of total left hip arthroplasty History of total right hip replacement History of shoulder surgery LEFT / DECEMBER 2021 History of endoscopy History of colonoscopy History of carpal tunnel release of both wrists Hx of shoulder surgery RIGHT Bilateral inguinal hernia repaired History of appendectomy History of cholecystectomy Family History Mother Cancer Father Heart disease Colorectal cancer Stroke Grandmother (Paternal) Family history of diabetes mellitus Grandfather (Maternal) Family history of diabetes mellitus Social History Smoking Status: Former smoker Tobacco Type: Cigarettes Cigarettes Per Day: 2-3 packs per day; Smoking End Date: 1996; Second Hand Exposure: No; Do You Dip or Chew Tobacco: No; Hx Alcohol Use: No Hx Substance Use: No Preferred Language: Luxembourger Communication Ability: Effective Salon Assistant Required: No Beliefs That Will Affect Care: None marital status: Current Living Situation: Spouse Current Living Situation Comment: with , Cassandra Feels Safe at Home: Yes Safety Concerns: Feels Safe At This Time Assistive Devices: Glasses Review of Systems A total of 10 systems reviewed and were otherwise negative Physical Exam Vital Signs Vital Signs - 24 hr 11/21/23 21:12 11/21/23 21:43 11/21/23 21:56 Temperature 36.5 C Temperature Source Oral Pulse Rate 93 H 75 98 H Respiratory Rate 18 Respiratory Effort / Characteristics Respiratory Depth Blood Pressure 182/91 H 188/97 H Blood Pressure [Right Arm] Blood Pressure Mean 121 Blood Pressure Mean [Right Arm] Pulse Oximetry 97 Oxygen Delivery Method Room Air Sepsis Recent Fever Within 48 Hours No Sepsis New/Unexplained Change in Mental Status No Sepsis Action Taken by Nursing No Action Required 11/21/23 21:57 11/21/23 21:58 Temperature Temperature Source Pulse Rate Respiratory Rate 16 Respiratory Effort / Characteristics Non-Labored Spontaneous Respiratory Depth Normal Blood Pressure Blood Pressure [Right Arm] 165/85 H Blood Pressure Mean Blood Pressure Mean [Right Arm] 111 Pulse Oximetry 96 96 Oxygen Delivery Method Room Air Room Air Sepsis Recent Fever Within 48 Hours Sepsis New/Unexplained Change in Mental Status Sepsis Action Taken by Nursing VITALS: Vitals are noted on the nurse's note and reviewed by myself. Vital signs stable. GENERAL: Pleasant gentleman diaphoretic with family present, in no acute distress, nondiaphoretic, well-developed well-nourished. SKIN: Capillary reflex less than 2 seconds. HEENT: Normocephalic. PERRLA. EOMI. Nares patent. Mucous membranes moist. Neck is supple without nuchal rigidity. HEART: Regular rate and rhythm LUNGS: Clear to auscultation bilaterally without wheezes, rales or rhonchi. No retractions or accessory muscle use. ABDOMEN: Positive bowel sounds x 4. Normal tympanic percussion. Soft, nontender, without masses or organomegaly. Berman sign negative. No guarding or rebound tenderness. no CVA tenderness MUSCULOSKELETAL: No gross musculoskeletal defects. NEURO: Patient was alert and oriented to person place and time. No focal neurological deficits. Course Administered Medications Magnesium Sulfate/Dextrose (Magnesium Sulfate / D5w) 1 gm in 100 mls @ 50 mls/hr IV Q2H CHELE Stop: 11/22/23 03:44 Last Admin: 11/22/23 01:39 Dose: 50 mls/hr Documented By: Infusion: 11/22/23 01:39 Dose: Infused Documented By: Admin: 11/21/23 23:58 Dose: 50 mls/hr Documented By: ANTONIO Discontinued Medications Aspirin (Aspirin Chew 324 Mg) 324 mg PO NOW STA Stop: 11/21/23 21:39 Last Admin: 11/21/23 22:06 Dose: 324 mg Documented By: ADRIEN Clopidogrel Bisulfate (Clopidogrel Bisulfate 300 Mg Tab) Confirm Administered Dose 600 mg .ROUTE .STK-MED ONE Stop: 11/21/23 22:53 Last Admin: 11/21/23 22:56 Dose: 600 mg Documented By: NONI Fentanyl Citrate (Fentanyl Citrate Pf 100 Mcg/2 Ml Vial) Confirm Administered Dose 100 mcg .ROUTE .STK-MED ONE Stop: 11/21/23 22:01 Last Increment: 11/21/23 22:55 Dose: 50 mcg Documented By: [facility] Heparin Sodium (Porcine) (Heparin (Porcine) 1000 Unit/Ml 10 Ml (Criminal Psychologist Use Only)) Confirm Administered Dose 10,000 units .ROUTE .STK-MED ONE Stop: 11/21/23 22:00 Last Admin: 11/21/23 22:55 Dose: 6,000 units Documented By: [facility] Heparin Sodium (Porcine) (Heparin (Porcine) 1000 Unit/Ml 10 Ml (Criminal Psychologist Use Only)) 5,000 units IV ONE ONE Stop: 11/21/23 22:02 Last Admin: 11/21/23 23:43 Dose: Not Given Documented By: ANTONIO Heparin Sodium (Porcine) (Heparin Sod (Porcine) 1000 Unit/Ml) Confirm Administered Dose 1,000 units .ROUTE .STK-MED ONE Stop: 11/21/23 22:03 Last Admin: 11/21/23 22:07 Dose: 5,000 units Documented By: ADRIEN Co-signed By: ELIZABETH Heparin Sodium (Porcine) (Heparin 100 Unit/Ml 5ml Flush) Confirm Administered Dose 5 ml .ROUTE .STK-MED ONE Stop: 11/21/23 22:03 Last Admin: 11/21/23 23:43 Dose: Not Given Documented By: ANTONIO Heparin Sodium/Sodium Chloride (Heparin In Nss Infusion 1000 Unit/500 Ml (2 U/Ml) Bag) Confirm Administered Dose 3,000 units IV .STK-MED ONE Stop: 11/21/23 22:01 Last Admin: 11/21/23 22:55 Dose: 3,000 units Documented By: NONI Sodium Chloride (Nss) 500 mls @ 100 mls/hr IV .Q5H CHELE Stop: 12/21/23 22:14 Last Infusion: 11/21/23 23:57 Dose: Infused Documented By: Admin: 11/21/23 22:09 Dose: 100 mls/hr Documented By: ADRIEN Ioversol (Optiray 350) Confirm Administered Dose 1 ml .ROUTE .STK-MED ONE Stop: 11/21/23 22:01 Last Admin: 11/21/23 22:55 Dose: 210 ml Documented By: NONI Metoprolol Tartrate (Metoprolol Tartrate 1 Mg/Ml Vial) 5 mg IV NOW STA Stop: 11/21/23 21:55 Last Admin: 11/21/23 21:56 Dose: 5 mg Documented By: ELIZABETH Metoprolol Tartrate (Metoprolol Tartrate 1 Mg/Ml Vial) Confirm Administered Dose 5 mg IV .STK-MED ONE Stop: 11/21/23 21:56 Last Admin: 11/21/23 21:56 Dose: Not Given Documented By: ELIZABETH Metoprolol Tartrate (Metoprolol Tartrate 1 Mg/Ml Vial) 5 mg IV NOW STA Stop: 11/21/23 22:00 Last Admin: 11/21/23 22:13 Dose: Not Given Documented By: ELIZABETH Midazolam HCl (Midazolam Hcl 1 Mg/Ml 2ml Vial) Confirm Administered Dose 2 mg .ROUTE .STK-MED ONE Stop: 11/21/23 22:00 Last Admin: 11/21/23 22:55 Dose: Not Given Documented By: [facility] Midazolam HCl (Midazolam Hcl 1 Mg/Ml 2ml Vial) Confirm Administered Dose 2 mg .ROUTE .STK-MED ONE Stop: 11/21/23 22:20 Last Admin: 11/21/23 22:56 Dose: 2 mg Documented By: [facility] Nicardipine HCl (Nicardipine Hcl Inj 2.5 Mg/Ml 10 Ml Amp) Confirm Administered Dose 25 mg .ROUTE .STK-MED ONE Stop: 11/21/23 22:01 Last Admin: 11/21/23 22:56 Dose: 25 mg Documented By: [facility] Nitroglycerin (Nitroglycerin Sl 0.4 Mg/Tab Tab) 0.4 mg SL NOW STA Stop: 11/21/23 21:39 Last Admin: 11/21/23 22:07 Dose: Not Given Documented By: [facility] Nitroglycerin (Nitroglycerin 2% Ointment 30gm Tube) Confirm Administered Dose 18 inch EXT .STK-MED ONE Stop: 11/21/23 21:59 Last Admin: 11/21/23 23:43 Dose: Not Given Documented By: [facility] Nitroglycerin (Nitroglycerin 2% Ointment 30gm Tube) 1 inch EXT NOW STA Stop: 11/21/23 22:00 Last Admin: 11/21/23 22:07 Dose: 1 inch Documented By: [facility] Nitroglycerin/Dextrose (Nitroglycerin/D5w 100mcg/Ml 20ml Syr) Confirm Administered Dose 2,000 mcg .ROUTE .STK-MED ONE Stop: 11/21/23 22:01 Last Admin: 11/21/23 22:56 Dose: 2,000 mcg Documented By: [facility] Critical Care Time Critical Care Time: Yes Total Critical Care Time: 35 I have personally spent 35 minutes of critical care time in the direct management of this patient. This includes bedside care, interpretation of diagnostic studies, and testing, discussion with consultants, patient, and family members, and other required patient management activities. This 35 minutes is in excess of all separately billable procedures. Medical Decision Making Medical Records Attestation: I reviewed the patient's medical records. Home Medications Current Medication List: was personally reviewed by ut Laboratory Data Attestation: I reviewed the patient's lab results. 11/21/23 21:28 11/21/23 21:28 Lab Results 11/21/23 11/21/23 Range/Units 21:28 21:53 WBC 6.56 (4.8-10.8) K/ul RBC 5.22 (4.70-6.10) M/uL Hgb 15.0 (14.0-18.0) g/dl POC Hgb 14.6 (14.0-18.0) g/dl Hct 44.0 (42.0-52.0) % POC Hct 43 (42-52) % MCV 84.3 (80.0-100.0) fL MCH 28.7 (25.0-34.0) pg MCHC 34.1 (32.0-36.0) g/dL RDW Std Deviation 44.6 (36.4-46.3) fL RDW Coeff of Juan A 14.8 H (11.5-14.5) % Plt Count 243 (130-400) K/uL MPV 9.0 L (9.4-12.4) fL Immature Gran % (Auto) 0.3 % Neut % (Auto) 65.9 % Lymph % (Auto) 24.4 % Ford % (Auto) 6.9 % Eos % (Auto) 2.0 % Baso % (Auto) 0.5 % Neut # (Auto) 4.33 (1.40-6.50) K/uL Lymph # (Auto) 1.60 (1.20-3.40) K/uL Ford # (Auto) 0.45 (0.11-0.59) K/uL Eos # (Auto) 0.13 (0.00-0.50) K/uL Baso # (Auto) 0.03 (0.00-0.20) K/uL Immature Gran # (Auto) 0.02 (0.01-0.20) K/uL PT 11.0 (9.0-12.0) Seconds INR 1.0 (0.9-1.1) APTT 30 (21-31) Seconds PTT Ratio 1.1 POC Sodium 139 (135-144) mmol/L Sodium 137 (136-145) mmol/L POC Potassium 4.2 (3.3-5.0) mmol/L Potassium 4.1 (3.5-5.1) mmol/L POC Chloride 102 (101-112) mmol/L Chloride 104 (98-107) mmol/L Carbon Dioxide 24 (21-32) mmol/L POC Total CO2 24 (24-31) mmol/L Anion Gap 9 (3-11) POC Anion Gap 18.0 (16-25) mmol/L POC BUN 21 H (7-18) mg/dl BUN 21 (6-23) mg/dl Creatinine 1.11 (0.6-1.4) mg/dl POC Creatinine 1.2 (0.6-1.3) mg/dl Est Cr Clr Drug Dosing 85.9 ml/min Est GFR ( Amer) 79.2 ml/min Est GFR (Non-Af Amer) 68.3 ml/min BUN/Creatinine Ratio 18.9 (10-20) Glucose 215 H (70-99(Fasting)) mg/dl POC Glucose (other) 216 H (70-99) mg/dl Calcium 9.5 (8.6-10.3) mg/dl POC Ioniz Calcium Heidy 1.19 (1.12-1.32) mmol/l Magnesium 1.7 (1.7-2.4) mg/dl Total Bilirubin 1.2 H (0.2-1.0) mg/dl AST 18 (13-39) U/L ALT 20 (7-52) U/L Alkaline Phosphatase 122 H (34-104) U/L Troponin I High Sens 89.5 H* (0-20) pg/ml Total Protein 7.7 (6.0-8.3) gm/dl Albumin 4.5 (3.4-5.0) gm/dl Globulin 3.2 (2.5-4.0) gm/dl Albumin/Globulin Ratio 1.4 (0.9-2) Lipase 45 (11-82) U/L Imaging Data Attestation: I personally reviewed and interpreted this imaging study as follows: Radiologist's Impression: Chest X-Ray 11/21/23 21:17 SINGLE VIEW CHEST CLINICAL HISTORY: Atypical chest pain. FINDINGS: An AP, portable, upright chest radiograph is compared to study dated 03/13/2022. A cardiac pad is in place. The heart appears enlarged. There is pulmonary vascular congestion with mild interstitial edema. Scarring/atelectasis is noted lung bases. No airspace consolidation or large pleural effusion is identified. No pneumothorax is seen. There are chronic/healed left-sided rib fractures. IMPRESSION: Mild cardiomegaly with evidence of congestive failure. Radiographic follow-up to resolution is recommended ACT 112: Negative or not required by law. Electronically signed by: Mando Gomez M.D. 11/21/2023 10:10 PM MDM Narrative Prior records/ancillary studies reviewed. Triage Nursing notes reviewed. Additional history obtained from family. The patient's history was concerning for chest pain. Differential diagnosis: Etiologies such as cardiac ischemia, aortic dissection, pulmonary embolism, pneumonia, pneumothorax, musculoskeletal, infections, pericarditis, myocarditis, esophageal rupture, gastrointestinal, as well as others were entertained. Physical examination: As above. ER treatment provided: An order was placed for continuous cardiac monitoring. The monitor shows a rate of 60-100 with a sinus rhythm per my interpretation. I immediately asked the nurse to do a repeat EKG I then immediately called a heart alert Patient was given aspirin, Lopressor, Nitropaste and maintenance fluids were initiated I spoke to the cardiology interventionalist and he took the patient to the Criminal Psychologist. Limited bedside ultrasound shows no pericardial effusion per my independent interpretation On reassessment the patient felt better. Diagnostic interpretation by me: #1 the electrocardiogram was ordered for chest pain EKG: Normal sinus, minimal ST depression in the lateral leads, normal intervals. Impression normal sinus rhythm with minimal ST depression lateral leads independently interpreted by myself I think arrhythmia is unlikely. EKG shows normal sinus rhythm with no interval abnormalities such as QT prolongation or WPW. There are no findings to suggest Brugada syndrome. Cardiac monitoring in the emergency department reveals no tachycardic or bradycardic dysrhythmia. Hypertrophic cardiomyopathy was considered but there are no clear historical elements pointing toward this. EKG is not suggestive. The QRS voltage is not extremely large and there are no suggestive Q waves. #2 EKG ordered for worsening chest pain and diaphoresis EKG: Normal sinus, ST elevation in aVR, diffuse ST depression throughout. Rate of 72. Impression acute TX per my independent interpretation The labs Independently Interpreted by myself revealed elevated troponin Stable H&H, mild hyperglycemia without DKA Imaging studies: Chest x-ray mild congestive heart failure per my independent interpretation. No free air HEART SCORE: Hx: high/mod/low suspicion: 2 ECG: ST depression/nonspecific changes/normal: 2 Age: Greater than 65/45-64/less than 45: 2 Risk factors: (Hypertension, hyperlipidemia, diabetes, coronary disease, tobacco use, cocaine use): 2 Troponin: Greater than 2 times normal limits/1-2 times normal limits/normal: 2 Total: 8 Consultation: A consultation was placed with Dr Low. The case was discussed and diagnostics were reviewed. The patient was emergently taken to the Criminal Psychologist Exam and history seem consistent with STEMI. Heart alert was immediately initiated. Initial EKG was slightly concerning for possible developing TX and repeat was concerning for possible LAD lesion. Patient was placed on pads. He was given aspirin, nitroglycerin paste, Lopressor and IV fluids. Attending is made only aware. He was reassessed multiple times. 2 lines were placed. Patient was agreeable treatment plan of going to the Criminal Psychologist with cardiology. Patient was consented and taken to the Criminal Psychologist. By the evaluation outlined above emergent etiologies such as aortic dissection, pulmonary embolism, pneumonia, pneumothorax, infections, pericarditis, myocarditis, gastrointestinal, as well as others were deemed relatively unlikely. The pt informed about the findings as listed above. All questions were answered and pleased with the treatment. The chart was completed utilizing [employer] Speech voice recognition software. Grammatical errors, random word insertions, pronoun errors, and incomplete sentences are an occassional consequence of this system due to software limitations, ambient noise, and hardware issues. Any formal questions or concerns about the content, text, or information contained within the body of this dictation should be directly addressed to the physician production assistant for clarification. Impression & Plan ST elevation myocardial infarction (STEMI) Discharge Plan Visit Data Chief Complaint: Chest Pain Stated Complaint: CHEST PRESSURE/TIGHNESS ED Provider: Aime Javier ED Midlevel Provider: Nettie Hassan Discharge Problem: ST elevation myocardial infarction (STEMI) Patient Disposition: Admitted As Inpatient Condition: Good Discharge Instructions Interventions: ED Discharge Assessment Last Done: 11/21/23 22:09 Discharge Problem: ST elevation myocardial infarction (STEMI) Qualifiers: Involved coronary artery: unspecified coronary artery Qualified Code(s): I21.3 - ST elevation (STEMI) myocardial infarction of unspecified site
[2023-11-21 22:28] LABS: Partial Thromboplastin Ratio 1.1; Partial Thromboplastin Time 30 Seconds (21-31)
[2023-11-21] MEDS: fentaNYL citrate PF 100 MCG/2 ML VIAL ONE (22:55)
[2023-11-21] MEDS: HEPARIN (PORCINE) 1000 UNIT/ML 10 ML (CATH LAB USE ONLY) ONE (22:55)
[2023-11-21] MEDS ORDERED: DEXTROSE 50% 50 ML SYRINGE IV PRN (22:55)
[2023-11-21] MEDS ORDERED: GLUCOSE 10 TAB/TUBE PO PRN (22:55)
[2023-11-21] MEDS ORDERED: GLUCOSE 40% GEL 15 GM TUBE PO PRN (22:55)
[2023-11-21] MEDS ORDERED: GLUCAGON FOR INJ 1 MG VIAL SQ PRN (22:55)
[2023-11-21] MEDS: MIDAZOLAM HCL 1 MG/ML 2ML VIAL ONE ×2 (22:55→22:56)
[2023-11-21] MEDS ORDERED: CARBOHYDRATES FOR HYPOGLYCEMIA PO PRN (22:55)
[2023-11-21] MEDS: OPTIRAY 350 ONE (22:55)
[2023-11-21] MEDS: niCARdipine HCL INJ 2.5 MG/ML 10 ML AMP ONE (22:56)
[2023-11-21] MEDS: NITROGLYCERIN/D5W 100MCG/ML 20ML SYR ONE (22:56)
[2023-11-21] MEDS: CLOPIDOGREL BISULFATE 300 MG TAB ONE (22:56)
--- NOTE | 2023-11-21 23:00 | History & Physical Report ---
Date of Service November 21, 2023 Assessment & Plan (1) Stented coronary artery: (2) ACS (acute coronary syndrome): (3) CKD (chronic kidney disease), stage III: (4) Diabetic peripheral neuropathy associated with type 2 diabetes mellitus: (5) Type 2 diabetes mellitus with complications: (6) Dyslipidemia: (7) Hypertension: (8) Hypomagnesemia: (9) Coronary artery disease: Plan Acute coronary syndrome/NSTEMI/emergent cardiac catheterization with placement of coronary stent- Status post placement of 1 stent in the ramus Patient admitted to the ICU for post NM care, for serial cardiac enzymes, serial EKG's, cardiac rhythm monitoring and a 2-D echocardiogram with Dopplers. Received loading dose of Plavix and aspirin while in the ED Continuing Plavix 75 mg every morning and aspirin 81 mg every morning, previously having been on aspirin 81 mg twice daily Received Lopressor 5 mg IV in the ED Place on metoprolol tartrate 25 mg p.o. twice daily starting in the a.m. Hyperlipidemia- Increase atorvastatin from 40 to 80 mg daily Check a fasting lipid panel Diabetes mellitus- For now hold metformin and Jardiance Patient will use his own insulin pump for coverage, and notify nursing of insulin administered Anxiety- Continue fluoxetine History of Present Illness Chief Complaint: The patient presents to the emergency department with complaint of chest and right arm pain, nausea and sweats that began around 3:00 in the afternoon initially began while driving his car. When his symptoms persisted, he had a family member drive him to the emergency department for assessment Primary Care Provider: Evan Zapata DO The patient is a 68-year-old male with past medical history including coronary artery disease, peripheral neuropathy, CKD stage III, history of diabetic foot ulcer, diabetes mellitus type 2, dyslipidemia, anemia, hypertension and obesity. 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 With the persistence of the discomfort, he had to member drive him to the emergency department for assessment. In the emergency department, he had a worsening episode of chest discomfort and sweats, and was noted to have diffuse ST depressions across across the precordial chest leads. A heart alert was called, the patient was taken emergently to the cardiac catheterization lab by Dr. Low, a stent was placed in the ramus, and he was then admitted to the ICU for post NM care Allergies Allergy/AdvReac Type Severity Reaction Status Date / Time bee venom protein (honey bee) Allergy Unknown ANY KIND Verified 09/29/23 09:50 OF BEEES - SWELLING,SOB Penicillins Allergy Unknown UNKNOWN/told Verified 09/29/23 09:50 as a kid Home Medications Medication Instructions Recorded Confirmed Type fyfyvht-ixlkwzxgnlfgj-gigwfpln 250 2 tab PO Q6H PRN pain #60 tabs 03/24/19 09/29/23 Rx mg-250 mg-65 mg tablet (Excedrin Migraine) cyanocobalamin (vitamin B-12) 2,000 mcg PO QAM 03/24/19 09/29/23 History 1,000 mcg tablet (Vitamin B-12) fluoxetine 20 mg capsule 20 mg PO QAM 03/24/19 09/29/23 History multivitamin 1 cap PO QAM 03/24/19 09/29/23 History aspirin 81 mg tablet,delayed 81 mg PO BID 01/24/20 09/29/23 History release elderberry fruit 200 mg capsule 200 mg PO QAM 01/24/20 09/29/23 History FreeStyle Johnny 14 Day Sensor #2 ea 12/26/20 09/29/23 Rx (flash glucose sensor) topiramate 25 mg tablet 25 mg PO BID 04/24/21 09/29/23 History nitroglycerin 0.4 mg sublingual 0.4 mg sublingual Q5M PRN chest 04/25/21 09/29/23 Rx tablet pain #10 tabs ascorbate calcium (vitamin C) 500 1 g PO QAM 05/31/21 09/29/23 History mg tablet cholecalciferol (vitamin D3) 50 50 mcg PO QAM 05/31/21 09/29/23 History mcg (2,000 unit) capsule losartan 25 mg tablet 25 mg PO QAM 05/31/21 09/29/23 History zinc 50 mg tablet 50 mg PO QAM 05/31/21 09/29/23 History FreeStyle Johnny 14 Day [place] #1 ea 07/24/21 09/29/23 Rx (flash glucose scanning reader) glucosamine-chondroitin 250 mg-200 2 tab PO QAM 12/19/21 09/29/23 History mg tablet (Osteo Bi-Flex) ibuprofen 200 mg tablet (Advil) 400 mg PO Q6 PRN Pain 12/19/21 09/29/23 History benzonatate 100 mg capsule 100 mg PO UD PRN Cough 10/28/22 09/29/23 History empagliflozin 10 mg tablet 10 mg PO QAM #90 tabs 01/30/23 09/29/23 Rx (Jardiance) atorvastatin 40 mg tablet 40 mg PO HS 30 days #90 tabs 06/05/23 09/29/23 Rx metformin 1,000 mg tablet 1,000 mg PO BID 90 days #180 tabs 09/29/23 09/29/23 Rx insulin aspart U-100 100 unit/mL See Rx Instructions .Route 10/23/23 Rx subcutaneous solution (Novolog .COMPLEX #90 mL U-100 Insulin aspart) Past Med/Surg History Medical History History of COVID-12 OCT 2020 - SOB LINGERS SINCE ONLY ON EXERTION Migraines History of pancreatitis Ankle arthritis Arm paresthesia, left Depression HX Rib fractures (~2013) Glenoid fracture of shoulder (~2013) Surgical History History of left cataract surgery History of cardiac cath 3-4 YR AGO/HX C/P (SUSPECTED NM) ....CATH...NO STENT(S)...NO FINDINGS ([facility]) History of total left hip arthroplasty History of total right hip replacement History of shoulder surgery LEFT / DECEMBER 2021 History of endoscopy History of colonoscopy History of carpal tunnel release of both wrists Hx of shoulder surgery RIGHT Bilateral inguinal hernia repaired History of appendectomy History of cholecystectomy Family History Mother Cancer Father Heart disease Colorectal cancer Stroke Grandmother (Paternal) Family history of diabetes mellitus Grandfather (Maternal) Family history of diabetes mellitus Social History Smoking Status: Former smoker Tobacco Type: Cigarettes Cigarettes Per Day: 2-3 packs per day; Smoking End Date: 1996; Second Hand Exposure: No; Do You Dip or Chew Tobacco: No; Hx Alcohol Use: No Hx Substance Use: No Preferred Language: Citizen Of [place] Communication Ability: Effective [employer] Required: No Beliefs That Will Affect Care: None marital status: Current Living Situation: Spouse Current Living Situation Comment: with , Cassandra Feels Safe at Home: Yes Safety Concerns: Feels Safe At This Time Assistive Devices: Glasses Review of Systems Review of Systems: The patient denies palpitations, cough, lower extremity swelling, sore throat, fevers, chills, nausea, vomiting, diarrhea , constipation, abdominal pain, pelvic pain, blood in urine or stool, dysuria, urinary frequency or urgency, lightheadedness, dizziness, headache, memory loss, loss of consciousness, rash, abnormal bruising or bleeding, imbalance, focal or generalized weakness, numbness or tingling in arms or legs, generalized arthralgias or myalgias, back or neck pain, or night sweats. The review of systems is otherwise negative other than for that already noted above, and at least 10 systems have been reviewed. Physical Exam Physical Exam: The patient is awake, alert and oriented 3, well developed and well nourished, normocephalic and atraumatic, lying in bed and in no acute distress. HEENT--PERRL, EOMI, mucous membranes and oropharynx normal. Neck--supple. No JVD. No bruits. Thyroid normal, trachea midline, no adenopathy. Heart--normal S1 and S2. No murmurs, rubs or gallops. Lungs--clear bilaterally, no respiratory distress, no accessory muscle use. Abdomen--normal bowel sounds and soft. Nontender. Nondistended. Obese Extremities--No edema. There are good distal pulses b/l. Dermatologic--normal skin turgor, normal color, no abnormal lymph nodes, no rash. Neurologic--cranial nerves II through XII grossly intact. Rheumatologic--normal range of motion. Psychiatric--normal affect. Results & Data Results & Data Vital Signs (Past 12 Hours) Vital Signs Temp Pulse Resp BP BP Pulse Ox O2 Del Method 11/21/23 21:58 96 Room Air 11/21/23 21:57 16 165/85 H 96 Room Air 11/21/23 21:56 98 H 188/97 H 11/21/23 21:12 36.5 C 93 H 18 182/91 H 97 Room Air Laboratory Results Laboratory Results WBC 6.56 K/ul (4.8-10.8) 11/21/23 21:28 RBC 5.22 M/uL (4.70-6.10) 11/21/23 21: Hgb 15.0 g/dl (14.0-18.0) 11/21/23 21: POC Hgb 14.6 g/dl (14.0-18.0) 11/21/23 21:53 Hct 44.0 % (42.0-52.0) 11/21/23 21: POC Hct 43 % (42-52) 11/21/23 21:53 MCV 84.3 fL (80.0-100.0) 11/21/23 21: MCH 28.7 pg (25.0-34.0) 11/21/23: MCHC 34.1 g/dL (32.0-36.0) 11/21/23: RDW Std Deviation 44.6 fL (36.4-46.3) 11/21/23: RDW Coeff of Juan A 14.8 % (11.5-14.5) H 11/21/23: Plt Count 243 K/uL (130-400) 11/21/23 21: MPV 9.0 fL (9.4-12.4) L 11/21/23: Immature Gran % (Auto) 0.3 % 11/21/23: Neut % (Auto) 65.9 % 11/21/23: Lymph % (Auto) 24.4 % 11/21/23: [place] % (Auto) 6.9 % 11/21/23: Eos % (Auto) 2.0 % 11/21/23 21: Baso % (Auto) 0.5 % 11/21/23: Neut # (Auto) 4.33 K/uL (1.40-6.50) 11/21/23: Lymph # (Auto) 1.60 K/uL (1.20-3.40) 11/21/23: [place] # (Auto) 0.45 K/uL (0.11-0.59) 11/21/23: Eos # (Auto) 0.13 K/uL (0.00-0.50) 11/21/23:28 Baso # (Auto) 0.03 K/uL (0.00-0.20) 11/21/23 21:28 Immature Gran # (Auto) 0.02 K/uL (0.01-0.20) 11/21/23 21:28 PT 11.0 Seconds (9.0-12.0) 11/21/23 21:28 INR 1.0 (0.9-1.1) 11/21/23 21:28 APTT 30 Seconds (21-31) 11/21/23 21: PTT Ratio 1.1 11/21/23 21:28 Activ Coag Time Kaolin 288 SECONDS (94-140) H 11/21/23 22:49 POC Sodium 139 mmol/L (135-144) 11/21/23 21:53 Sodium 137 mmol/L (136-145) 11/21/23 21:28 POC Potassium 4.2 mmol/L (3.3-5.0) 11/21/23 21:53 Potassium 4.1 mmol/L (3.5-5.1) 11/21/23 21:28 POC Chloride 102 mmol/L (101-112) 11/21/23 21:53 Chloride 104 mmol/L (98-107) 11/21/23 21:28 Carbon Dioxide 24 mmol/L (21-32) 11/21/23 21: POC Total CO2 24 mmol/L (24-31) 11/21/23 21:53 Anion Gap 9 (3-11) 11/21/23 21:28 POC Anion Gap 18.0 mmol/L (16-25) 11/21/23 21:53 POC BUN 21 mg/dl (7-18) H 11/21/23 21:53 BUN 21 mg/dl (6-23) 11/21/23 21:28 Creatinine 1.11 mg/dl (0.6-1.4) 11/21/23 21: POC Creatinine 1.2 mg/dl (0.6-1.3) 11/21/23 21:53 Est Cr Clr Drug Dosing 85.9 ml/min 11/21/23 21:28 Est GFR ( Amer) 79.2 ml/min 11/21/23 21:28 Est GFR (Non-Af Amer) 68.3 ml/min 11/21/23 21:28 BUN/Creatinine Ratio 18.9 (10-20) 11/21/23 21:28 Glucose 215 mg/dl (70-99(Fasting)) H 11/21/23 21:28 POC Glucose 172 mg/dl (70-99) H 11/21/23 23:11 POC Glucose (other) 216 mg/dl (70-99) H 11/21/23 21:53 Calcium 9.5 mg/dl (8.6-10.3) 11/21/23 21:28 POC Ioniz Calcium [place]idy 1.19 mmol/l (1.12-1.32) 11/21/23 21:53 Magnesium 1.7 mg/dl (1.7-2.4) 11/21/23 21:28 Total Bilirubin 1.2 mg/dl (0.2-1.0) H 11/21/23 21:28 AST 18 U/L (13-39) 11/21/23 21:28 ALT 20 U/L (7-52) 11/21/23 21:28 Alkaline Phosphatase 122 U/L (34-104) H 11/21/23 21:28 Troponin I High Sens 89.5 pg/ml (0-20) H* 11/21/23 21:28 Total Protein 7.7 gm/dl (6.0-8.3) 11/21/23 21:28 Albumin 4.5 gm/dl (3.4-5.0) 11/21/23 21:28 Globulin 3.2 gm/dl (2.5-4.0) 11/21/23 21:28 Albumin/Globulin Ratio 1.4 (0.9-2) 11/21/23 21:28 Lipase 45 U/L (11-82) 11/21/23 21:28 Nasal Screen MRSA (PCR) Negative (Negative) 11/22/23 00:00 Impressions Chest X-Ray 11/21/23 21:17 SINGLE VIEW CHEST CLINICAL HISTORY: Atypical chest pain. FINDINGS: An AP, portable, upright chest radiograph is compared to study dated 03/13/2022. A cardiac pad is in place. The heart appears enlarged. There is pulmonary vascular congestion with mild interstitial edema. Scarring/atelectasis is noted lung bases. No airspace consolidation or large pleural effusion is identified. No pneumothorax is seen. There are chronic/healed left-sided rib fractures. IMPRESSION: Mild cardiomegaly with evidence of congestive failure. Radiographic follow-up to resolution is recommended ACT 112: Negative or not required by law. Electronically signed by: Mando Gomez M.D. 11/21/2023 10:10 PM Code Status & VTE Plan Code Status Full code VTE Prophylaxis Plan VTE Prophylaxis will be ordered: Yes PG Care Time/CCT Total # of Minutes Spent Total Time Spent with Patient: Total time spent is greater than 50% in coordination of care (as documented) at patient's floor/unit and/or counseling patient: Coding Level of Care Code 66234 INT INP/OBS CARE 75MIN Diagnoses Stented coronary artery Z95.5 ACS (acute coronary syndrome) I24.9 CKD (chronic kidney disease), stage III N18.30 Diabetic peripheral neuropathy associated with type 2 diabetes mellitus E11.42 Type 2 diabetes mellitus with complications E11.8 Dyslipidemia E78.5 Hypertension I10 Hypomagnesemia E83.42 Coronary artery disease I25.10
[2023-11-21] MEDS ORDERED: NITROGLYCERIN SL 0.4 MG/TAB TAB SL PRN (23:01)
[2023-11-21] MEDS ORDERED: INSULIN ASPART 100 UNITS/ML VIAL SC PRN (23:29)
[2023-11-21] MEDS ORDERED: INSULIN, Rapid-Acting PUMP SC SCH (23:30)
[2023-11-21] MEDS: NITROGLYCERIN 2% OINTMENT 30GM TUBE EXT ONE (23:43)
[2023-11-21] MEDS: HEPARIN 100 UNIT/ML 5ML FLUSH ONE (23:43)
[2023-11-21] MEDS: HEPARIN (PORCINE) 1000 UNIT/ML 10 ML (CATH LAB USE ONLY) IV ONE (23:43)
[2023-11-21] MEDS: MAGNESIUM SULFATE / D5W 1 GM/100 ML BAG IV SCH (23:58)
--- NOTE | 2023-11-21 23:58 | Critical Care Consultation ---
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 To ICU post procedure, follow hemodynamics and symptomatology. Neuro - No acute needs CAM ICU: Negative Cardiac - CAD, ACS status post MARYANA to [place] coronary artery, HTN, HLD - Post stenting continue DAPT per cardiology - ASA/Plavix - further CAD per cardiology- final cath report pending - BB initiate Metoprolol 25 Tartrate as hemodynamics allow adjust therapy as warranted - MINI/ARB per ECHO results - High intensity statin ordered already by cardiology - HGBA1C/Lipid Panel in morning - STOP BANG- 6- HIGH RISK KALA- Recommend screening for KALA for risk modification - Trend HsCTNI until peak - Post PCI ECG with improvement Respiratory - NO acute needs - previous smoker- quit > 20 years ago GI - No acute needs - consider H2 ponce while on DAPT RENAL/LYTES - CKD III - Avoid further nephrotoxic medications as able if needed, minimize exposure time - replace magnesium - No acute needs - bladder scan as needed, straight cath if needed ENDO - DMII with insulin pump - Patient on Novolog insulin via pump- continue his pump, as this is patient preference and is stable at this time - Hold Jardiance- this was recently added - HGB A1c 7.4 - Goal BG <180mg/dl - Nursing to follow along blood glucoses and dosing per pump - If he will be here >48 hours will need refill or change to SSI HEME - No acute needs ID - No acute concern for infectious etiology at this time LINES/IV ACCESS - PIV Continue use of these lines DVT PROPHYLAXIS - SCDS, ASA/Plavix, ambulation DISPO: ICU until hemodyanmically proven stable and no further ECG changes or events. I have personally spent 45 minutes of critical care time in the direct management of this patient. This is a life/limb threatening event. This includes time spent evaluating patient, direct bedside care, chart review, placing orders, interpretation of diagnostic studies, discussion with consultants, patient, and family members, as well as other required patient management activities. This time is exclusive of all separately billable procedures, and separate from and in addition to any other critical care service time. Thank you for allowing us to participate in the care of this patient. Please refer to my attending physician's documentation for any further recommendations. History of Present Illness Reason for Consultation: s/p MARYANA to [facility] Requesting Physician: Rhys Gates MD Attending Physician: Rhys Gates MD History of Present Illness 68 YOM with medical history of: DM with insulin pump, obesity, CAD, HTN, HLD, CKD. Patient presents to the [facility] today for complaints of chest pressure and right arm pain. He was noted to have ST changes lateral depression and was taken urgently to the quality lab technician as a heart alert. He received MARYANA to the [facility]. Patient reports that symptoms started around 1530 11/21/23 as a pressure in his chest, this continued with some heaviness and pain in his right arm. He attributed this to his chronic shoulder problem as he is awaiting shoulder surgery ~ January 12, 2024. He made it to [place] where he lives and had late lunch, his chest pain started to get worse as well as his arm pain, this also started to involve his head. He had his brother drive him to [facility]. He presented to the EMD diaphoretic and Hypertensive. Initial ECG was without significant changes however as he continued with chest pain and ecg changes noted on bedside telemetry a repeat ECG was obtained and this was noted with ST depression in inferior and lateral leads. He received ASA/Metoprolol/NTG and heparin infusion and heart alert was called. He arrived to the ICU chest pain free, not on any vasoactive medications, awake and alert. He will remain in the ICU for continued following of hemodynamics, following of return of symptoms. Await labs in morning for further risk reduction adjustments as well as ECHO. CODE: FULL Allergies Allergy/AdvReac Type Severity Reaction Status Date / Time bee venom protein (honey bee) Allergy Unknown ANY KIND Verified 09/29/23 09:50 OF BEEES - SWELLING,SOB Penicillins Allergy Unknown UNKNOWN/told Verified 09/29/23 09:50 as a kid Home Medications Medication Instructions Recorded Confirmed Type uffeezz-rygzjahjrxhwx-sqrtlrzu 250 2 tab PO Q6H PRN pain #60 tabs 03/24/19 09/29/23 Rx mg-250 mg-65 mg tablet (Excedrin Migraine) cyanocobalamin (vitamin B-12) 2,000 mcg PO QAM 03/24/19 09/29/23 History 1,000 mcg tablet (Vitamin B-12) fluoxetine 20 mg capsule 20 mg PO QAM 03/24/19 09/29/23 History multivitamin 1 cap PO QAM 03/24/19 09/29/23 History aspirin 81 mg tablet,delayed 81 mg PO BID 01/24/20 09/29/23 History release elderberry fruit 200 mg capsule 200 mg PO QAM 01/24/20 09/29/23 History FreeStyle Johnny 14 Day Sensor #2 ea 12/26/20 09/29/23 Rx (flash glucose sensor) topiramate 25 mg tablet 25 mg PO BID 04/24/21 09/29/23 History nitroglycerin 0.4 mg sublingual 0.4 mg sublingual Q5M PRN chest 04/25/21 09/29/23 Rx tablet pain #10 tabs ascorbate calcium (vitamin C) 500 1 g PO QAM 05/31/21 09/29/23 History mg tablet cholecalciferol (vitamin D3) 50 50 mcg PO QAM 05/31/21 09/29/23 History mcg (2,000 unit) capsule losartan 25 mg tablet 25 mg PO QAM 05/31/21 09/29/23 History zinc 50 mg tablet 50 mg PO QAM 05/31/21 09/29/23 History FreeStyle Johnny 14 Day Crockett #1 ea 07/24/21 09/29/23 Rx (flash glucose scanning reader) glucosamine-chondroitin 250 mg-200 2 tab PO QAM 12/19/21 09/29/23 History mg tablet (Osteo Bi-Flex) ibuprofen 200 mg tablet (Advil) 400 mg PO Q6 PRN Pain 12/19/21 09/29/23 History benzonatate 100 mg capsule 100 mg PO UD PRN Cough 10/28/22 09/29/23 History empagliflozin 10 mg tablet 10 mg PO QAM #90 tabs 01/30/23 09/29/23 Rx (Jardiance) atorvastatin 40 mg tablet 40 mg PO HS 30 days #90 tabs 06/05/23 09/29/23 Rx metformin 1,000 mg tablet 1,000 mg PO BID 90 days #180 tabs 09/29/23 09/29/23 Rx insulin aspart U-100 100 unit/mL See Rx Instructions .Route 10/23/23 Rx subcutaneous solution (Novolog .COMPLEX #90 mL U-100 Insulin aspart) Patient History Medical History History of COVID-12 OCT 2020 - SOB LINGERS SINCE ONLY ON EXERTION Migraines History of pancreatitis Ankle arthritis Arm paresthesia, left Depression HX Rib fractures (~2013) Glenoid fracture of shoulder (~2013) Surgical History History of left cataract surgery History of cardiac cath 3-4 YR AGO/HX C/P (SUSPECTED [facility]) ....CATH...NO STENT(S)...NO FINDINGS ([facility]) History of total left hip arthroplasty History of total right hip replacement History of shoulder surgery LEFT / DECEMBER 2021 History of endoscopy History of colonoscopy History of carpal tunnel release of both wrists Hx of shoulder surgery RIGHT Bilateral inguinal hernia repaired History of appendectomy History of cholecystectomy Family History Mother Cancer Father Heart disease Colorectal cancer Stroke Grandmother (Paternal) Family history of diabetes mellitus Grandfather (Maternal) Family history of diabetes mellitus Social History Smoking Status: Former smoker Tobacco Type: Cigarettes Cigarettes Per Day: 2-3 packs per day; Smoking End Date: 1996; Second Hand Exposure: No; Do You Dip or Chew Tobacco: No; Hx Alcohol Use: No Hx Substance Use: No Preferred Language: Armenian Communication Ability: Effective Eyelet Row Marker Required: No Beliefs That Will Affect Care: None marital status: Current Living Situation: Spouse Current Living Situation Comment: with Cassandra Feels Safe at Home: Yes Safety Concerns: Feels Safe At This Time Assistive Devices: Glasses Review of Systems Review of Systems: REVIEW OF SYSTEMS: Constitutional: No fever, sweats or chills Eyes: No diplopia, no worsening or blurred vision ENT: normal hearing, no trouble swallowing Respiratory: No cough, sputum, dyspnea at rest or on exertion Cardiovascular: (+)chest pain- resolved, no tightness or palpitations Abdomen: No pain, nausea, vomiting, diarrhea or constipation Musculoskeletal: (+) chronic right shoulder joint pain, calf pain, swelling Neurologic: No weakness, numbness/tingling, or balance problems Psychiatric: No anxiety or depression Skin: No rash or itch Physical Exam Physical Exam: PHYSICAL EXAM: General: awake, alert, no apparent distress Head: Normocephalic, atraumatic ENT: PERRLA, EOMI, no pharyngeal exudate, mucous membranes moist Neuro: AAO x 3, speech clear and appropriate, strength intact bilaterally 5/5, sensation intact and equal all extremities and dermatomes, no pronator drift Chest: equal rise and fall of the chest, no accessory muscle use, no heaves or thrills, Clear to auscultation, on room air, Cardiac: Regular rate and rhythm, telemetry reviewed, skin warm dry, cap refill <3 seconds, peripheral pulses +2 no JVD, no murmur, no edema, right TR band in place with normal CV/NV status of right hand/fingers. GI: NABS x 4 quadrants, soft, nontender to palpation, no rebound, guarding or tenderness : Spontaneously voiding, no pain, no CVA tenderness, Extremities: Normal inspection, no peripheral edema or erythema, calfs nontender to palpation Psych: Normal mood and affect Skin: no rash or erythema Results & Data Results & Data Vital Signs (Past 12 Hours) Vital Signs Temp Pulse Resp BP BP Pulse Ox Pulse Ox 11/21/23 23:06 36.5 C 11/21/23 22:52 98 11/21/23 21:58 96 11/21/23 21:57 16 165/85 H 96 11/21/23 21:56 98 H 188/97 H 11/21/23 21:12 36.5 C 93 H 18 182/91 H 97 O2 Del Method O2 Del Method 11/21/23 23:06 11/21/23 22:52 Room Air 11/21/23 21:58 Room Air 11/21/23 21:57 Room Air 11/21/23 21:56 11/21/23 21:12 Room Air Laboratory Results Abnormal lab results 11/21/23 11/21/23 11/21/23 Range/Units 21:28 21:53 22:49 RDW Coeff of Juan A 14.8 H (11.5-14.5) % MPV 9.0 L (9.4-12.4) fL Activ Coag Time Kaolin 288 H (94-140) SECONDS POC BUN 21 H (7-18) mg/dl Glucose 215 H (70-99(Fasting)) mg/dl POC Glucose (70-99) mg/dl POC Glucose (other) 216 H (70-99) mg/dl Total Bilirubin 1.2 H (0.2-1.0) mg/dl Alkaline Phosphatase 122 H (34-104) U/L Troponin I High Sens 89.5 H* (0-20) pg/ml 11/21/23 Range/Units 23:11 RDW Coeff of Juan A (11.5-14.5) % MPV (9.4-12.4) fL Activ Coag Time Kaolin (94-140) SECONDS POC BUN (7-18) mg/dl Glucose (70-99(Fasting)) mg/dl POC Glucose 172 H (70-99) mg/dl POC Glucose (other) (70-99) mg/dl Total Bilirubin (0.2-1.0) mg/dl Alkaline Phosphatase (34-104) U/L Troponin I High Sens (0-20) pg/ml Diagnostic Findings Chest X-Ray 11/21/23 21:17 SINGLE VIEW CHEST CLINICAL HISTORY: Atypical chest pain. FINDINGS: An AP, portable, upright chest radiograph is compared to study dated 03/13/2022. A cardiac pad is in place. The heart appears enlarged. There is pulmonary vascular congestion with mild interstitial edema. Scarring/atelectasis is noted lung bases. No airspace consolidation or large pleural effusion is identified. No pneumothorax is seen. There are chronic/healed left-sided rib fractures. IMPRESSION: Mild cardiomegaly with evidence of congestive failure. Radiographic follow-up to resolution is recommended ACT 112: Negative or not required by law. Electronically signed by: Mando Gomez M.D. 11/21/2023 10:10 PM Medications Administered Home Medications jjrmeyx-fszwnjprqchna-jyrsurka 250 mg-250 mg-65 mg tablet (Excedrin Migraine) 2 tab PO Q6H PRN pain #60 tabs 03/24/19 [Rx Confirmed 09/29/23] cyanocobalamin (vitamin B-12) 1,000 mcg tablet (Vitamin B-12) 2,000 mcg PO QAM 03/24/19 [History Confirmed 09/29/23] fluoxetine 20 mg capsule 20 mg PO QAM 03/24/19 [History Confirmed 09/29/23] multivitamin 1 cap PO QAM 03/24/19 [History Confirmed 09/29/23] aspirin 81 mg tablet,delayed release 81 mg PO BID 01/24/20 [History Confirmed 09/29/23] elderberry fruit 200 mg capsule 200 mg PO QAM 01/24/20 [History Confirmed 09/29/23] FreeStyle Johnny 14 Day Sensor (flash glucose sensor) #2 ea 12/26/20 [Rx Confirmed 09/29/23] topiramate 25 mg tablet 25 mg PO BID 04/24/21 [History Confirmed 09/29/23] nitroglycerin 0.4 mg sublingual tablet 0.4 mg sublingual Q5M PRN chest pain #10 tabs 04/25/21 [Rx Confirmed 09/29/23] ascorbate calcium (vitamin C) 500 mg tablet 1 g PO QAM 05/31/21 [History Confirmed 09/29/23] cholecalciferol (vitamin D3) 50 mcg (2,000 unit) capsule 50 mcg PO QAM 05/31/21 [History Confirmed 09/29/23] losartan 25 mg tablet 25 mg PO QAM 05/31/21 [History Confirmed 09/29/23] zinc 50 mg tablet 50 mg PO QAM 05/31/21 [History Confirmed 09/29/23] FreeStyle Johnny 14 Day Crockett (flash glucose scanning reader) #1 ea 07/24/21 [Rx Confirmed 09/29/23] glucosamine-chondroitin 250 mg-200 mg tablet (Osteo Bi-Flex) 2 tab PO QAM 12/19/21 [History Confirmed 09/29/23] ibuprofen 200 mg tablet (Advil) 400 mg PO Q6 PRN Pain 12/19/21 [History Confirmed 09/29/23] benzonatate 100 mg capsule 100 mg PO UD PRN Cough 10/28/22 [History Confirmed 09/29/23] empagliflozin 10 mg tablet (Jardiance) 10 mg PO QAM #90 tabs 01/30/23 [Rx Confirmed 09/29/23] atorvastatin 40 mg tablet 40 mg PO HS 30 days #90 tabs 06/05/23 [Rx Confirmed 09/29/23] metformin 1,000 mg tablet 1,000 mg PO BID 90 days #180 tabs 09/29/23 [Rx Confirmed 09/29/23] insulin aspart U-100 100 unit/mL subcutaneous solution (Novolog U-100 Insulin aspart) See Rx Instructions .Route .COMPLEX #90 mL 10/23/23 [Rx] Active Medications Aspirin (Aspirin 81 Mg Ectab) 81 mg PO QAM CHELE Stop: 12/22/23 08:59 Atorvastatin Calcium (Atorvastatin 40 Mg Tab) 80 mg PO HS CHELE Stop: 12/22/23 20:59 Clopidogrel Bisulfate (Clopidogrel Bisulfate 75 Mg Tab) 75 mg PO QAM ON LICENSE OF [facility] Stop: 12/22/23 08:59 Dextrose (Dextrose 50% 50 Ml Syringe) 25 - 50 ml IV UD PRN; Protocol PRN Reason: Hypoglycemia Protocol Stop: 12/21/23 22:54 Fluoxetine HCl (Fluoxetine Hcl 20 Mg Cap) 20 mg PO QAM ON LICENSE OF [facility] Stop: 12/22/23 08:59 Glucagon (Glucagon For Inj 1 Mg Vial) 1 mg SQ UD PRN; Protocol PRN Reason: Hypoglycemia Protocol Stop: 12/21/23 22:54 Glucose (Glucose 10 Tab/Tube) 4 - 8 tab PO UD PRN; Protocol PRN Reason: Hypoglycemia Treatment Stop: 12/21/23 22:54 Glucose (Glucose 40% Gel 15 Gm Tube) 15 - 30 gm PO UD PRN; Protocol PRN Reason: Hypoglycemia Protocol Stop: 12/21/23 22:54 Magnesium Sulfate/Dextrose (Magnesium Sulfate / D5w) 1 gm in 100 mls @ 50 mls/hr IV Q2H CHELE Stop: 11/22/23 03:44 Insulin Aspart (Insulin, Rapid-Acting Pump) 1 each SC UD CHELE; Protocol Stop: 12/21/23 23:29 Insulin Aspart (Insulin Aspart 100 Units/Ml Vial) 0 units SC PRN PRN PRN Reason: Insulin (Rapid-Acting) Pump Refill Stop: 12/21/23 23:28 Miscellaneous (Carbohydrates For Hypoglycemia ) 15 - 30 gm PO UD PRN PRN Reason: Hypoglycemia Protocol Stop: 12/21/23 22:54 Miscellaneous (Continuous Glucose Monitor) 0 each N/A ACHS CHELE Stop: 12/22/23 07:29 Multivitamins (Multivitamin Tab) 1 tab PO QAM CHELE Stop: 12/22/23 08:59 Nitroglycerin (Nitroglycerin Sl 0.4 Mg/Tab Tab) 0.4 mg SL Q5M PRN PRN Reason: chest pain Stop: 12/21/23 23:00 Non-Formulary Medication (Cyanocobalamin (Vitamin B-12) [Vitamin B-12]) 2,000 mcg PO QAM CHELE Stop: 12/22/23 08:59 Pantoprazole Sodium (Pantoprazole 40 Mg Tab) 40 mg PO QAM CHELE Stop: 12/22/23 08:59 Topiramate (Topiramate 25 Mg Tab) 25 mg PO BID CHELE Stop: 12/22/23 08:59 Vitamin D (Cholecalciferol 25 Mcg (1000 Units) Tab) 50 mcg PO QAM ON LICENSE OF [facility] Stop: 12/22/23 08:59 Coding Level of Care Code 49655 CRITICAL CARE 1ST 30-74M Diagnoses ACS (acute coronary syndrome) I24.9 Stented coronary artery Z95.5 Chronic kidney disease N18.9 Type 2 diabetes mellitus with complications E11.8 Diabetic peripheral neuropathy associated with type 2 diabetes mellitus E11.42 Coronary artery disease I25.10 Obesity E66.9 Hypertension I10 Hyperlipidemia E78.5
--- NOTE | 2023-11-22 00:05 | Cardiac Catheterization ---
[facility] Data: [facility] Cardiac Status Clinical evaluation leading to the procedure Ongoing pain with high risk EKG findings of diffuse ST depressions with ST elevation in aVR CAD Presenation: Non STEMI Coronary Anatomy Left Main (% Stenosis): Normal LAD (% Stenosis): Proximal and Mid (40 to 50%) D1 (% Stenosis): Proximal (50 percent) D3 (% Stenosis): Proximal (40) Circumflex (% Stenosis): Normal RCA (% Stenosis): Proximal (60) and Mid (40) Ramus (% Stenosis): Proximal (100) Diagnostic Physicians Name: Ronny Low MD Lesion Segment Name: Proximal ramus intermedius Culprit Artery: Yes Stenosis Prior to Rx (%): 100% Pre-Procedure CA Flow: 0 Cardiac Cath Procedure Full Procedure Date November 21, 2023 Pre-Procedure Diagnosis Pre-Procedure Diagnosis: Non STEMI and Acute Coronary Syndrome AUC Score AUC Score: 9 Post-Procedure Diagnosis Post-Procedure Diagnosis: Successful PCI and Normal Intracardiac Pressures Procedure(s) Performed Procedure(s) Performed: Coronary Angiography and Left Heart Cath Long Chain Beamer Ronny Low MD Estimated Blood Loss Estimated Blood Loss: 20 cc Summary of Findings Acute KS with high risk EKG features Culprit was ramus intermedius. Successful PCI with a 2.75 x 28 drug-eluting stent. Stenosis reduced from 100% to 0% Otherwise nonobstructive, multivessel CAD Normal left-sided filling pressure No aortic stenosis Recommendations Admit to medicine team, stepdown Post KS care Dual antiplatelet therapy with aspirin and Plavix for target of 1 year Maximally tolerated statin Add beta-ponce as tolerated Coronary angiography Left main: Large artery at takeoff. It is short in length gives rise to an LAD and circumflex. There is no angiographic disease LAD: Large artery that gives rise to a high takeoff vessel which basically follows the course of a ramus intermedius. It gives another vessel of the proximal portion that is a small diagonal #1. Further data gives a very small diagonal #2 and a medium size diagonal #3. He continues in the anterior interventricular groove and supplies the true apex. There is mild-moderate proximal disease 40 to 50%. There are mild luminal irregularities in most of the mid vessel. In the mid vessel at the takeoff of the third diagonal there is a discrete 40 to 50% calcified lesion. The vessel then continues with mild luminal irregularities toward the apex. The apical LAD has mild diffuse disease. The small first diagonal has 50% proximal disease. The very small second diagonal has mild diffuse disease. The proximal third diagonal has mild disease around 40%. Ramus intermedius: Medium sized artery had actually comes off the proximal LAD. Initially it was 100% occluded proximally. After PCI was seen to fill two modest sized subbranches. Circumflex: Medium size artery takeoff gives rise to a small OM1 and a small OM 2. The system is angiographically normal RCA: Large artery that gives rise to a small PDA and a small to medium branching PL system with 2 subbranches. The proximal RCA has 60% stenosis. The mid RCA has 40% disease. The remainder of the system has mild luminal changes. Other findings no gradient across the aortic valve by pullback method LVEDP: 11 mmHg Procedure description This gentleman was brought to [facility] emergently. The risk and benefits of the procedure were described in detail. These included but were not limited to stroke heart attack and damage requiring emergency surgery. He understood these risks and informed consent was signed and witnessed. He was brought to the [facility] and placed supine on the table. The right wrist were prepped and draped in usual sterile fashion. Prior to starting the patient and site were verified. He was monitored with hemodynamic monitoring and [id number] contact for the entirety of the procedure. 2 mg of Versed and 50 mcg of fentanyl were given for moderate sedation. To mL of 1% lidocaine was given the right wrist for local anesthesia. Access to the right radial artery was made using modified center technique and a micropuncture kit. Eventually a 56 Norwegian slender sheath was advanced over the wire. All catheter exchanges were made over an exchange wire. Initially I advanced a JR4 which was advanced into the LV measuring LVEDP and pullback gradient. This was then used to engage the right coronary artery. I then advanced an EBU 3.0. This was used to engage the left main. Multiple shots were taken and the culprit was identified as the ramus. Initially a run-through would not track into the ramus. I then used a Prowater with a guide liner and eventually this was directed toward the more distal ramus. The lesion was predilated with a 2.0 x 12 compliant balloon up to 8 jose for 2 inflations across the length of lesion. Lesion was then stented with a 2.75 x 28 drug-eluting stent deployed at 14 jose for 15 seconds. Final angiograms with and without the wire demonstrated good stent apposition with no evidence of dissection or perforation. Radial band was used for hemostasis. He tolerated the procedure well with no immediate complications noted. He was shown the results of the procedure. Hemodynamics Rest Ao:: 121/82 Final Ao: 124/71 LV: 119/8, LVEDP 11 mmHg Radiation Exposure (mGy) 8.7 minutes, 2.4 mGy Contrast (mls) 122 Procedural Complication(s) None Disposition Admit to hospitalist I attest to the content of the Intraoperative Record and any orders documented therein. Any exceptions are noted below. PG Care Time/CCT Total # of Minutes Spent Total Time Spent with Patient: Total time spent is greater than 50% in coordination of care (as documented) at patient's floor/unit and/or counseling patient:
[2023-11-22 04:28] LABS: Basophils # (auto) 0.02 K/uL (0.00-0.20); Basophils % (auto) 0.3 %; Eosinophils # (auto) 0.11 K/uL (0.00-0.50); Eosinophils % (auto) 1.8 %; Hematocrit (blood only) 38.5 % (42.0-52.0); Hemoglobin 13.4 g/dl (14.0-18.0); Immature Granulocytes # (auto) 0.03 K/uL (0.01-0.20); Immature Granulocytes % (auto) 0.5 %; Lymphocytes # (auto) 1.94 K/uL (1.20-3.40); Lymphocytes % (auto) 31.2 %; Mean Corpuscular Hemoglobin 29.2 pg (25.0-34.0); Mean Corpuscular Hgb Conc 34.8 g/dL (32.0-36.0); Mean Corpuscular Volume 83.9 fL (80.0-100.0); Mean Platelet Volume 8.8 fL (9.4-12.4); Monocytes # (auto) 0.48 K/uL (0.11-0.59); Monocytes % (auto) 7.7 %; Neutrophils # (auto) 3.64 K/uL (1.40-6.50); Neutrophils % (auto) 58.5 %; Platelet Count 198 K/uL (130-400); RDW Coefficient of Variation 14.7 % (11.5-14.5); RDW Standard Deviation 44.5 fL (36.4-46.3); Red Blood Count 4.59 M/uL (4.70-6.10); White Blood Count 6.22 K/ul (4.8-10.8)
[2023-11-22 04:58] LABS: Partial Thromboplastin Ratio 1.1; Partial Thromboplastin Time 30 Seconds (21-31); Prothrombin Time 11.3 Seconds (9.0-12.0)
[2023-11-22 05:39] LABS: Albumin Level 3.8 gm/dl (3.4-5.0); Calcium 8.7 mg/dl (8.6-10.3); Magnesium 2.3 mg/dl (1.7-2.4); Potassium 3.8 mmol/L (3.5-5.1)
[2023-11-22 05:45] LABS: Albumin Globulin Ratio 1.4 (0.9-2); BUN Creatinine Ratio 18.3 (10-20); Chol HDL Ratio 3.8 (0-5); Creatinine Clr Calc Pharmacy 90.5 ml/min; Est GFR (African American) 85.7 ml/min; Est GFR (Non-African American) 73.9 ml/min; Globulin 2.7 gm/dl (2.5-4.0); Total Protein 6.5 gm/dl (6.0-8.3)
[2023-11-22 06:05] LABS: Troponin I High Sensitivity 3806.1 pg/ml (0-20)
--- NOTE | 2023-11-22 07:27 | Critical Care Progress Note ---
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 To ICU post procedure, follow hemodynamics and symptomatology. Neuro - No acute needs CAM ICU: Negative Cardiac - CAD, ACS status post MARYANA to [place] coronary artery, HTN, HLD - Post stenting continue DAPT - ASA/Plavix Continue with beta-blockers, statin and addition of MINI/ARB if blood pressure is able to tolerate - Trend HsCTNI until peak - Post PCI ECG with improvement Respiratory - NO acute needs -- Probable KALA/OHS STOP BANG- 6- HIGH RISK KALA -Ex-smoker [id number] smoking history, quit at the age of 41 GI - No acute needs - consider H2 ponce while on DAPT RENAL/LYTES - CKD III - Avoid further nephrotoxic medications as able if needed, minimize exposure time - replace magnesium - No acute needs - bladder scan as needed, straight cath if needed ENDO - DMII with insulin pump - Patient on Novolog insulin via pump- continue his pump, as this is patient preference and is stable at this time - Hold Jardiance- this was recently added - HGB A1c 7.4 - Goal BG <180mg/dl HEME - No acute needs ID - No acute concern for infectious etiology at this time --Prophylaxis VTE: IPC GI: Pantoprazole Lines: Peripheral Diet: Cardiac Plan: In/out: +1.3 L, urine output not measured Potassium being replaced. Troponins have not peaked yet. Continue to trend Patient hemodynamically stable. Disposition as per cardiology and primary team Please note the above document was generated using voice recognition software. It may contain grammatical, syntax or spelling errors.Any formal questions or concerns about the content, text or information contained within the body of this dictation should be directly addressed to the provider for clarification. Admission and Anticipated Discharge Date Admission Date: November 21, 2023 Subjective Patient seen and examined at bedside. No acute distress, notable symptoms overnight Says he is feeling much better. Denies any chest tightness, no chest pain, no shortness of breath Fair appetite. No nausea vomiting. Was able to finish the whole breakfast. No dysuria, diarrhea Review of Systems 2 Review of Systems: All systems reviewed & are unremarkable except as noted in Subjective Physical Exam 2 Physical Exam: Constitutional: No acute distress HEENT: EOMI, PERRLA Respiratory system: Decreased air entry bilaterally, no wheeze, no rhonchi, no crackles CVS: S1-S2 positive, no murmurs or gallops Abdomen: Soft, nontender, nondistended, positive bowel sounds x4, obese Extremities: +2 pulses bilaterally radialis/ dorsalis pedis, no cyanosis, no edema Neuro: Awake alert oriented x3 Psych: Normal mood and affect G/U: No Jenkins Skin: no rashes, warm and dry Lymphatic: no cervical or axillary lymphadenopathy Results & Data Results & Data Vital Signs (Past 12 Hours) Vital Signs Temp Pulse Pulse Resp BP BP BP 11/22/23 06:14 70 16 126/70 11/22/23 05:06 72 17 11/22/23 05:06 143/86 H 11/22/23 04:30 66 13 11/22/23 04:30 125/71 11/22/23 04:00 73 17 11/22/23 04:00 112/83 11/22/23 03:30 128/77 11/22/23 03:30 70 13 11/22/23 03:00 123/71 11/22/23 03:00 69 14 11/22/23 02:51 36.5 C 11/22/23 02:30 71 11 L 11/22/23 02:30 113/65 11/22/23 02:00 70 17 11/22/23 02:00 111/67 11/22/23 01:30 68 14 11/22/23 01:30 117/68 11/22/23 01:00 66 13 11/22/23 01:00 122/70 11/22/23 00:45 129/74 11/22/23 00:45 70 17 11/22/23 00:30 135/84 11/22/23 00:30 74 16 11/22/23 00:15 115/80 11/22/23 00:15 72 17 11/22/23 00:01 116/71 11/22/23 00:01 74 17 11/21/23 23:33 74 16 11/21/23 23:33 121/65 11/21/23 23:10 36.5 C 77 18 120/72 11/21/23 23:06 36.5 C 11/21/23 22:52 77 11/21/23 22:52 11/21/23 21:58 11/21/23 21:57 16 165/85 H 11/21/23 21:56 98 H 188/97 H 11/21/23 21:43 75 11/21/23 21:12 36.5 C 93 H 18 182/91 H Pulse Ox Pulse Ox O2 Del Method O2 Del Method 11/22/23 06:14 98 Room Air 11/22/23 05:06 98 11/22/23 05:06 11/22/23 04:30 96 11/22/23 04:30 11/22/23 04:00 98 11/22/23 04:00 11/22/23 03:30 11/22/23 03:30 98 11/22/23 03:00 11/22/23 03:00 97 11/22/23 02:51 11/22/23 02:30 96 11/22/23 02:30 11/22/23 02:00 96 11/22/23 02:00 11/22/23 01:30 97 11/22/23 01:30 11/22/23 01:00 99 11/22/23 01:00 11/22/23 00:45 11/22/23 00:45 98 11/22/23 00:30 11/22/23 00:30 98 11/22/23 00:15 11/22/23 00:15 91 11/22/23 00:01 11/22/23 00:01 99 11/21/23 23:33 97 11/21/23 23:33 11/21/23 23:10 99 Room Air 11/21/23 23:06 11/21/23 22:52 11/21/23 22:52 98 Room Air 11/21/23 21:58 96 Room Air 11/21/23 21:57 96 Room Air 11/21/23 21:56 11/21/23 21:43 11/21/23 21:12 97 Room Air Laboratory Results 11/22/23 04:00 11/22/23 04:00 Coding Level of Care Code 83293 SUB INP/OBS CARE 2/35MIN Diagnoses ACS (acute coronary syndrome) I24.9 Stented coronary artery Z95.5 Chronic kidney disease N18.9 Type 2 diabetes mellitus with complications E11.8 Diabetic peripheral neuropathy associated with type 2 diabetes mellitus E11.42 Coronary artery disease I25.10 Obesity E66.9 Hypertension I10 Hyperlipidemia E78.5
[2023-11-22] MEDS ORDERED: INSULIN ASPART PER UNIT CHARGE SC SCH (07:30)
[2023-11-22] MEDS ORDERED: ICU Protocol for HYPERglycemia SCH (07:30)
[2023-11-22] MEDS: METOPROLOL TARTRATE 25 MG TAB PO SCH (08:31)
[2023-11-22] MEDS: TOPIRAMATE 25 MG TAB PO SCH (08:32)
[2023-11-22] MEDS: FLUoxetine HCL 20 MG CAP PO SCH (08:32)
[2023-11-22] MEDS: MULTIVITAMIN TAB PO SCH (08:32)
[2023-11-22] MEDS: CYANOCOBALAMIN (B-12) 500 MCG TABLET PO SCH (08:32)
[2023-11-22] MEDS: CHOLECALCIFEROL 25 MCG (1000 UNITS) TAB PO SCH (08:32)
[2023-11-22] MEDS: PANTOprazole 40 MG TAB PO SCH (08:32)
[2023-11-22] MEDS: POTASSIUM CHLORIDE CRTAB 20 MEQ TABCR PO STA (08:36)
[2023-11-22] MEDS: Continuous Glucose Monitor SCH (09:00)
[2023-11-22] MEDS: ASPIRIN 81 MG ECTAB PO SCH (11:26)
--- NOTE | 2023-11-22 12:34 | Hospitalist Progress Note ---
Date of Service November 22, 2023 Assessment & Plan (1) Stented coronary artery: (2) ACS (acute coronary syndrome): (3) CKD (chronic kidney disease), stage III: (4) Diabetic peripheral neuropathy associated with type 2 diabetes mellitus: (5) Type 2 diabetes mellitus with complications: (6) Dyslipidemia: (7) Hypertension: (8) Hypomagnesemia: (9) Coronary artery disease: Plan Acute coronary syndrome Status post emergent cardiac catheterization with placement of coronary stent in ramus Patient remains in the ICU for post WI care Echo reviewed. Showed mild inferior hypokinesis. Systolic function is normal Continue dual antiplatelet agents, aspirin and Plavix Continue beta-ponce, statin MINI/ARB can be considered Hyperlipidemia- Continue higher dose of atorvastatin at 80 mg daily Diabetes mellitus- For now hold metformin and Jardiance Patient will use his own insulin pump for coverage, and notify nursing of insulin administered CKD stage III Secondary to diabetic nephropathy Monitor BMP closely Avoid nephrotoxins Anxiety- Continue fluoxetine Full code Admission and Anticipated Discharge Date Admission Date: November 21, 2023 Subjective Patient feels well. Denies chest pain or shortness of breath. Review of Systems Review of Systems: All systems reviewed & are unremarkable except as noted in Subjective Physical Exam Physical Exam: General: Awake, conversant Heart: S1, S2/regular rate and rhythm, no murmur rubs or gallops Lungs: Clear to auscultation bilaterally. Normal effort Abdomen: Soft/nontender/nondistended. No hepatosplenomegaly Extremities: No clubbing/cyanosis. No edema Behavior: Appropriate, cooperative Results & Data Results & Data Vital Signs (Past 12 Hours) Vital Signs Temp Pulse Pulse Resp BP BP Pulse Ox 11/22/23 11:06 36.3 C L 11/22/23 11:00 74 27 H 99 11/22/23 11:00 128/78 11/22/23 10:50 74 23 99 11/22/23 10:40 74 16 96 11/22/23 10:30 74 22 98 11/22/23 10:28 76 14 99 11/22/23 10:28 138/78 11/22/23 10:20 78 14 11/22/23 10:10 74 23 97 11/22/23 10:00 73 15 98 11/22/23 09:50 76 15 99 11/22/23 09:40 77 17 98 11/22/23 09:30 77 17 98 11/22/23 09:20 76 18 96 11/22/23 09:10 81 21 97 11/22/23 09:00 82 14 98 11/22/23 09:00 147/85 H 11/22/23 08:50 81 19 96 11/22/23 08:40 83 18 98 11/22/23 08:30 81 13 99 11/22/23 08:26 36.6 C 11/22/23 08:20 84 14 99 11/22/23 08:16 129/87 11/22/23 08:16 78 17 100 11/22/23 08:12 88 7 L 11/22/23 08:00 77 21 99 11/22/23 08:00 138/86 11/22/23 07:50 73 16 98 11/22/23 07:40 72 14 98 11/22/23 07:39 78 11/22/23 07:30 77 18 99 11/22/23 07:20 67 13 97 11/22/23 07:10 67 15 98 11/22/23 07:00 66 13 97 11/22/23 07:00 106/66 11/22/23 06:50 67 13 97 11/22/23 06:40 70 14 98 11/22/23 06:30 71 15 98 11/22/23 06:20 75 16 99 11/22/23 06:14 70 16 126/70 98 11/22/23 06:10 186/124 H 11/22/23 06:10 71 13 11/22/23 05:06 72 17 98 11/22/23 05:06 143/86 H 11/22/23 04:30 66 13 96 11/22/23 04:30 125/71 11/22/23 04:00 73 17 98 11/22/23 04:00 112/83 11/22/23 03:30 128/77 11/22/23 03:30 70 13 98 11/22/23 03:00 123/71 11/22/23 03:00 69 14 97 11/22/23 02:51 36.5 C 11/22/23 02:30 71 11 L 96 11/22/23 02:30 113/65 11/22/23 02:00 70 17 96 11/22/23 02:00 111/67 11/22/23 01:30 68 14 97 11/22/23 01:30 117/68 11/22/23 01:00 66 13 99 11/22/23 01:00 122/70 11/22/23 00:45 129/74 11/22/23 00:45 70 17 98 11/22/23 00:30 135/84 11/22/23 00:30 74 16 98 O2 Del Method 11/22/23 11:06 11/22/23 11:00 11/22/23 11:00 11/22/23 10:50 11/22/23 10:40 11/22/23 10:30 11/22/23 10:28 11/22/23 10:28 11/22/23 10:20 11/22/23 10:10 11/22/23 10:00 11/22/23 09:50 11/22/23 09:40 11/22/23 09:30 11/22/23 09:20 11/22/23 09:10 11/22/23 09:00 11/22/23 09:00 11/22/23 08:50 11/22/23 08:40 11/22/23 08:30 11/22/23 08:26 11/22/23 08:20 11/22/23 08:16 11/22/23 08:16 11/22/23 08:12 11/22/23 08:00 11/22/23 08:00 11/22/23 07:50 11/22/23 07:40 11/22/23 07:39 11/22/23 07:30 11/22/23 07:20 11/22/23 07:10 11/22/23 07:00 11/22/23 07:00 11/22/23 06:50 11/22/23 06:40 11/22/23 06:30 11/22/23 06:20 11/22/23 06:14 Room Air 11/22/23 06:10 11/22/23 06:10 11/22/23 05:06 11/22/23 05:06 11/22/23 04:30 11/22/23 04:30 11/22/23 04:00 11/22/23 04:00 11/22/23 03:30 11/22/23 03:30 11/22/23 03:00 11/22/23 03:00 11/22/23 02:51 11/22/23 02:30 11/22/23 02:30 11/22/23 02:00 11/22/23 02:00 11/22/23 01:30 11/22/23 01:30 11/22/23 01:00 11/22/23 01:00 11/22/23 00:45 11/22/23 00:45 11/22/23 00:30 11/22/23 00:30 Laboratory Results Abnormal lab results 11/21/23 11/21/23 11/21/23 Range/Units 21:28 21:53 22:49 RBC (4.70-6.10) M/uL Hgb (14.0-18.0) g/dl Hct (42.0-52.0) % RDW Coeff of Juan A 14.8 H (11.5-14.5) % MPV 9.0 L (9.4-12.4) fL Activ Coag Time Kaolin 288 H (94-140) SECONDS Carbon Dioxide (21-32) mmol/L POC BUN 21 H (7-18) mg/dl Glucose 215 H (70-99(Fasting)) mg/dl POC Glucose (70-99) mg/dl POC Glucose (other) 216 H (70-99) mg/dl Total Bilirubin 1.2 H (0.2-1.0) mg/dl Alkaline Phosphatase 122 H (34-104) U/L Troponin I High Sens 89.5 H* (0-20) pg/ml Triglycerides (0-150) mg/dl VLDL Cholesterol, Calc (0-30) mg/dl 11/21/23 11/22/23 11/22/23 Range/Units 23:11 04:00 07:29 RBC 4.59 L (4.70-6.10) M/uL Hgb 13.4 L (14.0-18.0) g/dl Hct 38.5 L (42.0-52.0) % RDW Coeff of Juan A 14.7 H (11.5-14.5) % MPV 8.8 L (9.4-12.4) fL Activ Coag Time Kaolin (94-140) SECONDS Carbon Dioxide 20 L (21-32) mmol/L POC BUN (7-18) mg/dl Glucose 127 H (70-99(Fasting)) mg/dl POC Glucose 172 H 136 H (70-99) mg/dl POC Glucose (other) (70-99) mg/dl Total Bilirubin (0.2-1.0) mg/dl Alkaline Phosphatase (34-104) U/L Troponin I High Sens 3806.1 H* D (0-20) pg/ml Triglycerides 331 H (0-150) mg/dl VLDL Cholesterol, Calc 66 H (0-30) mg/dl 11/22/23 Range/Units 10:46 RBC (4.70-6.10) M/uL Hgb (14.0-18.0) g/dl Hct (42.0-52.0) % RDW Coeff of Juan A (11.5-14.5) % MPV (9.4-12.4) fL Activ Coag Time Kaolin (94-140) SECONDS Carbon Dioxide (21-32) mmol/L POC BUN (7-18) mg/dl Glucose (70-99(Fasting)) mg/dl POC Glucose (70-99) mg/dl POC Glucose (other) (70-99) mg/dl Total Bilirubin (0.2-1.0) mg/dl Alkaline Phosphatase (34-104) U/L Troponin I High Sens 4104.3 H* (0-20) pg/ml Triglycerides (0-150) mg/dl VLDL Cholesterol, Calc (0-30) mg/dl Diagnostic Findings Chest X-Ray 11/21/23 21:17 SINGLE VIEW CHEST CLINICAL HISTORY: Atypical chest pain. FINDINGS: An AP, portable, upright chest radiograph is compared to study dated 03/13/2022. A cardiac pad is in place. The heart appears enlarged. There is pulmonary vascular congestion with mild interstitial edema. Scarring/atelectasis is noted lung bases. No airspace consolidation or large pleural effusion is id entified. No pneumothorax is seen. There are chronic/healed left-sided rib fractures. IMPRESSION: Mild cardiomegaly with evidence of congestive failure. Radiographic follow-up to resolution is recommended ACT 112: Negative or not required by law. Electronically signed by: Mando Gomez M.D. 11/21/2023 10:10 PM PG Care Time/CCT Total # of Minutes Spent Total Time Spent with Patient: Total time spent is greater than 50% in coordination of care (as documented) at patient's floor/unit and/or counseling patient: Coding Level of Care Code 58941 SUB INP/OBS CARE 2/35MIN Diagnoses Stented coronary artery Z95.5 ACS (acute coronary syndrome) I24.9 CKD (chronic kidney disease), stage III N18.30 Diabetic peripheral neuropathy associated with type 2 diabetes mellitus E11.42 Type 2 diabetes mellitus with complications E11.8 Dyslipidemia E78.5 Hypertension I10 Hypomagnesemia E83.42 Coronary artery disease I25.10
--- NOTE | 2023-11-22 13:51 | XCELERA ---
[id number] \\[id number]
[2023-11-22] MEDS: ATORVASTATIN 40 MG TAB PO SCH (20:21)
[2023-11-22] MEDS: CLOPIDOGREL BISULFATE 75 MG TAB PO SCH (20:21)
[2023-11-23] MEDS: PROPOFOL IV EMULSION 10 MG/ML 100 ML VIAL IV ONE (03:07)
[2023-11-23 04:21] LABS: Albumin Globulin Ratio 1.4 (0.9-2); BUN Creatinine Ratio 15.1 (10-20); Bilirubin,Total 1.4 mg/dl (0.2-1.0); Calcium 9.1 mg/dl (8.6-10.3); Creatinine Clr Calc Pharmacy 88.8 ml/min; Est GFR (African American) 83.8 ml/min; Est GFR (Non-African American) 72.3 ml/min; Globulin 2.8 gm/dl (2.5-4.0); Total Protein 6.8 gm/dl (6.0-8.3)
[2023-11-23 04:40] LABS: Basophils # (auto) 0.03 K/uL (0.00-0.20); Basophils % (auto) 0.4 %; Eosinophils # (auto) 0.12 K/uL (0.00-0.50); Eosinophils % (auto) 1.5 %; Hematocrit (blood only) 41.3 % (42.0-52.0); Hemoglobin 13.8 g/dl (14.0-18.0); Immature Granulocytes # (auto) 0.04 K/uL (0.01-0.20); Immature Granulocytes % (auto) 0.5 %; Lymphocytes # (auto) 1.82 K/uL (1.20-3.40); Lymphocytes % (auto) 23.4 %; Mean Corpuscular Hemoglobin 28.6 pg (25.0-34.0); Mean Corpuscular Hgb Conc 33.4 g/dL (32.0-36.0); Mean Corpuscular Volume 85.5 fL (80.0-100.0); Mean Platelet Volume 8.7 fL (9.4-12.4); Monocytes % (auto) 7.7 %; Neutrophils # (auto) 5.18 K/uL (1.40-6.50); Neutrophils % (auto) 66.5 %; Platelet Count 199 K/uL (130-400); RDW Coefficient of Variation 14.9 % (11.5-14.5); RDW Standard Deviation 45.9 fL (36.4-46.3); Red Blood Count 4.83 M/uL (4.70-6.10); White Blood Count 7.79 K/ul (4.8-10.8)
[2023-11-23 04:47] LABS: Partial Thromboplastin Time 29 Seconds (21-31); Prothrombin Time 11.4 Seconds (9.0-12.0)
[2023-11-23 07:37] LABS: Estimated Average Glucose 177 mg/dl; Hemoglobin A1C 7.8 % (4.5-5.6)
[2023-11-23] MEDS: LOSARTAN POTASSIUM 25 MG TAB PO SCH (11:35)
--- NOTE | 2023-11-23 12:35 | Cardiology Consultation ---
Date of Consultation November 23, 2023 Assessment & Plan (1) ACS (acute coronary syndrome): This was a non-ST elevation CO with peak troponin elevation 4104. Fortunately, no significant reduction in EF on echocardiogram. He will need to remain on dual antiplatelet therapy with aspirin 81 mg daily and Plavix 75 mg p.o. daily for up to 1 to 2 years. He also has residual moderate to borderline severe disease. I have recommended that he will complete convalescence from his acute CO and can be evaluated as an outpatient for symptoms plus or minus ischemia workup at that time based on symptoms. We also highly recommend that he participate in cardiac rehab. (2) Dyslipidemia: Patient is considered high risk (diabetes plus coronary artery disease). High intensity statin therapy is recommended. Prior lipid panel with triglycerides 331 mg/dL, total cholesterol 100 mg/dL, LDL cholesterol calculated at 8 mg/dL and HDL cholesterol calculated at 26 mg/dL. Current atorvastatin dose is 80 mg/dL. If his LDL is really that low we should probably back off of the atorvastatin dose. Unfortunately, his triglycerides have been very elevated on multiple evaluations and suggest that he is not following a cardiac prudent or diabetic diet. This is confirmed by his elevated hemoglobin A1c. (3) Hypertension: Blood pressure is adequately controlled but at the upper range of acceptable. Given recent CO and diabetic with kidney disease I would recommend that in addition to beta-ponce he should be placed back on the losartan. The metoprolol tartrate dosing of once daily is inadequate. I will instead change him to metoprolol succinate ER 25 mg p.o. daily. (4) Coronary artery disease: Status post CO. Status post PCI. Angiographically mild to moderate residual coronary disease. Worst lesion is in the proximal RCA at 60%. Continue to titrate guideline directed medical therapy. He will be on aspirin 81 mg daily, a atorvastatin which we will reduce back to 40 mg daily, metoprolol tartrate will be changed to metoprolol succinate ER 25 mg daily, and the losartan will be restarted at 25 mg daily. He also was previously on Jardiance 10 mg daily which we can hold for now but should be restarted at discharge. This will depend somewhat on his renal function at that time. Plan Patient will follow-up with Dr. Vyas whom he last saw in 2020 according to the patient. That should be within 2 weeks of discharge. In all likelihood, patient will be appropriate for discharge no later than tomorrow and possibly this evening. History of Present Illness Reason for Consultation: Cardiac management Attending Physician: Lisa Estrada MD History of Present Illness 68-year-old diabetic male who presented to the emergency department on Thursday evening with complaint of chest, neck, and jaw pain. EKG did not demonstrate evidence of ST elevation CO but the patient did have ongoing chest discomfort and his troponin was noted to be positive. He was therefore taken emergently to the cardiac catheterization suite by Dr. Low for diagnostic coronary angiography. This revealed occluded ramus branch which was then intervened upon using a 2.75 x 28 mm drug-eluting stent. Patient was subsequently admitted to the ICU for further workup and management. Echocardiogram demonstrated low normal EF, mild wall motion abnormalities, and no significant valvular pathology. He has done well post PCI without any complications. Currently, he denies any recurrence of his chest pain. No shortness of breath. He has been ambulating in the ICU to go to the bathroom and has had no symptoms. He also denies any pain at the access site. He denies lightheadedness, dizziness, syncope, near syncope, orthopnea, PND, racing heartbeat, palpitations, or edema. Pertinent comorbid disease includes diabetes complicated by chronic renal insufficiency stage III, hypertension, and dyslipidemia. Cardiac catheterization 11/21/2023: Left main-normal LAD-proximal and mid 40 to 50% stenosis. D1 50% stenosis, D3 40% stenosis. LCx-normal Ramus-100% proximal thrombotic occlusion with CA 0 flow. RCA-proximal 60%, mid 40% stenosis. Echocardiogram: Normal LV size and systolic function. EF 55 to 60%. Mild inferior hypokinesis extending from the mid to the apex. No significant valvular pathology Allergies Allergy/AdvReac Type Severity Reaction Status Date / Time bee venom protein (honey bee) Allergy Unknown ANY KIND Verified 09/29/23 09:50 OF BEEES - SWELLING,SOB Penicillins Allergy Unknown UNKNOWN/told Verified 09/29/23 09:50 as a kid Home Medications Medication Instructions Recorded Confirmed Type cwcbscg-gogxfkdxwszbc-ukwoixob 250 2 tab PO Q6H PRN pain #60 tabs 03/24/19 09/29/23 Rx mg-250 mg-65 mg tablet (Excedrin Migraine) cyanocobalamin (vitamin B-12) 2,000 mcg PO QAM 03/24/19 09/29/23 History 1,000 mcg tablet (Vitamin B-12) fluoxetine 20 mg capsule 20 mg PO QAM 03/24/19 09/29/23 History multivitamin 1 cap PO QAM 03/24/19 09/29/23 History aspirin 81 mg tablet,delayed 81 mg PO BID 01/24/20 09/29/23 History release elderberry fruit 200 mg capsule 200 mg PO QAM 01/24/20 09/29/23 History FreeStyle Johnny 14 Day Sensor #2 ea 12/26/20 09/29/23 Rx (flash glucose sensor) topiramate 25 mg tablet 25 mg PO BID 04/24/21 09/29/23 History nitroglycerin 0.4 mg sublingual 0.4 mg sublingual Q5M PRN chest 04/25/21 09/29/23 Rx tablet pain #10 tabs ascorbate calcium (vitamin C) 500 1 g PO QAM 05/31/21 09/29/23 History mg tablet cholecalciferol (vitamin D3) 50 50 mcg PO QAM 05/31/21 09/29/23 History mcg (2,000 unit) capsule losartan 25 mg tablet 25 mg PO QAM 05/31/21 09/29/23 History zinc 50 mg tablet 50 mg PO QAM 05/31/21 09/29/23 History FreeStyle Johnny 14 Day [place] #1 ea 07/24/21 09/29/23 Rx (flash glucose scanning reader) glucosamine-chondroitin 250 mg-200 2 tab PO QAM 12/19/21 09/29/23 History mg tablet (Osteo Bi-Flex) ibuprofen 200 mg tablet (Advil) 400 mg PO Q6 PRN Pain 12/19/21 09/29/23 History benzonatate 100 mg capsule 100 mg PO UD PRN Cough 10/28/22 09/29/23 History empagliflozin 10 mg tablet 10 mg PO QAM #90 tabs 01/30/23 09/29/23 Rx (Jardiance) atorvastatin 40 mg tablet 40 mg PO HS 30 days #90 tabs 06/05/23 09/29/23 Rx metformin 1,000 mg tablet 1,000 mg PO BID 90 days #180 tabs 09/29/23 09/29/23 Rx insulin aspart U-100 100 unit/mL See Rx Instructions .Route 10/23/23 Rx subcutaneous solution (Novolog .COMPLEX #90 mL U-100 Insulin aspart) clopidogrel 75 mg tablet 75 mg PO HS #90 tabs 11/23/23 Rx metoprolol succinate 25 mg 25 mg PO QAM #90 tabs 11/23/23 Rx tablet,extended release 24 hr Patient History Medical History History of COVID-12 OCT 2020 - SOB LINGERS SINCE ONLY ON EXERTION Migraines History of pancreatitis Ankle arthritis Arm paresthesia, left Depression HX Rib fractures (~2013) Glenoid fracture of shoulder (~2013) Surgical History History of left cataract surgery History of cardiac cath 3-4 YR AGO/HX C/P (SUSPECTED CO) ....CATH...NO STENT(S)...NO FINDINGS ([facility]) History of total left hip arthroplasty History of total right hip replacement History of shoulder surgery LEFT / DECEMBER 2021 History of endoscopy History of colonoscopy History of carpal tunnel release of both wrists Hx of shoulder surgery RIGHT Bilateral inguinal hernia repaired History of appendectomy History of cholecystectomy Family History Mother Cancer Father Heart disease Colorectal cancer Stroke Grandmother (Paternal) Family history of diabetes mellitus Grandfather (Maternal) Family history of diabetes mellitus Social History Smoking Status: Former smoker Tobacco Type: Cigarettes Cigarettes Per Day: 2-3 packs per day; Second Hand Exposure: No; Do You Dip or Chew Tobacco: No; Hx Alcohol Use: No Hx Substance Use: No Preferred Language: Cook Islander Communication Ability: Effective Master Baker Required: No Beliefs That Will Affect Care: None marital status: Current Living Situation: Spouse Current Living Situation Comment: with Cassandra Feels Safe at Home: Yes Assistive Devices: None Review of Systems Review of Systems: Negative except as per HPI Physical Exam Constitutional: WD/WN, vitals as above Eyes: Extraocular muscles intact. Sclera are anicteric. ENMT: Oral mucosa is pink moist and intact Neck: Thick, no JVD or bruits Respiratory: Clear to auscultation bilaterally. No wheezing, rhonchi, or rales. Good air movement. Cardiovascular: Regular rate and rhythm. Sinus rhythm on the monitor. S4 gallop. Do not appreciate any rubs or murmurs. No edema. Musculoskeletal: no cyanosis or clubbing, extremities motor strength 5/5 (Radial access intact. Good distal perfusion.) Neurologic: Cognition is intact. Speech is fluent. No focal deficits. No tremor. Psychiatric: A+Ox3, euthymic affect Results & Data Vital Signs (Past 12 Hours) Vital Signs Temp Pulse Pulse Resp BP BP Pulse Ox 11/23/23 10:20 74 22 11/23/23 10:10 77 18 11/23/23 10:00 75 23 11/23/23 09:50 80 24 11/23/23 09:40 77 16 11/23/23 09:30 77 17 11/23/23 09:20 80 16 11/23/23 09:10 82 18 11/23/23 09:00 80 17 11/23/23 08:50 83 23 11/23/23 08:40 85 16 11/23/23 08:30 87 20 11/23/23 08:20 83 16 11/23/23 08:10 86 19 11/23/23 08:08 92 H 22 11/23/23 07:50 81 18 11/23/23 07:40 77 19 11/23/23 07:30 79 18 11/23/23 07:30 36.6 C 78 17 133/80 97 11/23/23 07:24 76 22 11/23/23 07:24 133/80 11/23/23 07:20 75 19 11/23/23 07:10 74 15 11/23/23 07:00 74 21 11/23/23 06:50 81 18 11/23/23 06:40 63 13 11/23/23 06:30 63 12 11/23/23 06:20 65 11 L 11/23/23 06:10 64 12 11/23/23 06:00 65 12 11/23/23 05:50 64 15 11/23/23 05:40 64 18 11/23/23 05:30 67 16 11/23/23 05:20 67 12 11/23/23 05:10 66 14 11/23/23 05:00 66 13 11/23/23 04:50 67 17 11/23/23 04:40 65 13 11/23/23 04:30 74 15 11/23/23 04:20 71 15 11/23/23 04:10 70 13 11/23/23 04:03 13 133/78 96 11/23/23 04:00 36.5 C 11/23/23 03:00 64 15 11/23/23 02:00 68 16 11/23/23 01:00 69 13 11/23/23 00:44 140/81 96 11/23/23 00:44 7 L O2 Del Method 11/23/23 10:20 11/23/23 10:10 11/23/23 10:00 11/23/23 09:50 11/23/23 09:40 11/23/23 09:30 11/23/23 09:20 11/23/23 09:10 11/23/23 09:00 11/23/23 08:50 11/23/23 08:40 11/23/23 08:30 11/23/23 08:20 11/23/23 08:10 11/23/23 08:08 11/23/23 07:50 11/23/23 07:40 11/23/23 07:30 11/23/23 07:30 Room Air 11/23/23 07:24 11/23/23 07:24 11/23/23 07:20 11/23/23 07:10 11/23/23 07:00 11/23/23 06:50 11/23/23 06:40 11/23/23 06:30 11/23/23 06:20 11/23/23 06:10 11/23/23 06:00 11/23/23 05:50 11/23/23 05:40 11/23/23 05:30 11/23/23 05:20 11/23/23 05:10 11/23/23 05:00 11/23/23 04:50 11/23/23 04:40 11/23/23 04:30 11/23/23 04:20 11/23/23 04:10 11/23/23 04:03 Room Air 11/23/23 04:00 11/23/23 03:00 11/23/23 02:00 11/23/23 01:00 11/23/23 00:44 Room Air 11/23/23 00:44 PG Care Time/CCT Total # of Minutes Spent Total Time Spent with Patient: Total time spent is greater than 50% in coordination of care (as documented) at patient's floor/unit and/or counseling patient: Coding Level of Care Code 59432 INT INP/OBS CARE 2/55MIN Diagnoses ACS (acute coronary syndrome) I24.9 Dyslipidemia E78.5 Hypertension I10 Coronary artery disease I25.10 Time Spent (min) 55 Comment A total of 55 min was required for PE, review EHR, form and implement POC, plus document.
--- NOTE | 2023-11-23 15:42 | Hospitalist Progress Note ---
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 Showed mild inferior hypokinesis. Systolic function is normal Continue dual antiplatelet agents, aspirin and Plavix Continue beta-ponce (desulfurizer operator switched him to metoprolol succinate 25 mg p.o. every morning), statin Losartan resumed Monitor blood pressure with these medication adjustments Hyperlipidemia- Continue atorvastatin Diabetes mellitus- For now hold metformin and Jardiance Patient will use his own insulin pump for coverage, and notify nursing of insulin administered May resume Jardiance at the time of discharge CKD stage III Secondary to diabetic nephropathy Monitor BMP closely Avoid nephrotoxins Anxiety- Continue fluoxetine Full code Likely discharge tomorrow/2 Admission and Anticipated Discharge Date Admission Date: November 21, 2023 Subjective Patient feels well. Denies chest pain or shortness of breath. Review of Systems Review of Systems: All systems reviewed & are unremarkable except as noted in Subjective Physical Exam Physical Exam: General: Awake, conversant Heart: S1, S2/regular rate and rhythm, no murmur rubs or gallops Lungs: Clear to auscultation bilaterally. Normal effort Abdomen: Soft/nontender/nondistended. No hepatosplenomegaly Extremities: No clubbing/cyanosis. No edema Behavior: Appropriate, cooperative Results & Data Results & Data Vital Signs (Past 12 Hours) Vital Signs Temp Pulse Pulse Resp BP BP Pulse Ox 11/23/23 15:20 69 15 11/23/23 15:10 71 16 11/23/23 15:00 72 19 11/23/23 14:56 76 11/23/23 14:50 72 14 11/23/23 14:40 73 14 11/23/23 14:30 76 16 11/23/23 14:29 80 11/23/23 14:20 75 21 11/23/23 14:10 72 22 11/23/23 14:00 75 20 11/23/23 13:50 74 22 11/23/23 13:40 80 14 11/23/23 13:39 81 21 11/23/23 13:20 76 20 11/23/23 13:11 36.7 C 11/23/23 13:10 128/75 11/23/23 13:10 74 17 128/75 95 11/23/23 13:00 74 17 11/23/23 12:50 71 19 11/23/23 12:40 71 16 11/23/23 12:30 73 15 11/23/23 12:20 72 18 11/23/23 12:10 72 19 11/23/23 12:00 73 16 11/23/23 11:50 74 18 11/23/23 11:40 76 19 11/23/23 11:30 74 19 11/23/23 11:20 73 16 11/23/23 11:10 71 13 11/23/23 11:00 70 20 11/23/23 10:50 70 16 11/23/23 10:40 71 19 11/23/23 10:30 73 17 11/23/23 10:20 74 22 11/23/23 10:10 77 18 11/23/23 10:00 75 23 11/23/23 09:50 80 24 11/23/23 09:40 77 16 11/23/23 09:30 77 17 11/23/23 09:20 80 16 11/23/23 09:10 82 18 11/23/23 09:00 80 17 11/23/23 08:50 83 23 11/23/23 08:40 85 16 11/23/23 08:30 87 20 11/23/23 08:20 83 16 11/23/23 08:10 86 19 11/23/23 08:08 92 H 22 11/23/23 07:50 81 18 11/23/23 07:40 77 19 11/23/23 07:30 79 18 11/23/23 07:30 36.6 C 78 17 133/80 97 11/23/23 07:24 76 22 11/23/23 07:24 133/80 11/23/23 07:20 75 19 11/23/23 07:10 74 15 11/23/23 07:00 74 21 11/23/23 06:50 81 18 11/23/23 06:40 63 13 11/23/23 06:30 63 12 11/23/23 06:20 65 11 L 11/23/23 06:10 64 12 11/23/23 06:00 65 12 11/23/23 05:50 64 15 11/23/23 05:40 64 18 11/23/23 05:30 67 16 11/23/23 05:20 67 12 11/23/23 05:10 66 14 11/23/23 05:00 66 13 11/23/23 04:50 67 17 11/23/23 04:40 65 13 11/23/23 04:30 74 15 11/23/23 04:20 71 15 11/23/23 04:10 70 13 11/23/23 04:03 13 133/78 96 11/23/23 04:00 36.5 C O2 Del Method 11/23/23 15:20 11/23/23 15:10 11/23/23 15:00 11/23/23 14:56 11/23/23 14:50 11/23/23 14:40 11/23/23 14:30 11/23/23 14:29 11/23/23 14:20 11/23/23 14:10 11/23/23 14:00 11/23/23 13:50 11/23/23 13:40 11/23/23 13:39 11/23/23 13:20 11/23/23 13:11 11/23/23 13:10 11/23/23 13:10 11/23/23 13:00 11/23/23 12:50 11/23/23 12:40 11/23/23 12:30 11/23/23 12:20 11/23/23 12:10 11/23/23 12:00 11/23/23 11:50 11/23/23 11:40 11/23/23 11:30 11/23/23 11:20 11/23/23 11:10 11/23/23 11:00 11/23/23 10:50 11/23/23 10:40 11/23/23 10:30 11/23/23 10:20 11/23/23 10:10 11/23/23 10:00 11/23/23 09:50 11/23/23 09:40 11/23/23 09:30 11/23/23 09:20 11/23/23 09:10 11/23/23 09:00 11/23/23 08:50 11/23/23 08:40 11/23/23 08:30 11/23/23 08:20 11/23/23 08:10 11/23/23 08:08 11/23/23 07:50 11/23/23 07:40 11/23/23 07:30 11/23/23 07:30 Room Air 11/23/23 07:24 11/23/23 07:24 11/23/23 07:20 11/23/23 07:10 11/23/23 07:00 11/23/23 06:50 11/23/23 06:40 11/23/23 06:30 11/23/23 06:20 11/23/23 06:10 11/23/23 06:00 11/23/23 05:50 11/23/23 05:40 11/23/23 05:30 11/23/23 05:20 11/23/23 05:10 11/23/23 05:00 11/23/23 04:50 11/23/23 04:40 11/23/23 04:30 11/23/23 04:20 11/23/23 04:10 11/23/23 04:03 Room Air 11/23/23 04:00 Laboratory Results Abnormal lab results 11/22/23 11/23/23 11/23/23 Range/Units 04:00 03:41 07:23 Hgb 13.8 L (14.0-18.0) g/dl Hct 41.3 L (42.0-52.0) % RDW Coeff of Juan A 14.9 H (11.5-14.5) % MPV 8.7 L (9.4-12.4) fL Carolina # (Auto) 0.60 H (0.11-0.59) K/uL Glucose 116 H (70-99(Fasting)) mg/dl POC Glucose 124 H (70-99) mg/dl Hemoglobin A1c 7.8 H (4.5-5.6) % Total Bilirubin 1.4 H (0.2-1.0) mg/dl PG Care Time/CCT Total # of Minutes Spent Total Time Spent with Patient: Total time spent is greater than 50% in coordination of care (as documented) at patient's floor/unit and/or counseling patient: Coding Level of Care Code 54941 SUB INP/OBS CARE 235MIN Diagnoses Stented coronary artery Z95.5 ACS (acute coronary syndrome) I24.9 CKD (chronic kidney disease), stage III N18.30 Diabetic peripheral neuropathy associated with type 2 diabetes mellitus E11.42 Type 2 diabetes mellitus with complications E11.8 Dyslipidemia E78.5 Hypertension I10 Hypomagnesemia E83.42 Coronary artery disease I25.10
[2023-11-24 04:56] LABS: Basophils # (auto) 0.03 K/uL (0.00-0.20); Basophils % (auto) 0.5 %; Eosinophils # (auto) 0.14 K/uL (0.00-0.50); Eosinophils % (auto) 2.3 %; Hematocrit (blood only) 39.4 % (42.0-52.0); Hemoglobin 13.5 g/dl (14.0-18.0); Immature Granulocytes # (auto) 0.02 K/uL (0.01-0.20); Immature Granulocytes % (auto) 0.3 %; Lymphocytes # (auto) 1.59 K/uL (1.20-3.40); Lymphocytes % (auto) 26.2 %; Mean Corpuscular Hemoglobin 29.2 pg (25.0-34.0); Mean Corpuscular Hgb Conc 34.3 g/dL (32.0-36.0); Mean Corpuscular Volume 85.3 fL (80.0-100.0); Mean Platelet Volume 8.8 fL (9.4-12.4); Monocytes # (auto) 0.45 K/uL (0.11-0.59); Monocytes % (auto) 7.4 %; Neutrophils # (auto) 3.84 K/uL (1.40-6.50); Neutrophils % (auto) 63.3 %; Platelet Count 198 K/uL (130-400); RDW Coefficient of Variation 15.1 % (11.5-14.5); RDW Standard Deviation 46.8 fL (36.4-46.3); Red Blood Count 4.62 M/uL (4.70-6.10); White Blood Count 6.07 K/ul (4.8-10.8)
[2023-11-24 05:04] LABS: Albumin Globulin Ratio 1.4 (0.9-2); BUN Creatinine Ratio 19.3 (10-20); Bilirubin,Total 1.4 mg/dl (0.2-1.0); Calcium 9.2 mg/dl (8.6-10.3); Creatinine Clr Calc Pharmacy 79.1 ml/min; Est GFR (African American) 72.8 ml/min; Est GFR (Non-African American) 62.8 ml/min; Globulin 2.9 gm/dl (2.5-4.0); Magnesium 1.8 mg/dl (1.7-2.4); Potassium 4.2 mmol/L (3.5-5.1); Total Protein 6.9 gm/dl (6.0-8.3)
[2023-11-24 05:32] LABS: Partial Thromboplastin Ratio 1.1; Partial Thromboplastin Time 30 Seconds (21-31); Prothrombin Time 11.4 Seconds (9.0-12.0)
--- NOTE | 2023-11-24 07:22 | Electrocardiogram Report ---
Test Reason : Blood Pressure : / mmHG Vent. Rate : 079 BPM Atrial Rate : 079 BPM P-R Int : 208 ms QRS Dur : 084 ms QT Int : 386 ms P-R-T Axes : 050 060 084 degrees QTc Int : 442 ms Normal sinus rhythm Nonspecific ST abnormality Abnormal ECG When compared with ECG of 24-APR-2021 15:12, ST now depressed in Anterior leads Confirmed by Bolivar Santos ([id number]) on 11/24/2023 7:22:04 AM Referred By: REFERRED SELF Confirmed By:Bolivar Santos
--- NOTE | 2023-11-24 07:23 | Electrocardiogram Report ---
Test Reason : Blood Pressure : / mmHG Vent. Rate : 072 BPM Atrial Rate : 072 BPM P-R Int : 226 ms QRS Dur : 102 ms QT Int : 382 ms P-R-T Axes : 049 041 111 degrees QTc Int : 418 ms Sinus rhythm with 1st degree A-V block Marked ST abnormality, possible inferior subendocardial injury Marked ST abnormality, possible anterseptal subendocardial injury Abnormal ECG When compared with ECG of 21-NOV-2023 21:22, (unconfirmed) ST now depressed in Inferior leads ST now depressed in Lateral leads Confirmed by Bolivar Santos ([id number]) on 11/24/2023 7:23:00 AM Referred By: REFERRED SELF Confirmed By:Bolivar Santos
--- NOTE | 2023-11-24 07:26 | Electrocardiogram Report ---
Test Reason : Blood Pressure : / mmHG Vent. Rate : 073 BPM Atrial Rate : 073 BPM P-R Int : 226 ms QRS Dur : 098 ms QT Int : 396 ms P-R-T Axes : 054 053 084 degrees QTc Int : 436 ms Sinus rhythm with 1st degree A-V block Increased R/S ratio in V1, consider early transition or posterior infarct Abnormal ECG When compared with ECG of 21-NOV-2023 21:40, (unconfirmed) ST no longer depressed in Inferior leads ST no longer depressed in Anterolateral leads Confirmed by Bolivar Santos ([id number]) on 11/24/2023 7:25:48 AM Referred By: REFERRED SELF Confirmed By:Bolivar Santos
[2023-11-24] MEDS: METOPROLOL SUCC 25MG EXT REL TAB PO SCH (08:21)
--- NOTE | 2023-11-24 10:22 | Discharge Summary ---
Date of Service November 24, 2023 Admission HPI Per Admitting Provider The patient is a 68-year-old male with past medical history including coronary artery disease, peripheral neuropathy, CKD stage III, history of diabetic foot ulcer, diabetes mellitus type 2, dyslipidemia, anemia, hypertension and obesity. 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 With the persistence of the discomfort, he had to member drive him to the emergency department for assessment. In the emergency department, he had a worsening episode of chest discomfort and sweats, and was noted to have diffuse ST depress ions across across the precordial chest leads. A heart alert was called, the patient was taken emergently to the cardiac catheterization lab by Dr. Low, a stent was placed in the ramus, and he was then admitted to the ICU for post IN care Admission Exam Per Admitting Provider The patient is awake, alert and oriented 3, well developed and well nourished, normocephalic and atraumatic, lying in bed and in no acute distress. HEENT--PERRL, EOMI, mucous membranes and oropharynx normal. Neck--supple. No JVD. No bruits. Thyroid normal, trachea midline, no adenopathy. Heart--normal S1 and S2. No murmurs, rubs or gallops. Lungs--clear bilaterally, no respiratory distress, no accessory muscle use. Abdomen--normal bowel sounds and soft. Nontender. Nondistended. Obese Extremities--No edema. There are good distal pulses b/l. Dermatologic--normal skin turgor, normal color, no abnormal lymph nodes, no rash. Neurologic--cranial nerves II through XII grossly intact. Rheumatologic--normal range of motion. Psychiatric--normal affect. Principal Diagnosis Acute non-ST elevation IN status post drug-eluting stent in ramus Discharge Exam General: Awake, conversant Heart: S1, S2/regular rate and rhythm, no murmur rubs or gallops Lungs: Clear to auscultation bilaterally. Normal effort Abdomen: Soft/nontender/nondistended. No hepatosplenomegaly Extremities: No clubbing/cyanosis. No edema Behavior: Appropriate, cooperative Discharge Data Allergies Allergy/AdvReac Type Severity Reaction Status Date / Time bee venom protein (honey bee) Allergy Unknown ANY KIND Verified 09/29/23 09:50 OF BEEES - SWELLING,SOB Penicillins Allergy Unknown UNKNOWN/told Verified 09/29/23 09:50 as a kid Consultations 11/21/23 22:24 ED Decision to Admit Stat 11/21/23 22:52 Consult Sap Director Routine 11/21/23 23:05 Consult Internal Medicine Routine 11/22/23 14:45 Consult Cardiology Routine 11/23/23 12:59 Consult Cardiac Rehabilitation Routine Procedures Performed Operation Date: 11/21/23 10:15 Actual Procedures p Cineradiography w/Routine Exam - Ronny Low MD p Cath, Left with Cors and Vent - Ronny Low MD s Drug Eluting Stent SGl Vessel - Ronny Low MD Ordered Studies 11/21/23 22:00 CL Cath Imgs for PACS use only Stat Hospital Course (1) Stented coronary artery: (2) ACS (acute coronary syndrome): (3) CKD (chronic kidney disease), stage III: (4) Diabetic peripheral neuropathy associated with type 2 diabetes mellitus: (5) Type 2 diabetes mellitus with complications: (6) Dyslipidemia: (7) Hypertension: (8) Hypomagnesemia: (9) Coronary artery disease: Plan Acute Non-ST elevation IN Status post emergent cardiac catheterization with placement of coronary stent in [facility] 11/20 Patient is doing well postcatheterization Echo reviewed. Showed mild inferior hypokinesis. Systolic function fortunately is normal Continue dual antiplatelet agents, aspirin and Plavix Continue beta-ponce (helicopter pilot switched him to metoprolol succinate 25 mg p.o. every morning), statin Losartan resumed Blood pressure tolerated the medication adjustments Patient was deemed stable for discharge Hyperlipidemia- Continue atorvastatin Diabetes mellitus- Resume Jardiance Resume metformin Patient used his own insulin pump for coverage, while in the hospital CKD stage III Secondary to diabetic nephropathy BMP monitored closely Stable Anxiety- Continue fluoxetine Discharge today Total Time Total Time Spent Total Time Spent (In Minutes): 35 Discharge Plan Discharge Items Patient Disposition: Home - Self-Care Reason For Visit: STEMI Discharge Diagnosis: Acute coronary syndrome status post PCI Atherogenic dyslipidemia Benign essential hypertension CKD stage III Condition on Discharge: Good Activity: Per Instructions section Non-emergency contact: Primary Care Provider and Electromechanical Engineer Call non-emergency contact if: you have any medication questions, your symptoms worsen, your pain is not controlled, you have a fever, your wound has increased redness and your wound has increased drainage Follow-up/Referrals: Carlos Vyas MD [Physician] - 12/07/23 8:30 am (with Elena Steele PA-C. ) Evan Zapata DO [Primary Care Provider] - 11/27/23 1:25 pm (with Dr. Lamb. ) Diet: Carb Consistent or DM2 and Heart Healthy Addtl Attending Provider Instructions: Advised to follow-up with PCP in 1 week Advised to follow-up with helicopter pilot in 2 weeks ACTIVITY RECOMMENDATIONS: Excess manipulation of the wrist should be avoided for the next 24-48 hours. * No lifting over 2 pounds (approximately a 1/2 gallon of milk) with the utilized arm for 24 hours. * No strenuous activity such as bowling or tennis for 3 days. * Keep the site of the procedure covered with a bandage for 24 hours. *You may shower the day after the procedure. Do not take a tub bath or submerge the puncture site in water for the next 3 days. *Do not operate any motorized equipment for 3 days. SPECIAL CARE INSTRUCTIONS: The site may be slightly bruised and sore following your procedure. Should any of the following occur, contact the Dr. who performed your procedure. 1. Redness/inflammation, swelling, chills, or fever, or colored drainage at procedure site within 3-7 days after your procedure. 2. Coldness, discoloration, ongoing numbness, severe pain, or swelling. Expect mild tingling of hand and tenderness at the puncture site for up to three days. If this persists beyond three days, or other symptoms develop, notify the Dr. who performed your procedure. BLEEDING: If the procedure site on your wrist begins to bleed, do not panic 1. Place 1 or 2 fingers firmly just slightly above the insertion site to stop the bleeding. You may be able to feel your pulse as you hold pressure. 2. Lift your finger after 5 minutes to see if the bleeding has stopped. 3. Once the bleeding has stopped, gently wipe the wrist area clean with a bandage. * If the bleeding from your wrist does not stop after 10 minutes, or if there is a large amount of bleeding or spurting, call 911 (do not drive yourself to the hospital). SKIN IRRITATION: * You may experience some redness and/or swelling in the area where radiation was administered. If any skin irritation occurs, please contact your family physician. FOLLOW UP VISIT: Keep any scheduled doctor appointments. Pending Studies at Discharge: No Stand-Alone Forms: My [facility] Medications and DC Order Prescriptions: New clopidogrel 75 mg Tablet 75 mg PO HS Qty: 90 3RF metoprolol succinate 25 mg Tablet Extended Release 24 Hr 25 mg PO QAM Qty: 90 3RF Continued fluoxetine 20 mg capsule 20 mg PO QAM multivitamin capsule 1 cap PO QAM Excedrin Migraine 250-250-65 mg tablet 2 tab PO Q6H PRN (Reason: pain) Qty: 60 0RF cyanocobalamin (vitamin B-12) [Vitamin B-12] 1,000 mcg tablet 2,000 mcg PO QAM aspirin 81 mg tablet,delayed release (DR/EC) 81 mg PO BID (DME) FreeStyle Johnny 14 Day Sensor Kit See Dose Instructions .ROUTE .MEDSUPPLY Qty: 2 11RF Rx Instructions: change sensor every 14 days (DME) FreeStyle Johnny 14 Day [place] Misc See Dose Instructions .ROUTE .MEDSUPPLY Qty: 1 0RF Rx Instructions: As directed Jardiance 10 mg tablet 10 mg PO QAM Qty: 90 3RF atorvastatin 40 mg tablet 40 mg PO HS 30 Days Qty: 90 3RF insulin aspart U-100 [Novolog U-100 Insulin aspart] 100 unit/mL solution See Rx Instructions .ROUTE .COMPLEX Qty: 90 3RF Rx Instructions: Infuse via insulin pump 100 units daily; metformin 1,000 mg tablet 1,000 mg PO BID 90 Days Qty: 180 1RF elderberry fruit 200 mg capsule 200 mg PO QAM losartan 25 mg tablet 25 mg PO QAM ascorbate calcium (vitamin C) 500 mg tablet 1 g PO QAM cholecalciferol (vitamin D3) 50 mcg (2,000 unit) capsule 50 mcg PO QAM topiramate 25 mg tablet 25 mg PO BID nitroglycerin 0.4 mg tablet, sublingual 0.4 mg sublingual Q5M PRN (Reason: chest pain) Qty: 10 0RF Patient Comments: NEVER HAD TO USE glucosamine-chondroitin [Osteo Bi-Flex] 250-200 mg Tablet 2 tab PO QAM benzonatate 100 mg Capsule 100 mg PO UD PRN (Reason: Cough) Patient Comments: occassional Discontinued zinc 50 mg tablet 50 mg PO QAM ibuprofen [Advil] 200 mg Tablet 400 mg PO Q6 PRN (Reason: Pain) Discharge Orders: Discharge Order (Routine); Ordered 11/24/23 Ordered By: Lisa Estrada Admission Data Admit Date/Time: 11/21/23 22:16 Attending Provider: Lisa Estrada Admit Provider: Rhys Gates Primary Care Provider: Evan Zapata Other Providers: Rhys Gates; Ratna Jenkins; Bolivar Santos Other Interventions: Discharge Summary Assessment (RN) Last Done: 11/24/23 10:31 Coding Level of Care Code 27993 INP/OBS DISCH >30 MIN Diagnoses Stented coronary artery Z95.5 ACS (acute coronary syndrome) I24.9 CKD (chronic kidney disease), stage III N18.30 Diabetic peripheral neuropathy associated with type 2 diabetes mellitus E11.42 Type 2 diabetes mellitus with complications E11.8 Dyslipidemia E78.5 Hypertension I10 Hypomagnesemia E83.42 Coronary artery disease I25.10
== END 2023-11-24 11:49 | disposition home or self-care (01) | DRG 322 ==
LOC: ED 21:10 → OR 22:09 → 1E 22:16 → SUATTDRO 22:16 → OR 22:18

== ENCOUNTER 2025-06-05 18:16 | Inpatient (IN) ==
--- NOTE | 2025-06-05 19:24 | Emergency Department Note ---
Impression & Plan Hypomagnesemia, Gastroenteritis, Chronic kidney disease ED Provider Note NAME: JOE WESTBROOK AGE: 69 SEX: M : 1955 ARRIVES VIA: Walk-In INFORMANT: Patient ED PROVIDER(S): Jj Agustin MD CHIEF COMPLAINT: Fever, confusion PLAN: Disposition: Admit MEDICAL DECISION MAKING: The patient is a pleasant 69-year-old gentleman with a past medical history of CAD with history of PCI, CKD, hypertension, hyperlipidemia, type 2 diabetes who presents to the emergency department via walk-in accompanied by his brother and sister for evaluation of fevers and mild intermittent confusion which they noticed today when they were gathering to have dinner. Patient reports he has been feeling feverish with cough and congestion over the past couple of days. He reports having diarrhea. He developed a vomiting on his way to the emergency department with his siblings. He denies chest pain. He reports feeling some shortness of breath. He denies urinary symptoms. On evaluation the patient is no distress, febrile to 37.8 with heart in the 120s and vital signs otherwise stable. He appears clinically dry. He exhibits no focal neurologic deficits EKG without overt acute ischemia. CXR with vascular congestion without focal infiltrates per my personal preliminary review/interpretation. WBC and platelets within normal limits. There is neutrophilia but no left shift. Lymphopenia is present. H/H decreased but approximate to values in 2023 without more recent for comparison. Creatinine 1.59 in setting of history of CKD but without recent values for comparison. Bicarbonate is 20 and anion gap 12, marginally out of normal range. Magnesium 0.9 with IV repletion initiated. Total bilirubin 2.8, nonspecific with LFTs otherwise normal. High-sensitivity troponin 3.0, within normal limits. Lipase is normal. Procalcitonin is within normal limits. TSH within normal limits. Respiratory BioFire was negative. CT of the head and CT of the abdomen pelvis were completed with finalized radiology reports pending. Patient did report feeling improved following IV for hydration and IV magnesium as well as IV APAP. Given his gastroenteritis with significantly low magnesium patient and his siblings agree with plan for admission for further management. Case was [facility], with JUAN Burns hospitalist who will evaluate the patient for admission. Further management per admitting team. Triage Nursing notes reviewed and agree them. Prior/external medical records reviewed Vital Signs: reviewed Differential diagnosis: Viral syndrome, otitis, pharyngitis, pneumonia, influenza, meningitis, urinary tract infection, sepsis, bacteremia, as well as other pathologies. ER treatment provided: See below. Diagnostics interpreted by me: ECG: Sinus tachycardia, 121 bpm, no ectopy, no overt ST elevation or depression, QTc 414, QRS 78. Cardiac Monitoring: An order for continuous cardiac monitoring was placed and demonstrated Sinus tachycardia, 121 bpm, no ectopy Laboratory studies: See below Imaging studies: See below Consultation(s): Jillian Hassan, [facility] PAC, with Dr. Leyva, [facility] hospitalist. HPI: Per MDM. ROS: See above HPI for pertinent positives & negatives. A total of 10 systems reviewed and were otherwise negative. VITALS:See Below PHYSICAL EXAMINATION: GENERAL: Awake, alert, in no distress HENT: Normocephalic, atraumatic. Oropharynx with dry mucous membranes and otherwise unremarkable. EYES: Normal conjunctiva. Sclera non-icteric. EOMI. No nystamgus. PEARRL. NECK: Supple. No nuchal rigidity. FROM. No JVD. RESPIRATORY: Clear to auscultation. CARDIAC: Tachycardic rate, normal rhythm. Extremities warm and well perfused. Pulses equal. ABDOMEN: Soft, non-distended. No tenderness to palpation. No rebound or guarding. No masses. MUSCULOSKELETAL: Chest examination reveals no tenderness. The back is symmetrical on inspection without obvious abnormality. There is no CVA tenderness to palpation. No joint edema. LOWER EXTREMITIES: Calves are equal size bilaterally and non-tender. No edema. No discoloration. NEURO: Cranial nerves II-XII grossly intact. 5/5 strength and SILT x 4 extremities. Intact [id number]. SKIN: No rash or jaundice noted. Jj Agustin MD Past Med/Surg History Problem List (Updated 06/06/25 @ 00:32 by Jj Agustin MD) Gastroenteritis (Acute) Vitamin D insufficiency Elevated bilirubin Hepatic steatosis Uncontrolled type 2 diabetes mellitus with hyperglycemia, with long-term current use of insulin Dyspnea on exertion Hypomagnesemia (Acute) Stented coronary artery ACS (acute coronary syndrome) ST elevation myocardial infarction (STEMI) (Acute) Loss of protective sensation of skin of foot Chronic kidney disease (Acute) Personal history of diabetic foot ulcer Type 2 diabetes mellitus with complications Diabetic peripheral neuropathy associated with type 2 diabetes mellitus CKD (chronic kidney disease), stage III PT NOT AWARE OF ANY CHRONIC KIDNEY DISEASE Dyslipidemia Anemia Hyperlipidemia Hypertension Obesity Exertional angina Coronary artery disease Medical History History of COVID-12 OCT 2020 - SOB LINGERS SINCE ONLY ON EXERTION Migraines History of pancreatitis Ankle arthritis Arm paresthesia, left Depression HX Rib fractures (~2013) Glenoid fracture of shoulder (~2013) Surgical History History of left cataract surgery History of cardiac cath 3-4 YR AGO/HX C/P ([facility]) ....CATH...NO STENT(S)...NO FINDINGS ([facility]) History of total left hip arthroplasty History of total right hip replacement History of shoulder surgery LEFT / DECEMBER 2021 History of endoscopy History of colonoscopy History of carpal tunnel release of both wrists Hx of shoulder surgery RIGHT Bilateral inguinal hernia repaired History of appendectomy History of cholecystectomy Family History Mother Cancer Father Heart disease Colorectal cancer Stroke Grandmother (Paternal) Family history of diabetes mellitus Grandfather (Maternal) Family history of diabetes mellitus Social History Smoking Status: Former smoker Tobacco Type: Cigarettes Cigarettes Per Day: 2-3 packs per day; Second Hand Exposure: No; Do You Dip or Chew Tobacco: No; Hx Alcohol Use: No Hx Substance Use: No Preferred Language: Faroese Communication Ability: Effective Department Chair Required: No Beliefs That Will Affect Care: None marital status: Current Living Situation: Spouse Current Living Situation Comment: with Cassandra 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 [employer] Feels Safe at Home: Yes Assistive Devices: None Allergies Allergies Allergy/AdvReac Type Severity Reaction Status Date / Time bee venom protein (honey bee) Allergy Severe ANY KIND Verified 06/05/25 20:52 OF BEEES - SWELLING,SOB Penicillins Allergy Unknown UNKNOWN/told Verified 06/05/25 20:52 as a kid Home Meds Home Medications Medication Instructions Recorded Confirmed fluoxetine 20 mg capsule 20 mg PO QAM 03/24/19 06/05/25 topiramate 25 mg tablet 25 mg PO BID 04/24/21 06/05/25 losartan 25 mg tablet 25 mg PO QAM 05/31/21 06/05/25 aspirin 81 mg tablet,delayed 81 mg PO DAILY 03/14/24 06/05/25 release insulin aspart U-100 100 unit/mL 0 sliding scale dose subcut TID 06/05/25 06/05/25 (3 mL) subcutaneous pen (Novolog FlexPen U-100 Insulin aspart) insulin aspart U-100 100 unit/mL 0 sliding scale dose continuous 06/05/25 06/05/25 subcutaneous solution (Novolog subcutaneous infusion CONTINOUS U-100 Insulin aspart) insulin degludec 200 unit/mL (3 46 unit subcut DAILY PRN PUMP 06/05/25 06/05/25 mL) subcutaneous pen (Tresiba FAILURE FlexTouch U-200 insulin) semaglutide 0.25 mg or 0.5 mg (2 0.25 mg subcut WK 06/05/25 06/05/25 mg/3 mL) subcutaneous pen injector ([place]) Previous Rx's Medication Instructions Recorded [id number]-edqrdgnrxrolg-[id number] 250 2 tab PO Q6H PRN pain #60 tabs 03/24/19 mg-250 mg-65 mg tablet (Excedrin Migraine) atorvastatin 40 mg tablet 40 mg PO HS 30 days #90 tabs 06/05/23 pen needle, diabetic 31 gauge x #50 ea 04/05/24/" (Comfort EZ Pen [place]) insulin pump cart,auto,BT,G6/7 #15 ea 08/23/24 (Omnipod 5 G6-G7 Pods (Gen 5) subcutaneous cartridge) clopidogrel 75 mg tablet 75 mg PO HS #90 tabs 11/15/24 metoprolol succinate 25 mg 25 mg PO QAM #90 tabs 11/15/24 tablet,extended release 24 hr icosapent ethyl 1 gram capsule 2 g (2 x 1 gram) PO BID #360 caps 12/12/24 (Vascepa) metformin 1,000 mg tablet 1,000 mg PO BID 90 days #180 tabs 01/17/25 blood sugar diagnostic (Accu-Chek #100 ea 03/15/25 Felicia Plus test strips) lancets (Accu-Chek Fastclix Lancet #100 ea 03/15/25 Drum) lancing device with lancets kit #1 ea 03/15/25 (Accu-Chek FastClix Lancing Device kit) Results & Data (ED) Vital Signs Vital Signs - 24 hr 06/05/25 18:29 06/05/25 18:29 06/05/25 18:46 Temperature 37.8 C H Temperature Source Oral Pulse Rate 122 H 120 H Pulse Rate [Apical] Respiratory Rate 24 Respiratory Effort / Characteristics Short of Breath SOB on Exertion Blood Pressure 125/74 Blood Pressure [Right Arm] Blood Pressure Mean 91 Blood Pressure Mean [Right Arm] Pulse Oximetry 97 Oxygen Delivery Method Room Air Sepsis Recent Fever Within 48 Hours Yes Sepsis New/Unexplained Change in Mental Status No Sepsis Action Taken by Nursing No Action Required 06/05/25 19:00 06/05/25 19:00 06/05/25 19:00 Temperature Temperature Source Pulse Rate 116 H Pulse Rate [Apical] 116 H Respiratory Rate 16 16 Respiratory Effort / Characteristics Non-Labored Spontaneous Blood Pressure Blood Pressure [Right Arm] 143/76 H Blood Pressure Mean Blood Pressure Mean [Right Arm] 98 Pulse Oximetry 95 96 96 Oxygen Delivery Method Room Air Room Air Room Air Sepsis Recent Fever Within 48 Hours Sepsis New/Unexplained Change in Mental Status Sepsis Action Taken by Nursing 06/05/25 19:45 06/05/25 21:00 06/05/25 22:44 Temperature 37.6 C Temperature Source Oral Pulse Rate 103 H Pulse Rate [Apical] 101 H Respiratory Rate 16 Respiratory Effort / Characteristics Non-Labored Spontaneous Blood Pressure Blood Pressure [Right Arm] 100/74 Blood Pressure Mean Blood Pressure Mean [Right Arm] 82 Pulse Oximetry 95 Oxygen Delivery Method Room Air Sepsis Recent Fever Within 48 Hours Sepsis New/Unexplained Change in Mental Status Sepsis Action Taken by Nursing 06/05/25 23:00 06/06/25 00:22 Temperature Temperature Source Pulse Rate 116 H Pulse Rate [Apical] 103 H Respiratory Rate 16 20 Respiratory Effort / Characteristics Blood Pressure 138/77 Blood Pressure [Right Arm] 138/77 Blood Pressure Mean 97 Blood Pressure Mean [Right Arm] 97 Pulse Oximetry 98 97 Oxygen Delivery Method Room Air Sepsis Recent Fever Within 48 Hours Sepsis New/Unexplained Change in Mental Status Sepsis Action Taken by Nursing Laboratory Data Attestation: I reviewed the patient's lab results. 06/05/25 19:16 06/05/25 19:16 Lab Results 06/05/25 06/05/25 Range/Units 19:16 22:53 WBC 10.11 (4.8-10.8) K/ul RBC 4.32 L (4.70-6.10) M/uL Hgb 12.7 L (14.0-18.0) g/dl Hct 37.2 L (42.0-52.0) % MCV 86.1 (80.0-100.0) fL MCH 29.4 (25.0-34.0) pg MCHC 34.1 (32.0-36.0) g/dL RDW Std Deviation 43.9 (36.4-46.3) fL RDW Coeff of Juan A 14.1 (11.5-14.5) % Plt Count 205 (130-400) K/uL MPV 8.8 L (9.4-12.4) fL Immature Gran % (Auto) 0.4 % Neut % (Auto) 87.7 % Lymph % (Auto) 5.9 % Frontier % (Auto) 5.7 % Eos % (Auto) 0.0 % Baso % (Auto) 0.3 % Neut # (Auto) 8.86 H (1.40-6.50) K/uL Lymph # (Auto) 0.60 L (1.20-3.40) K/uL Frontier # (Auto) 0.58 (0.11-0.59) K/uL Eos # (Auto) 0.00 (0.00-0.50) K/uL Baso # (Auto) 0.03 (0.00-0.20) K/uL Immature Gran # (Auto) 0.04 (0.01-0.20) K/uL PT 12.3 H (9.0-12.0) Seconds INR 1.2 H (0.9-1.1) Sodium 134 L (136-145) mmol/L Potassium 4.6 (3.5-5.1) mmol/L Chloride 102 (98-107) mmol/L Carbon Dioxide 20 L (21-32) mmol/L Anion Gap 12 H (3-11) BUN 27 H (6-23) mg/dl Creatinine 1.59 H (0.6-1.4) mg/dl Est Cr Clr Drug Dosing 57.6 ml/min eGFR 46.99 BUN/Creatinine Ratio 17.0 (10-20) Glucose 145 H (70-99(Fasting)) mg/dl Calcium 8.8 (8.6-10.3) mg/dl Phosphorus 3.2 (2.5-4.9) mg/dl Magnesium 0.9 L* (1.7-2.4) mg/dl Total Bilirubin 2.8 H (0.2-1.0) mg/dl Direct Bilirubin 0.3 H (0-0.2) mg/dl AST 14 (13-39) U/L ALT 15 (7-52) U/L Alkaline Phosphatase 67 (34-104) U/L Troponin I High Sens 3.0 (0-20) pg/ml Total Protein 7.5 (6.0-8.3) gm/dl Albumin 4.1 (3.4-5.0) gm/dl Globulin 3.4 (2.5-4.0) gm/dl Albumin/Globulin Ratio 1.2 (0.9-2) Lipase 22 (11-82) U/L Procalcitonin 0.33 (0-0.5) ng/ml TSH 0.752 (0.300-4.500) uIu/ml Urine Color Yellow Urine Appearance Clear (Clear) Urine pH 5.0 (4.5-7.5) Ur Specific [place] 1.028 (1.000-1.030) Urine Protein Trace H (Negative) Urine Glucose (UA) Negative (Negative) Urine Ketones Trace H (Negative) Urine Blood Negative (Negative) Urine Nitrite Negative (Negative) Urine Bilirubin Negative (Negative) Urine Urobilinogen Negative (Negative) Ur Leukocyte Esterase Negative (Negative) Urine WBC (Auto) 0-5 (0-5) /hpf Urine RBC (Auto) 0-2 (0-2) /hpf U Hyaline Cast (Auto) 3-5 H (0-2) /lpf U Epithel Cells (Auto) 0-2 (0-2) /hpf Urine Bacteria (Auto) None Seen (None Seen) Urine Comment Adenovirus (PCR) Not Detected (NotDetected) B. pertussis DNA (PCR) Not Detected (NotDetected) B.parapertussis DNA PCR Not Detected (NotDetected) C. pneumoniae DNA (PCR) Not Detected (NotDetected) Coronavirus OC43 (PCR) Not Detected (NotDetected) Coronavirus HKU1 (PCR) Not Detected (NotDetected) Coronavirus 229E (PCR) Not Detected (NotDetected) SARS-CoV-2 (PCR) Not Detected (NotDetected) Coronavirus NL63 (PCR) Not Detected (NotDetected) Human Metapneumovir PCR Not Detected (NotDetected) Influenza Type A (PCR) Not Detected (NotDetected) Influenza Type B (PCR) Not Detected (NotDetected) M. pneumoniae (PCR) Not Detected (NotDetected) Parainfluenza 1 (PCR) Not Detected (NotDetected) Parainfluenza 2 (PCR) Not Detected (NotDetected) Parainfluenza 3 (PCR) Not Detected (NotDetected) Parainfluenza 4 (PCR) Not Detected (NotDetected) RSV (PCR) Not Detected (NotDetected) Entero/Rhino (PCR) Not Detected (NotDetected) Administered Medications Magnesium Sulfate/Dextrose (Magnesium Sulfate / D5w) 1 gm in 100 mls @ 50 mls/hr IV Q2H CHELE Stop: 06/06/25 05:44 Last Admin: 06/06/25 00:13 Dose: 50 mls/hr Documented By: MICKIE Lactated Ringer's (Lr) 1,000 mls @ 80 mls/hr IV .[id number] STA Stop: 06/06/25 12:15 Last Admin: 06/05/25 23:47 Dose: 80 mls/hr Documented By: HANNAH Discontinued Medications Sodium Chloride (Nss) 1,000 mls @ 999 mls/hr IV .[id number] ONE Stop: 06/05/25 19:54 Last Infusion: 06/05/25 20:51 Dose: Infused Documented By: Admin: 06/05/25 19:25 Dose: 999 mls/hr Documented By: ROMY Acetaminophen (Ofirmev) 1,000 mg in 100 mls @ 400 mls/hr IV NOW STA Stop: 06/05/25 19:08 Last Infusion: 06/05/25 20:27 Dose: Infused Documented By: Admin: 06/05/25 19:25 Dose: 400 mls/hr Documented By: ROMY Magnesium Sulfate/Dextrose (Magnesium Sulfate / D5w) 1 gm in 100 mls @ 100 mls/hr IV NOW STA Stop: 06/05/25 21:08 Last Infusion: 06/05/25 22:54 Dose: Infused Documented By: Admin: 06/05/25 20:36 Dose: 100 mls/hr Documented By: THOMAS Magnesium Sulfate/Dextrose (Magnesium Sulfate / D5w) 1 gm in 100 mls @ 100 mls/hr IV NOW STA Stop: 06/05/25 23:02 Last Infusion: 06/06/25 00:15 Dose: Infused Documented By: Admin: 06/05/25 22:51 Dose: 100 mls/hr Documented By: THOMAS Imaging Data Radiologist's Impression: Chest X-Ray 06/05/25 18:51 Single frontal view of the chest Comparison made to prior exam dated 11/21/2023 Impression Mild central pulmonary vascular congestion. No acute infiltrates or effusions. Postoperative changes right shoulder. Electronically signed by Lisandro Tamez 06-05-2025 8:[address] 06/05/25 20:38 Exam(s): CT HEAD Without Contrast EXAM: CT Head Without Intravenous Contrast CLINICAL HISTORY: Reason for exam: fever, confusion. TECHNIQUE: Axial computed tomography images of the head/brain without intravenous contrast. CTDI is 66.19 mGy and DLP is 1098.96 mGy-cm. Automated exposure control was utilized for the study. A dose lowering technique was utilized adhering to the principles of ALARA. COMPARISON: Prior head CT from October 16, 2013. FINDINGS: Brain: Unremarkable. No hemorrhage. No significant white matter disease. No edema. Ventricles: Unremarkable. No ventriculomegaly. Bones/joints: Unremarkable. No acute fracture. Soft tissues: Unremarkable. Sinuses: Unremarkable as visualized. No acute sinusitis. Mastoid air cells: Unremarkable as visualized. No mastoid effusion. IMPRESSION: No evidence of acute intracranial pathology. Electronically signed by: Vanessa Thomas MD 06/05/25 23:12 PM Chest X-Ray 06/05/25 18:51 Single frontal view of the chest Comparison made to prior exam dated 11/21/2023 Impression Mild central pulmonary vascular congestion. No acute infiltrates or effusions. Postoperative changes right shoulder. Electronically signed by Lisandro Tamez 06-05-2025 8:17 PM Abdomen/Pelvis CT 06/05/25 20:38 Exam(s): CT ABDOMEN + PELVIS Without Contrast EXAM: CT Abdomen and Pelvis Without Intravenous Contrast CLINICAL HISTORY: Reason for exam: fever, n/v, karina. TECHNIQUE: Axial computed tomography images of the abdomen and pelvis without intravenous contrast. CTDI is this is a waste of time is a waste of time this is a waste of my yes 27 mGy and DLP is 1376.57 mGy-cm. Automated exposure control was utilized for the study. A dose lowering technique was utilized adhering to the principles of ALARA. COMPARISON: No relevant prior studies available. FINDINGS: ABDOMEN: Liver: Unremarkable. Gallbladder and bile ducts: Cholecystectomy. No ductal dilation. Pancreas: Unremarkable. No ductal dilation. Spleen: Splenomegaly with spleen measuring 13.7 cm in length. Chronic calcification along the splenic capsule. Adrenals: Unremarkable. No mass. Kidneys and ureters: 2.0 cm exophytic lesion in the left kidney. The density is not consistent with a simple cyst. Stomach and bowel: Unremarkable. No obstruction. No mucosal thickening. PELVIS: Appendix: No findings to suggest acute appendicitis. Bladder: Unremarkable. No stones. ABDOMEN and PELVIS: Intraperitoneal space: Unremarkable. No free air. No significant fluid collection. Bones/joints: No acute findings. Soft tissues: Unremarkable. Vasculature: Unremarkable. No abdominal aortic aneurysm. Lymph nodes: Unremarkable. No enlarged lymph nodes. IMPRESSION: No acute findings in the abdomen or pelvis. Splenomegaly with splenic capsular calcification. Complex appearing cyst in the left kidney. Consider further evaluation with CT or MRI without and with contrast. Electronically signed by: Omar Curry MD 06/06/25 00:[address] 06/05/25 20:38 Exam(s): CT HEAD Without Contrast EXAM: CT Head Without Intravenous Contrast CLINICAL HISTORY: Reason for exam: fever, confusion. TECHNIQUE: Axial computed tomography images of the head/brain without intravenous contrast. CTDI is 66.19 mGy and DLP is 1098.96 mGy-cm. Automated exposure control was utilized for the study. A dose lowering technique was utilized adhering to the principles of ALARA. COMPARISON: Prior head CT from October 16, 2013. FINDINGS: Brain: Unremarkable. No hemorrhage. No significant white matter disease. No edema. Ventricles: Unremarkable. No ventriculomegaly. Bones/joints: Unremarkable. No acute fracture. Soft tissues: Unremarkable. Sinuses: Unremarkable as visualized. No acute sinusitis. Mastoid air cells: Unremarkable as visualized. No mastoid effusion. IMPRESSION: No evidence of acute intracranial pathology. Electronically signed by: Vanessa Thomas MD 06/05/25 23:12 PM Discharge Plan Visit Data Chief Complaint: Cardiac Assessment Stated Complaint: NAUSEA, FEVER, SOB, HX HEART PROBLEMS, WEAKNESS ED Provider: Jj Agustin Discharge Problem: Hypomagnesemia, Gastroenteritis, Chronic kidney disease Patient Disposition: Admitted As Inpatient Condition: Fair Forms Stand Alone Forms: My [facility] Prescriptions Prescriptions: No Action fluoxetine 20 mg capsule 20 mg PO QAM Excedrin Migraine 250-250-65 mg tablet 2 tab PO Q6H PRN (Reason: pain) Qty: 60 0RF atorvastatin 40 mg tablet 40 mg PO HS 30 Days Qty: 90 3RF aspirin 81 mg tablet,delayed release (DR/EC) 81 mg PO DAILY clopidogrel 75 mg tablet 75 mg PO HS Qty: 90 3RF metoprolol succinate 25 mg tablet extended release 24 hr 25 mg PO QAM Qty: 90 3RF icosapent ethyl [Vascepa] 1 gram capsule 2 g PO BID Qty: 360 1RF metformin 1,000 mg tablet 1,000 mg PO BID 90 Days Qty: 180 1RF (DME) lancets [Accu-Chek Fastclix Lancet Drum] Misc See Rx Instructions .Route Qty: 100 3RF Rx Instructions: use to test blood sugar QID when CGM is not working & also to calibrate CGM (DME) lancing device with lancets [Accu-Chek FastClix Lancing Dev] Kit See Rx Instructions .Route Qty: 1 2RF Rx Instructions: use to test blood sugar QID when CGM is not working & also to calibrate CGM (DME) Accu-Chek Felicia Plus test strp Strip See Rx Instructions .Route Qty: 100 3RF Rx Instructions: Test TID losartan 25 mg tablet 25 mg PO QAM (DME) pen needle, diabetic [Comfort EZ Pen [place]] 31 gauge x 5/16" needle See Rx Instructions .Route Qty: 50 2RF Rx Instructions: Inject insulin in case of pump failure (DME) Omnipod 5 G6-G7 Pods (Gen 5) Cartridge See Rx Instructions .ROUTE .MEDSUPPLY Qty: 15 11RF Rx Instructions: change pods every 2 days based on insulin usage topiramate 25 mg tablet 25 mg PO BID insulin aspart U-100 [Novolog U-100 Insulin aspart] 100 unit/mL solution 0 sliding scale dose continuous subcutaneous infusion CONTINOUS MDD 100 UNITS/DAILY Rx Instructions: Infuse via insulin pump 100 units daily; insulin aspart U-100 [Novolog FlexPen U-100 Insulin] 100 unit/mL (3 mL) insulin pen 0 sliding scale dose subcut TID MDD 50 units Rx Instructions: In case of pump failure, inject 1 unit for every 2g of carbs plus sliding scale, up to 50 units per day until pump failure resolved insulin degludec [Tresiba FlexTouch U-200] 200 unit/mL (3 mL) insulin pen 46 unit subcut DAILY MDD 46 units daily PRN (Reason: PUMP FAILURE) Rx Instructions: In case of pump failure, inject 46 units daily until pump failure resolved Ozempic 0.25 mg or 0.5 mg (2 mg/3 mL) pen injector 0.25 mg subcut WK Rx Instructions: SUNDAYS Referrals Referrals: Evan Zapata DO [Primary Care Provider] - Discharge Problem: Chronic kidney disease Qualifiers: Chronic kidney disease stage: unspecified stage Qualified Code(s): N18.9 - Chronic kidney disease, unspecified
[2025-06-05] MEDS: SODIUM CHLORIDE 0.9% 1,000 ML IV ONE (19:25)
[2025-06-05] MEDS: ACETAMINOPHEN 1,000 MG/100 ML VIAL IV STA (19:25)
[2025-06-05 19:47] LABS: Hematocrit (blood only) 37.2 % (42.0-52.0); Hemoglobin 12.7 g/dl (14.0-18.0); Immature Granulocytes # (auto) 0.04 K/uL (0.01-0.20); Immature Granulocytes % (auto) 0.4 %; Mean Corpuscular Hemoglobin 29.4 pg (25.0-34.0); Mean Corpuscular Volume 86.1 fL (80.0-100.0); Platelet Count 205 K/uL (130-400); RDW Standard Deviation 43.9 fL (36.4-46.3); Red Blood Count 4.32 M/uL (4.70-6.10); White Blood Count 10.11 K/ul (4.8-10.8)
[2025-06-05 20:05] LABS: Anion Gap 12.0 (3-11); Blood Urea Nitrogen 27.0 mg/dl (6-23); Calcium 8.8 mg/dl (8.6-10.3); Carbon Dioxide 20.0 mmol/L (21-32); Chloride 102.0 mmol/L (98-107); Creatinine Clr Calc Pharmacy 57.6 ml/min; Glucose 145.0 mg/dl (70-99(Fasting)); Potassium 4.6 mmol/L (3.5-5.1); Sodium 134.0 mmol/L (136-145)
--- NOTE | 2025-06-05 20:17 | XRay Report ---
Single frontal view of the chest Comparison made to prior exam dated 11/21/2023 Impression Mild central pulmonary vascular congestion. No acute infiltrates or effusions. Postoperative changes right shoulder. Electronically signed by Lisandro Tamez 06-05-2025 8:17 PM
[2025-06-05 20:20] LABS: Thyroid Stimulating Hormone 0.752 uIu/ml (0.300-4.500)
[2025-06-05 20:21] LABS: Chlamydia pneumoniae PCR Not Detected (NotDetected); Coronavirus 229E PCR Not Detected (NotDetected); Coronavirus CoV-2 (COVID19)PCR Not Detected (NotDetected); Coronavirus HKU1 PCR Not Detected (NotDetected); Coronavirus NL63 PCR Not Detected (NotDetected); Coronavirus OC43PCR Not Detected (NotDetected); Human Metapneumovirus PCR Not Detected (NotDetected); Parainfluenza Virus 1 PCR Not Detected (NotDetected); Parainfluenza Virus 2 PCR Not Detected (NotDetected); Parainfluenza Virus 3 PCR Not Detected (NotDetected); Parainfluenza Virus 4 PCR Not Detected (NotDetected); Respiratory Syncytial VirusPCR Not Detected (NotDetected); Rhinovirus/Enterovirus PCR Not Detected (NotDetected)
[2025-06-05 20:23] LABS: Alanine Aminotransferase 15.0 U/L (7-52); Albumin Globulin Ratio 1.2 (0.9-2); Albumin Level 4.1 gm/dl (3.4-5.0); Alkaline Phosphatase 67.0 U/L (34-104); Bilirubin,Total 2.8 mg/dl (0.2-1.0); Globulin 3.4 gm/dl (2.5-4.0); Lipase 22.0 U/L (11-82); Magnesium 0.9 mg/dl (1.7-2.4); Total Protein 7.5 gm/dl (6.0-8.3)
[2025-06-05 20:27] LABS: INR 1.2 (0.9-1.1); Prothrombin Time 12.3 Seconds (9.0-12.0)
[2025-06-05] MEDS: MAGNESIUM SULFATE / D5W 1 GM/100 ML BAG IV STA ×2 (20:36→22:51)
--- NOTE | 2025-06-05 23:03 | History & Physical Report ---
Date of Service June 05, 2025 Assessment & Plan (1) Fever: (2) Renal insufficiency: (3) Hypomagnesemia: (4) Uncontrolled type 2 diabetes mellitus with hyperglycemia, with long-term current use of insulin: (5) Elevated bilirubin: Plan 69-year-old male PMHx CAD s/p PCI, CKD stage III, T2DM with peripheral neuropathy, dyslipidemia, HTN, hypomagnesemia, and anxiety presenting for an array of symptoms worsening over the past week to include fevers, chest pressure, flulike symptoms, and some altered mentation. His evaluation reveals mild anemia 12.7/37.2, Na 134, Mg 0.9, elevated bilirubin (2.8, direct 0.3), and Cr 1.59. Imaging without identifying etiology of fever. L complex renal cyst identified. Admission for further eval of fever also in setting of renal insufficiency and hypomagnesemia. #Fever Multiple days of fever, myalgias, diarrhea. Family believes that he was slightly confused. Patient has been on Ozempic since August, without recent dose changes. No recent antibiotics. No known sick contacts. Only other complaint is some worsening CONNOR over the past 2 weeks. No other source of symptomatology identified at admission. No new murmur identified. Unclear etiology of a fever. ? gastroenteritis. Empirically treated with ceftriaxone, pending remaining workup with cultures. - CBC without leukocytosis; CMP Na 134, AG 12, Cr 1.57, BUN 27, total bili 2.8, direct 0.3; Mg 0.9, procal 0.33 - CBC, BMP, Mg am - CXR mild central vascular pulm congestion - Head CT no acute findings - CTAP no acute findings, splenomegaly with splenic capsular calcification, complex appearing cyst in L kidney (consider CT or MRI with and without contrast) - UA negative for infection - BioFire negative - Stool cultures pending - Blood cx pending - tachycardia, fever, ? infection - Zofran prn N/V - Acetaminophen prn fever/pain - IVF LR @ 80 mL/hr - No clear etiology at time of admission -- without leukocytosis, normal procal, and no imaging suggestive of etiology -- provided empiric dose of ceftriaxone IV at admission #Renal insufficiency/CKD stage III Likely secondary to recent GI illness; Received 1L NSS in ED. - Cr 1.59, BUN 27 - BMP am - UA negative for infection - Bladder scan prn - Avoid nephrotoxic agents - Continue IVF LR @ 80 mL/hr #Hypomagnesemia H/o such, Ca 8.8; received Mag sulfate 1g IV in ED. - Mg 0.9 - Mg am - MgSO4 3g IV now -- repeat pending #T2DM H/o DMT2; Has CGM and insulin pump; DM complicated by neuropathy. Home regimen includes insulin, metformin BID, and Ozempic weekly. Attends diabetes visits, most recent being 03/13/2025. Own pumps not working correctly. - Most recent A1C 6.4% - Hold metformin, hold Ozempic - SSI with glucose goal 110-160, CF 20, CR 5 - BSG ACHS - Adjust regimen as needed #Elevated bilirubin - Prior history of such since 20 y/o, follows with GI (most recent visit 03/29/2025); h/o hepatic steatosis as well; total 2.8, direct 0.3 - trend as appropriate #CAD s/p PCI ramus/HTN/HLD- Follows with cardiology (most recent visit 12/09/2024); worsening CONNOR per patient; ASA, Plavix, metoprolol, losartan, atorvastatin, vascepa - continue; echo pending am #Psych- Fluoxetine - continue #Migraines- Topiramate - continue First point of contact: Kori @ [phone] Second point of contact: Conrad @ [phone] Dispo: Admit, med/tele VTE Prophylaxis: SCDs This document was dictated utilizing [employer]. Please excuse any grammatical errors that may be secondary to use of this software. Admission and Anticipated Discharge Date Admission Date: 06/05/2025 History of Present Illness Chief Complaint: Fever, diarrhea Primary Care Provider: Evan Zapata DO 69-year-old male PMHx CAD s/p PCI, CKD stage III, T2DM with peripheral neuropathy, dyslipidemia, HTN, hypomagnesemia, and anxiety presenting for an array of symptoms worsening over the past week to include fevers, chest pressure, flulike symptoms, and some altered mentation. 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 He also felt that his body was aching and he was very tired overall. His 2 siblings (Kori and Conrad) came into town and when they were going to take the patient up for dinner they noted that he seemed more confused. He was in his living room at that time. His sister reports a fever of 102 F on the day of arrival, but the patient is unsure if he had a fever or any other days. He states that he is having loose bowel movements approximately 4-5 times per day as well as nausea and vomiting on the day of arrival. He is on Ozempic, but he has been taking this medication since August 2024 without recent dose changes. 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 He notes that his shortness of breath has been increasing with exertion over the past 1 to 2 weeks. He states he is unsure how far he can normally walk but he knows that it has shortened by the time he gets short of breath. He denies any chest pain at present. He does have chills and feels cold at time of admission. No palpitations, abdominal pain, constipation, abnormal numbness/tingling, LUTS, URI symptoms, weakness, syncope, or falls. ED evaluation reveals CBC without leukocytosis, H&H 12.7/37.2; PT/INR 12.3/1.2; CMP sodium 134, CO2 20, AG 12, BUN 27, creatinine 1.59, glucose 145, bilirubin 2.8, direct bilirubin 0.3; magnesium 0.9; troponin 3; procalcitonin 0.33; TSH 0.752; BioFire negative; CXR mild central pulmonary vascular congestion, no acute infiltrates or effusions; CTAP no acute findings, splenomegaly with splenic capsular calcification, complex appearing cyst in the L kidney; head CT no acute findings; EKG sinus tachycardia at 121 bpm.; Provided with 1L NSS, mag sulfate 1 g IV, and acetaminophen 1 g IV in ED. Of note, patient did recently lose his a few months ago. His emergency contacts will first be his sister Kori ([phone]), and second his brother Conrad ([phone]). Please see Dr. Gates's attestation for adjustments/additions to treatment plan. Allergies Allergy/AdvReac Type Severity Reaction Status Date / Time bee venom protein (honey bee) Allergy Severe ANY KIND Verified 06/05/25 20:52 OF BEEES - SWELLING,SOB Penicillins Allergy Unknown UNKNOWN/told Verified 06/05/25 20:52 as a kid Home Medications Medication Instructions Recorded Confirmed Type ncksapq-jkabtbjvcqlsu-zpajevpt 250 2 tab PO Q6H PRN pain #60 tabs 03/24/19 06/05/25 Rx mg-250 mg-65 mg tablet (Excedrin Migraine) fluoxetine 20 mg capsule 20 mg PO QAM 03/24/19 06/05/25 History topiramate 25 mg tablet 25 mg PO BID 04/24/21 06/05/25 History losartan 25 mg tablet 25 mg PO QAM 05/31/21 06/05/25 History atorvastatin 40 mg tablet 40 mg PO HS 30 days #90 tabs 06/05/23 06/05/25 Rx aspirin 81 mg tablet,delayed 81 mg PO DAILY 03/14/24 06/05/25 History release pen needle, diabetic 31 gauge x #50 ea 04/05/24 03/29/25 Rx 5/16" (Comfort EZ Pen [place]) insulin pump cart,auto,BT,G6/7 #15 ea 08/23/24 03/29/25 Rx (Omnipod 5 G6-G7 Pods (Gen 5) subcutaneous cartridge) clopidogrel 75 mg tablet 75 mg PO HS #90 tabs 11/15/24 06/05/25 Rx metoprolol succinate 25 mg 25 mg PO QAM #90 tabs 11/15/24 06/05/25 Rx tablet,extended release 24 hr icosapent ethyl 1 gram capsule 2 g (2 x 1 gram) PO BID #360 caps 12/12/24 06/05/25 Rx (Vascepa) metformin 1,000 mg tablet 1,000 mg PO BID 90 days #180 tabs 01/17/25 06/05/25 Rx blood sugar diagnostic (Accu-Chek #100 ea 03/15/25 03/29/25 Rx Felicia Plus test strips) lancets (Accu-Chek Fastclix Lancet #100 ea 03/15/25 03/29/25 Rx Drum) lancing device with lancets kit #1 ea 03/15/25 03/29/25 Rx (Accu-Chek FastClix Lancing Device kit) insulin aspart U-100 100 unit/mL 0 sliding scale dose subcut TID 06/05/25 06/05/25 History (3 mL) subcutaneous pen (Novolog FlexPen U-100 Insulin aspart) insulin aspart U-100 100 unit/mL 0 sliding scale dose continuous 06/05/25 06/05/25 History subcutaneous solution (Novolog subcutaneous infusion CONTINOUS U-100 Insulin aspart) insulin degludec 200 unit/mL (3 46 unit subcut DAILY PRN PUMP 06/05/25 06/05/25 History mL) subcutaneous pen (Tresiba FAILURE FlexTouch U-200 insulin) semaglutide 0.25 mg or 0.5 mg (2 0.25 mg subcut WK 06/05/25 06/05/25 History mg/3 mL) subcutaneous pen injector (Ozempic) Past Med/Surg History Problem List (Updated 06/06/25 @ 13:59 by Sumaya Betancourt PA-C) Campylobacter diarrhea Renal insufficiency Fever Gastroenteritis (Acute) Vitamin D insufficiency Elevated bilirubin Hepatic steatosis Uncontrolled type 2 diabetes mellitus with hyperglycemia, with long-term current use of insulin Dyspnea on exertion Hypomagnesemia (Acute) Stented coronary artery ACS (acute coronary syndrome) ST elevation myocardial infarction (STEMI) (Acute) Loss of protective sensation of skin of foot Chronic kidney disease (Acute) Personal history of diabetic foot ulcer Type 2 diabetes mellitus with complications Diabetic peripheral neuropathy associated with type 2 diabetes mellitus CKD (chronic kidney disease), stage III PT NOT AWARE OF ANY CHRONIC KIDNEY DISEASE Dyslipidemia Anemia Hyperlipidemia Hypertension Obesity Exertional angina Coronary artery disease Medical History History of COVID-12 OCT 2020 - SOB LINGERS SINCE ONLY ON EXERTION Migraines History of pancreatitis Ankle arthritis Arm paresthesia, left Depression HX Rib fractures (~2013) Glenoid fracture of shoulder (~2013) Surgical History History of left cataract surgery History of cardiac cath 3-4 YR AGO/HX C/P (SUSPECTED [place]) ....CATH...NO STENT(S)...NO FINDINGS ([facility]) History of total left hip arthroplasty History of total right hip replacement History of shoulder surgery LEFT / DECEMBER 2021 History of endoscopy History of colonoscopy History of carpal tunnel release of both wrists Hx of shoulder surgery RIGHT Bilateral inguinal hernia repaired History of appendectomy History of cholecystectomy Family History Mother Cancer Father Heart disease Colorectal cancer Stroke Grandmother (Paternal) Family history of diabetes mellitus Grandfather (Maternal) Family history of diabetes mellitus Social History Smoking Status: Former smoker Tobacco Type: Cigarettes Smoking End Date: Quit at 41 y/o; Second Hand Exposure: No; Do You Dip or Chew Tobacco: No; Hx Alcohol Use: No Hx Substance Use: No Preferred Language: Serbian Communication Ability: Effective 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 Beliefs That Will Affect Care: None marital status: Current Living Situation: Alone Current Living Situation Comment: with Cassandra current occupation: [employer] Other Information That Helps Us Care for You: No Feels Safe at Home: Yes Safety Concerns: Feels Safe At This Time Assistive Devices: Glasses Review of Systems Review of Systems: All systems reviewed & are unremarkable except as noted in Subjective Physical Exam Physical Exam: General: No acute distress Skin: Warm and dry; no nail changes noted Head: Normocephalic, atraumatic Eyes: PERRL, conjunctivae clear, sclera non-icteric ENT: External ear and ear canal without swelling; nose atraumatic; good dentition, tongue normal appearance, pharynx normal Neck: Supple, no LAD Cardio: Silly distant heart sounds, mild tachycardia in the low 100s, regular rhythm, no M/G/R, S1 and S2 normal Resp: No respiratory distress, Lungs CTA in all lobes bilaterally, no wheezes, rales, or rhonchi Abdomen: Soft, symmetric, nontender; No masses or hepatosplenomegaly; Bowel sounds normoactive MSK: No deformities; pulses palpable and equal; no edema. Neuro: Awake, alert; Sensation intact bilaterally; CN grossly intact Psych: Appropriate mood and affect; good judgement and insight. Sister, Kori, and brother, Conrad, present in room at time of visit. Results & Data Results & Data Vital Signs (Past 12 Hours) Vital Signs Temp Pulse Pulse Resp BP BP Pulse Ox 06/05/25 22:44 103 H 06/05/25 21:00 101 H 16 100/74 95 06/05/25 19:45 37.6 C 06/05/25 19:00 116 H 16 96 06/05/25 19:00 116 H 16 143/76 H 96 06/05/25 19:00 95 06/05/25 18:46 120 H 06/05/25 18:29 37.8 C H 122 H 24 125/74 97 O2 Del Method 06/05/25 22:44 06/05/25 21:00 Room Air 06/05/25 19:45 06/05/25 19:00 Room Air 06/05/25 19:00 Room Air 06/05/25 19:00 Room Air 06/05/25 18:46 06/05/25 18:29 Room Air Laboratory Results 06/05/25 19:16 WBC 10.11 RBC 4.32 L Hgb 12.7 L Hct 37.2 L MCV 86.1 MCH 29.4 MCHC 34.1 RDW Std Deviation 43.9 RDW Coeff of Juan A 14.1 Plt Count 205 MPV 8.8 L Immature Gran % (Auto) 0.4 Neut % (Auto) 87.7 Lymph % (Auto) 5.9 Briscoe % (Auto) 5.7 Eos % (Auto) 0.0 Baso % (Auto) 0.3 Neut # (Auto) 8.86 H Lymph # (Auto) 0.60 L [place]iscoe # (Auto) 0.58 Eos # (Auto) 0.00 Baso # (Auto) 0.03 Immature Gran # (Auto) 0.04 PT 12.3 H INR 1.2 H Sodium 134 L Potassium 4.6 Chloride 102 Carbon Dioxide 20 L Anion Gap 12 H BUN 27 H Creatinine 1.59 H Est Cr Clr Drug Dosing 57.6 eGFR 46.99 BUN/Creatinine Ratio 17.0 Glucose 145 H Calcium 8.8 Phosphorus 3.2 Magnesium 0.9 L* Total Bilirubin 2.8 H Direct Bilirubin 0.3 H AST 14 ALT 15 Alkaline Phosphatase 67 Troponin I High Sens 3.0 Total Protein 7.5 Albumin 4.1 Globulin 3.4 Albumin/Globulin Ratio 1.2 Lipase 22 Procalcitonin 0.33 TSH 0.752 Adenovirus (PCR) Not Detected B. pertussis DNA (PCR) Not Detected B.parapertussis DNA PCR Not Detected C. pneumoniae DNA (PCR) Not Detected Coronavirus OC43 (PCR) Not Detected Coronavirus HKU1 (PCR) Not Detected Coronavirus 229E (PCR) Not Detected SARS-CoV-2 (PCR) Not Detected Coronavirus NL63 (PCR) Not Detected Human Metapneumovir PCR Not Detected Influenza Type A (PCR) Not Detected Influenza Type B (PCR) Not Detected M. pneumoniae (PCR) Not Detected Parainfluenza 1 (PCR) Not Detected Parainfluenza 2 (PCR) Not Detected Parainfluenza 3 (PCR) Not Detected Parainfluenza 4 (PCR) Not Detected RSV (PCR) Not Detected Entero/Rhino (PCR) Not Detected Diagnostic Findings Chest X-Ray 06/05/25 18:51 Single frontal view of the chest Comparison made to prior exam dated 11/21/2023 Impression Mild central pulmonary vascular congestion. No acute infiltrates or effusions. Postoperative changes right shoulder. Electronically signed by Lisandro Tamez 06-05-2025 8:17 PM Medications Administered 1L NSS Mag sulfate 1 g IV Acetaminophen 1 g IV ECG Additional Comments: Sinus tachycardia 121 bpm, GA 188, QRS 78, QT/QTc 292/414, PRT 45/45/74 Code Status & VTE Plan Code Status DNR/DNI Supervising Physician Co-Signing Physician Notes Attending addendum: I have physically seen this patient, have supervised the MARIYA's activities, and agree with the H&P unless as otherwise noted. Assessment and Plan: The patient's is a 69-year-old male with past medical history including CAD status post PCI, CKD stage III, diabetes mellitus type 2, peripheral neuropathy, dyslipidemia, hypertension, hypomagnesemia, and anxiety. He presents to the emergency department with a number of symptoms including fevers, chest pressure, flulike symptoms, and some altered mentation. Workup in the emergency department included negative respiratory BioFire test, magnesium 0.9, total bilirubin 2.8, direct bilirubin 0.3, creatinine 1.59, glucose 145, and WBC 10.11. CT abdomen pelvis showed complex kidney cyst, CT scan of head was negative. Febrile illness- No etiology at this time is apparent. Chest x-ray with questionable mild central bands of vascular pulmonary congestion CT head negative for acute findings CT scan abdomen and pelvis showed no acute findings there is splenomegaly with splenic capsular calcification, complex appearing cyst in the left kidney. Follow urine culture sensitivity Follow-up blood culture and sensitivity Treat symptomatically at this time Zofran 4 mg IV every 6 hours as needed Acetaminophen 1 g IV every 8 hours as needed for mild pain or fever LR at 80 mL/h Serial CBC with differential, chemistry profile and magnesium level Acute kidney injury superimposed on CKD stage III- Creatinine 1.59, with base 1.27 IV fluids as noted above Repeat laboratories in the a.m. Hypomagnesemia- Magnesium 0.9 on admission Status post 1 g magnesium sulfate IV from the ED Give additional 3 g IV now, repeat laboratories in a.m. Remaining orders and notations as noted PG Care Time/CCT Total # of Minutes Spent Total Time Spent with Patient: Total time spent is greater than 50% in coordination of care (as documented) at patient's floor/unit and/or counseling patient: Coding Level of Care Code 26514 INT INP/OBS CARE 3/75MIN Diagnoses Fever R50.9 Renal insufficiency N28.9 Hypomagnesemia E83.42 Uncontrolled type 2 diabetes mellitus with hyperglycemia, with long-term current use of insulin E11.65; Z79.4 Elevated bilirubin R17
--- NOTE | 2025-06-05 23:13 | CT Scan Report ---
Exam(s): CT HEAD Without Contrast EXAM: CT Head Without Intravenous Contrast CLINICAL HISTORY: Reason for exam: fever, confusion. TECHNIQUE: Axial computed tomography images of the head/brain without intravenous contrast. CTDI is 66.19 mGy and DLP is 1098.96 mGy-cm. Automated exposure control was utilized for the study. A dose lowering technique was utilized adhering to the principles of ALARA. COMPARISON: Prior head CT from October 16, 2013. FINDINGS: Brain: Unremarkable. No hemorrhage. No significant white matter disease. No edema. Ventricles: Unremarkable. No ventriculomegaly. Bones/joints: Unremarkable. No acute fracture. Soft tissues: Unremarkable. Sinuses: Unremarkable as visualized. No acute sinusitis. Mastoid air cells: Unremarkable as visualized. No mastoid effusion. IMPRESSION: No evidence of acute intracranial pathology. Electronically signed by: Vanessa Thomas MD 06/05/25 23:12 PM
[2025-06-05 23:15] LABS: Appearance Urine Clear (Clear); Bacteria Urine Automated None Seen (None Seen); Epithelial Cell Urine Auto 0-2 /hpf (0-2); Glucose Urine UA Negative (Negative); RBC Urine Automated 0-2 /hpf (0-2); WBC Urine Automated 0-5 /hpf (0-5)
[2025-06-05] MEDS ORDERED: ONDANSETRON INJ 2 MG/ML 2 ML VIAL IV PRN (23:30)
[2025-06-05] MEDS ORDERED: ACETAMINOPHEN 500 MG TAB PO PRN (23:30)
[2025-06-05] MEDS: LACTATED RINGER'S 1,000 ML IV STA (23:47)
[2025-06-06] MEDS: MAGNESIUM SULFATE / D5W 1 GM/100 ML BAG IV SCH (00:13)
--- NOTE | 2025-06-06 00:28 | CT Scan Report ---
Exam(s): CT ABDOMEN + PELVIS Without Contrast EXAM: CT Abdomen and Pelvis Without Intravenous Contrast CLINICAL HISTORY: Reason for exam: fever, n/v, karina. TECHNIQUE: Axial computed tomography images of the abdomen and pelvis without intravenous contrast. CTDI is this is a waste of time is a waste of time this is a waste of my yes 27 mGy and DLP is 1376.57 mGy-cm. Automated exposure control was utilized for the study. A dose lowering technique was utilized adhering to the principles of ALARA. COMPARISON: No relevant prior studies available. FINDINGS: ABDOMEN: Liver: Unremarkable. Gallbladder and bile ducts: Cholecystectomy. No ductal dilation. Pancreas: Unremarkable. No ductal dilation. Spleen: Splenomegaly with spleen measuring 13.7 cm in length. Chronic calcification along the splenic capsule. Adrenals: Unremarkable. No mass. Kidneys and ureters: 2.0 cm exophytic lesion in the left kidney. The density is not consistent with a simple cyst. Stomach and bowel: Unremarkable. No obstruction. No mucosal thickening. PELVIS: Appendix: No findings to suggest acute appendicitis. Bladder: Unremarkable. No stones. ABDOMEN and PELVIS: Intraperitoneal space: Unremarkable. No free air. No significant fluid collection. Bones/joints: No acute findings. Soft tissues: Unremarkable. Vasculature: Unremarkable. No abdominal aortic aneurysm. Lymph nodes: Unremarkable. No enlarged lymph nodes. IMPRESSION: No acute findings in the abdomen or pelvis. Splenomegaly with splenic capsular calcification. Complex appearing cyst in the left kidney. Consider further evaluation with CT or MRI without and with contrast. Electronically signed by: Omar Curry MD 06/06/25 00:27 AM
[2025-06-06] MEDS ORDERED: INSULIN HUMAN REGULAR SC PRN (01:16)
[2025-06-06] MEDS ORDERED: MELATONIN 3 MG TAB PO PRN (01:16)
[2025-06-06] MEDS ORDERED: GLUCOSE 10 TAB/TUBE PO PRN ×2 (01:16→02:51)
[2025-06-06] MEDS ORDERED: GLUCOSE 40% GEL 15 GM TUBE PO PRN ×2 (01:16→02:51)
[2025-06-06] MEDS ORDERED: GLUCAGON FOR INJ 1 MG VIAL SQ PRN ×2 (01:16→02:51)
[2025-06-06] MEDS ORDERED: POLYETHYLENE (MIRALAX) 17 GM PACK PO PRN (01:16)
[2025-06-06] MEDS ORDERED: DEXTROSE 50% 50 ML SYRINGE IV PRN ×2 (01:16→02:51)
[2025-06-06] MEDS ORDERED: CARBOHYDRATES FOR HYPOGLYCEMIA PO PRN ×2 (01:16→02:51)
[2025-06-06] MEDS: cefTRIAXone SODIUM 2,000 MG/50 ML BAG IV STA (02:04)
[2025-06-06] MEDS: LANTUS PER UNIT CHARGE SC ONE (03:27)
[2025-06-06] MEDS: INSULIN ASPART PER UNIT CHARGE SC SCH (03:27)
[2025-06-06 07:14] LABS: Cdiff Toxin B Gene (2yr or >) Negative Cdiff Gene (Neg)
[2025-06-06 07:24] LABS: Hematocrit (blood only) 31.4 % (42.0-52.0); Hemoglobin 11.2 g/dl (14.0-18.0); Mean Corpuscular Hemoglobin 30.4 pg (25.0-34.0); Mean Corpuscular Volume 85.1 fL (80.0-100.0); Platelet Count 192 K/uL (130-400); RDW Standard Deviation 43.8 fL (36.4-46.3); Red Blood Count 3.69 M/uL (4.70-6.10); White Blood Count 7.43 K/ul (4.8-10.8)
[2025-06-06] MEDS ORDERED: Continuous Glucose Monitor SCH (07:30)
[2025-06-06] MEDS ORDERED: INSULIN, Regular PUMP SC SCH (07:30)
[2025-06-06 07:43] LABS: Anion Gap 10.0 (3-11); Blood Urea Nitrogen 26.0 mg/dl (6-23); Calcium 7.9 mg/dl (8.6-10.3); Carbon Dioxide 18.0 mmol/L (21-32); Chloride 102.0 mmol/L (98-107); Creatinine Clr Calc Pharmacy 65.3 ml/min; Glucose 198.0 mg/dl (70-99(Fasting)); Magnesium 2.0 mg/dl (1.7-2.4); Potassium 3.8 mmol/L (3.5-5.1); Sodium 130.0 mmol/L (136-145)
[2025-06-06 07:47] LABS: Adenovirus F 40/41 PCR Not Detected (NotDetected); Enteroaggregative E.coli(EAEC) Not Detected (NotDetected); Shiga-like Toxin E.coli (STEC) Not Detected (NotDetected); Vibrio species PCR Not Detected (NotDetected)
[2025-06-06 07:49] LABS: Campylobacter PCR DETECTED (NotDetected)
[2025-06-06] MEDS: LOSARTAN POTASSIUM 25 MG TAB PO SCH (08:43)
[2025-06-06] MEDS: ASPIRIN 81 MG ECTAB PO SCH (08:43)
[2025-06-06] MEDS: METOPROLOL SUCC 25MG EXT REL TAB PO SCH (08:43)
[2025-06-06] MEDS: TOPIRAMATE 25 MG TAB PO SCH (08:44)
[2025-06-06] MEDS ORDERED: INFLUENZA VACC TS2025-26(65y+)/PF (IIV3) 0.5mL Syr IM ONE (09:00)
[2025-06-06] MEDS: SODIUM CHLORIDE 0.9% 1,000 ML IV SCH (10:23)
[2025-06-06] MEDS: AZITHROMYCIN 250 MG TAB PO SCH (10:24)
--- NOTE | 2025-06-06 13:43 | Hospitalist Progress Note ---
"Date of Service June 06, 2025 Assessment & Plan (1) Campylobacter diarrhea: (2) Fever: (3) Renal insufficiency: (4) Dyspnea on exertion: (5) Hypomagnesemia: (6) Uncontrolled type 2 diabetes mellitus with hyperglycemia, with long-term current use of insulin: (7) Elevated bilirubin: Plan 69-year-old male PMHx CAD s/p PCI, CKD stage III, T2DM with peripheral neuropathy, dyslipidemia, HTN, hypomagnesemia, and anxiety presenting for an array of symptoms worsening over the past week to include fevers, chest pressure, flulike symptoms, and some altered mentation. Imaging (Head CT and CT A/P and CXR) without identifying etiology of fever. L complex renal cyst identified. UA and BioFire negative Stool studies positive for Campylobacter. Admit for IV fluids and symptoms Management #Campylobacter Diarrhea | Fever - Multiple days of fever, myalgias, diarrhea. No recent antibiotics. No known sick contacts. Only other complaint is some worsening CONNOR over the past 2 weeks. Stool studies positive for Campylobacter. tolerating regular diet. Still have stooling q2-3 hours Azithromycin 500mg x 3 days Blood culures pending #DIONNE on CKD stage III | Hyponatremia Likely secondary to recent GI illness; Received 1L NSS in ED. Switched to NSS from LR today Cr baseline 1.1-1.2, improved to 1.43 today Avoid nephrotoxic agents AM BMP #worsening CONNOR | #CAD s/p PCI ramus/HTN/HLD- Follows with cardiology (most recent visit 12/09/2024); ASA, Plavix, metoprolol, losartan, atorvastatin, vascepa - continue; echo pending #Hypomagnesemia Mg 0.9 on admission - likely from GI losses Replaced with 4g IV mag, now replete 2.0 AM Mag #T2DM A1c 6.4. Home regimen includes insulin, metformin BID, and Ozempic weekly - HELD Has CGM and insulin pump; DM complicated by neuropathy. 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 AM 06/07 SSI with glucose goal 110-160, CF 20, CR 5 Lantus held for AM with hopeful transition back to pump #Complex Renal Cyst complex appearing cyst in L kidney - outpatient follow up - consider CT or MRI with and without contrast) #Elevated bilirubin - Prior history of such since 20 y/o, follows with GI (most recent visit 03/29/2025); h/o hepatic steatosis as well; total 2.8, direct 0.3 - trend as appropriate #Psych- Fluoxetine - continue #Migraines- Topiramate - continue First point of contact: Kori @ [phone] Second point of contact: Conrad @ [phone] Dispo: continued inpatient stay, monitor Cr and diarrhhea VTE Prophylaxis: SCDs Admission and Anticipated Discharge Date Admission Date: June 06, 2025 Results & Data Results & Data Vital Signs (Past 12 Hours) Vital Signs Temp Pulse Pulse Resp BP Pulse Ox O2 Del Method 06/06/25 11:27 98.2 F 96 H 20 118/64 97 Room Air 06/06/25 07:37 99.9 F H 107 H 20 121/68 96 Room Air 06/06/25 07:29 110 H PG Care Time/CCT Total # of Minutes Spent Total Time Spent with Patient: Total time spent is greater than 50% in coordination of care (as documented) at patient's floor/unit and/or counseling patient: Coding Level of Care Code 52536 SUB INP/OBS CARE 3/50MIN Diagnoses Campylobacter diarrhea A04.5 Fever R50.9 Renal insufficiency N28.9 Dyspnea on exertion R06.09 Hypomagnesemia E83.42 Uncontrolled type 2 diabetes mellitus with hyperglycemia, with long-term current use of insulin E11.65; Z79.4 Elevated bilirubin R17"
--- NOTE | 2025-06-06 14:35 | XCELERA ---
[id number]
[2025-06-06] MEDS: ICOSAPENT ETHYL 1 GM PO SCH (21:39)
[2025-06-06] MEDS: CLOPIDOGREL BISULFATE 75 MG TAB PO SCH (21:40)
[2025-06-06] MEDS: ATORVASTATIN 40 MG TAB PO SCH (21:41)
[2025-06-06] MEDS: ACETAMINOPHEN 325 MG TAB PO PRN (21:44)
[2025-06-07 07:42] LABS: Anion Gap 7.0 (3-11); Blood Urea Nitrogen 21.0 mg/dl (6-23); Calcium 8.3 mg/dl (8.6-10.3); Carbon Dioxide 23.0 mmol/L (21-32); Chloride 108.0 mmol/L (98-107); Creatinine Clr Calc Pharmacy 76.5 ml/min; Glucose 185.0 mg/dl (70-99(Fasting)); Magnesium 2.0 mg/dl (1.7-2.4); Potassium 3.8 mmol/L (3.5-5.1); Sodium 138.0 mmol/L (136-145)
[2025-06-07] MEDS ORDERED: LANTUS PER UNIT CHARGE SC SCH (09:00)
--- NOTE | 2025-06-07 09:31 | Discharge Summary ---
Discharge Summary Date of Service June 07, 2025 Principal Dx & Hospital Course #1 = Principal Diagnosis (1) Campylobacter diarrhea: (2) Fever: (3) Renal insufficiency: (4) Dyspnea on exertion: (5) Hypomagnesemia: (6) Uncontrolled type 2 diabetes mellitus with hyperglycemia, with long-term current use of insulin: (7) Elevated bilirubin: Plan #Campylobacter Diarrhea | Fever 69-year-old male PMHx CAD s/p PCI, CKD stage III, T2DM with peripheral neuropathy, dyslipidemia, HTN, hypomagnesemia, and anxiety presenting for an array of symptoms worsening over the past week to include fevers, chest pressure, flulike symptoms, and some altered mentation. Imaging (Head CT and CT A/P and CXR) without identifying etiology of fever. L complex renal cyst identified. UA and BioFire negative Stool studies positive for Campylobacter. Remains afebrile, no abdominal pain, tolerating regular diet. Still having diarrhea but improving and feels like he can manage at home. Continue course of azithromycin, last day 06/08. Blood culures negative at 24 hours #DIONNE on CKD stage III | Hyponatremia - Likely secondary to recent GI illness; Received NSS, Cr returned to baseline and Na now 138. Discussed hydration with continued diarrhea. #worsening CONNOR | #CAD s/p PCI ramus/HTN/HLD- Follows with cardiology (most recent visit 12/09/2024); ASA, Plavix, metoprolol, losartan, atorvastatin, vascepa - continue; Echo without signs of CHF - continue PCP follow up for further workup of CONNOR #Hypomagnesemia - Mg 0.9 on admission - likely from GI losses, Replaced with 4g IV mag, now replete 2.0 #T2DM A1c 6.4. Home regimen includes insulin, metformin BID, and Ozempic weekly - HELD Has CGM and insulin pump; DM complicated by neuropathy. 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, plan to retrial AM 06/07 SSI with glucose goal 110-160, CF 20, CR 5 Lantus held for AM with hopeful transition back to pump #Complex Renal Cyst - complex appearing cyst in L kidney - outpatient follow up - consider CT or MRI with and without contrast) #Elevated bilirubin - Prior history of such since 20 y/o, follows with GI (most recent visit 03/29/2025); h/o hepatic steatosis as well; #Psych- Fluoxetine - continue #Migraines- Topiramate - continue Dispo: discharge to home today, PCP follow up Notes For Next Care Provider blood cultures pending renal cyst will need further imaging Admission HPI Per Admitting Provider 69-year-old male PMHx CAD s/p PCI, CKD stage III, T2DM with peripheral neuropathy, dyslipidemia, HTN, hypomagnesemia, and anxiety presenting for an array of symptoms worsening over the past week to include fevers, chest pressure , flulike symptoms, and some altered mentation. 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 He also felt that his body was aching and he was very tired overall. His 2 siblings (Kori and Conrad) came into town and when they were going to take the patient up for dinner they noted that he seemed more confused. He was in his living room at that time. His sister repor ts a fever of 102 F on the day of arrival, but the patient is unsure if he had a fever or any other days. He states that he is having loose bowel movements approximately 4-5 times per day as well as nausea and vomiting on the day of arrival. He is on Ozempic, but he has been taking this medication since August 2024 without recent dose changes. 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 He notes that his shortness of breath has been increasing with exertion over the past 1 to 2 weeks. He states he is unsure how far he can normally walk but he knows that it has shortened by the time he gets short of breath. He denies any chest pain at present. He does have chills and feels cold at time of admission. No palpitations, abdominal pain, constipation, abnormal numbness/tingling, LUTS, URI symptoms, weakness, syncope, or falls. ED evaluation reveals CBC without leukocytosis, H&H 12.7/37.2; PT/INR 12.3/1.2; CMP sodium 134, CO2 20, AG 12, BUN 27, creatinine 1.59, glucose 145, bilirubin 2.8, direct bilirubin 0.3; magnesium 0.9; troponin 3; procalcitonin 0.33; TSH 0.752; BioFire negative; CXR mild central pulmonary vascular congestion, no acute infiltrates or effusions; CTAP no acute findings, splenomegaly with splenic capsular calcification, complex appearing cyst in the L kidney; head CT no acute findings; EKG sinus tachycardia at 121 bpm.; Provided with 1L NSS, mag sulfate 1 g IV, and acetaminophen 1 g IV in ED. Of note, patient did recently lose his a few months ago. His emergency contacts will first be his sister Kori ([phone]), and second his brother Conrad ([phone]). Please see Dr. Gates's attestation for adjustments/additions to treatment plan. Discharge Exam General: NAD, VS as above HEENT: MMM Resp: normal respiratory effort, lungs clear to auscultation CV: RRR, no murmur, Abd: normal bowel sounds, non tender, soft Extremities: Moves all extremities, no edema Neuro: A&O x3, Skin: intact, no lesions noted Discharge Plan Discharge Items Patient Disposition: Home - Self-Care Reason For Visit: FEVER, DIARRHEA Discharge Diagnosis: Camplobacter Diarrhea Condition on Discharge: Fair Activity: Resume your previous activity Weightbearing: Full weightbearing Non-emergency contact: Primary Care Provider Call non-emergency contact if: you have any medication questions, your symptoms worsen, your pain is not controlled and your temperature is above 101 Follow-up/Referrals: Evan Zapata DO [Primary Care Provider] - (Please call your primary care provider to schedule a hospital follow-up appointment within 7-10 days ) Diet: Carb Consistent or DM2 Addtl Attending Provider Instructions: Mr. Archuleta, You were hospitalized after having continued diarrhea - this was found to be from Campylobacter. You were treated with azithromycin and will have one more day left tomorrow. As we discussed, do not take Imodium as we want this infectious diarrhea to get out of your system. Your electrolytes and kidney function have returned to normal. If you are still having multiple episode of diarrhea a day, consider an electrolyte drink daily to make sure you are staying hydrated. You had an echocardiogram (ultra sound of your heart) done because you were feeling short of breath with activity. This did not show any signs of heart failure, please continue to follow up with your PCP for further workup of your shortness of breath. You have blood cultures pending at the time of discharge, they are negative at 24 hours but take 5 days to get final results. If they turn positive you will be notified, you can also check in with your PCP or the [facility] portal. However, given your symptoms I do not expect they will be positive. No changes to your home medications. Activity: You can do normal everyday activities as your body allows. Take rest breaks if you feel tired. Do not overexert. Stop activity if you have pain, shortness of breath or feel dizzy. Follow-up appointments: Make an appointment with your primary care physician within one week of discharge. A copy of this summary will be sent to them. Every time you see your primary care physician, or any other doctor, bring your medication list, and a list of questions. CONTACT YOUR PRIMARY CARE PROVIDER if you experience any of the following: Shortness of breath or difficulty breathing Fevers or chills Feeling tired with normal activity or experiencing dizziness or fainting Difficulty following your treatment plan, or difficulty taking medications CALL 911 OR GO TO THE EMERGENCY DEPARTMENT if you experience any of the following: Severe abdominal pain or nausea/vomiting Severe chest pain, or chest pain that radiates (moves) to your jaw or arm Sudden, severe shortness of breath or difficulty breathing Thank you for allowing us to participate in your care. Pending Studies at Discharge: Yes (blood cultures ) Stand-Alone Forms: My [facility], Smoking Cessation Medications and DC Order Prescriptions: New azithromycin 250 mg Tablet 500 mg PO QAM Qty: 2 0RF Continued fluoxetine 20 mg capsule 20 mg PO QAM Excedrin Migraine 250-250-65 mg tablet 2 tab PO Q6H PRN (Reason: pain) Qty: 60 0RF atorvastatin 40 mg tablet 40 mg PO HS 30 Days Qty: 90 3RF aspirin 81 mg tablet,delayed release (DR/EC) 81 mg PO DAILY clopidogrel 75 mg tablet 75 mg PO HS Qty: 90 3RF metoprolol succinate 25 mg tablet extended release 24 hr 25 mg PO QAM Qty: 90 3RF icosapent ethyl [Vascepa] 1 gram capsule 2 g PO BID Qty: 360 1RF metformin 1,000 mg tablet 1,000 mg PO BID 90 Days Qty: 180 1RF (DME) lancets [Accu-Chek Fastclix Lancet Drum] Misc See Rx Instructions .Route Qty: 100 3RF Rx Instructions: use to test blood sugar QID when CGM is not working & also to calibrate CGM (DME) lancing device with lancets [Accu-Chek FastClix Lancing Dev] Kit See Rx Instructions .Route Qty: 1 2RF Rx Instructions: use to test blood sugar QID when CGM is not working & also to calibrate CGM (DME) Accu-Chek Felicia Plus test strp Strip See Rx Instructions .Route Qty: 100 3RF Rx Instructions: Test TID losartan 25 mg tablet 25 mg PO QAM (DME) pen needle, diabetic [Comfort EZ Pen [place]] 31 gauge x 5/16" needle See Rx Instructions .Route Qty: 50 2RF Rx Instructions: Inject insulin in case of pump failure (DME) Omnipod 5 G6-G7 Pods (Gen 5) Cartridge See Rx Instructions .ROUTE .MEDSUPPLY Qty: 15 11RF Rx Instructions: change pods every 2 days based on insulin usage topiramate 25 mg tablet 25 mg PO BID insulin aspart U-100 [Novolog U-100 Insulin aspart] 100 unit/mL solution 0 sliding scale dose continuous subcutaneous infusion CONTINOUS MDD 100 UNITS/DAILY Rx Instructions: Infuse via insulin pump 100 units daily; insulin aspart U-100 [Novolog FlexPen U-100 Insulin] 100 unit/mL (3 mL) insulin pen 0 sliding scale dose subcut TID MDD 50 units Rx Instructions: In case of pump failure, inject 1 unit for every 2g of carbs plus sliding scale, up to 50 units per day until pump failure resolved insulin degludec [Tresiba FlexTouch U-200] 200 unit/mL (3 mL) insulin pen 46 unit subcut DAILY MDD 46 units daily PRN (Reason: PUMP FAILURE) Rx Instructions: In case of pump failure, inject 46 units daily until pump failure resolved Ozempic 0.25 mg or 0.5 mg (2 mg/3 mL) pen injector 0.25 mg subcut WK Rx Instructions: SUNDAYS Discharge Orders: Discharge Order (Routine); Ordered 06/07/25 Ordered By: Sumaya Masterson/Other Patient Handouts: Campylobacter Infect Admission Data Admit Date/Time: 06/06/25 00:06 Attending Provider: Joel Mehta Admit Provider: Rhys Gates Primary Care Provider: Evan Zapata Other Providers: Rhys Gates Other Interventions: Discharge Summary Assessment (RN) Last Done: 06/07/25 10:58 Hospital Stay Data Consultations 06/05/25 22:26 ED Decision to Admit Stat Diagnostic Imagining Performed Chest X-Ray 06/05/25 18:51 Single frontal view of the chest Comparison made to prior exam dated 11/21/2023 Impression Mild central pulmonary vascular congestion. No acute infiltrates or effusions. Postoperative changes right shoulder. Electronically signed by Lisandro Tamez 06-05-2025 8:17 PM Abdomen/Pelvis CT 06/05/25 20:38 Exam(s): CT ABDOMEN + PELVIS Without Contrast EXAM: CT Abdomen and Pelvis Without Intravenous Contrast CLINICAL HISTORY: Reason for exam: fever, n/v, dionne. TECHNIQUE: Axial computed tomography images of the abdomen and pelvis without intravenous contrast. CTDI is this is a waste of time is a waste of time this is a waste of my yes 27 mGy and DLP is 1376.57 mGy-cm. Automated exposure control was utilized for the study. A dose lowering technique was utilized adhering to the principles of ALARA. COMPARISON: No relevant prior studies available. FINDINGS: ABDOMEN: Liver: Unremarkable. Gallbladder and bile ducts: Cholecystectomy. No ductal dilation. Pancreas: Unremarkable. No ductal dilation. Spleen: Splenomegaly with spleen measuring 13.7 cm in length. Chronic calcification along the splenic capsule. Adrenals: Unremarkable. No mass. Kidneys and ureters: 2.0 cm exophytic lesion in the left kidney. The density is not consistent with a simple cyst. Stomach and bowel: Unremarkable. No obstruction. No mucosal thickening. PELVIS: Appendix: No findings to suggest acute appendicitis. Bladder: Unremarkable. No stones. ABDOMEN and PELVIS: Intraperitoneal space: Unremarkable. No free air. No significant fluid collection. Bones/joints: No acute findings. Soft tissues: Unremarkable. Vasculature: Unremarkable. No abdominal aortic aneurysm. Lymph nodes: Unremarkable. No enlarged lymph nodes. IMPRESSION: No acute findings in the abdomen or pelvis. Splenomegaly with splenic capsular calcification. Complex appearing cyst in the left kidney. Consider further evaluation with CT or MRI without and with contrast. Electronically signed by: Omar Curry MD 06/06/25 00:[address] 06/05/25 20:38 Exam(s): CT HEAD Without Contrast EXAM: CT Head Without Intravenous Contrast CLINICAL HISTORY: Reason for exam: fever, confusion. TECHNIQUE: Axial computed tomography images of the head/brain without intravenous contrast. CTDI is 66.19 mGy and DLP is 1098.96 mGy-cm. Automated exposure control was utilized for the study. A dose lowering technique was utilized adhering to the principles of ALARA. COMPARISON: Prior head CT from October 16, 2013. FINDINGS: Brain: Unremarkable. No hemorrhage. No significant white matter disease. No edema. Ventricles: Unremarkable. No ventriculomegaly. Bones/joints: Unremarkable. No acute fracture. Soft tissues: Unremarkable. Sinuses: Unremarkable as visualized. No acute sinusitis. Mastoid air cells: Unremarkable as visualized. No mastoid effusion. IMPRESSION: No evidence of acute intracranial pathology. Electronically signed by: Vanessa Thomas MD 06/05/25 23:12 PM Pending Results Patient Have Any Pending Studies at Discharge: Yes (blood cultures ) Discharge Instructions Given to Patient (Per Discharging Provider) Mr. Archuleta, Monty were hospitalized after having continued diarrhea - this was found to be from Campylobacter. You were treated with azithromycin and will have one more day left tomorrow. As we discussed, do not take Imodium as we want this infectious diarrhea to get out of your system. Your electrolytes and kidney function have returned to normal. If you are still having multiple episode of di arrhea a day, consider an electrolyte drink daily to make sure you are staying hydrated. You had an echocardiogram (ultra sound of your heart) done because you were feeling short of breath with activity. This did not show any signs of heart failure, please continue to follow up with your PCP for further workup of your shortness of breath. You have blood cultures pending at the time of discharge, they are negative at 24 hours but take 5 days to get final results. If they turn positive you will be notified, you can also check in with your PCP or the [facility] portal. However, given your symptoms I do not expect they will be positive. No changes to your home medications. Activity: You can do normal everyday activities as your body allows. Take rest breaks if you feel tired. Do not overexert. Stop activity if you have pain, shortness of breath or feel dizzy. Follow-up appointments: Make an appointment with your primary care physician within one week of discharge. A copy of this summary will be sent to them. Every time you see your primary care physician, or any other doctor, bring your medication list, and a list of questions. CONTACT YOUR PRIMARY CARE PROVIDER if you experience any of the following: Shortness of breath or difficulty breathing Fevers or chills Feeling tired with normal activity or experiencing dizziness or fainting Difficulty following your treatment plan, or difficulty taking medications CALL 911 OR GO TO THE EMERGENCY DEPARTMENT if you experience any of the following: Severe abdominal pain or nausea/vomiting Severe chest pain, or chest pain that radiates (moves) to your jaw or arm Sudden, severe shortness of breath or difficulty breathing Thank you for allowing us to participate in your care. Total Time Total Time Spent Total Time Spent (In Minutes): Time spent day of discharge 35 minutes including direct patient care, medication reconciliation, documentation, review of labs and images, and coordination of care. case discussed with adaptive physical educator Coding Level of Care Code 24424 INP/OBS DISCH >30 MIN Diagnoses Campylobacter diarrhea A04.5 Fever R50.9 Renal insufficiency N28.9 Dyspnea on exertion R06.09 Hypomagnesemia E83.42 Uncontrolled type 2 diabetes mellitus with hyperglycemia, with long-term current use of insulin E11.65; Z79.4 Elevated bilirubin R17
--- NOTE | 2025-06-07 09:32 | Communication Note ---
Date of Service: June 07, 2025 By CMS guidelines, a determination that the admission or continued stay is not medically necessary has been made by a member of the UR committee and a ph ysician for this hospital stay, therefore a Code 44 will be completed and the Inpatient admission will be changed to outpatient.
[2025-06-07 11:09] VITALS: BP 122/65; PULSE 62; RESP 18; TEMP 97.9; O2SAT 93
--- NOTE | 2025-06-09 15:16 | Electrocardiogram Report ---
Test Reason : Blood Pressure : */* mmHG Vent. Rate : 121 BPM Atrial Rate : 121 BPM P-R Int : 188 ms QRS Dur : 78 ms QT Int : 292 ms P-R-T Axes : 45 45 74 degrees QTcB Int : 414 ms Sinus tachycardia Cannot rule out Anterior infarct , age undetermined Abnormal ECG When compared with ECG of 21-Nov-2023 23:50, NC interval has decreased Vent. rate has increased by 48 bpm Nonspecific T wave abnormality now evident in Inferior leads Confirmed by Bolivar Santos ([id number]) on 06/09/2025 3:15:29 PM Referred By: REFERRED SELF Confirmed By: Bolivar Santos
== END 2025-06-07 12:00 | disposition home or self-care (01) | DRG 372 ==
LOC: ED 18:16 → SUATTDRO 06-06 00:06 → 2W 06-06 00:06